=== PATIENT | female | born 1965 | race Caucasian/White ===

== ENCOUNTER → 2018-04-23 | Outpatient (CLI) | payer OTHER ==
--- NOTE | 2018-04-24 11:27 | MM ---
Reason for exam: screening (asymptomatic). Last mammogram was performed 1 year and 11 months ago. History: Family history of breast cancer in maternal grandmother at age 40. Physical Findings: A clinical breast exam by your physician is recommended on an annual basis and results should be correlated with mammographic findings. MG 3D Screening Mammo W/Cad Bilateral CC and MLO view(s) were taken. Prior study comparison: May 19, 2016, mammogram. March 12, 2015, mammogram. The breast tissue is heterogeneously dense. This may lower the sensitivity of mammography. No suspicious abnormality. No significant changes when compared with prior studies. ASSESSMENT: Negative, BI-RAD 1 RECOMMENDATION: Routine screening mammogram of both breasts in 1 year.
== END | disposition home or self-care (01) ==
LOC: RADMAMWWP 09:30
PROVIDERS: ATTEND Internal Medicine
DX: Z12.31 Encounter for screening mammogram for malignant neoplasm of breast (principal)
CPT/HCPCS: 77063; 77067

== ENCOUNTER 2018-12-30 10:57 | Inpatient (IN) | payer OTHER ==
[2018-12-30] MEDS ORDERED: SODIUM CHLORIDE 0.9% 1,000 ML IV STA (11:15)
--- NOTE | 2018-12-30 11:38 | ED ---
General Adult HPI - General Chief complaint: Recheck/Abnormal Lab/Rx Stated complaint: abn labs, lt sided abd pain Time Seen by Provider: 12/30/18 11:15 Source: patient, RN notes reviewed, old records reviewed Mode of arrival: ambulatory Limitations: no limitations - History of Present Illness Initial comments: 53-year-old female patient has no history of hypertension, hyperlipidemia presents to the chief complaint of approximately 4 days of left lower quadrant pain, nausea, diarrhea. Patient has been seen at urgent care for this, was started on ciprofloxacin and Flagyl for reported concern of infectious diarrhea. Patient reports that she also had laboratory investigations done which displayed hypokalemia as well as reported thrombocytopenia. Patient chief complaint as left lower quadrant pain and diarrhea patient also reports that she has had waxing and waning her seizures in the fingertips and toes bilaterally. Denies any focal weakness. Pt states that there is no chance that she can be . Systemic: Pt denies fatigue, fever/chills, rash. Pt denies weakness, night sweats, weight loss. Neuro: Pt denies headache, visual disturbances, syncope or pre-syncope. HEENT: Pt denies ocular discharge or irritation, otalgia, rhinorrhea, pharyngitis or notable lymphadenopathy. Cardiopulmonary: Pt denies chest pain, SOB, heart palpitations, dyspnea on exertion. Abdominal/GI: Pt denies abdominal pain, n/v/d. : Pt denies dysuria, burning w/ urination, frequency/urgency. Denies new onset urinary or bowel incontinence. MSK: Pt denies myalgia, loss of strength or function in extremities. Neuro: Pt denies new onset weakness, paresthesias. - Related Data Home Medications Medication Instructions Recorded Confirmed ALPRAZolam [Xanax] 0.5 mg PO BID 12/30/18 12/30/18 Atorvastatin [Lipitor] 10 mg PO HS 12/30/18 12/30/18 Cholestyramine (with Sugar) 4 gm PO TID 12/30/18 12/30/18 [Cholestyramine Packet] Ciprofloxacin HCl [Cipro] 500 mg PO Q12HR 12/30/18 12/30/18 Hydrochlorothiazide [Hydrodiuril] 25 mg PO DAILY 12/30/18 12/30/18 Metoprolol Tartrate [Lopressor] 50 mg PO BID 12/30/18 12/30/18 Ranitidine HCl 150 mg PO BID 12/30/18 12/30/18 metroNIDAZOLE [Flagyl] 500 mg PO TID 12/30/18 12/30/18 Allergies Allergy/AdvReac Type Severity Reaction Status Date / Time ibuprofen [From Motrin] Allergy Anaphylaxis Verified 12/30/18 13:32 latex Allergy Rash/Hives Verified 12/30/18 13:32 Review of Systems ROS Statement: Those systems with pertinent positive or pertinent negative responses have been documented in the HPI. ROS Other: All systems not noted in ROS Statement are negative. Past Medical History Past Medical History: No Reported History History of Any Multi-Drug Resistant Organisms: None Reported Past Surgical History: No Surgical Hx Reported Past Psychological History: No Psychological Hx Reported Smoking Status: Never smoker Past Alcohol Use History: None Reported Past Drug Use History: None Reported General Exam - General Exam Comments Initial Comments: Constitutional: NAD, AOX3, Pt has pleasant affect. HEENT: NC/AT, trachea midline, neck supple, no lymphadenopathy. Posterior pharynx non erythematous, without exudates. External ears appear normal, without discharge. Mucous membranes moist. Eyes PERRLA, EOM intact. There is no scleral icterus. No pallor noted. Cardiopulmonary: RRR, no murmurs, rubs or gallops, no JVD noted. Lungs CTAB in anterior and posterior torres. No peripheral edema. Abdominal exam: Abdomen soft and non-distended. Abdomen mildly tender to palpation in LLQ, no other areas of abdominal tenderness. Bowel sounds active in LLQ. No hepatosplenomegaly. No ecchymosis Neuro: CN II-XII grossly intact. No nuchal rigidity. No raccon eyes, no ksinner sign, no hemotympanum. No cervical spinal tenderness. MSK: No posterior calf tenderness bilaterally, homans sign negative bilaterally. Posterior tibialis and radial pulse +2 bilaterally. Sensation intact in upper and lower extremities. Full active ROM in upper and lower extremities, 5/5 stregnth. Limitations: no limitations Course Vital Signs 12/30/18 12/30/18 11:11 14:20 Temperature 100.9 F H Pulse Rate 112 H 76 Respiratory 20 16 Rate Blood Pressure 145/92 149/94 O2 Sat by Pulse 98 99 Oximetry Medical Decision Making - Medical Decision Making 53-year-old female patient has no history of hypertension, hyperlipidemia presents to the chief complaint of approximately 4 days of left lower quadrant pain, nausea, diarrhea. Patient has been seen at urgent care for this, was started on ciprofloxacin and Flagyl for reported concern of infectious diarrhea. Patient reports that she also had laboratory investigations done which disp layed hypokalemia as well as reported thrombocytopenia. Patient chief complaint as left lower quadrant pain and diarrhea patient also reports that she has had waxing and waning her seizures in the fingertips and toes bilaterally. Denies any focal weakness. Pt states that there is no chance that she can be . Physical exam displayed: Abdomen soft and non-distended. Abdomen mildly tender to palpation in LLQ, no other areas of abdominal tenderness. Bowel sounds active in LLQ. No hepatosplenomegaly. No ecchymosis. Laboratory investigations revealed mild osteopenia 73. CMP revealed hyponatremia 132, hypokalemia of 2.6, hypocalcemia of 5.1, transaminitis, increased bilirubin, lipase of 1263. CT abdomen and pelvis displayed finding consistent with fairly acute pancreatitis. EKG displayed ventricular rate of 88, prolonged QT. Patient admitted for pancreatitis, calcium and potassium supplemented. Patient nothing by mouth. Maintenence fluids began, case discussed in depth with Dr. Sullivan. - Lab Data Result diagrams: 12/30/18 11:31 12/30/18 11:31 Lab Results 12/30/18 12/30/18 12/30/18 Range/Units 11:31 11:31 11:31 WBC 7.2 (3.8-10.6) k/uL RBC 3.66 L (3.80-5.40) m/uL Hgb 12.9 (11.4-16.0) gm/dL Hct 38.8 (34.0-46.0) % MCV 106.2 H (80.0-100.0) fL MCH 35.4 H (25.0-35.0) pg MCHC 33.3 (31.0-37.0) g/dL RDW 14.8 (11.5-15.5) % Plt Count 73 L (150-450) k/uL Neutrophils % 82 % Lymphocytes % 8 % Monocytes % 7 % Eosinophils % 1 % Basophils % 0 % Neutrophils # 5.9 (1.3-7.7) k/uL Lymphocytes # 0.6 L (1.0-4.8) k/uL Monocytes # 0.5 (0-1.0) k/uL Eosinophils # 0.1 (0-0.7) k/uL Basophils # 0.0 (0-0.2) k/uL Manual Slide Review Performed Macrocytosis Moderate Sodium 132 L (137-145) mmol/L Potassium 2.6 L* (3.5-5.1) mmol/L Chloride 94 L (98-107) mmol/L Carbon Dioxide 25 (22-30) mmol/L Anion Gap 13 mmol/L BUN 14 (7-17) mg/dL Creatinine 0.87 (0.52-1.04) mg/dL Est GFR (CKD-EPI)AfAm 87 (>60 ml/min/1.73 sqM) Est GFR (CKD-EPI)NonAf 75 (>60 ml/min/1.73 sqM) Glucose 138 H (74-99) mg/dL Plasma Lactic Acid Benjie 1.3 (0.7-2.0) mmol/L Calcium 5.1 L* (8.4-10.2) mg/dL Magnesium (1.6-2.3) mg/dL Total Bilirubin 1.9 H (0.2-1.3) mg/dL AST 152 H (14-36) U/L ALT 55 H (9-52) U/L Alkaline Phosphatase 136 H (38-126) U/L Total Protein 7.1 (6.3-8.2) g/dL Albumin 3.7 (3.5-5.0) g/dL Lipase 1263 H (23-300) U/L 12/30/18 Range/Units 11:31 WBC (3.8-10.6) k/uL RBC (3.80-5.40) m/uL Hgb (11.4-16.0) gm/dL Hct (34.0-46.0) % MCV (80.0-100.0) fL MCH (25.0-35.0) pg MCHC (31.0-37.0) g/dL RDW (11.5-15.5) % Plt Count (150-450) k/uL Neutrophils % % Lymphocytes % % Monocytes % % Eosinophils % % Basophils % % Neutrophils # (1.3-7.7) k/uL Lymphocytes # (1.0-4.8) k/uL Monocytes # (0-1.0) k/uL Eosinophils # (0-0.7) k/uL Basophils # (0-0.2) k/uL Manual Slide Review Macrocytosis Sodium (137-145) mmol/L Potassium (3.5-5.1) mmol/L Chloride (98-107) mmol/L Carbon Dioxide (22-30) mmol/L Anion Gap mmol/L BUN (7-17) mg/dL Creatinine (0.52-1.04) mg/dL Est GFR (CKD-EPI)AfAm (>60 ml/min/1.73 sqM) Est GFR (CKD-EPI)NonAf (>60 ml/min/1.73 sqM) Glucose (74-99) mg/dL Plasma Lactic Acid Benjie (0.7-2.0) mmol/L Calcium (8.4-10.2) mg/dL Magnesium 1.2 L (1.6-2.3) mg/dL Total Bilirubin (0.2-1.3) mg/dL AST (14-36) U/L ALT (9-52) U/L Alkaline Phosphatase (38-126) U/L Total Protein (6.3-8.2) g/dL Albumin (3.5-5.0) g/dL Lipase (23-300) U/L Disposition Clinical Impression: Pancreatitis, Hypokalemia, Hypocalcemia Disposition: ADMITTED IP TO THIS [facility] Condition: Serious Is patient prescribed a controlled substance at d/c from ED?: No
[2018-12-30 11:45] LABS: Basophils % (A) 0 %; Eosinophils # (A) 0.1 k/uL (0-0.7); Eosinophils % (A) 1 %; HCT 38.8 % (34.0-46.0); HGB 12.9 gm/dL (11.4-16.0); Lymphocytes # (A) 0.6 k/uL (1.0-4.8); Lymphocytes % (A) 8 %; MCH 35.4 pg (25.0-35.0); MCHC 33.3 g/dL (31.0-37.0); MCV 106.2 fL (80.0-100.0); Macrocytosis Moderate; Mean Platelet Volume 8.7; Monocytes # (A) 0.5 k/uL (0-1.0); Monocytes % (A) 7 %; Neutrophils # (A) 5.9 k/uL (1.3-7.7); Neutrophils % (A) 82 %; RBC 3.66 m/uL (3.80-5.40); RDW 14.8 % (11.5-15.5); WBC 7.2 k/uL (3.8-10.6)
[2018-12-30 11:54] LABS: Albumin 3.7 g/dL (3.5-5.0); Total Bilirubin 1.9 mg/dL (0.2-1.3); Total Protein 7.1 g/dL (6.3-8.2)
[2018-12-30 12:07] LABS: Potassium 2.6 mmol/L (3.5-5.1)
[2018-12-30 12:08] LABS: Calcium 5.1 mg/dL (8.4-10.2)
[2018-12-30 12:13] LABS: Platelet Count 73 k/uL (150-450)
[2018-12-30] MEDS ORDERED: Potassium Replacement Protocol 1 EACH MISC MISCELLANE PRN (12:27)
[2018-12-30] MEDS ORDERED: CALCIUM CHLORIDE 100 MG/ML 10 ML SYRINGE IVP STA (12:29)
--- NOTE | 2018-12-30 12:39 | CT ---
EXAMINATION TYPE: CT abdomen pelvis w con DATE OF EXAM: 12/30/2018 HISTORY: Abnormal labs, Left sided abd pain CT DLP: 730.5mGycm Automated Exposure Control for Dose Reduction was Utilized. CONTRAST: CT scan of the abdomen and pelvis is performed with IV Contrast, patient injected with 100 ml mL of I sovue 300. COMPARISON: None. FINDINGS: LUNG BASES: No significant abnormality is appreciated. LIVER/GB: Liver is diffusely low dense suggesting diffuse fatty infiltration.. PANCREAS: Pancreatic tail is heterogeneous in appearance with diminished enhancement and enlargement. There is marked ill-defined surrounding fluid at this level extending inferiorly all way to the left lower quadrant. No well-formed fluid collection or abscess is identified. SPLEEN: No significant abnormality is seen. ADRENALS: No significant abnormality is seen. KIDNEYS: Symmetric cortical medullary uptake and excretion without hydronephrosis bilaterally. BOWEL: Stomach is poorly distended and thus suboptimally evaluated. Fluid surrounds the stomach with mild to moderate diffuse wall thickening. No suspicious small or large bowel dilatation. A few small bowel loops in the left abdomen are prominent with air-fluid levels.. UTERUS/ADNEXA: Anteverted uterus. Prominent left ovarian draining veins axial image 61 for reference. Cannot exclude underlying pelvic congestion syndrome. LYMPH NODES: No greater than 1cm abdominal or pelvic lymph nodes are appreciated. OSSEOUS STRUCTURES: Moderate disc space narrowing with vacuum disc phenomenon and endplate spurring L 5-S1 level. Multilevel degenerative changes most prominent at L1-L2 level. OTHER: No significant additional abnormality is seen. IMPRESSION: CT findings consistent with a fairly severe acute pancreatitis. Cannot exclude developing necrosis involving the pancreatic tail. No well-formed fluid collection currently. Reactive gastriti s and enteritis felt present.
[2018-12-30] MEDS ORDERED: LORazepam 2 MG/ML INJ IV PRN ×2 (12:41)
[2018-12-30] MEDS ORDERED: THIAMINE 100 MG/ML 2 ML VIAL IM STA (12:41)
[2018-12-30] MEDS: POTASSIUM CHLORIDE ER 20 MEQ TAB.ER PO SCH ×3 (12:42→18:30)
[2018-12-30] MEDS ORDERED: LEVOFLOXACIN 750MG-D5W PMX 750 MG in DEXTROSE/WATER 1 150ML.BAG IVPB STA (12:45)
[2018-12-30] MEDS ORDERED: metroNIDAZOLE-NS PMX 500 MG in SALINE 1 100ML.BAG IVPB STA (12:45)
[2018-12-30] MEDS ORDERED: NALOXONE 0.4 MG/ML 1 ML VIAL IV PRN (13:04)
[2018-12-30] MEDS ORDERED: MORPHINE SULFATE 4 MG/ML SYRINGE IV PRN (13:04)
[2018-12-30] MEDS: POTASSIUM CHLORIDE 20 MEQ in WATER FOR INJECTION 1 100ML.BAG IVPB SCH ×4 (13:19→17:09)
[2018-12-30] MEDS: SODIUM CHLORIDE 0.9% 1,000 ML IV SCH ×2 (13:25→23:45)
--- NOTE | 2018-12-30 14:41 | ED ---
Medical Decision Making - Lab Data Result diagrams: 12/30/18 11:31 12/30/18 11:31 Lab Results 12/30/18 12/30/18 12/30/18 Range/Units 11:31 11:31 11:31 WBC 7.2 (3.8-10.6) k/uL RBC 3.66 L (3.80-5.40) m/uL Hgb 12.9 (11.4-16.0) gm/dL Hct 38.8 (34.0-46.0) % MCV 106.2 H (80.0-100.0) fL MCH 35.4 H (25.0-35.0) pg MCHC 33.3 (31.0-37.0) g/dL RDW 14.8 (11.5-15.5) % Plt Count 73 L (150-450) k/uL Neutrophils % 82 % Lymphocytes % 8 % Monocytes % 7 % Eosinophils % 1 % Basophils % 0 % Neutrophils # 5.9 (1.3-7.7) k/uL Lymphocytes # 0.6 L (1.0-4.8) k/uL Monocytes # 0.5 (0-1.0) k/uL Eosinophils # 0.1 (0-0.7) k/uL Basophils # 0.0 (0-0.2) k/uL Manual Slide Review Performed Macrocytosis Moderate Sodium 132 L (137-145) mmol/L Potassium 2.6 L* (3.5-5.1) mmol/L Chloride 94 L (98-107) mmol/L Carbon Dioxide 25 (22-30) mmol/L Anion Gap 13 mmol/L BUN 14 (7-17) mg/dL Creatinine 0.87 (0.52-1.04) mg/dL Est GFR (CKD-EPI)AfAm 87 (>60 ml/min/1.73 sqM) Est GFR (CKD-EPI)NonAf 75 (>60 ml/min/1.73 sqM) Glucose 138 H (74-99) mg/dL Plasma Lactic Acid Benjie 1.3 (0.7-2.0) mmol/L Calcium 5.1 L* (8.4-10.2) mg/dL Magnesium (1.6-2.3) mg/dL Total Bilirubin 1.9 H (0.2-1.3) mg/dL AST 152 H (14-36) U/L ALT 55 H (9-52) U/L Alkaline Phosphatase 136 H (38-126) U/L Total Protein 7.1 (6.3-8.2) g/dL Albumin 3.7 (3.5-5.0) g/dL Lipase 1263 H (23-300) U/L 12/30/18 Range/Units 11:31 WBC (3.8-10.6) k/uL RBC (3.80-5.40) m/uL Hgb (11.4-16.0) gm/dL Hct (34.0-46.0) % MCV (80.0-100.0) fL MCH (25.0-35.0) pg MCHC (31.0-37.0) g/dL RDW (11.5-15.5) % Plt Count (150-450) k/uL Neutrophils % % Lymphocytes % % Monocytes % % Eosinophils % % Basophils % % Neutrophils # (1.3-7.7) k/uL Lymphocytes # (1.0-4.8) k/uL Monocytes # (0-1.0) k/uL Eosinophils # (0-0.7) k/uL Basophils # (0-0.2) k/uL Manual Slide Review Macrocytosis Sodium (137-145) mmol/L Potassium (3.5-5.1) mmol/L Chloride (98-107) mmol/L Carbon Dioxide (22-30) mmol/L Anion Gap mmol/L BUN (7-17) mg/dL Creatinine (0.52-1.04) mg/dL Est GFR (CKD-EPI)AfAm (>60 ml/min/1.73 sqM) Est GFR (CKD-EPI)NonAf (>60 ml/min/1.73 sqM) Glucose (74-99) mg/dL Plasma Lactic Acid Benjie (0.7-2.0) mmol/L Calcium (8.4-10.2) mg/dL Magnesium 1.2 L (1.6-2.3) mg/dL Total Bilirubin (0.2-1.3) mg/dL AST (14-36) U/L ALT (9-52) U/L Alkaline Phosphatase (38-126) U/L Total Protein (6.3-8.2) g/dL Albumin (3.5-5.0) g/dL Lipase (23-300) U/L - EKG Data -: EKG Interpreted by Me (and Dr. Sullivan ) EKG Comments: Ventricular rate 88, when necessary for 166, QRS 98, QT/QTc 426 T 5:15. Normal sinus rhythm, cannot rule out anterior infarct, age undetermined, prolonged QT, abnormal EKG, no concern for acute ischemia at this time. Disposition Clinical Impression: Pancreatitis, Hypokalemia, Hypocalcemia Disposition: ADMITTED IP TO THIS HOSP Condition: Serious Is patient prescribed a controlled substance at d/c from ED?: No
[2018-12-30 14:58] LABS: Appearance,Urine Clear (Clear); Bacteria,Urine Rare /hpf; Bilirubin,Urine Negative (Negative); Blood,Urine Trace (Negative); Color,Urine Light Yellow; Glucose,Urine (UA) Negative (Negative); Ketones,Urine Trace (Negative); Leukocyte Esterase,Urine Negative (Negative); Mucus,Urine Rare /hpf; Nitrite,Urine Negative (Negative); PH, Urine 6.5 (5.0-8.0); Protein,Urine Negative (Negative); RBC,Urine <1 /hpf (0-5); Specific Gravity,Urine 1.025 (1.001-1.035); Squamous Epithelial Cell,Urine 3 /hpf (0-4); Urobilinogen,Urine <2.0 mg/dL (<2.0); WBC,Urine 1 /hpf (0-5)
[2018-12-30] MEDS ORDERED: ACETAMINOPHEN TAB 325 MG TAB PO STA (15:27)
[2018-12-30 16:15] LABS: ALT 50 U/L (9-52); AST 121 U/L (14-36); African American GFR (CKD) >90 (>60 ml/min/1.73 sqM); Albumin 3.2 g/dL (3.5-5.0); Alkaline Phosphatase 110 U/L (38-126); Anion Gap 11 mmol/L; Blood Urea Nitrogen 11 mg/dL (7-17); Carbon Dioxide 22 mmol/L (22-30); Chloride 102 mmol/L (98-107); Glucose 95 mg/dL (74-99); Potassium 2.9 mmol/L (3.5-5.1); Sodium 135 mmol/L (137-145); Total Bilirubin 1.5 mg/dL (0.2-1.3); Total Protein 6.3 g/dL (6.3-8.2)
[2018-12-30 16:29] LABS: Calcium 5.8 mg/dL (8.4-10.2)
[2018-12-30] MEDS: THIAMINE 100 MG TAB PO SCH ×2 (20:02→20:03)
[2018-12-30] MEDS: POTASSIUM CHLORIDE 10 MEQ in WATER FOR INJECTION 1 100ML.BAG IVPB SCH ×3 (21:13→23:45)
[2018-12-30] MEDS ORDERED: Magnesium Replacement Protocol 1 EACH MISC MISCELLANE PRN (21:28)
[2018-12-30] MEDS ORDERED: CALCIUM CHLORIDE 100 MG/ML 10 ML SYRINGE IVP ONE (22:00)
[2018-12-30] MEDS: MAGNESIUM SULFATE-D5W PMX 1 GM in DEXTROSE/WATER 1 100ML.BAG IVPB SCH ×2 (22:35→23:43)
[2018-12-30] MEDS: ACETAMINOPHEN TAB 325 MG TAB PO PRN (22:56)
[2018-12-30] MEDS: ONDANSETRON 4 MG/2 ML VIAL IVP PRN (22:56)
[2018-12-30] MEDS: LORazepam 2 MG/ML INJ IV PRN (22:57)
--- NOTE | 2018-12-30 23:51 | P.HPIM ---
History of Present Illness H&P Date: 12/30/18 Chief Complaint: Abdominal pain Patient is a 53-year-old female with a known history of alcohol abuse, hypertension, hyperlipidemia came to ER with complaints of abdominal pain mainly left lower quadrant started on 12/26/2018 after finishing her dinner. For the next 2 days patient has been getting worse and patient was seen at urgent care facilityq and was started on Flagyl and ciprofloxacin for possible diverticulitis/infectious diarrhea. Patient presented to ER due to worsening symptoms. Patient is also complaining of pain in the epigastric region as well. Denied any nausea vomiting. Patient Did have diarrhea. No fever no chills.Denied any dysuria or hematuria. Denied any paresthesias. Bilirubin 1.9, calcium 5.1 and potassium 2.9 Elevated liver enzymes and alk phos level. MCV 106.2, platelets 73 and WBC 7.[address] of the abdomen and pelvis showed consistent with fairly severe acute pancreatitis. Cannot exclude developing necrosis involving the pancreatic tail. No well formed fluid collection currently.. Reactive gastritis and enteritis present. Patient was given a dose of Levaquin and Flagyl in the ER. Review of Systems Constitutional: Patient denies any fever or chills . No generalized weakness or weight loss. Abdomen: Charly pain. No nausea vomiting no diarrhea currently.. Cardiovascular: Patient denies any chest pain or short of breath no palpitations. Respiratory: patient denied any cough is from production. No shortness of breath Neurologic: Patient denied any numbness or tingling headache. Musculoskeletal: Patient denies any complaints of joint swelling or deformity. Skin: Negative Psychiatric: Negative Endocrine: No heat or cold intolerance. No recent weight gain. Genitourinary: No dysuria or hematuria. All other 14 point ROS negative except the above Past Medical History Past Medical History: Hypertension History of Any Multi-Drug Resistant Organisms: None Reported Past Surgical History: Section Past Anesthesia/Blood Transfusion Reactions: Postoperative Nausea & Vomiting (PONV) Past Psychological History: No Psychological Hx Reported Smoking Status: Never smoker Past Alcohol Use History: Daily Additional Past Alcohol Use History / Comment(s): pt states she drinks 4 drinks a day. Past Drug Use History: None Reported - Past Family History Mother Family Medical History: Hypertension Father Family Medical History: Coronary Artery Disease (CAD) Medications and Allergies Home Medications Medication Instructions Recorded Confirmed Type ALPRAZolam [Xanax] 0.5 mg PO BID 12/30/18 12/30/18 History Atorvastatin [Lipitor] 10 mg PO HS 12/30/18 12/30/18 History Cholestyramine (with Sugar) 4 gm PO TID 12/30/18 12/30/18 History [Cholestyramine Packet] Ciprofloxacin HCl [Cipro] 500 mg PO Q12HR 12/30/18 12/30/18 History Hydrochlorothiazide [Hydrodiuril] 25 mg PO DAILY 12/30/18 12/30/18 History Metoprolol Tartrate [Lopressor] 50 mg PO BID 12/30/18 12/30/18 History Ranitidine HCl 150 mg PO BID 12/30/18 12/30/18 History metroNIDAZOLE [Flagyl] 500 mg PO TID 12/30/18 12/30/18 History Allergies Allergy/AdvReac Type Severity Reaction Status Date / Time ibuprofen [From Motrin] Allergy Anaphylaxis Verified 12/30/18 13:32 latex Allergy Rash/Hives Verified 12/30/18 13:32 Physical Exam Vitals: Vital Signs Temp Pulse Pulse Resp BP BP Pulse Ox 12/30/18 20:29 164/89 12/30/18 20:11 98.9 F 100 18 168/104 96 12/30/18 18:33 92 16 161/94 99 12/30/18 18:07 97.9 F 90 16 148/94 96 12/30/18 15:12 101.2 F H 92 16 172/97 99 12/30/18 14:20 76 16 149/94 99 12/30/18 11:11 100.9 F H 112 H 20 145/92 98 Intake and Output 12/30/18 12/30/18 12/31/18 14:59 22:59 06:59 Intake Total 1000 Balance 1000 Intake: Intake, IV Titration 1000 Amount Sodium Chloride 0.9% 1, 1000 000 ml @ 999 mls/hr IV . Q1H1M STA Rx#:[id number] Other: # Voids 2 Weight 63.503 kg PHYSICAL EXAMINATION: Patient is lying in the bed comfortably, no acute distress, awake alert and oriented.. HEENT: Normocephalic. Neck is supple. Pupils reactive. Nostrils clear. Oral cavity is moist. Ears reveal no drainage. Neck reveals no JVD, carotid bruits, or thyromegaly. CHEST EXAMINATION: Trachea is central. Symmetrical expansion. Lung torres clear to auscultation and percussion. CARDIAC: Normal S1, S2 with no gallops. No murmurs ABDOMEN: Soft. Epigastric and left upper quadrant tenderness. No guarding no rigidity. Bowel sounds normal. No organomegaly. No abdominal bruits. Extremities: reveal no edema. No clubbing or cyanosis Neurologically awake, alert, oriented x3 with well-coordinated movements. No focal deficits noted Skin: No rash or skin lesions. Psychiatric: Coperative. Nonsuicidal Musculoskeletal: No joint swelling or deformity. Normal range of motion. Results CBC & Chem 7: 12/30/18 11:31 12/30/18 20:18 Labs: Abnormal Lab Results - Last 24 Hours (Table) 12/30/18 12/30/18 12/30/18 Range/Units 11:31 11:31 11:31 RBC 3.66 L (3.80-5.40) m/uL MCV 106.2 H (80.0-100.0) fL MCH 35.4 H (25.0-35.0) pg Plt Count 73 L (150-450) k/uL Lymphocytes # 0.6 L (1.0-4.8) k/uL Sodium 132 L (137-145) mmol/L Potassium 2.6 L* (3.5-5.1) mmol/L Chloride 94 L (98-107) mmol/L Glucose 138 H (74-99) mg/dL Calcium 5.1 L* (8.4-10.2) mg/dL Magnesium 1.2 L (1.6-2.3) mg/dL Total Bilirubin 1.9 H (0.2-1.3) mg/dL AST 152 H (14-36) U/L ALT 55 H (9-52) U/L Alkaline Phosphatase 136 H (38-126) U/L Albumin (3.5-5.0) g/dL Lipase 1263 H (23-300) U/L Urine Ketones (Negative) Urine Blood (Negative) Urine Bacteria (None) /hpf Urine Mucus (None) /hpf 12/30/18 12/30/18 12/30/18 Range/Units 14:20 15:44 20:18 RBC (3.80-5.40) m/uL MCV (80.0-100.0) fL MCH (25.0-35.0) pg Plt Count (150-450) k/uL Lymphocytes # (1.0-4.8) k/uL Sodium 135 L (137-145) mmol/L Potassium 2.9 L 3.4 L (3.5-5.1) mmol/L Chloride (98-107) mmol/L Glucose (74-99) mg/dL Calcium 5.8 L* (8.4-10.2) mg/dL Magnesium (1.6-2.3) mg/dL Total Bilirubin 1.5 H (0.2-1.3) mg/dL AST 121 H (14-36) U/L ALT (9-52) U/L Alkaline Phosphatase (38-126) U/L Albumin 3.2 L (3.5-5.0) g/dL Lipase (23-300) U/L Urine Ketones Trace H (Negative) Urine Blood Trace H (Negative) Urine Bacteria Rare H (None) /hpf Urine Mucus Rare H (None) /hpf Thrombosis Risk Factor Assmnt - DVT/VTE Prophylaxis DVT/VTE Prophylaxis: Pharmacologic Prophylaxis ordered - Choose All That Apply Any of the Below Risk Factors Present?: No Other Risk Factors: No Other congenital or acquired thrombophilia - If yes, enter type in comment: No Thrombosis Risk Factor Assessment Level: Very Low Risk Assessment and Plan Assessment: Acute severe pancreatitis. Possible necrotizing gangrenous cannot be excluded as per CT Severe hypokalemia Severe hypomagnesemia Severe hypokalemia Alcohol abuse Hypertension Hyperlipidemia Macrocytosis and thrombocytopenia secondary to alcohol abuse GI and DVT prophylaxis with early ambulation and SCDs Plan: Patient be continued on pain management with morphine and IV hydration. Nothing by mouth. Replace electrolyte. We'll start on empiric antibiotics. Gen. surgery was consulted. Further recommendations based on the clinical course. Discussed with the patient and her at bedside. Prognosis is guarded with this time. Alcohol abuse has been counseled extensively. Time with Patient: Greater than 30
[2018-12-31] MEDS: MAGNESIUM SULFATE-D5W PMX 1 GM in DEXTROSE/WATER 1 100ML.BAG IVPB SCH (00:49)
[2018-12-31] MEDS: FAMOTIDINE 20 MG/2 ML VIAL IV SCH ×2 (00:49→07:55)
[2018-12-31] MEDS: POTASSIUM CHLORIDE 10 MEQ in WATER FOR INJECTION 1 100ML.BAG IVPB SCH (00:50)
[2018-12-31] MEDS: PIPERACILLIN-TAZOBACTAM 3.375 GM in SODIUM CHLORIDE 0.9% 100 ML IVPB SCH ×4 (02:01→23:31)
[2018-12-31] MEDS: THIAMINE 100 MG TAB PO SCH ×2 (07:55→17:57)
[2018-12-31] MEDS: SODIUM CHLORIDE 0.9% 1,000 ML IV SCH ×2 (07:57→18:57)
[2018-12-31] MEDS: ACETAMINOPHEN TAB 325 MG TAB PO PRN ×3 (07:58→23:40)
[2018-12-31 08:34] LABS: Basophils % (A) 0 %; Eosinophils % (A) 1 %; HCT 34.5 % (34.0-46.0); HGB 11.4 gm/dL (11.4-16.0); Lymphocytes # (A) 0.4 k/uL (1.0-4.8); Lymphocytes % (A) 10 %; MCH 36.6 pg (25.0-35.0); MCHC 33.1 g/dL (31.0-37.0); MCV 110.6 fL (80.0-100.0); Macrocytosis Marked; Mean Platelet Volume 7.8; Monocytes # (A) 0.4 k/uL (0-1.0); Monocytes % (A) 10 %; Neutrophils # (A) 2.9 k/uL (1.3-7.7); Neutrophils % (A) 76 %; RBC 3.12 m/uL (3.80-5.40); RDW 15.2 % (11.5-15.5); WBC 3.8 k/uL (3.8-10.6)
[2018-12-31 08:58] LABS: Platelet Count 72 k/uL (150-450)
[2018-12-31 09:10] LABS: ALT 43 U/L (9-52); AST 86 U/L (14-36); African American GFR (CKD) >90 (>60 ml/min/1.73 sqM); Albumin 2.9 g/dL (3.5-5.0); Alkaline Phosphatase 94 U/L (38-126); Anion Gap 10 mmol/L; Blood Urea Nitrogen 6 mg/dL (7-17); Carbon Dioxide 20 mmol/L (22-30); Chloride 105 mmol/L (98-107); Glucose 116 mg/dL (74-99); Magnesium 2.1 mg/dL (1.6-2.3); Sodium 135 mmol/L (137-145); Total Bilirubin 1.6 mg/dL (0.2-1.3); Total Protein 5.8 g/dL (6.3-8.2)
[2018-12-31 09:31] LABS: Calcium 6.3 mg/dL (8.4-10.2)
[2018-12-31] MEDS: POTASSIUM CHLORIDE ER 20 MEQ TAB.ER PO SCH ×4 (11:52→18:57)
--- NOTE | 2018-12-31 14:26 | P.GSCN ---
History of Present Illness Consult date: 12/31/18 Reason for Consult: Pancreatitis History of present illness: 53-year-old female comes in the hospital with complaints of left-sided pain. Patient states her symptoms began last Monday evening. She had nausea and vomiting as well as left upper quadrant pain. Pain when first starting was in the epigastric region. Today it is improved. She went to urgent care on 2 separate occasions. Because of the persistent discomfort she came to the hospital. CAT scan showed anchored [place] involving primarily the distal aspect of the pancreas. Gallbladder on that study appears fairly normal. Patient admits to alcohol abuse. Now drinking more socially. She has had alcohol recently. Denies any change in the color of her skin urine or stool. She has had nausea and vomiting. She has had diarrhea. Overnight the patient was febrile T-max 101.2. Liver enzymes were mildly elevated initially. Calcium was significantly low. Review of Systems The patient denies any acute changes in vision or hearing, no dysphagia or odynophagia, no chest pain or shortness of breath, no dysuria or hematuria, no headache, no runny nose, no rectal bleeding or melena, no unexplained weight loss Past Medical History Past Medical History: Hypertension History of Any Multi-Drug Resistant Organisms: None Reported Past Surgical History: Section Past Anesthesia/Blood Transfusion Reactions: Postoperative Nausea & Vomiting (PONV) Past Psychological History: No Psychological Hx Reported Smoking Status: Never smoker Past Alcohol Use History: Daily Additional Past Alcohol Use History / Comment(s): pt states she drinks 4 drinks a day. Past Drug Use History: None Reported - Past Family History Mother Family Medical History: Hypertension Father Family Medical History: Coronary Artery Disease (CAD) Medications and Allergies Home Medications Medication Instructions Recorded Confirmed Type ALPRAZolam [Xanax] 0.5 mg PO BID 12/30/18 12/30/18 History Atorvastatin [Lipitor] 10 mg PO HS 12/30/18 12/30/18 History Cholestyramine (with Sugar) 4 gm PO TID 12/30/18 12/30/18 History [Cholestyramine Packet] Ciprofloxacin HCl [Cipro] 500 mg PO Q12HR 12/30/18 12/30/18 History Hydrochlorothiazide [Hydrodiuril] 25 mg PO DAILY 12/30/18 12/30/18 History Metoprolol Tartrate [Lopressor] 50 mg PO BID 12/30/18 12/30/18 History Ranitidine HCl 150 mg PO BID 12/30/18 12/30/18 History metroNIDAZOLE [Flagyl] 500 mg PO TID 12/30/18 12/30/18 History Allergies Allergy/AdvReac Type Severity Reaction Status Date / Time ibuprofen [From Motrin] Allergy Anaphylaxis Verified 12/30/18 13:32 latex Allergy Rash/Hives Verified 12/30/18 13:32 Surgical - Exam Vital Signs Temp Pulse Resp BP Pulse Ox 100.9 F H 112 H 20 145/92 98 12/30/18 11:11 12/30/18 11:11 12/30/18 11:11 12/30/18 11:11 12/30/18 11:11 Physical exam: General: Well-developed, well-nourished HEENT: Normocephalic, sclerae nonicteric Abdomen: Mild distention, left upper quadrant tenderness Extremities: No edema Neuro: Alert and oriented Results - Labs 12/31/18 07:42 12/31/18 07:42 Abnormal Lab Results - Last 24 Hours (Table) 12/30/18 12/30/18 12/30/18 Range/Units 14:20 15:44 20:18 RBC (3.80-5.40) m/uL MCV (80.0-100.0) fL MCH (25.0-35.0) pg Plt Count (150-450) k/uL Lymphocytes # (1.0-4.8) k/uL Macrocytosis Sodium 135 L (137-145) mmol/L Potassium 2.9 L 3.4 L (3.5-5.1) mmol/L Carbon Dioxide (22-30) mmol/L BUN (7-17) mg/dL Glucose (74-99) mg/dL Calcium 5.8 L* (8.4-10.2) mg/dL Total Bilirubin 1.5 H (0.2-1.3) mg/dL AST 121 H (14-36) U/L Total Protein (6.3-8.2) g/dL Albumin 3.2 L (3.5-5.0) g/dL Urine Ketones Trace H (Negative) Urine Blood Trace H (Negative) Urine Bacteria Rare H (None) /hpf Urine Mucus Rare H (None) /hpf 12/31/18 12/31/18 Range/Units 07:42 07:42 RBC 3.12 L (3.80-5.40) m/uL MCV 110.6 H (80.0-100.0) fL MCH 36.6 H (25.0-35.0) pg Plt Count 72 L (150-450) k/uL Lymphocytes # 0.4 L (1.0-4.8) k/uL Macrocytosis Marked A Sodium 135 L (137-145) mmol/L Potassium 3.0 L (3.5-5.1) mmol/L Carbon Dioxide 20 L (22-30) mmol/L BUN 6 L (7-17) mg/dL Glucose 116 H (74-99) mg/dL Calcium 6.3 L* (8.4-10.2) mg/dL Total Bilirubin 1.6 H (0.2-1.3) mg/dL AST 86 H (14-36) U/L Total Protein 5.8 L (6.3-8.2) g/dL Albumin 2.9 L (3.5-5.0) g/dL Urine Ketones (Negative) Urine Blood (Negative) Urine Bacteria (None) /hpf Urine Mucus (None) /hpf Diabetes panel 12/30/18 12/30/18 12/31/18 Range/Units 15:44 20:18 07:42 Sodium 135 L 135 L (137-145) mmol/L Potassium 2.9 L 3.4 L 3.0 L (3.5-5.1) mmol/L Chloride 102 105 (98-107) mmol/L Carbon Dioxide 22 20 L (22-30) mmol/L BUN 11 6 L (7-17) mg/dL Creatinine 0.77 0.64 (0.52-1.04) mg/dL Glucose 95 116 H (74-99) mg/dL Calcium 5.8 L* 6.3 L* (8.4-10.2) mg/dL AST 121 H 86 H (14-36) U/L ALT 50 43 (9-52) U/L Alkaline Phosphatase 110 94 (38-126) U/L Total Protein 6.3 5.8 L (6.3-8.2) g/dL Albumin 3.2 L 2.9 L (3.5-5.0) g/dL Calcium panel 08/25/19 08/26/19 Range/Units 15:44 07:42 Calcium 5.8 L* 6.3 L* (8.4-10.2) mg/dL Albumin 3.2 L 2.9 L (3.5-5.0) g/dL Pituitary panel 12/30/18 12/30/18 12/31/18 Range/Units 15:44 20:18 07:42 Sodium 135 L 135 L (137-145) mmol/L Potassium 2.9 L 3.4 L 3.0 L (3.5-5.1) mmol/L Chloride 102 105 (98-107) mmol/L Carbon Dioxide 22 20 L (22-30) mmol/L BUN 11 6 L (7-17) mg/dL Creatinine 0.77 0.64 (0.52-1.04) mg/dL Glucose 95 116 H (74-99) mg/dL Calcium 5.8 L* 6.3 L* (8.4-10.2) mg/dL Adrenal panel 12/30/18 12/30/18 12/31/18 Range/Units 15:44 20:18 07:42 Sodium 135 L 135 L (137-145) mmol/L Potassium 2.9 L 3.4 L 3.0 L (3.5-5.1) mmol/L Chloride 102 105 (98-107) mmol/L Carbon Dioxide 22 20 L (22-30) mmol/L BUN 11 6 L (7-17) mg/dL Creatinine 0.77 0.64 (0.52-1.04) mg/dL Glucose 95 116 H (74-99) mg/dL Calcium 5.8 L* 6.3 L* (8.4-10.2) mg/dL Total Bilirubin 1.5 H 1.6 H (0.2-1.3) mg/dL AST 121 H 86 H (14-36) U/L ALT 50 43 (9-52) U/L Alkaline Phosphatase 110 94 (38-126) U/L Total Protein 6.3 5.8 L (6.3-8.2) g/dL Albumin 3.2 L 2.9 L (3.5-5.0) g/dL Assessment and Plan (1) Pancreatitis Narrative/Plan: Patient with impressive degree of pancreatitis on CAT scan. Symptoms thankfully improving. We'll check abdominal ultrasound to evaluate for cholelithiasis. Keep nothing by mouth for now. Recheck labs tomorrow. Continue IV hydration. Current Visit: Yes Status: Acute Code(s): K85.90 - ACUTE PANCREATITIS WITHOUT NECROSIS OR INFECTION, UNSP SNOMED Code(s): 61796600
--- NOTE | 2018-12-31 15:19 | US ---
EXAMINATION TYPE: US gallbladder DATE OF EXAM: 12/31/2018 COMPARISON: NONE CLINICAL HISTORY: Pancreatitis. abd pain, vomiting EXAM MEASUREMENTS: Liver Length: 16.3 cm Gallbladder Wall: 0.2 cm CBD: 0.5 cm Right Kidney: 11.7 x 5.5 x 4.8 cm Pancreas: Head and body of the pancreas appears normal. Tail of pancreas is somewhat limited due to positioning. Some mild edema is not excluded. Liver: Some mild fatty infiltration is within the liver. Mild hepatomegaly is present. Gallbladder: wnl Evidence for sonographic Carson's sign: no CBD: wnl Right Kidney: wnl IMPRESSION: 1. Mild pancreatitis of the tail of the pancreas cannot be excluded. 2. Mild fatty infiltration and hepatomegaly.
[2018-12-31] MEDS: FAMOTIDINE 20 MG TAB PO SCH (20:27)
--- NOTE | 2018-12-31 22:28 | P.PN ---
Subjective Progress Note Date: 12/31/18 Principal diagnosis: Acute severe pancreatitis Patient is a 53-year-old female with a known history of alcohol abuse, hypertension, hyperlipidemia came to ER with complaints of abdominal pain mainly left lower quadrant started on 12/26/2018 after finishing her dinner. For the n ext 2 days patient has been getting worse and patient was seen at urgent care facilityq and was started on Flagyl and ciprofloxacin for possible diverticulitis/infectious diarrhea. Patient presented to ER due to worsening symptoms. Patient is also complaining of pain in the epigastric region as well. Denied any nausea vomiting. Patient Did have diarrhea. No fever no chills.Denied any dysuria or hematuria. Denied any paresthesias. Bilirubin 1.9, calcium 5.1 and potassium 2.9 Elevated liver enzymes and alk phos level. MCV 106.2, platelets 73 and WBC 7.[address] of the abdomen and pelvis showed consistent with fairly severe acute pancreatitis. Cannot exclude developing necrosis involving the pancreatic tail. No well formed fluid collection currently.. Reactive gastritis and enteritis present. Patient was given a dose of Levaquin and Flagyl in the ER. 12/31/2018 Patient says that her abdominal pain is better today. Otherwise continued on IV antibiotics, IV fluids and IV pain medications. Patient was seen by general surgery and ultrasound ABDOMEN WAS ORDERED TO RULE OUT CHOLELITHIASIS. No fever no chills. Potassium level Is improved now. Objective - Vital Signs Vital signs: Vital Signs Temp 98.5 F 12/31/18 20:47 Pulse 86 12/31/18 20:47 Resp 17 12/31/18 20:47 BP 138/76 12/31/18 20:47 Pulse Ox 97 12/31/18 20:47 Intake & Output 12/31/18 12/31/18 01/01/19 06:59 18:59 06:59 Intake Total 2250 Balance 2250 Intake: Intake, IV Titration 2250 Amount Sodium Chloride 0.9% 1, 1250 000 ml @ 125 mls/hr IV . Q8H SAYDA Rx#:[id number] Sodium Chloride 0.9% 1, 1000 000 ml @ 999 mls/hr IV . Q1H1M STA Rx#:[id number] Other: # Voids 2 1 2 - Exam PHYSICAL EXAMINATION: Patient is lying in the bed comfortably, no acute distress, awake alert and oriented.. HEENT: Normocephalic. Neck is supple. Pupils reactive. Nostrils clear. Oral cavity is moist. Ears reveal no drainage. Neck reveals no JVD, carotid bruits, or thyromegaly. CHEST EXAMINATION: Trachea is central. Symmetrical expansion. Lung torres clear to auscultation and percussion. CARDIAC: Normal S1, S2 with no gallops. No murmurs ABDOMEN: Soft. Epigastric and left upper quadrant mild tenderness. Bowel sounds normal. No organomegaly. No abdominal bruits. Extremities: reveal no edema. No clubbing or cyanosis Neurologically awake, alert, oriented x3 with well-coordinated movements. No focal deficits noted Skin: No rash or skin lesions. Psychiatric: Coperative. Nonsuicidal Musculoskeletal: No joint swelling or deformity. Normal range of motion. - Labs CBC & Chem 7: 12/31/18 07:42 12/31/18 20:21 Labs: Abnormal Lab Results - Last 24 Hours (Table) 12/31/18 12/31/18 12/31/18 Range/Units 07:42 07:42 13:53 RBC 3.12 L (3.80-5.40) m/uL MCV 110.6 H (80.0-100.0) fL MCH 36.6 H (25.0-35.0) pg Plt Count 72 L (150-450) k/uL Lymphocytes # 0.4 L (1.0-4.8) k/uL Macrocytosis Marked A Sodium 135 L (137-145) mmol/L Potassium 3.0 L 3.0 L (3.5-5.1) mmol/L Carbon Dioxide 20 L (22-30) mmol/L BUN 6 L (7-17) mg/dL Glucose 116 H (74-99) mg/dL Calcium 6.3 L* (8.4-10.2) mg/dL Total Bilirubin 1.6 H (0.2-1.3) mg/dL AST 86 H (14-36) U/L Total Protein 5.8 L (6.3-8.2) g/dL Albumin 2.9 L (3.5-5.0) g/dL Assessment and Plan Assessment: Acute severe pancreatitis. Possible necrotizing gangrenous cannot be excluded as per CT Severe hypokalemia Severe hypomagnesemia Severe hypokalemia Alcohol abuse Hypertension Hyperlipidemia Macrocytosis and thrombocytopenia secondary to alcohol abuse GI and DVT prophylaxis with early ambulation and SCDs Plan: Patient be continued on pain management with morphine and IV hydration. Nothing by mouth. Replace electrolyte. We will on empiric antibiotics. Gen. surgery has seen the patient. Ultrasound of the abdomen was ordered to rule out cholelithiasis.. Further recommendations based on the clinical course. Discussed with the pa ju and her at bedside. Prognosis is guarded with this time. Alcohol abuse has been counseled extensively. Time with Patient: Greater than 30
[2018-12-31] MEDS: ONDANSETRON 4 MG/2 ML VIAL IVP PRN (23:40)
[2018-12-31] MEDS: LORazepam 2 MG/ML INJ IV PRN (23:40)
[2019-01-01] MEDS: FAMOTIDINE 20 MG TAB PO SCH ×2 (08:06→19:04)
[2019-01-01] MEDS: ACETAMINOPHEN TAB 325 MG TAB PO PRN ×2 (08:07→19:03)
[2019-01-01] MEDS: PIPERACILLIN-TAZOBACTAM 3.375 GM in SODIUM CHLORIDE 0.9% 100 ML IVPB SCH ×3 (08:07→23:56)
[2019-01-01] MEDS: THIAMINE 100 MG TAB PO SCH ×2 (08:07→18:43)
[2019-01-01] MEDS: SODIUM CHLORIDE 0.9% 1,000 ML IV SCH ×4 (08:08→23:59)
[2019-01-01 08:10] LABS: HCT 33.2 % (34.0-46.0); MCH 36.8 pg (25.0-35.0); MCHC 33.1 g/dL (31.0-37.0); MCV 111.3 fL (80.0-100.0); Macrocytosis Marked; Mean Platelet Volume 7.9; RBC 2.98 m/uL (3.80-5.40); WBC 4.8 k/uL (3.8-10.6)
[2019-01-01 08:23] LABS: Platelet Count 94 k/uL (150-450)
[2019-01-01 08:42] LABS: ALT 43 U/L (9-52); AST 71 U/L (14-36); African American GFR (CKD) >90 (>60 ml/min/1.73 sqM); Albumin 2.8 g/dL (3.5-5.0); Alkaline Phosphatase 89 U/L (38-126); Anion Gap 14 mmol/L; Blood Urea Nitrogen 4 mg/dL (7-17); Carbon Dioxide 16 mmol/L (22-30); Chloride 105 mmol/L (98-107); Glucose 63 mg/dL (74-99); Potassium 3.5 mmol/L (3.5-5.1); Sodium 135 mmol/L (137-145); Total Bilirubin 1.4 mg/dL (0.2-1.3); Total Protein 5.7 g/dL (6.3-8.2)
[2019-01-01 09:01] LABS: Calcium 6.4 mg/dL (8.4-10.2)
[2019-01-01 10:59] LABS: Band Neutrophils % 6 %; Eosinophils # (M) 0.05 k/uL (0-0.7); Lymphocytes # (M) 0.38 k/uL (1.0-4.8); Metamyelocytes # (M) 0.05 k/uL (0); Metamyelocytes % 1 %; Monocytes # (M) 0.53 k/uL (0-1.0); Neutrophils % (M) 75 %; Nucleated Red Blood Cells 0 /100 WBC (0-0); Total Cells Counted 200
[2019-01-01 11:00] LABS: Anisocytosis (M) Present; Poikilocytosis (M) Present; Toxic Vacuolation Present
[2019-01-01] MEDS: POTASSIUM CHLORIDE ER 20 MEQ TAB.ER PO SCH ×2 (12:51→14:13)
--- NOTE | 2019-01-01 17:54 | P.PN ---
Subjective Progress Note Date: 01/01/19 Principal diagnosis: Pancreatitis Patient says she feels better today. T-max 101. White blood cell count 4.8. Small amount of bandemia present on CBC. Calcium remains low. Gallbladder ultrasound negative for stones. Objective - Vital Signs Vital signs: Vital Signs Temp 99.4 F 01/01/19 15:00 Pulse 93 01/01/19 15:00 Resp 17 01/01/19 15:00 BP 171/94 01/01/19 15:00 Pulse Ox 97 01/01/19 15:00 Intake & Output 12/31/18 01/01/19 01/01/19 18:59 06:59 18:59 Other: # Voids 1 0 2 - Exam Abdomen: Soft, nondistended, mild epigastric tenderness - Labs CBC & Chem 7: 01/01/19 07:14 01/01/19 07:14 Labs: Abnormal Lab Results - Last 24 Hours (Table) 01/01/19 01/01/19 Range/Units 07:14 07:14 RBC 2.98 L (3.80-5.40) m/uL Hgb 11.0 L (11.4-16.0) gm/dL Hct 33.2 L (34.0-46.0) % MCV 111.3 H (80.0-100.0) fL MCH 36.8 H (25.0-35.0) pg Plt Count 94 L (150-450) k/uL Lymphocytes # (Manual) 0.38 L (1.0-4.8) k/uL Metamyelocytes # (Man) 0.05 H (0) k/uL Macrocytosis Marked A Sodium 135 L (137-145) mmol/L Carbon Dioxide 16 L (22-30) mmol/L BUN 4 L (7-17) mg/dL Glucose 63 L (74-99) mg/dL Calcium 6.4 L* (8.4-10.2) mg/dL Total Bilirubin 1.4 H (0.2-1.3) mg/dL AST 71 H (14-36) U/L Total Protein 5.7 L (6.3-8.2) g/dL Albumin 2.8 L (3.5-5.0) g/dL Assessment and Plan (1) Pancreatitis Narrative/Plan: Patient with EtOH-induced pancreatitis. Discussed, patient pancreatitis including fistula, ascites, bleeding, necrosis, and infection. So far the patient seems to be improving gradually. Monitor fevers. Repeat labs tomorrow. Keep nothing by mouth. Current Visit: Yes Status: Acute Code(s): K85.90 - ACUTE PANCREATITIS WITHOUT NECROSIS OR INFECTION, UNSP SNOMED Code(s): 19479499
[2019-01-01] MEDS: ATORVASTATIN 10 MG TAB PO SCH (19:04)
[2019-01-01] MEDS: METOPROLOL TARTRATE 50 MG TAB PO SCH (19:04)
[2019-01-01] MEDS ORDERED: NON-FORMULARY DRUG (Ranitidine Hcl [Ranitidine Hcl] 150 MG) PO SCH (21:00)
[2019-01-01] MEDS ORDERED: ALPRAZolam 0.5 MG TAB PO SCH (21:00)
--- NOTE | 2019-01-01 23:34 | P.PN ---
Subjective Progress Note Date: 01/01/19 Principal diagnosis: Acute severe pancreatitis Patient is a 53-year-old female with a known history of alcohol abuse, hypertension, hyperlipidemia came to ER with complaints of abdominal pain mainly left lower quadrant started on 12/26/2018 after finishing her dinner. For the n ext 2 days patient has been getting worse and patient was seen at urgent care facilityq and was started on Flagyl and ciprofloxacin for possible diverticulitis/infectious diarrhea. Patient presented to ER due to worsening symptoms. Patient is also complaining of pain in the epigastric region as well. Denied any nausea vomiting. Patient Did have diarrhea. No fever no chills.Denied any dysuria or hematuria. Denied any paresthesias. Bilirubin 1.9, calcium 5.1 and potassium 2.9 Elevated liver enzymes and alk phos level. MCV 106.2, platelets 73 and WBC 7.[address] of the abdomen and pelvis showed consistent with fairly severe acute pancreatitis. Cannot exclude developing necrosis involving the pancreatic tail. No well formed fluid collection currently.. Reactive gastritis and enteritis present. Patient was given a dose of Levaquin and Flagyl in the ER. 12/31/2018 Patient says that her abdominal pain is better today. Otherwise continued on IV antibiotics, IV fluids and IV pain medications. Patient was seen by general surgery and ultrasound ABDOMEN WAS ORDERED TO RULE OUT CHOLELITHIASIS. No fever no chills. Potassium level Is improved now. 01/01/2019 Patient says that her abdominal pain is better today. Abdomen is still bloated otherwise. Patient is being continued on IV hydration and pain management. Nothing by mouth. Ultrasound of the abdomen showed no evidence of cholelithiasis. General surgery is following. Replace electrolyte. Otherwise patient denied any chest pain or shortness of breath. No nausea vomiting no diarrhea. Continued on empiric antibiotics in the form of Zosyn. Current medications reviewed. Objective - Vital Signs Vital signs: Vital Signs Temp 98.5 F 01/01/19 22:35 Pulse 87 01/01/19 20:47 Resp 17 01/01/19 20:47 BP 159/82 01/01/19 22:34 Pulse Ox 95 01/01/19 20:47 Intake & Output 01/01/19 01/01/19 01/02/19 06:59 18:59 06:59 Other: # Voids 0 2 1 - Exam PHYSICAL EXAMINATION: Patient is lying in the bed comfortably, no acute distress, awake alert and oriented.. HEENT: Normocephalic. Neck is supple. Pupils reactive. Nostrils clear. Oral cavity is moist. Ears reveal no drainage. Neck reveals no JVD, carotid bruits, or thyromegaly. CHEST EXAMINATION: Trachea is central. Symmetrical expansion. Lung torres clear to auscultation and percussion. CARDIAC: Normal S1, S2 with no gallops. No murmurs ABDOMEN: Soft. Epigastric and left upper quadrant mild tenderness. Distended abdomen. Bowel sounds normal. No organomegaly. No abdominal bruits. Extremities: reveal no edema. No clubbing or cyanosis Neurologically awake, alert, oriented x3 with well-coordinated movements. No focal deficits noted Skin: No rash or skin lesions. Psychiatric: Coperative. Nonsuicidal Musculoskeletal: No joint swelling or deformity. Normal range of motion. - Labs CBC & Chem 7: 01/01/19 07:14 01/01/19 07:14 Labs: Abnormal Lab Results - Last 24 Hours (Table) 01/01/19 01/01/19 Range/Units 07:14 07:14 RBC 2.98 L (3.80-5.40) m/uL Hgb 11.0 L (11.4-16.0) gm/dL Hct 33.2 L (34.0-46.0) % MCV 111.3 H (80.0-100.0) fL MCH 36.8 H (25.0-35.0) pg Plt Count 94 L (150-450) k/uL Lymphocytes # (Manual) 0.38 L (1.0-4.8) k/uL Metamyelocytes # (Man) 0.05 H (0) k/uL Macrocytosis Marked A Sodium 135 L (137-145) mmol/L Carbon Dioxide 16 L (22-30) mmol/L BUN 4 L (7-17) mg/dL Glucose 63 L (74-99) mg/dL Calcium 6.4 L* (8.4-10.2) mg/dL Total Bilirubin 1.4 H (0.2-1.3) mg/dL AST 71 H (14-36) U/L Total Protein 5.7 L (6.3-8.2) g/dL Albumin 2.8 L (3.5-5.0) g/dL Assessment and Plan Assessment: Acute severe pancreatitis. Possible necrotizing gangrenous cannot be excluded as per CT Severe hypokalemia Severe hypomagnesemia Severe hypokalemia Alcohol abuse Hypertension Hyperlipidemia Macrocytosis and thrombocytopenia secondary to alcohol abuse GI and DVT prophylaxis with early ambulation and SCDs Plan: Patient be continued on pain management with morphine and IV hydration. Nothing by mouth. Replaced electrolyte. We will continue on empiric antibiotics. Gen. surgery has seen the patient. Ultrasound of the abdomen was ordered to rule out cholelithiasis.. Evidence of cholelithiasis. Further recommendations based on the clinical course. Prognosis is guarded with this time. Alcohol abuse has been counseled extensively. Time with Patient: Greater than 30
[2019-01-01] MEDS: ONDANSETRON 4 MG/2 ML VIAL IVP PRN (23:56)
[2019-01-01] MEDS: LORazepam 2 MG/ML INJ IV PRN (23:57)
[2019-01-02] MEDS: THIAMINE 100 MG TAB PO SCH ×2 (08:48→20:46)
[2019-01-02] MEDS: PIPERACILLIN-TAZOBACTAM 3.375 GM in SODIUM CHLORIDE 0.9% 100 ML IVPB SCH ×2 (08:48→17:52)
[2019-01-02] MEDS: FAMOTIDINE 20 MG TAB PO SCH ×2 (08:48→20:46)
[2019-01-02] MEDS: HYDROCHLOROTHIAZIDE 25 MG TAB PO SCH (08:48)
[2019-01-02] MEDS: METOPROLOL TARTRATE 50 MG TAB PO SCH ×2 (08:48→20:46)
[2019-01-02 09:21] LABS: Basophils % (A) 0 %; Eosinophils % (A) 0 %; HCT 34.4 % (34.0-46.0); HGB 11.4 gm/dL (11.4-16.0); Lymphocytes # (A) 0.6 k/uL (1.0-4.8); Lymphocytes % (A) 9 %; MCH 36.9 pg (25.0-35.0); MCV 111.9 fL (80.0-100.0); Macrocytosis Marked; Monocytes # (A) 0.5 k/uL (0-1.0); Monocytes % (A) 7 %; Neutrophils # (A) 5.5 k/uL (1.3-7.7); Neutrophils % (A) 81 %; Platelet Count 128 k/uL (150-450); RBC 3.08 m/uL (3.80-5.40); WBC 6.8 k/uL (3.8-10.6)
[2019-01-02 09:34] LABS: ALT 38 U/L (9-52); AST 90 U/L (14-36); African American GFR (CKD) >90 (>60 ml/min/1.73 sqM); Albumin 2.8 g/dL (3.5-5.0); Alkaline Phosphatase 91 U/L (38-126); Anion Gap 11 mmol/L; Blood Urea Nitrogen 3 mg/dL (7-17); Calcium 6.6 mg/dL (8.4-10.2); Carbon Dioxide 19 mmol/L (22-30); Chloride 103 mmol/L (98-107); Glucose 73 mg/dL (74-99); Potassium 3.6 mmol/L (3.5-5.1); Sodium 133 mmol/L (137-145); Total Bilirubin 1.3 mg/dL (0.2-1.3); Total Protein 5.7 g/dL (6.3-8.2)
--- NOTE | 2019-01-02 12:32 | P.PN ---
Subjective Progress Note Date: 01/02/19 Principal diagnosis: Pancreatitis Patient feels slightly better. Pain still left-sided. T-max 101. WBC 6.8. Objective - Vital Signs Vital signs: Vital Signs Temp 102.3 F H 01/02/19 07:00 Pulse 117 H 01/02/19 08:45 Resp 17 01/02/19 08:45 BP 173/100 01/02/19 07:00 Pulse Ox 96 01/02/19 07:00 Intake & Output 01/01/19 01/02/19 01/02/19 18:59 06:59 18:59 Other: # Voids 2 1 1 - Exam Abdomen: Soft, mild epigastric and left upper quadrant tenderness - Labs CBC & Chem 7: 01/02/19 08:53 01/02/19 08:53 Labs: Abnormal Lab Results - Last 24 Hours (Table) 01/02/19 01/02/19 Range/Units 08:53 08:53 RBC 3.08 L (3.80-5.40) m/uL MCV 111.9 H (80.0-100.0) fL MCH 36.9 H (25.0-35.0) pg Plt Count 128 L (150-450) k/uL Lymphocytes # 0.6 L (1.0-4.8) k/uL Macrocytosis Marked A Sodium 133 L (137-145) mmol/L Carbon Dioxide 19 L (22-30) mmol/L BUN 3 L (7-17) mg/dL Glucose 73 L (74-99) mg/dL Calcium 6.6 L (8.4-10.2) mg/dL AST 90 H (14-36) U/L Total Protein 5.7 L (6.3-8.2) g/dL Albumin 2.8 L (3.5-5.0) g/dL Assessment and Plan (1) Pancreatitis Narrative/Plan: Patient clinically improving. Still having fevers however. Continue Zosyn empirically. Continue clear liquids for now. Current Visit: Yes Status: Acute Code(s): K85.90 - ACUTE PANCREATITIS WITH OUT NECROSIS OR INFECTION, UNSP SNOMED Code(s): 94229530
[2019-01-02] MEDS: ACETAMINOPHEN TAB 325 MG TAB PO PRN (17:53)
[2019-01-02] MEDS: SODIUM CHLORIDE 0.9% 1,000 ML IV SCH ×2 (20:34→20:46)
[2019-01-02] MEDS: ATORVASTATIN 10 MG TAB PO SCH (20:46)
[2019-01-03] MEDS: ACETAMINOPHEN TAB 325 MG TAB PO PRN ×3 (00:47→20:03)
[2019-01-03] MEDS: PIPERACILLIN-TAZOBACTAM 3.375 GM in SODIUM CHLORIDE 0.9% 100 ML IVPB SCH ×4 (00:47→23:12)
[2019-01-03] MEDS: SODIUM CHLORIDE 0.9% 1,000 ML IV SCH ×2 (04:07→19:35)
[2019-01-03 08:01] LABS: Magnesium 1.3 mg/dL (1.6-2.3); Potassium 3.1 mmol/L (3.5-5.1)
[2019-01-03] MEDS: FAMOTIDINE 20 MG TAB PO SCH ×2 (08:37→20:03)
[2019-01-03] MEDS: THIAMINE 100 MG TAB PO SCH ×2 (08:37→16:24)
[2019-01-03] MEDS: HYDROCHLOROTHIAZIDE 25 MG TAB PO SCH (08:37)
[2019-01-03] MEDS: METOPROLOL TARTRATE 50 MG TAB PO SCH ×2 (08:37→20:03)
--- NOTE | 2019-01-03 11:04 | P.PN ---
Subjective Progress Note Date: 01/03/19 Principal diagnosis: Pancreatitis Patient feels better today. Says her pain is much improved. She is hungry now. T-max 100.4. No labs yet Objective - Vital Signs Vital signs: Vital Signs Temp 100.4 F H 01/03/19 07:00 Pulse 95 01/03/19 08:25 Resp 14 01/03/19 08:25 BP 176/77 01/03/19 07:00 Pulse Ox 97 01/03/19 07:00 Intake & Output 01/02/19 01/03/19 01/03/19 18:59 06:59 18:59 Intake Total 1300 Balance 1300 Intake: Intake, IV Titration 900 Amount Piperacillin-Tazobactam 3 100 .375 gm In Sodium Chloride 0.9% 100 ml @ 25 mls/hr IVPB Q8HR SAYDA Rx# :[id number] Sodium Chloride 0.9% 1, 800 000 ml @ 125 mls/hr IV . Q8H SAYDA Rx#:[id number] Oral 400 Other: Voiding Method Toilet Toilet # Voids 3 3 - Exam Abdomen: Soft, nondistended, left upper quadrant tenderness noted - Labs CBC & Chem 7: 01/02/19 08:53 01/03/19 07:11 Labs: Abnormal Lab Results - Last 24 Hours (Table) 01/03/19 Range/Units 07:11 Potassium 3.1 L (3.5-5.1) mmol/L Magnesium 1.3 L (1.6-2.3) mg/dL Assessment and Plan (1) Pancreatitis Narrative/Plan: Check daily labs. Advance diet to full liquids. Discharge later today or to [facility]. Current Visit: Yes Status: Acute Code(s): K85.90 - ACUTE PANCREATITIS WITHOUT NECROSIS OR INFECTION, UNSP SNOMED Code(s): 73655104
[2019-01-03 11:27] LABS: Basophils % (A) 0 %; Eosinophils # (A) 0.1 k/uL (0-0.7); Eosinophils % (A) 1 %; HCT 31.3 % (34.0-46.0); HGB 10.8 gm/dL (11.4-16.0); Lymphocytes # (A) 0.5 k/uL (1.0-4.8); Lymphocytes % (A) 7 %; MCH 38.3 pg (25.0-35.0); MCHC 34.4 g/dL (31.0-37.0); MCV 111.1 fL (80.0-100.0); Macrocytosis Marked; Mean Platelet Volume 8.5; Monocytes # (A) 0.4 k/uL (0-1.0); Monocytes % (A) 5 %; Neutrophils % (A) 85 %; Platelet Count 143 k/uL (150-450); RBC 2.81 m/uL (3.80-5.40); RDW 15.6 % (11.5-15.5); WBC 7.1 k/uL (3.8-10.6)
[2019-01-03 11:39] LABS: ALT 40 U/L (9-52); AST 102 U/L (14-36); African American GFR (CKD) >90 (>60 ml/min/1.73 sqM); Albumin 2.5 g/dL (3.5-5.0); Alkaline Phosphatase 77 U/L (38-126); Anion Gap 7 mmol/L; Blood Urea Nitrogen 2 mg/dL (7-17); Calcium 6.8 mg/dL (8.4-10.2); Carbon Dioxide 25 mmol/L (22-30); Chloride 102 mmol/L (98-107); Glucose 88 mg/dL (74-99); Sodium 134 mmol/L (137-145); Total Bilirubin 1.1 mg/dL (0.2-1.3); Total Protein 5.1 g/dL (6.3-8.2)
[2019-01-03] MEDS ORDERED: POTASSIUM CHLORIDE ER 20 MEQ TAB.ER PO STA (14:16)
[2019-01-03] MEDS: hydrALAZINE HCL 20 MG/ML 1 ML VIAL IVP PRN (15:03)
[2019-01-03] MEDS: MAGNESIUM SULFATE-D5W PMX 1 GM in DEXTROSE/WATER 1 100ML.BAG IVPB SCH ×2 (15:03→16:21)
[2019-01-03] MEDS: ATORVASTATIN 10 MG TAB PO SCH (20:03)
--- NOTE | 2019-01-04 00:44 | P.PN ---
Subjective Progress Note Date: 01/02/19 Principal diagnosis: Acute severe pancreatitis Patient is a 53-year-old female with a known history of alcohol abuse, hypertension, hyperlipidemia came to ER with complaints of abdominal pain mainly left lower quadrant started on 12/26/2018 after finishing her dinner. For the n ext 2 days patient has been getting worse and patient was seen at urgent care facilityq and was started on Flagyl and ciprofloxacin for possible diverticulitis/infectious diarrhea. Patient presented to ER due to worsening symptoms. Patient is also complaining of pain in the epigastric region as well. Denied any nausea vomiting. Patient Did have diarrhea. No fever no chills.Denied any dysuria or hematuria. Denied any paresthesias. Bilirubin 1.9, calcium 5.1 and potassium 2.9 Elevated liver enzymes and alk phos level. MCV 106.2, platelets 73 and WBC 7.[address] of the abdomen and pelvis showed consistent with fairly severe acute pancreatitis. Cannot exclude developing necrosis involving the pancreatic tail. No well formed fluid collection currently.. Reactive gastritis and enteritis present. Patient was given a dose of Levaquin and Flagyl in the ER. 12/31/2018 Patient says that her abdominal pain is better today. Otherwise continued on IV antibiotics, IV fluids and IV pain medications. Patient was seen by general surgery and ultrasound ABDOMEN WAS ORDERED TO RULE OUT CHOLELITHIASIS. No fever no chills. Potassium level Is improved now. 01/01/2019 Patient says that her abdominal pain is better today. Abdomen is still bloated otherwise. Patient is being continued on IV hydration and pain management. Nothing by mouth. Ultrasound of the abdomen showed no evidence of cholelithiasis. General surgery is following. Replace electrolyte. Otherwise patient denied any chest pain or shortness of breath. No nausea vomiting no diarrhea. Continued on empiric antibiotics in the form of Zosyn. 01/02/2019 Patient says that her abdominal pain is improving. Not to her baseline. Still having abdominal distention. Currently was started on liquid diet and is naty erating well. We will reduce IV hydration. Otherwise continue the pain management and advance diet as tolerated. Symptomatic management for nausea and vomiting. Empiric antibiotics in the form of Zosyn. General surgery is following. No fever no chills. Current medications reviewed. Objective - Vital Signs Vital signs: Vital Signs Temp 99.7 F H 01/02/19 19:58 Pulse 94 01/02/19 19:58 Resp 17 01/02/19 19:58 BP 147/81 01/02/19 19:58 Pulse Ox 97 01/02/19 19:58 Intake & Output 01/02/19 01/02/19 01/03/19 06:59 18:59 06:59 Intake Total 1300 Balance 1300 Intake: Intake, IV Titration 900 Amount Piperacillin-Tazobactam 3 100 .375 gm In Sodium Chloride 0.9% 100 ml @ 25 mls/hr IVPB Q8HR SAYDA Rx# :[id number] Sodium Chloride 0.9% 1, 800 000 ml @ 125 mls/hr IV . Q8H SAYDA Rx#:[id number] Oral 400 Other: # Voids 1 3 1 - Exam PHYSICAL EXAMINATION: Patient is lying in the bed comfortably, no acute distress, awake alert and oriented.. HEENT: Normocephalic. Neck is supple. Pupils reactive. Nostrils clear. Oral cavity is moist. Ears reveal no drainage. Neck reveals no JVD, carotid bruits, or thyromegaly. CHEST EXAMINATION: Trachea is central. Symmetrical expansion. Lung torres clear to auscultation and percussion. CARDIAC: Normal S1, S2 with no gallops. No murmurs ABDOMEN: Soft. Epigastric and left upper quadrant mild tenderness. Distended abdomen. Bowel sounds normal. No organomegaly. No abdominal bruits. Extremities: reveal no edema. No clubbing or cyanosis Neurologically awake, alert, oriented x3 with well-coordinated movements. No focal deficits noted Skin: No rash or skin lesions. Psychiatric: Coperative. Nonsuicidal Musculoskeletal: No joint swelling or deformity. Normal range of motion. - Labs CBC & Chem 7: 01/03/19 07:18 01/03/19 07:11 Labs: Abnormal Lab Results - Last 24 Hours (Table) 01/02/19 01/02/19 Range/Units 08:53 08:53 RBC 3.08 L (3.80-5.40) m/uL MCV 111.9 H (80.0-100.0) fL MCH 36.9 H (25.0-35.0) pg Plt Count 128 L (150-450) k/uL Lymphocytes # 0.6 L (1.0-4.8) k/uL Macrocytosis Marked A Sodium 133 L (137-145) mmol/L Carbon Dioxide 19 L (22-30) mmol/L BUN 3 L (7-17) mg/dL Glucose 73 L (74-99) mg/dL Calcium 6.6 L (8.4-10.2) mg/dL AST 90 H (14-36) U/L Total Protein 5.7 L (6.3-8.2) g/dL Albumin 2.8 L (3.5-5.0) g/dL Assessment and Plan Assessment: Acute severe pancreatitis. Possible necrotizing gangrenous cannot be excluded as per CT Severe hypokalemia Severe hypomagnesemia Severe hypokalemia Alcohol abuse Hypertension Hyperlipidemia Macrocytosis and thrombocytopenia secondary to alcohol abuse GI and DVT prophylaxis with early ambulation and SCDs Plan: Patient be continued on pain management with morphine and IV hydration. Nothing by mouth. Replaced electrolyte. We will continue on empiric antibiotics. Gen. surgery has seen the patient. Ultrasound of the abdomen was ordered to rule out cholelithiasis.. Evidence of cholelithiasis. Further recommendations based on the clinical course. Prognosis is guarded with this time. Alcohol abuse has been counseled extensively. Time with Patient: Greater than 30
--- NOTE | 2019-01-04 00:51 | P.PN ---
Subjective Progress Note Date: 01/03/19 Principal diagnosis: Acute severe pancreatitis Patient is a 53-year-old female with a known history of alcohol abuse, hypertension, hyperlipidemia came to ER with complaints of abdominal pain mainly left lower quadrant started on 12/26/2018 after finishing her dinner. For the n ext 2 days patient has been getting worse and patient was seen at urgent care facilityq and was started on Flagyl and ciprofloxacin for possible diverticulitis/infectious diarrhea. Patient presented to ER due to worsening symptoms. Patient is also complaining of pain in the epigastric region as well. Denied any nausea vomiting. Patient Did have diarrhea. No fever no chills.Denied any dysuria or hematuria. Denied any paresthesias. Bilirubin 1.9, calcium 5.1 and potassium 2.9 Elevated liver enzymes and alk phos level. MCV 106.2, platelets 73 and WBC 7.[address] of the abdomen and pelvis showed consistent with fairly severe acute pancreatitis. Cannot exclude developing necrosis involving the pancreatic tail. No well formed fluid collection currently.. Reactive gastritis and enteritis present. Patient was given a dose of Levaquin and Flagyl in the ER. 12/31/2018 Patient says that her abdominal pain is better today. Otherwise continued on IV antibiotics, IV fluids and IV pain medications. Patient was seen by general surgery and ultrasound ABDOMEN WAS ORDERED TO RULE OUT CHOLELITHIASIS. No fever no chills. Potassium level Is improved now. 01/01/2019 Patient says that her abdominal pain is better today. Abdomen is still bloated otherwise. Patient is being continued on IV hydration and pain management. Nothing by mouth. Ultrasound of the abdomen showed no evidence of cholelithiasis. General surgery is following. Replace electrolyte. Otherwise patient denied any chest pain or shortness of breath. No nausea vomiting no diarrhea. Continued on empiric antibiotics in the form of Zosyn. 01/02/2019 Patient says that her abdominal pain is improving. Not to her baseline. Still having abdominal distention. Currently was started on liquid diet and is naty erating well. We will reduce IV hydration. Otherwise continue the pain management and advance diet as tolerated. Symptomatic management for nausea and vomiting. Empiric antibiotics in the form of Zosyn. General surgery is following. No fever no chills. 01/03/2019 Patient is still having abdominal distention and bloating sensation. Pain improved otherwise. No leukocytosis. Patient developed temperature 100.41 today at 7 AM. Currently patient is afebrile. Advance diet to full liquids. Continue on empiric antibiotics in the form of Zosyn. Will get septic workup if she develops fever again. Consider ID evaluation. No cough or sputum production. No nausea vomiting or diarrhea. No dysuria or hematuria. Current medications reviewed. Objective - Vital Signs Vital signs: Vital Signs Temp 101.0 F H 01/03/19 18:51 Pulse 103 H 01/03/19 18:51 Resp 18 01/03/19 19:16 BP 169/89 01/03/19 18:51 Pulse Ox 99 01/03/19 18:51 Intake & Output 01/03/19 01/03/19 01/04/19 06:59 18:59 06:59 Intake Total 236 240 Balance 236 240 Intake: Oral 236 240 Other: Voiding Method Toilet Toilet Toilet # Voids 3 1 1 # Bowel Movements 1 - Exam PHYSICAL EXAMINATION: Patient is lying in the bed comfortably, no acute distress, awake alert and oriented.. HEENT: Normocephalic. Neck is supple. Pupils reactive. Nostrils clear. Oral cavity is moist. Ears reveal no drainage. Neck reveals no JVD, carotid bruits, or thyromegaly. CHEST EXAMINATION: Trachea is central. Symmetrical expansion. Lung torres clear to auscultation and percussion. CARDIAC: Normal S1, S2 with no gallops. No murmurs ABDOMEN: Soft. Epigastric and left upper quadrant mild tenderness. Distended abdomen. Bowel sounds normal. No organomegaly. No abdominal bruits. Extremities: reveal no edema. No clubbing or cyanosis Neurologically awake, alert, oriented x3 with well-coordinated movements. No focal deficits noted Skin: No rash or skin lesions. Psychiatric: Coperative. Nonsuicidal Musculoskeletal: No joint swelling or deformity. Normal range of motion. - Labs CBC & Chem 7: 01/03/19 07:18 01/03/19 07:11 Labs: Abnormal Lab Results - Last 24 Hours (Table) 01/03/19 01/03/19 Range/Units 07:11 07:18 RBC 2.81 L (3.80-5.40) m/uL Hgb 10.8 L (11.4-16.0) gm/dL Hct 31.3 L (34.0-46.0) % MCV 111.1 H (80.0-100.0) fL MCH 38.3 H (25.0-35.0) pg RDW 15.6 H (11.5-15.5) % Plt Count 143 L (150-450) k/uL Lymphocytes # 0.5 L (1.0-4.8) k/uL Macrocytosis Marked A Sodium 134 L (137-145) mmol/L Potassium 3.1 L (3.5-5.1) mmol/L BUN 2 L (7-17) mg/dL Calcium 6.8 L (8.4-10.2) mg/dL Magnesium 1.3 L (1.6-2.3) mg/dL AST 102 H (14-36) U/L Total Protein 5.1 L (6.3-8.2) g/dL Albumin 2.5 L (3.5-5.0) g/dL Lipase 652 H (23-300) U/L Assessment and Plan Assessment: Acute severe pancreatitis. Possible necrotizing gangrenous cannot be excluded as per CT Severe hypokalemia Severe hypomagnesemia Severe hypokalemia Alcohol abuse Hypertension Hyperlipidemia Macrocytosis and thrombocytopenia secondary to alcohol abuse GI and DVT prophylaxis with early ambulation and SCDs Plan: Patient be continued on pain management with morphine and IV hydration. Replaced electrolyte. We will continue on empiric antibiotics. Gen. surgery has seen the patient. Ultrasound of the abdomen was ordered to rule out cholelithiasis.. no Evidence of cholelithiasis. Patient was started on liquid diet and advance as tolerated. Further recommendations based on the clinical course. Prognosis is still guarded with this time. Alcohol abuse has been counseled extensively. Time with Patient: Greater than 30
[2019-01-04] MEDS: ACETAMINOPHEN TAB 325 MG TAB PO PRN ×3 (02:06→21:33)
[2019-01-04] MEDS: SODIUM CHLORIDE 0.9% 1,000 ML IV SCH (02:06)
[2019-01-04 06:02] LABS: Appearance,Urine Clear (Clear); Bilirubin,Urine Negative (Negative); Blood,Urine Small (Negative); Color,Urine Light Yellow; Glucose,Urine (UA) Negative (Negative); Ketones,Urine 1+ (Negative); Leukocyte Esterase,Urine Negative (Negative); Nitrite,Urine Negative (Negative); Protein,Urine Negative (Negative); RBC,Urine 1 /hpf (0-5); Specific Gravity,Urine 1.006 (1.001-1.035); Squamous Epithelial Cell,Urine 1 /hpf (0-4); Urobilinogen,Urine <2.0 mg/dL (<2.0)
[2019-01-04 07:58] LABS: ALT 44 U/L (9-52); AST 93 U/L (14-36); African American GFR (CKD) >90 (>60 ml/min/1.73 sqM); Albumin 2.5 g/dL (3.5-5.0); Alkaline Phosphatase 79 U/L (38-126); Anion Gap 6 mmol/L; Blood Urea Nitrogen 2 mg/dL (7-17); Calcium 7.3 mg/dL (8.4-10.2); Carbon Dioxide 29 mmol/L (22-30); Chloride 100 mmol/L (98-107); Glucose 87 mg/dL (74-99); Magnesium 1.6 mg/dL (1.6-2.3); Potassium 3.2 mmol/L (3.5-5.1); Sodium 135 mmol/L (137-145); Total Bilirubin 1.1 mg/dL (0.2-1.3); Total Protein 5.1 g/dL (6.3-8.2)
[2019-01-04 08:28] LABS: Basophils % (A) 0 %; Eosinophils % (A) 0 %; HCT 32.9 % (34.0-46.0); HGB 10.8 gm/dL (11.4-16.0); Lymphocytes # (A) 0.5 k/uL (1.0-4.8); Lymphocytes % (A) 8 %; MCH 36.5 pg (25.0-35.0); MCHC 32.9 g/dL (31.0-37.0); MCV 110.9 fL (80.0-100.0); Macrocytosis Marked; Mean Platelet Volume 7.9; Monocytes # (A) 0.4 k/uL (0-1.0); Monocytes % (A) 6 %; Neutrophils # (A) 5.7 k/uL (1.3-7.7); Neutrophils % (A) 84 %; Platelet Count 156 k/uL (150-450); RBC 2.97 m/uL (3.80-5.40); WBC 6.8 k/uL (3.8-10.6)
[2019-01-04] MEDS: PIPERACILLIN-TAZOBACTAM 3.375 GM in SODIUM CHLORIDE 0.9% 100 ML IVPB SCH ×2 (08:47→15:21)
[2019-01-04] MEDS: HYDROCHLOROTHIAZIDE 25 MG TAB PO SCH (08:47)
[2019-01-04] MEDS: THIAMINE 100 MG TAB PO SCH ×2 (08:47→17:40)
[2019-01-04] MEDS: FAMOTIDINE 20 MG TAB PO SCH ×2 (08:47→21:33)
[2019-01-04] MEDS: hydrALAZINE HCL 20 MG/ML 1 ML VIAL IVP PRN (08:47)
[2019-01-04] MEDS: METOPROLOL TARTRATE 50 MG TAB PO SCH ×2 (08:47→21:33)
--- NOTE | 2019-01-04 08:56 | XR ---
EXAMINATION TYPE: XR chest 1V DATE OF EXAM: 01/04/2019 COMPARISON: None INDICATION: Fever TECHNIQUE: Single frontal view of the chest is obtained. FINDINGS: The heart size is normal. The pulmonary vasculature is normal. Minimal infiltrate along the left base. IMPRESSION: 1. Minimal left lower lobe infiltrate. Consider atelectasis and pneumonia. Follow-up can be performed as clinically indicated.
[2019-01-04] MEDS: POTASSIUM CHLORIDE ER 20 MEQ TAB.ER PO SCH ×4 (10:00→21:33)
[2019-01-04] MEDS: MAGNESIUM SULFATE-D5W PMX 1 GM in DEXTROSE/WATER 1 100ML.BAG IVPB SCH ×4 (10:03→15:21)
[2019-01-04 14:57] VITALS: BMI 24.7
[2019-01-04] MEDS ORDERED: LABETALOL 200 MG TAB PO STA (15:16)
[2019-01-04] MEDS: IOPAMIDOL-300 CONTRAST 30 ML VIAL (ORAL USE) PO PRN ×2 (15:40→16:37)
[2019-01-04] MEDS: MEROPENEM 1 GM in SODIUM CHLORIDE 0.9% 100 ML IVPB SCH (16:02)
--- NOTE | 2019-01-04 17:36 | CT ---
EXAMINATION TYPE: CT abdomen pelvis w con DATE OF EXAM: 01/04/2019 COMPARISON: 12/30/2018 HISTORY: 53-year-old female pancreatitis and persistent fever, left-sided abdominal pain. TECHNIQUE: Contiguous axial scanning of the abdomen and pelvis following administration of 100 ml Iso maria g 300 IV contrast. Delayed images through the kidneys and coronal/sagittal reconstructions perform ed. CT DLP: 981.4 mGycm Automated exposure control for dose reduction was used. FINDINGS: Heart normal size without pericardial. However, there are new small left and right pleural effusions with adjacent atelectasis. No focal liver lesion or biliary duct dilatation. Portal venous system appears patent though there is some mass effect with narrowing of the splenic vein. Gallbladder, adrenal glands, kidneys, spleen appear within normal limits. Extensive inflammatory peripancreatic confluent edema redemonstrated along the pancreatic body and ta il. The previously seen edema is now more well-defined with coarse bony peritoneal enhancement. There is patchy inhomogeneous enhancement of the pancreatic tail redemonstrated. The peripancreatic fluid is fairly extensive extending up to the subphrenic region and down to the left side of the pelvis, ap proximately 25.7 cm craniocaudal, refer to coronal image 54, 12.2 cm wide, coronal image 53, and 13.7 cm AP, axial image 34. There is diffuse wall thickening of the posterior gastric fundus and of the second portion of the duo denum. Stable 1.4 cm focal hypodense area within the inferior pancreatic head. Increasing generalized anasarca type changes within the subcutaneous adipose tissues. No significant stool burden. Oral contrast extends to the rectum. Bladder not distended. Uterus anteverted. Both ovaries are visualized. Some periuterine varices redem onstrated on the left. Trace cul-de-sac free fluid. Bones: Multilevel degenerative disc disease. No osseous destructive process. IMPRESSION: 1. CONTINUED SEVERE ACUTE PANCREATITIS CENTERED ALONG THE PANCREATIC BODY AND TAIL. THERE IS SIMILAR INHOMOGENEOUS ENHANCEMENT OF THE PANCREATIC TAIL SUGGESTING PATCHY AREAS OF NECROSIS. 2. EXTENSIVE, INCREASINGLY MORE CONFLUENT PERIPANCREATIC FLUID NOW WITH PERITONEAL ENHANCEMENT. INFLA MMATORY CHANGES HAVE MASS EFFECT CAUSING NARROWING OF THE SPLENIC VEIN AND CAUSES REACTIVE POSTERIOR FUNDAL GASTRITIS AND DUODENITIS. 3. THE DEVELOPING FLUID COLLECTION IS MASSIVE, EXTENDING FROM THE LEFT SUBPHRENIC REGION INTO THE LEF T PELVIS (25.7 CM X 2.2 CM X 13.7 CM). 4. NEW PLEURAL EFFUSIONS AND ANASARCA TYPE CHANGE. 5. STABLE 1.4 CM HYPODENSE AREA, POSSIBLE LESION, IN THE INFERIOR PANCREATIC HEAD. REASSESS AFTER PAT IENT'S CONDITION STABILIZES.
--- NOTE | 2019-01-04 17:48 | P.PN ---
Subjective Progress Note Date: 01/04/19 Principal diagnosis: Pancreatitis Patient states her pain is about the same. Is frustrated that she has not been discharged at. T-max 102.2 yesterday. White blood cell count 6.8. Lipase yesterday improved at 657. No bandemia currently. Pain still mostly left sided. Repeat CAT scan performed. Large amount of edema and retroperitoneal fluid extending from the distal pancreas inferiorly. Described as "massive" per radiology. Questionable patchy necrosis at the pancreatic tail without evidence of retroperitoneal emphysema, or abscess formation. Objective - Vital Signs Vital signs: Vital Signs Temp 100.4 F H 01/04/19 14:42 Pulse 106 H 01/04/19 14:42 Resp 14 01/04/19 16:19 BP 194/105 01/04/19 14:42 Pulse Ox 96 01/04/19 14:42 Intake & Output 01/03/19 01/04/19 01/04/19 18:59 06:59 18:59 Intake Total 236 240 Output Total 400 Balance 236 -160 Weight 63.503 kg Intake: Oral 236 240 Output: Urine 400 Other: Voiding Method Toilet Toilet # Voids 1 1 1 # Bowel Movements 1 - Exam Abdomen: Soft, mild distention, left upper quadrant and left mid abdominal tenderness noted but improved from previous - Labs CBC & Chem 7: 01/04/19 07:29 01/04/19 07:29 Labs: Abnormal Lab Results - Last 24 Hours (Table) 01/04/19 01/04/19 01/04/19 Range/Units 05:26 07:29 07:29 RBC 2.97 L (3.80-5.40) m/uL Hgb 10.8 L (11.4-16.0) gm/dL Hct 32.9 L (34.0-46.0) % MCV 110.9 H (80.0-100.0) fL MCH 36.5 H (25.0-35.0) pg Lymphocytes # 0.5 L (1.0-4.8) k/uL Macrocytosis Marked A Sodium 135 L (137-145) mmol/L Potassium 3.2 L (3.5-5.1) mmol/L BUN 2 L (7-17) mg/dL Calcium 7.3 L (8.4-10.2) mg/dL AST 93 H (14-36) U/L C-Reactive Protein (<10.0) mg/L Total Protein 5.1 L (6.3-8.2) g/dL Albumin 2.5 L (3.5-5.0) g/dL Urine Ketones 1+ H (Negative) Urine Blood Small H (Negative) 01/04/19 Range/Units 15:38 RBC (3.80-5.40) m/uL Hgb (11.4-16.0) gm/dL Hct (34.0-46.0) % MCV (80.0-100.0) fL MCH (25.0-35.0) pg Lymphocytes # (1.0-4.8) k/uL Macrocytosis Sodium (137-145) mmol/L Potassium (3.5-5.1) mmol/L BUN (7-17) mg/dL Calcium (8.4-10.2) mg/dL AST (14-36) U/L C-Reactive Protein 241.9 H (<10.0) mg/L Total Protein (6.3-8.2) g/dL Albumin (3.5-5.0) g/dL Urine Ketones (Negative) Urine Blood (Negative) Assessment and Plan (1) Pancreatitis Narrative/Plan: Patient with complicated severe alcohol-induced related pancreatitis. CAT scan findings noted. Will discuss further with radiology. Of some concern would be the possibility of the development of pancreatic ascites given the large amount of fluid noted in the retroperitoneum. Patient may benefit from tertiary care evaluation. We'll discuss further with primary service after discussing her CAT scan findings with radiology. Current Visit: Yes Status: Acute Code(s): K85.90 - ACUTE PANCREATITIS WITHOUT NECROSIS OR INFECTION, UNSP SNOMED Code(s): 07883541
[2019-01-04] MEDS: ATORVASTATIN 10 MG TAB PO SCH (21:34)
--- NOTE | 2019-01-04 23:33 | P.PN ---
Subjective Progress Note Date: 01/04/19 Principal diagnosis: Acute severe pancreatitis Patient is a 53-year-old female with a known history of alcohol abuse, hypertension, hyperlipidemia came to ER with complaints of abdominal pain mainly left lower quadrant started on 12/26/2018 after finishing her dinner. For the n ext 2 days patient has been getting worse and patient was seen at urgent care facilityq and was started on Flagyl and ciprofloxacin for possible diverticulitis/infectious diarrhea. Patient presented to ER due to worsening symptoms. Patient is also complaining of pain in the epigastric region as well. Denied any nausea vomiting. Patient Did have diarrhea. No fever no chills.Denied any dysuria or hematuria. Denied any paresthesias. Bilirubin 1.9, calcium 5.1 and potassium 2.9 Elevated liver enzymes and alk phos level. MCV 106.2, platelets 73 and WBC 7.[address] of the abdomen and pelvis showed consistent with fairly severe acute pancreatitis. Cannot exclude developing necrosis involving the pancreatic tail. No well formed fluid collection currently.. Reactive gastritis and enteritis present. Patient was given a dose of Levaquin and Flagyl in the ER. 12/31/2018 Patient says that her abdominal pain is better today. Otherwise continued on IV antibiotics, IV fluids and IV pain medications. Patient was seen by general surgery and ultrasound ABDOMEN WAS ORDERED TO RULE OUT CHOLELITHIASIS. No fever no chills. Potassium level Is improved now. 01/01/2019 Patient says that her abdominal pain is better today. Abdomen is still bloated otherwise. Patient is being continued on IV hydration and pain management. Nothing by mouth. Ultrasound of the abdomen showed no evidence of cholelithiasis. General surgery is following. Replace electrolyte. Otherwise patient denied any chest pain or shortness of breath. No nausea vomiting no diarrhea. Continued on empiric antibiotics in the form of Zosyn. 01/02/2019 Patient says that her abdominal pain is improving. Not to her baseline. Still having abdominal distention. Currently was started on liquid diet and is naty erating well. We will reduce IV hydration. Otherwise continue the pain management and advance diet as tolerated. Symptomatic management for nausea and vomiting. Empiric antibiotics in the form of Zosyn. General surgery is following. No fever no chills. 01/03/2019 Patient is still having abdominal distention and bloating sensation. Pain improved otherwise. No leukocytosis. Patient developed temperature 100.41 today at 7 AM. Currently patient is afebrile. Advance diet to full liquids. Continue on empiric antibiotics in the form of Zosyn. Will get septic workup if she develops fever again. Consider ID evaluation. No cough or sputum production. No nausea vomiting or diarrhea. No dysuria or hematuria. 01/04/2019 Patient is still complaining of left upper quadrant discomfort. Otherwise tolerating oral diet. Patient became febrile last night and has been having fevers since then. WBC count is not elevated. Patient was seen by ID and repeat CT of the abdomen and pelvis was ordered. Antibiotics were changed to meropenem. Otherwise patient denied any nausea vomiting or diarrhea. Continue to monitor closely and await further recommendations from general surgery. Current medications reviewed. Objective - Vital Signs Vital signs: Vital Signs Temp 100.4 F H 01/04/19 14:42 Pulse 106 H 01/04/19 14:42 Resp 14 01/04/19 16:19 BP 194/105 01/04/19 14:42 Pulse Ox 96 01/04/19 14:42 Intake & Output 01/04/19 01/04/19 01/05/19 06:59 18:59 06:59 Intake Total 240 Output Total 400 Balance -160 Weight 63.503 kg Intake: Oral 240 Output: Urine 400 Other: Voiding Method Toilet # Voids 1 1 # Bowel Movements 1 - Exam PHYSICAL EXAMINATION: Patient is lying in the bed comfortably, no acute distress, awake alert and oriented.. HEENT: Normocephalic. Neck is supple. Pupils reactive. Nostrils clear. Oral cavity is moist. Ears reveal no drainage. Neck reveals no JVD, carotid bruits, or thyromegaly. CHEST EXAMINATION: Trachea is central. Symmetrical expansion. Lung torres clear to auscultation and percussion. CARDIAC: Normal S1, S2 with no gallops. No murmurs ABDOMEN: Soft. Epigastric and left upper quadrant mild tenderness. Distended abdomen. Bowel sounds normal. No organomegaly. No abdominal bruits. Extremities: reveal no edema. No clubbing or cyanosis Neurologically awake, alert, oriented x3 with well-coordinated movements. No focal deficits noted Skin: No rash or skin lesions. Psychiatric: Coperative. Nonsuicidal Musculoskeletal: No joint swelling or deformity. Normal range of motion. - Labs CBC & Chem 7: 01/04/19 07:29 01/04/19 07:29 Labs: Abnormal Lab Results - Last 24 Hours (Table) 01/04/19 01/04/19 01/04/19 Range/Units 05:26 07:29 07:29 RBC 2.97 L (3.80-5.40) m/uL Hgb 10.8 L (11.4-16.0) gm/dL Hct 32.9 L (34.0-46.0) % MCV 110.9 H (80.0-100.0) fL MCH 36.5 H (25.0-35.0) pg Lymphocytes # 0.5 L (1.0-4.8) k/uL Macrocytosis Marked A Sodium 135 L (137-145) mmol/L Potassium 3.2 L (3.5-5.1) mmol/L BUN 2 L (7-17) mg/dL Calcium 7.3 L (8.4-10.2) mg/dL AST 93 H (14-36) U/L C-Reactive Protein (<10.0) mg/L Total Protein 5.1 L (6.3-8.2) g/dL Albumin 2.5 L (3.5-5.0) g/dL Urine Ketones 1+ H (Negative) Urine Blood Small H (Negative) 01/04/19 Range/Units 15:38 RBC (3.80-5.40) m/uL Hgb (11.4-16.0) gm/dL Hct (34.0-46.0) % MCV (80.0-100.0) fL MCH (25.0-35.0) pg Lymphocytes # (1.0-4.8) k/uL Macrocytosis Sodium (137-145) mmol/L Potassium (3.5-5.1) mmol/L BUN (7-17) mg/dL Calcium (8.4-10.2) mg/dL AST (14-36) U/L C-Reactive Protein 241.9 H (<10.0) mg/L Total Protein (6.3-8.2) g/dL Albumin (3.5-5.0) g/dL Urine Ketones (Negative) Urine Blood (Negative) Assessment and Plan Assessment: Acute severe pancreatitis. Possible necrotizing pancreatitis. cannot be excluded as per CT Severe hypokalemia. Improved Severe hypomagnesemia Severe hypokalemia Alcohol abuse Hypertension Hyperlipidemia Macrocytosis and thrombocytopenia secondary to alcohol abuse GI and DVT prophylaxis with early ambulation and SCDs Plan: Patient be continued on pain management with morphine and IV hydration. Replaced electrolyte. Antibiotics were changed to meropenem. Repeat CT of the abdomen pelvis was ordered. Gen. surgery and ID on board.. Ultrasound of the abdomen was ordered to rule out cholelithiasis.. no Evidence of cholelithiasis. Patient was started on liquid diet and advance as tolerated. Further recommendations based on the clinical course. Prognosis is still guarded with this time. Alcohol abuse has been counseled extensively. Time with Patient: Greater than 30
[2019-01-05] MEDS: MEROPENEM 1 GM in SODIUM CHLORIDE 0.9% 100 ML IVPB SCH ×4 (00:56→23:25)
--- NOTE | 2019-01-05 01:08 | P.CONS ---
History of Present Illness - Reason for Consult Consult date: 01/04/19 fever Requesting physician: Mekhi Oliver - Chief Complaint Abdominal pain 1 week - History of Present Illness patient is a 53 year female started having intractable vomiting on Monday after dinner with concern for possible food poisoning patient did hav e multiple episodes of vomiting did have some diarrhea and left lower abdominal pain more of a dull aching to sharp 5-6 out of 10 and no radiation patient did went to work the next day however could work on healthy subsequently has been evaluated in the urgent care 2, with persistent symptoms the patient presented to [facility] ER on 12/30/2018 patient noticed to be febrile with a temperature of 10 2F white count was normal she did have elevated amylase lipase CT of abdominal pelvis with concern for some necrosis in thedate of the pancreas, the patient has been treated by medical and surgical team however the patient did have persistent fever over the last few days that prompted this infectious disease consultation. The patient n today's evaluation did mention some nausea but no further vomiting patient still having pain in the left lower quadrant area though has some improved, denies any worsening diarrhea and no chest pain shortness of breath or cough and no urinary symptoms Review of Systems Positive points has been mentioned in HPI rest of the systems are negative Past Medical History Past Medical History: Hypertension History of Any Multi-Drug Resistant Organisms: None Reported Past Surgical History: Section Past Anesthesia/Blood Transfusion Reactions: Postoperative Nausea & Vomiting (PONV) Past Psychological History: No Psychological Hx Reported Smoking Status: Never smoker Past Alcohol Use History: Daily Additional Past Alcohol Use History / Comment(s): pt states she drinks 4 drinks a day. Past Drug Use History: None Reported - Past Family History Mother Family Medical History: Hypertension Father Family Medical History: Coronary Artery Disease (CAD) Medications and Allergies Home Medications Medication Instructions Recorded Confirmed Type ALPRAZolam [Xanax] 0.5 mg PO BID 12/30/18 12/30/18 History Atorvastatin [Lipitor] 10 mg PO HS 12/30/18 12/30/18 History Cholestyramine (with Sugar) 4 gm PO TID 12/30/18 12/30/18 History [Cholestyramine Packet] Ciprofloxacin HCl [Cipro] 500 mg PO Q12HR 12/30/18 12/30/18 History Hydrochlorothiazide [Hydrodiuril] 25 mg PO DAILY 12/30/18 12/30/18 History Metoprolol Tartrate [Lopressor] 50 mg PO BID 12/30/18 12/30/18 History Ranitidine HCl 150 mg PO BID 12/30/18 12/30/18 History metroNIDAZOLE [Flagyl] 500 mg PO TID 12/30/18 12/30/18 History Allergies Allergy/AdvReac Type Severity Reaction Status Date / Time ibuprofen [From Motrin] Allergy Anaphylaxis Verified 12/30/18 13:32 latex Allergy Rash/Hives Verified 12/30/18 13:32 Physical Exam Vitals: Vital Signs Temp Pulse Resp BP Pulse Ox 01/04/19 07:00 99.2 F 89 14 184/94 96 01/04/19 03:34 15 01/04/19 02:30 99.7 F H 01/04/19 01:13 100.8 F H 92 18 173/92 97 01/03/19 23:01 18 01/03/19 23:00 99.9 F H 01/03/19 19:16 18 01/03/19 18:51 101.0 F H 103 H 18 169/89 99 01/03/19 16:50 92 14 01/03/19 14:47 102.2 F H 92 14 183/98 96 Intake and Output 01/03/19 01/04/19 01/04/19 22:59 06:59 14:59 Intake Total 240 Output Total 400 Balance 240 -400 Intake: Oral 240 Output: Urine 400 Other: Voiding Method Toilet # Voids 1 1 1 # Bowel Movements 1 GENERAL DESCRIPTION: Middle-aged female lying in bed, no distress. No tachypnea or accessory muscle of respiration use. HEENT: Shows Pallor , no scleral icterus. Oral mucous membrane is dry. No pharyngeal erythema or thrush NECK: Trachea central, no thyromegaly. LUNGS: Unlabored breathing. Clear to auscultation anteriorly. No wheeze or crackle. HEART: S1, S2, regular rate and rhythm. No loud murmur ABDOMEN: Soft, left lower quadrant tenderness , no guarding or rigidity, no organomegaly EXTREMITIES: No edema of feet. SKIN: No rash, no masses palpable. NEUROLOGICAL: The patient is awake, alert, oriented x3, mood and affect normal. Results CBC & Chem 7: 01/04/19 07:29 01/04/19 07:29 Labs: Abnormal Lab Results - Last 24 Hours (Table) 01/04/19 01/04/19 01/04/19 Range/Units 05:26 07:29 07:29 RBC 2.97 L (3.80-5.40) m/uL Hgb 10.8 L (11.4-16.0) gm/dL Hct 32.9 L (34.0-46.0) % MCV 110.9 H (80.0-100.0) fL MCH 36.5 H (25.0-35.0) pg Lymphocytes # 0.5 L (1.0-4.8) k/uL Macrocytosis Marked A Sodium 135 L (137-145) mmol/L Potassium 3.2 L (3.5-5.1) mmol/L BUN 2 L (7-17) mg/dL Calcium 7.3 L (8.4-10.2) mg/dL AST 93 H (14-36) U/L Total Protein 5.1 L (6.3-8.2) g/dL Albumin 2.5 L (3.5-5.0) g/dL Urine Ketones 1+ H (Negative) Urine Blood Small H (Negative) Assessment and Plan Assessment: 1-patient with persistent fever in this patient who has been admitted to the Hospital with abdominal pain and vomiting and has been diagnosed with acute pancreatitis with some necrosis at the tail of the pancreas, likely source of persistent fever is complication associated with pancreatitis and concern for pseudocyst formation Plan: 1-blood cultures will be repeated 2-we will repeat CT of abdominal pelvis with contrast 3-discontinue the Zosyn 4-start the patient meropenem 1 g every 8 hours we will follow on clinical condition and culture to further adjust medication if needed Thank you for this consultation will follow this patient along with you Time with Patient: Greater than 30
[2019-01-05] MEDS: ACETAMINOPHEN TAB 325 MG TAB PO PRN ×2 (04:47→19:50)
[2019-01-05 06:57] LABS: Basophils % (A) 0 %; Eosinophils % (A) 1 %; HCT 29.8 % (34.0-46.0); HGB 10.2 gm/dL (11.4-16.0); Lymphocytes # (A) 0.5 k/uL (1.0-4.8); Lymphocytes % (A) 7 %; MCHC 34.2 g/dL (31.0-37.0); MCV 108.2 fL (80.0-100.0); Macrocytosis Marked; Mean Platelet Volume 8.6; Monocytes # (A) 0.3 k/uL (0-1.0); Monocytes % (A) 4 %; Neutrophils # (A) 6.2 k/uL (1.3-7.7); Neutrophils % (A) 87 %; Platelet Count 179 k/uL (150-450); RBC 2.76 m/uL (3.80-5.40); RDW 15.6 % (11.5-15.5); WBC 7.2 k/uL (3.8-10.6)
[2019-01-05 07:07] LABS: ALT 37 U/L (9-52); AST 69 U/L (14-36); African American GFR (CKD) >90 (>60 ml/min/1.73 sqM); Albumin 2.5 g/dL (3.5-5.0); Alkaline Phosphatase 75 U/L (38-126); Anion Gap 7 mmol/L; Blood Urea Nitrogen 2 mg/dL (7-17); Calcium 7.7 mg/dL (8.4-10.2); Carbon Dioxide 27 mmol/L (22-30); Chloride 100 mmol/L (98-107); Glucose 89 mg/dL (74-99); Magnesium 1.8 mg/dL (1.6-2.3); Potassium 3.7 mmol/L (3.5-5.1); Sodium 134 mmol/L (137-145); Total Bilirubin 0.9 mg/dL (0.2-1.3); Total Protein 5.2 g/dL (6.3-8.2)
[2019-01-05] MEDS: FAMOTIDINE 20 MG TAB PO SCH ×2 (08:55→19:50)
[2019-01-05] MEDS: METOPROLOL TARTRATE 50 MG TAB PO SCH ×2 (08:55→19:49)
[2019-01-05] MEDS: HYDROCHLOROTHIAZIDE 25 MG TAB PO SCH (08:55)
[2019-01-05] MEDS: THIAMINE 100 MG TAB PO SCH ×2 (08:55→18:25)
--- NOTE | 2019-01-05 09:52 | P.PN ---
Subjective Progress Note Date: 01/05/19 Principal diagnosis: Pancreatitis Patient feels even better today. T-max 100.4. White blood cell count 7.2. Tolerating full liquid diet. Asking for more to eat. Anxious to go home today. Objective - Vital Signs Vital signs: Vital Signs Temp 100 F H 01/05/19 03:30 Pulse 95 01/05/19 03:30 Resp 16 01/05/19 03:30 BP 173/83 01/05/19 03:30 Pulse Ox 96 01/05/19 03:30 Intake & Output 01/04/19 01/05/19 01/05/19 18:59 06:59 18:59 Weight 63.503 kg Other: Voiding Method Toilet # Voids 1 3 - Exam Abdomen: Soft, left upper quadrant and left mid abdominal tenderness persist although slightly improved, no rebound or guarding - Labs CBC & Chem 7: 01/05/19 06:34 01/05/19 06:34 Labs: Abnormal Lab Results - Last 24 Hours (Table) 01/04/19 01/05/19 01/05/19 Range/Units 15:38 06:34 06:34 RBC 2.76 L (3.80-5.40) m/uL Hgb 10.2 L (11.4-16.0) gm/dL Hct 29.8 L (34.0-46.0) % MCV 108.2 H (80.0-100.0) fL MCH 37.0 H (25.0-35.0) pg RDW 15.6 H (11.5-15.5) % Lymphocytes # 0.5 L (1.0-4.8) k/uL Macrocytosis Marked A Sodium 134 L (137-145) mmol/L BUN 2 L (7-17) mg/dL Creatinine 0.48 L (0.52-1.04) mg/dL Calcium 7.7 L (8.4-10.2) mg/dL AST 69 H (14-36) U/L C-Reactive Protein 241.9 H (<10.0) mg/L Total Protein 5.2 L (6.3-8.2) g/dL Albumin 2.5 L (3.5-5.0) g/dL Microbiology - Last 24 Hours (Table) 01/04/19 01:33 Blood Culture - Preliminary Blood No Growth after 24 hours Assessment and Plan (1) Pancreatitis Narrative/Plan: CAT scan findings discussed in detail with the patient. Once again the patient does appear far better than the vital signs or imaging studies would suggest. She is hoping to go home today. Discussed options of tertiary care evaluation. Likelihood that they would intervene further in this case remains low. I would be comfortable advancing the diet at this time. If the patient remains afebrile consider discharge with outpatient follow-up. Current Visit: Yes Status: Acute Code(s): K85.90 - ACUTE PANCREATITIS WITHOUT NECROSIS OR INFECTION, UNSP SNOMED Code(s): 56377212
[2019-01-05 13:32] LABS: Amylase 82 U/L (30-110)
[2019-01-05 16:22] LABS: INR 1.2 (<1.2); Prothrombin Time 12.1 sec (9.0-12.0)
[2019-01-05] MEDS: PANTOPRAZOLE 40 MG/10 ML VIAL IVP SCH ×2 (18:25→19:49)
[2019-01-05] MEDS: ATORVASTATIN 10 MG TAB PO SCH (19:49)
--- NOTE | 2019-01-05 21:27 | PN ---
PROGRESS NOTE DATE OF SERVICE: 01/05/2019. HISTORY: This 53-year-old woman who was admitted with acute severe pancreatitis, also was complaining of persistent abdominal distention. Patient has a history of EtOH in the past. Dr. Silva is following the patient closely. A CT scan of the abdomen was done today which showed continued severe acute pancreatitis centered along with pancreatic body and tail and there is similar homogeneous enhancement of the pancreatic tail suggestive of necrosis and extensive increasingly more confluent peripancreatic fluid with peritoneal enhancement, inflammatory changes, mass effect causing narrowing of the splenic vein and reactive posterior fundal gastritis and duodenitis and developing fluid collection with mass extending from the left subphrenic area into the left pelvis and a new pleural effusion and anasarca type changes, 1 cm hypodense area also. The patient is being closely monitored. PAST MEDICAL HISTORY: As above. REVIEW OF SYSTEMS: GENERAL: As mentioned earlier. GI: As mentioned earlier. : No symptoms. [employer]: No numbness or weakness. CARDIOVASCULAR: As mentioned earlier. CURRENT MEDICATIONS: Reviewed, include: 1. Tylenol 650 every 6 hours p.r.n. 2. Lipitor 10 mg. 3. Pepcid 20 mg b.i.d. 4. Apresoline 20 mg daily. 5. Hydrodiuril. 6. Ativan. 7. Meropenem 1 g IV every 8 hours. 8. Lopressor. 9. Replacement protocol with Narcan, Zofran, vitamin B1. PHYSICAL EXAM: GENERAL: Patient is alert, oriented x3. Pulse 95, blood pressure 171/18, respirations 16, temperature 97.4, pulse ox 98% on room air. HEENT: Conjunctivae normal. Oral mucosa moist. NECK: No jugular venous distention. No lymph node enlargement. CARDIOVASCULAR: S1 and S2 muffled. LUNGS: Breath sounds diminished at the bases. Few scattered rhonchi. No crackles. ABDOMEN: Soft, obese. Mild diffuse discomfort on palpation. No guarding. No rigidity. No Mass palpable. Flanks are dull. NERVOUS SYSTEM: No focal deficits. LEGS: No edema. LAB STUDIES: WBC 7.1, hemoglobin 10.2, sodium 134, potassium 3.7. The cultures are negative so far. ASSESSMENT: 1. Acute severe pancreatitis, possible necrotizing hemorrhagic pancreatitis. 2. Ascites and pleural effusions from pancreatitis. 3. Severe hypokalemia. 4. Severe hypomagnesemia. 5. History of alcohol abuse. 6. Hypertension. 7. Hyperlipidemia. 8. Macrocytosis and thrombocytosis, secondary to alcohol abuse. 9. Anemia macrocytic. 10.Hyponatremia. 11.Elevated CRP. RECOMMENDATIONS AND DISCUSSION: In this 53-year-old woman who presented with multiple complex medical issues, we will monitor the patient closely. Continue the current management and symptomatic treatment. Continue with broad-spectrum IV antibiotics. The CT scan findings are noted. Chest x- ray was personally reviewed by me. I would recommend continue with the current medications. The overall prognosis is extremely guarded because of multiple complex medical issues as mentioned earlier and further recommendations to follow. The EKG showed some ST-T changes, we will repeat EKG and a set of troponins also. MMODL / IJN: [id number] /
--- NOTE | 2019-01-05 22:33 | PN ---
PROGRESS NOTE DATE OF SERVICE: 01/05/2019 REASON FOR FOLLOWUP: Fever with acute pancreatitis. INTERVAL HISTORY: The patient overall feels better and has improved. The patient did have a fever of 100 this morning and 100.4 yesterday afternoon. The patient's abdominal pain is currently controlled. No nausea, no vomiting. Denies any chest pain, shortness of breath or cough. PHYSICAL EXAMINATION: Blood pressure 131/89 with a pulse of 95, temperature 97.4, she is 99% on room air. General description is a middle-aged female lying in bed in no distress. Respiratory system: Unlabored breathing, clear to auscultation anteriorly. Heart S1, S2. Regular rate. Abdomen soft, mildly tender left lower quadrant area. No guarding or rigidity. LABS: Hemoglobin is 10.1, white count 7.2, BUN of 2, creatinine 0.48. Repeat CT did show evidence of pancreatitis but no mention of any abscess. DIAGNOSTIC IMPRESSION AND PLAN: Patient with fever, source likely acute pancreatitis with concern for early abscess formation. Patient is currently refusing to be transferred to [facility]. Currently on meropenem to continue. Will monitor clinical post. Repeat culture to finalize. Continue supportive care. MMODL / IJN: [id number] /
[2019-01-06] MEDS: hydrALAZINE HCL 20 MG/ML 1 ML VIAL IVP PRN ×2 (02:12→15:09)
[2019-01-06] MEDS: ACETAMINOPHEN TAB 325 MG TAB PO PRN ×3 (02:12→17:40)
[2019-01-06 07:03] LABS: Basophils % (A) 0 %; Eosinophils # (A) 0.1 k/uL (0-0.7); Eosinophils % (A) 1 %; HCT 31.3 % (34.0-46.0); HGB 10.6 gm/dL (11.4-16.0); Lymphocytes # (A) 0.6 k/uL (1.0-4.8); Lymphocytes % (A) 10 %; MCH 36.4 pg (25.0-35.0); MCHC 33.8 g/dL (31.0-37.0); MCV 107.7 fL (80.0-100.0); Mean Platelet Volume 8.7; Monocytes # (A) 0.4 k/uL (0-1.0); Monocytes % (A) 6 %; Neutrophils # (A) 4.9 k/uL (1.3-7.7); Neutrophils % (A) 81 %; Platelet Count 200 k/uL (150-450); RBC 2.91 m/uL (3.80-5.40); RDW 15.2 % (11.5-15.5); WBC 6.1 k/uL (3.8-10.6)
[2019-01-06 07:11] LABS: Macrocytosis Marked
[2019-01-06 07:20] LABS: ALT 34 U/L (9-52); AST 56 U/L (14-36); African American GFR (CKD) >90 (>60 ml/min/1.73 sqM); Albumin 2.6 g/dL (3.5-5.0); Alkaline Phosphatase 76 U/L (38-126); Amylase 79 U/L (30-110); Anion Gap 6 mmol/L; Blood Urea Nitrogen 3 mg/dL (7-17); Calcium 8.2 mg/dL (8.4-10.2); Carbon Dioxide 30 mmol/L (22-30); Chloride 99 mmol/L (98-107); Cholesterol 142 mg/dL (<200); Glucose 93 mg/dL (74-99); HDL Cholesterol 19 mg/dL (40-60); LDL Cholesterol,Calculated 95 mg/dL (0-99); Potassium 3.6 mmol/L (3.5-5.1); Sodium 135 mmol/L (137-145); Total Bilirubin 0.9 mg/dL (0.2-1.3); Total Protein 5.3 g/dL (6.3-8.2); Triglycerides 142 mg/dL (<150)
[2019-01-06] MEDS: METOPROLOL TARTRATE 50 MG TAB PO SCH ×2 (09:13→20:37)
[2019-01-06] MEDS: THIAMINE 100 MG TAB PO SCH ×2 (09:13→15:10)
[2019-01-06] MEDS: FAMOTIDINE 20 MG TAB PO SCH ×2 (09:13→20:38)
[2019-01-06] MEDS: MEROPENEM 1 GM in SODIUM CHLORIDE 0.9% 100 ML IVPB SCH ×3 (09:13→23:13)
[2019-01-06] MEDS: HYDROCHLOROTHIAZIDE 25 MG TAB PO SCH (09:13)
[2019-01-06] MEDS: PANTOPRAZOLE 40 MG/10 ML VIAL IVP SCH ×2 (09:40→21:10)
--- NOTE | 2019-01-06 10:38 | P.PN ---
Subjective Progress Note Date: 01/06/19 Principal diagnosis: Pancreatitis Patient feels well today. He remains anxious for discharge. T-max 100.8 last night. White blood cell count 6.1. Lipase 568. Objective - Vital Signs Vital signs: Vital Signs Temp 99.9 F H 01/06/19 07:00 Pulse 97 01/06/19 08:50 Resp 16 01/06/19 08:50 BP 172/88 01/06/19 07:00 Pulse Ox 97 01/06/19 07:00 Intake & Output 01/05/19 01/06/19 01/06/19 18:59 06:59 18:59 Intake Total 450 100 Output Total 400 Balance 450 100 -400 Intake: Intake, IV Titration 100 100 Amount Meropenem 1 gm In Sodium 100 100 Chloride 0.9% 100 ml @ 200 mls/hr IVPB Q8HR [facility] Rx#:[id number] Oral 350 Output: Urine 400 Other: Voiding Method Toilet Toilet Toilet # Voids 3 2 2 - Exam Abdomen: Soft, nondistended, left upper quadrant fullness and tenderness persists - Labs CBC & Chem 7: 01/06/19 06:48 01/06/19 06:48 Labs: Abnormal Lab Results - Last 24 Hours (Table) 01/05/19 01/05/19 01/06/19 Range/Units 06:34 15:59 06:48 RBC 2.91 L (3.80-5.40) m/uL Hgb 10.6 L (11.4-16.0) gm/dL Hct 31.3 L (34.0-46.0) % MCV 107.7 H (80.0-100.0) fL MCH 36.4 H (25.0-35.0) pg Lymphocytes # 0.6 L (1.0-4.8) k/uL Macrocytosis Marked A PT 12.1 H (9.0-12.0) sec INR 1.2 H (<1.2) Sodium (137-145) mmol/L BUN (7-17) mg/dL Creatinine (0.52-1.04) mg/dL Calcium (8.4-10.2) mg/dL AST (14-36) U/L Total Protein (6.3-8.2) g/dL Albumin (3.5-5.0) g/dL HDL Cholesterol (40-60) mg/dL Lipase 630 H (23-300) U/L 01/06/19 Range/Units 06:48 RBC (3.80-5.40) m/uL Hgb (11.4-16.0) gm/dL Hct (34.0-46.0) % MCV (80.0-100.0) fL MCH (25.0-35.0) pg Lymphocytes # (1.0-4.8) k/uL Macrocytosis PT (9.0-12.0) sec INR (<1.2) Sodium 135 L (137-145) mmol/L BUN 3 L (7-17) mg/dL Creatinine 0.48 L (0.52-1.04) mg/dL Calcium 8.2 L (8.4-10.2) mg/dL AST 56 H (14-36) U/L Total Protein 5.3 L (6.3-8.2) g/dL Albumin 2.6 L (3.5-5.0) g/dL HDL Cholesterol 19 L (40-60) mg/dL Lipase 568 H (23-300) U/L Microbiology - Last 24 Hours (Table) 01/04/19 01:33 Blood Culture - Preliminary Blood No Growth after 48 hours 01/04/19 15:38 Blood Culture - Preliminary Blood No Growth after 24 hours Assessment and Plan (1) Pancreatitis Narrative/Plan: CAT scan findings discussed with Dr. Ray yesterday. We agreed to hold discharge. GI consult was placed for their opinion regarding whether pancreatic stent or tertiary care transfer would be of any benefit. Repeat labs tomorrow. Continue diet as ordered. Current Visit: Yes Status: Acute Code(s): K85.90 - ACUTE PANCREATITIS WITHOUT NECROSIS OR INFECTION, UNSP SNOMED Code(s): 37485185
--- NOTE | 2019-01-06 12:26 | CONS ---
CONSULTATION REQUESTING PHYSICIAN: Dr. Gonzalez. REASON FOR CONSULTATION: Acute pancreatitis. HISTORY OF PRESENT ILLNESS: The patient is a 53-year-old pleasant white female with a history of chronic moderate alcohol abuse of 30 years duration was admitted to the hospital with acute pancreatitis. She presents to the emergency room her week ago complaining of an epigastric and left-sided abdominal pain and was noted to have elevated amylase and lipase consistent with pancreatitis. She did have a CT of the abdomen and pelvis done at the time of admission hospital that showed changes in the pancreas consistent with acute pancreatitis. Lipase was 1263. She had minimal elevation of serum transaminases that have since normalized. Ultrasound of the gallbladder was negative. She has no prior history of pancreatitis. She has been drinking alcohol on a moderate basis for the last 30 years. On average, she drinks about 20 cans of beer a week. No history of gallbladder problems in the past. No prior history of peptic ulcer disease. Since being in the hospital over the course of the last one week, her symptoms have significantly improved. Her abdominal pain has resolved. She does have some discomfort in the left lower quadrant area. She has been having low-grade fevers for the last [address] Howard of Infectious Disease has seen the patient in consultation. The patient was started on meropenem 2 days ago. PAST MEDICAL HISTORY: Significant for hypertension, alcohol abuse. PAST SURGICAL HISTORY: . MEDICATIONS: At home include Xanax, Lipitor, cholestyramine, Cipro, Lopressor, Zantac, and Flagyl. ALLERGIES: IBUPROFEN AND LATEX. FAMILY HISTORY: Mother hypertension. Father with coronary artery disease. SOCIAL HISTORY: No smoking. Alcohol use as mentioned above. REVIEW OF SYSTEMS: CARDIOPULMONARY: No chest pain, shortness of breath. GENITOURINARY: No dysuria or hematuria. MUSCULOSKELETAL: Unremarkable. SKIN: Unremarkable. ENDOCRINE: Unremarkable. PSYCHIATRIC: Unremarkable. NEUROLOGY: Unremarkable. ENT/VISION: Unremarkable. CONSTITUTIONAL: No recent weight loss. No fever, chills, night sweats. PHYSICAL EXAMINATION: She appears comfortable. No apparent distress. T-max was 100.2. Today it is 99.9. Blood pressure 172/68, pulse rate 97. HEENT: Examination unremarkable. Conjunctivae pink. Sclerae anicteric. Oral cavity no lesions. NECK: No JVD or lymph node enlargement. CHEST: Clear to auscultation. HEART: Regular rate and rhythm. ABDOMEN: Soft. There was tenderness in the left upper quadrant and left lower quadrant area, but rest of the abdomen was benign. Bowel sounds are positive. No organomegaly. EXTREMITIES: No pedal edema. SKIN: No rashes. NEUROLOGIC: Alert and oriented x3. No focal deficits. LABS: WBC 6.1, hemoglobin 10.6, platelets 200. BUN and creatinine are normal. Basic metabolic panel is within normal limits. AST 56, ALT 34, T bilirubin and alkaline phosphatase are normal. Lipase is 568. She had a repeat CT scan of the abdomen and pelvis done yesterday that showed continued severe acute pancreatitis centered along the pancreatic body and tail. There is some inhomogeneous enhancement of the pancreatic tail suggestive of patchy areas of necrosis. Also evidence of extensive increasingly more confluent of peripancreatic fluid with peritoneal enhancement. Evidence of fluid collection in the left pelvis measuring 25 x 13 cm. IMPRESSION: Acute severe pancreatitis. The patient in the hospital for the last 7 days. Lipase is slightly elevated. However, she continues to have low-grade fevers, but no evidence of leukocytosis. She was seen by Dr. Howard and has been on broad-spectrum antibiotics with Merrem that was started [address] scan of the abdomen and pelvis done yesterday did show evidence of persistent changes of acute pancreatitis with an inhomogeneous area in the tail of the pancreas suspicious for possible necrosis. Also, there is a fluid collection measuring 13 x 13 cm in the left pelvis suggestive of walled-off necrosis/pseudocyst formation. RECOMMENDATIONS: 1. Continue with broad-spectrum antibiotics. 2. Microcytic anemia. 3. Reviewed the CT scan findings with the patient. At this time most likely dealing with acute severe pancreatitis with possible early necrosis and possibility of an infection/abscess formation cannot be excluded though clinically patient does not look septic. Apparently Dr. Howard discussed with the patient possibility of transfer to [facility] and currently she refuses. Hence, at this time we can continue with current management with antibiotics and follow her closely. Thank you for this consultation. MMODL / IJN: [id number] /
--- NOTE | 2019-01-06 19:05 | PN ---
PROGRESS NOTE DATE OF SERVICE: 01/06/2019 This 53-year-old woman who was admitted with acute severe pancreatitis, also significant ascites and pleural effusion. The patient also had been running a low- grade fever. Multiple consultants are following the patient closely. Cultures are negative. Patient has empiric antibiotics for necrotizing hemorrhagic pancreatitis. PAST MEDICAL HISTORY: Reviewed. REVIEW OF SYSTEMS: Cardiovascular system: No angina. RESPIRATORY: As mentioned earlier. GI: As mentioned earlier. : As mentioned earlier. CURRENT MEDICATIONS ARE: 1. Tylenol 650 q.6h p.r.n. 2. Lipitor 10 mg q.h.s. 3. Pepcid 20 mg b.i.d. 4. Apresoline 10 mg p.r.n. 5. HydroDIURIL 25 mg daily. 6. Ativan 1 mg q.6h p.r.n. 7. Ativan. 8. Meropenem 1 g IV q.8h. 9. Lopressor. 10.Replacement protocols. 11.Narcan. 12.Zofran. 13.Protonix 40 mg. 14.Vitamin B1. PHYSICAL EXAM: Patient alert oriented x3. Pulse is 97, blood pressure 170/88, respirations 16, temperature 99.9, pulse ox 97% on room air. HEENT: Conjunctivae normal. Oral mucosa moist. NECK: No jugular venous distention. No lymph node enlargement. CARDIOVASCULAR: S1, S2. RESPIRATORY: Diminished breath sounds at the bases. A few scattered rhonchi, no crackles. ABDOMEN: Soft. Mild diffuse distention. Nontender. No guarding, no rigidity. Bowel sounds present. Flanks are dull. LEGS: No edema, no swelling. NERVOUS SYSTEM: Higher functions as mentioned earlier. Moves all four limbs. No focal deficits. JOINTS: No active deforming arthropathy. LABS: WBC 6.2, hemoglobin 10.6, sodium 135 and lipase is 568. ASSESSMENT: 1. Acute severe pancreatitis, possible necrotizing hemorrhagic pancreatitis. 2. Ascites with pleural effusion from pancreatitis. 3. Severe hypokalemia. 4. Severe hypomagnesemia. 5. History of alcohol abuse. 6. Hypertension. 7. Hyperlipidemia. 8. Macrocytosis and thrombocytosis secondary to alcohol abuse. 9. Anemia, macrocytic. 10.Hyponatremia. 11.Elevated CRP. RECOMMENDATIONS: Recommend to continue current medications, continue to monitor, continue symptomatic treatment. Continue with IV antibiotics. Follow the cultures. Would also add clonidine to the regimen. Closely follow with multiple consultants, gastroenterology and surgery and further recommendations to follow. See orders for further details. 1. 2. Thank you see orders see orders. Further orders for further condition: Please send a copy dictation. MMHERIBERTOL / IJN: [id number] /
[2019-01-06] MEDS: ATORVASTATIN 10 MG TAB PO SCH (20:37)
--- NOTE | 2019-01-06 22:41 | PN ---
PROGRESS NOTE DATE OF SERVICE: 01/06/2019 REASON FOR FOLLOWUP: Fever with acute severe pancreatitis. INTERVAL HISTORY: The patient's fever pattern has improved, currently running a temperature of 100.2-99.9 comparing to 102-103 degrees Fahrenheit initially. The patient's pain to the left lower abdominal area is mostly dull aching, about 1/10. Denies any nausea, no vomiting. No chest pain, shortness of breath or cough. PHYSICAL EXAMINATION: Blood pressure 172/88 with a pulse of 97, temperature 99.9, she is 97% on room air. General description is a middle aged female lying in bed in no distress. Respiratory system: Unlabored breathing, clear to auscultation anteriorly. Heart S1, S2. Regular rate. Abdomen is mildly distended. No guarding, no rigidity. LABS: Creatinine 0.48, hemoglobin is 10.6, white count 6.1. DIAGNOSTIC IMPRESSION AND PLAN: Patient with acute severe pancreatitis with possible pseudocyst formation likely responsible for this persistent fever. The patient has been advised NPO status and bowel rest to help heal this pancreatitis. Continue with the meropenem 1 g q.8. Repeat the labs tomorrow. Continue supportive care. MMODL / IJN: [id number] /
[2019-01-07] MEDS: hydrALAZINE HCL 20 MG/ML 1 ML VIAL IVP PRN (02:03)
[2019-01-07] MEDS: ACETAMINOPHEN TAB 325 MG TAB PO PRN ×3 (02:04→20:04)
[2019-01-07 07:14] LABS: Basophils % (A) 0 %; Eosinophils # (A) 0.1 k/uL (0-0.7); Eosinophils % (A) 1 %; HCT 32.1 % (34.0-46.0); HGB 10.8 gm/dL (11.4-16.0); Lymphocytes # (A) 0.9 k/uL (1.0-4.8); Lymphocytes % (A) 14 %; MCH 36.6 pg (25.0-35.0); MCHC 33.5 g/dL (31.0-37.0); MCV 109.2 fL (80.0-100.0); Macrocytosis Marked; Mean Platelet Volume 8.2; Monocytes # (A) 0.4 k/uL (0-1.0); Monocytes % (A) 7 %; Neutrophils # (A) 4.7 k/uL (1.3-7.7); Neutrophils % (A) 75 %; Platelet Count 270 k/uL (150-450); RBC 2.94 m/uL (3.80-5.40); RDW 15.4 % (11.5-15.5); WBC 6.2 k/uL (3.8-10.6)
[2019-01-07 07:26] LABS: African American GFR (CKD) >90 (>60 ml/min/1.73 sqM); Amylase 89 U/L (30-110); Anion Gap 10 mmol/L; Blood Urea Nitrogen 5 mg/dL (7-17); Calcium 8.4 mg/dL (8.4-10.2); Carbon Dioxide 27 mmol/L (22-30); Chloride 96 mmol/L (98-107); Glucose 87 mg/dL (74-99); Potassium 3.5 mmol/L (3.5-5.1); Sodium 133 mmol/L (137-145)
[2019-01-07 07:40] LABS: C Reactive Protein 223.6 mg/L (<10.0)
[2019-01-07] MEDS: MEROPENEM 1 GM in SODIUM CHLORIDE 0.9% 100 ML IVPB SCH ×3 (08:36→23:15)
[2019-01-07] MEDS: METOPROLOL TARTRATE 50 MG TAB PO SCH ×2 (08:36→20:04)
[2019-01-07] MEDS: THIAMINE 100 MG TAB PO SCH ×2 (08:36→16:15)
[2019-01-07] MEDS: HYDROCHLOROTHIAZIDE 25 MG TAB PO SCH (08:36)
[2019-01-07] MEDS: PANTOPRAZOLE 40 MG/10 ML VIAL IVP SCH ×2 (08:36→20:04)
[2019-01-07] MEDS: FAMOTIDINE 20 MG TAB PO SCH ×2 (08:36→20:04)
--- NOTE | 2019-01-07 11:23 | PN ---
PROGRESS NOTE DATE OF SERVICE: 01/07/2019 Patient is a 53-year-old pleasant white female admitted to the hospital with acute severe pancreatitis with possible necrosis/ascites and fluid collection in the left hemipelvic area. The patient, however, surprisingly continues to do well. She does complain of some left-sided abdominal pain, but denies any nausea, vomiting. She had low-grade fever, but has been afebrile for the last 24 hours. She has been on a low- fat diet, tolerating. She denies any diarrhea. She was evaluated by Dr. Howard and she was started on empiric antibiotics about [address] scan of the abdomen and pelvis done on January 04 as a followup revealed a large fluid collection in the left side of the pelvis measuring 25 x 13 cm as well as extensive inflammatory changes in the pancreatic body and tail and some ascites. PHYSICAL EXAMINATION: She appears comfortable, no apparent distress. Vital signs are stable. T-max was 100.5. Temperature today is 98.2, blood pressure 177/81, pulse rate 95. HEENT examination unremarkable. Conjunctivae pink. Sclerae anicteric. Oral cavity no lesions. NECK: No JVD or lymph node enlargement. CHEST: Clear to auscultation. HEART: Regular rate and rhythm. ABDOMEN: Soft. Tenderness mildly in the left upper quadrant area, left lower quadrant area. No rebound or rigidity. Bowel sounds are positive. EXTREMITIES: No pedal edema. SKIN: No rashes. NEUROLOGIC: Alert and oriented x3. No focal deficits. LABS: WBC 6.2, hemoglobin 10.8, platelets normal. Basic metabolic panel is within normal limits. CRP is 2223. Lipase is 553. IMPRESSION: Severe acute pancreatitis with fluid collection in the left side of the pelvis as well as extensive changes of pancreatitis on followup imaging studies done 3 days ago with possible area of necrosis, rule out necrotizing pancreatitis. The patient continued to have low-grade fever on empiric antibiotics with Merrem starting [address] Howard following the patient closely. Doubt infected necrosis given the overall clinical condition of the patient. RECOMMENDATION: 1. Continue with antibiotics. 2. Continue with symptomatic and supportive care. 3. Follow her very closely during hospital stay. Thank you for this consultation. MMODL / IJN: [id number] /
--- NOTE | 2019-01-07 12:05 | P.PN ---
Subjective Progress Note Date: 01/07/19 Principal diagnosis: Pancreatitis Patient feels well. Low-grade temp 100.5. Lipase improved at 553. Objective - Vital Signs Vital signs: Vital Signs Temp 98.4 F 01/07/19 07:00 Pulse 95 01/07/19 07:00 Resp 16 01/07/19 07:00 BP 177/81 01/07/19 07:00 Pulse Ox 97 01/07/19 07:00 Intake & Output 01/06/19 01/07/19 01/07/19 18:59 06:59 18:59 Intake Total 580 Output Total 800 Balance -220 Intake: Intake, IV Titration 100 Amount Meropenem 1 gm In Sodium 100 Chloride 0.9% 100 ml @ 200 mls/hr IVPB Q8HR [facility] Rx#:[id number] Oral 480 Output: Urine 800 Other: Voiding Method Toilet Toilet # Voids 2 2 - Exam Abdomen: Soft, nondistended, left upper quadrant tenderness and fullness unchanged - Labs CBC & Chem 7: 01/07/19 06:49 01/07/19 06:49 Labs: Abnormal Lab Results - Last 24 Hours (Table) 01/07/19 01/07/19 Range/Units 06:49 06:49 RBC 2.94 L (3.80-5.40) m/uL Hgb 10.8 L (11.4-16.0) gm/dL Hct 32.1 L (34.0-46.0) % MCV 109.2 H (80.0-100.0) fL MCH 36.6 H (25.0-35.0) pg Lymphocytes # 0.9 L (1.0-4.8) k/uL Macrocytosis Marked A Sodium 133 L (137-145) mmol/L Chloride 96 L (98-107) mmol/L BUN 5 L (7-17) mg/dL Creatinine 0.38 L (0.52-1.04) mg/dL C-Reactive Protein 223.6 H (<10.0) mg/L Lipase 553 H (23-300) U/L Microbiology - Last 24 Hours (Table) 01/04/19 01:33 Blood Culture - Preliminary Blood No Growth after 72 hours 01/04/19 15:38 Blood Culture - Preliminary Blood No Growth after 48 hours Assessment and Plan (1) Pancreatitis Narrative/Plan: Continue low-fat diet. Follow labs. Repeat CAT scan apparently ordered. Current Visit: Yes Status: Acute Code(s): K85.90 - ACUTE PANCREATITIS WITHOUT NECROSIS OR INFECTION, UNSP SNOMED Code(s): 02027776
--- NOTE | 2019-01-07 16:11 | PN ---
PROGRESS NOTE DATE OF SERVICE: 01/07/2019. HISTORY: This 53-year-old woman was admitted with severe acute pancreatitis. She is being closely monitored. Patient has significant ascites also. The patient also running fever. The patient on broad spectrum IV antibiotics. Cultures are negative at this time. CT scan of the abdomen and pelvis reviewed. The patient followed by multiple consultants including Surgery and Infectious Disease. The patient currently a low-fat diet. PAST MEDICAL HISTORY: Reviewed. REVIEW OF SYSTEMS: CARDIOVASCULAR SYSTEM: No angina. RESPIRATORY: As mentioned earlier. GI: As mentioned earlier. : No dysuria or hematuria. MEDICATIONS: Reviewed, include: 1. Tylenol 650 every 6h p.r.n. 2. Lipitor 10 mg at bedtime. 3. Pepcid 20 mg b.i.d. 4. Omeprazole. 5. Ativan p.r.n. 6. Lopressor 50 mg p.o. b.i.d. 7. Replacement protocol. 8. Zofran. 9. Protonix. 10.Vitamin B1. PHYSICAL EXAM: Patient is alert oriented x3. Pulse 95, blood pressure 177/81, respirations 16, temperature 98.4, pulse ox 97% on room air. HEENT: Conjunctivae normal. NECK:No JVD. CARDIOVASCULAR: S1 and S2 muffled. LUNGS: Breath sounds diminished at the bases. Scattered rhonchi no crackles. ABDOMEN: Soft, mildly obese, slightly better compared to yesterday. Nontender. No mass palpable. Flanks are dull. KETTLE OPERATOR HEAD: No focal deficits. LABS: WBC 6.2, hemoglobin 10.8, MCV 109.2, sodium 133. C-reactive protein is 223. ASSESSMENT: 1. Acute severe pancreatitis with possible necrotizing hemorrhagic pancreatitis present on admission. 2. Ascites with pleural effusion from pancreatitis. 3. Severe hypokalemia. 4. Severe hypomagnesemia. 5. History of alcohol abuse. 6. Hypertension with hypertensive urgency. 7. Hyperlipidemia. 8. Macrocytosis and thrombocytosis secondary to alcohol. 9. Anemia macrocytic. 10.Hyponatremia. 11.Elevated CRP. RECOMMENDATIONS: Continue to monitor, symptomatic treatment. At this time I recommend continue with broad-spectrum IV antibiotics. Follow the cultures. I would also recommend addition of clonidine. Overall prognosis guarded because of multiple complex medical issues. Further recommendations to follow. See orders for further details. MMODL / IJN: [id number] /
[2019-01-07] MEDS: cloNIDine HCL 0.1 MG TAB PO SCH (20:04)
[2019-01-07] MEDS: ATORVASTATIN 10 MG TAB PO SCH (20:04)
--- NOTE | 2019-01-07 21:41 | PN ---
PROGRESS NOTE DATE OF SERVICE: 01/07/2019 REASON FOR FOLLOWUP: Fever with acute severe pancreatitis. INTERVAL HISTORY: The patient is currently afebrile. Patient is breathing comfortably. The patient's left lower quadrant pain has decreased in intensity. Denies having nausea, no vomiting. Has been tolerating her diet and no diarrhea. PHYSICAL EXAMINATION: Blood pressure 177/81 with a pulse of 95, temperature 98.4, T-max 100.5. She is 97% room air. General description is a middle-aged female lying in bed in no distress. Respiratory system: Unlabored breathing, clear to auscultation anteriorly. Heart S1, S2. Regular rate and rhythm. Abdomen soft, slightly distended. No guarding, no rigidity. LABS: Hemoglobin is 10.8, white count 6.2, BUN of 5 creatinine 0.38. Blood culture has been negative. DIAGNOSTIC IMPRESSION AND PLAN: Patient with fever, source is likely severe acute pancreatitis with surrounding fluid but no definite pseudocyst formation or any abscess, currently on meropenem. If the patient continues to improve, fever resolves, may transition to a short course of oral antibiotic. Continue supportive care. MMODL / IJN: [id number] /
[2019-01-08 02:39] VITALS: PULSE 77; RESP 16
[2019-01-08 07:04] LABS: Basophils % (A) 0 %; Eosinophils # (A) 0.1 k/uL (0-0.7); Eosinophils % (A) 1 %; HCT 28.3 % (34.0-46.0); HGB 9.5 gm/dL (11.4-16.0); Lymphocytes # (A) 0.6 k/uL (1.0-4.8); Lymphocytes % (A) 10 %; MCH 36.1 pg (25.0-35.0); MCHC 33.7 g/dL (31.0-37.0); Macrocytosis Moderate; Monocytes # (A) 0.4 k/uL (0-1.0); Monocytes % (A) 7 %; Neutrophils # (A) 4.7 k/uL (1.3-7.7); Neutrophils % (A) 80 %; Platelet Count 295 k/uL (150-450); RBC 2.64 m/uL (3.80-5.40); RDW 15.2 % (11.5-15.5); WBC 5.9 k/uL (3.8-10.6)
[2019-01-08 07:18] LABS: African American GFR (CKD) >90 (>60 ml/min/1.73 sqM); Amylase 82 U/L (30-110); Anion Gap 8 mmol/L; Blood Urea Nitrogen 5 mg/dL (7-17); Carbon Dioxide 27 mmol/L (22-30); Chloride 98 mmol/L (98-107); Glucose 90 mg/dL (74-99); Potassium 3.6 mmol/L (3.5-5.1); Sodium 133 mmol/L (137-145)
[2019-01-08 07:52] VITALS: BP 160/84; TEMP 99.1
[2019-01-08] MEDS: METOPROLOL TARTRATE 50 MG TAB PO SCH (08:30)
[2019-01-08] MEDS: THIAMINE 100 MG TAB PO SCH (08:30)
[2019-01-08] MEDS: PANTOPRAZOLE 40 MG/10 ML VIAL IVP SCH (08:30)
[2019-01-08] MEDS: HYDROCHLOROTHIAZIDE 25 MG TAB PO SCH (08:30)
[2019-01-08] MEDS: FAMOTIDINE 20 MG TAB PO SCH (08:30)
[2019-01-08] MEDS: MEROPENEM 1 GM in SODIUM CHLORIDE 0.9% 100 ML IVPB SCH (08:30)
[2019-01-08] MEDS: cloNIDine HCL 0.1 MG TAB PO SCH (08:30)
--- NOTE | 2019-01-08 08:44 | CT ---
EXAMINATION TYPE: CT ChestAbdPelvis wo con DATE OF EXAM: 01/08/2019 COMPARISON: 01/04/2019 abdomen pelvis. HISTORY: 53-year-old female pancreatitis, follow-up. TECHNIQUE: Contiguous axial scanning of the chest, abdomen, and pelvis without IV contrast. Coronal a nd sagittal reconstructions performed. CT DLP: 612.6 mGycm Automated exposure control for dose reduction was used. FINDINGS: CHEST: Heart normal size notes small pericardial effusion measuring 7 mm. Borderline ectasia ascending aorta 3.5 cm. Conventional orifice of branching anatomy. No thoracic lymphadenopathy by CT size criteria. Tiny calcified granuloma right lower lobe. Continued small left pleural effusion with adjacent atelectasis. The remainder of the lungs appear cl ear. ABDOMEN: Limited noncontrast assessment of the liver. Gallbladder is collapsed which shows some mild circumferential wall thickening likely reactive to pat ient's underlying pancreatitis. Adrenal glands, spleen, and kidneys show no gross abnormal body. Extensive peripancreatic fluid about the proximal pancreatic body and tail is redemonstrated. Overall configuration shows little to no change from prior exam and continues to track down to the left adne xa and up into the left subphrenic region. Lack of IV contrast limits assessment of the vasculature and for any pancreatic devitalization. The previously mentioned 1.4 cm hypodense lesion described in the pancreatic head is not discernible without IV contrast. No dilated small bowel or free air. No significant stool burden. No obvious mesenteric or retroperitoneal lymphadenopathy. Continued mild anasarca type changes. PELVIS: Bladder nondistended. Uterus is retroverted with both ovaries visualized. Pelvic phlebolith. Mild pel pura free fluid redemonstrated. BONES: Degenerative disc disease throughout the thoracolumbar spine. No osseous destructive process seen. IMPRESSION: 1. CONTINUED SMALL LEFT PLEURAL EFFUSION WITH ADJACENT ATELECTASIS. A SMALL 7 MM. CARDIAL EFFUSION IS NEW. 2. WITHIN THE ABDOMEN AND PELVIS, ALLOWING FOR NONCONTRAST EXAM, the overall inflammation centered al juliet the pancreatic body and tail with very large fluid collection extending up to the left subphrenic region and down to the left adnexa is overall stable in configuration. 3. Lack of IV contrast limits assessment of the vasculature and for any areas of pancreatic devitaliz ation. 4. The previously mentioned 1.4 cm hypodense lesion seen in the pancreatic head is not discernible wi thout IV contrast.
--- NOTE | 2019-01-08 12:09 | P.PN ---
<Rebecca Chapin - Last Filed: 01/08/19 12:05> Subjective Progress Note Date: 01/08/19 CHIEF COMPLAINT: Pancreatitis HISTORY OF PRESENT ILLNESS: Patient seen and examined this morning to bedtime. She denies abdominal pain. Denies nausea. Denies vomiting. Passing flatus. Patient reports consuming 75% of her breakfast. Amylase 82. Lipase 527. Computed tomography scan repeated this morning reveals inflammation centered along the pancreatic body and tail with very large fluid collection extending up to the left subphrenic region and down to the left adnexa is overall stable in configuration. PHYSICAL EXAM: VITAL SIGNS: Reviewed. GENERAL: Well-developed in no acute distress. HEENT: No sclera icterus. Extraocular movements grossly intact. Moist buccal mucosa. Head is atraumatic, normocephalic. ABDOMEN: Soft. Mild distention. Bloated. Nontender. NEUROLOGIC: Alert and oriented. Cranial nerves II through XII grossly intact. ASSESSMENT: 1. Acute pancreatitis PLAN: 1. Continue current diet 2. Recommend abstinence from alcohol 3. Patient is very anxious to be discharged home today. Agreeable to discharge today from a surgical standpoint. Will defer to internal medicine. Nurse practitioner note has been reviewed by physician. Signing provider agrees with the documented findings, assessment, and plan of care. Objective - Vital Signs Vital signs: Vital Signs Temp 99.1 F 01/08/19 07:26 Pulse 77 01/08/19 00:30 Resp 16 01/08/19 07:26 BP 160/84 01/08/19 07:26 Pulse Ox 95 01/08/19 07:26 Intake & Output 01/07/19 01/08/19 01/08/19 18:59 06:59 18:59 Intake Total 100 180 Balance 100 180 Intake: Intake, IV Titration 100 Amount Meropenem 1 gm In Sodium 100 Chloride 0.9% 100 ml @ 200 mls/hr IVPB Q8HR [facility] Rx#:[id number] Oral 180 Other: Voiding Method Toilet # Voids 3 2 - Labs CBC & Chem 7: 01/08/19 06:47 01/08/19 06:47 Labs: Abnormal Lab Results - Last 24 Hours (Table) 01/08/19 01/08/19 Range/Units 06:47 06:47 RBC 2.64 L (3.80-5.40) m/uL Hgb 9.5 L (11.4-16.0) gm/dL Hct 28.3 L (34.0-46.0) % MCV 107.0 H (80.0-100.0) fL MCH 36.1 H (25.0-35.0) pg Lymphocytes # 0.6 L (1.0-4.8) k/uL Sodium 133 L (137-145) mmol/L BUN 5 L (7-17) mg/dL Creatinine 0.45 L (0.52-1.04) mg/dL Calcium 8.0 L (8.4-10.2) mg/dL Lipase 527 H (23-300) U/L Microbiology - Last 24 Hours (Table) 01/04/19 01:33 Blood Culture - Preliminary Blood No Growth after 96 hours 01/04/19 15:38 Blood Culture - Preliminary Blood No Growth after 72 hours 01/06/19 11:36 Blood Culture - Preliminary Blood No Growth after 24 hours <Ari Silva - Last Filed: 01/08/19 14:11> Subjective As above. Patient doing well. Repeat CAT scan noted. Labs improved. She remains excited about going home. Outpatient follow-up GI advised. Objective - Vital Signs Vital signs: Vital Signs Temp 99.1 F 01/08/19 07:26 Pulse 77 01/08/19 00:30 Resp 16 01/08/19 07:26 BP 160/84 01/08/19 07:26 Pulse Ox 95 01/08/19 07:26 Intake & Output 01/07/19 01/08/19 01/08/19 18:59 06:59 18:59 Intake Total 100 360 Balance 100 360 Intake: Intake, IV Titration 100 Amount Meropenem 1 gm In Sodium 100 Chloride 0.9% 100 ml @ 200 mls/hr IVPB Q8HR [facility] Rx#:[id number] Oral 360 Other: Voiding Method Toilet # Voids 3 2 - Labs CBC & Chem 7: 01/08/19 06:47 01/08/19 06:47 Labs: Abnormal Lab Results - Last 24 Hours (Table) 01/07/19 01/08/19 01/08/19 Range/Units 06:49 06:47 06:47 RBC 2.64 L (3.80-5.40) m/uL Hgb 9.5 L (11.4-16.0) gm/dL Hct 28.3 L (34.0-46.0) % MCV 107.0 H (80.0-100.0) fL MCH 36.1 H (25.0-35.0) pg Lymphocytes # 0.6 L (1.0-4.8) k/uL Sodium 133 L (137-145) mmol/L BUN 5 L (7-17) mg/dL Creatinine 0.45 L (0.52-1.04) mg/dL Calcium 8.0 L (8.4-10.2) mg/dL Lipase 527 H (23-300) U/L Procalcitonin 5.43 H (0.02-0.09) ng/mL Microbiology - Last 24 Hours (Table) 01/06/19 11:36 Blood Culture - Preliminary Blood No Growth after 48 hours 01/04/19 01:33 Blood Culture - Preliminary Blood No Growth after 96 hours 01/04/19 15:38 Blood Culture - Preliminary Blood No Growth after 72 hours Assessment and Plan (1) Pancreatitis Current Visit: Yes Status: Acute Code(s): K85.90 - ACUTE PANCREATITIS WITHOUT NECROSIS OR INFECTION, UNSP SNOMED Code(s): 74397032
--- NOTE | 2019-01-08 16:16 | PN ---
PROGRESS NOTE DATE OF SERVICE: 01/08/2019 REASON FOR FOLLOWUP: Acute fever, acute pancreatitis. INTERVAL HISTORY: The patient last fever was last evening of 100.7. The patient has been afebrile since then. The patient has been feeling better. Left lower quadrant abdominal pain seems to have improved. She has been tolerating a regular diet without any worsening symptoms. No chest pain, shortness of breath or cough. PHYSICAL EXAMINATION: Blood pressure 160/84 with a pulse of 77, temperature 99.1. She is 95% on room air. General description is a middle-aged female lying in bed in no distress. RESPIRATORY SYSTEM: Unlabored breathing. Clear to auscultation anteriorly. HEART: S1, S2. Regular rate and rhythm. ABDOMEN: Soft. No tenderness. LABS: Hemoglobin 9.5, white count 5.9, BUN of 5, creatinine 0.45. DIAGNOSTIC IMPRESSION AND PLAN: Patient with acute alcoholic pancreatitis, fever, more likely related to her severe pancreatitis. Plan at this time is to give a short course of oral ciprofloxacin to be on the safe side. The patient has been advised if any recurrence of abdominal pain or fever or chills to let us know right away. Prescription sent to the pharmacy. Continue supportive care. MMODL / IJN: [id number] /
[2019-01-08] MEDS ORDERED: PANTOPRAZOLE 40 MG TABLET PO SCH (17:30)
--- NOTE | 2019-01-09 06:35 | DS ---
DISCHARGE SUMMARY DATE OF SERVICE: 01/08/2019. FINAL DIAGNOSIS: 1. Acute severe pancreatitis with possible necrotizing hemorrhagic pancreatitis, present on admission. 2. Ascites and pleural effusion from pancreatitis. 3. Severe hypokalemia. 4. Severe hypomagnesemia. 5. History of alcohol abuse. 6. Hypertension with hypertensive urgency. 7. Hyperlipidemia. 8. Macrocytosis and thrombocytopenia secondary to alcohol. 9. Anemia, macrocytic. 10.Hyponatremia. 11.Elevated CRP. DISCHARGE DISPOSITION: The patient will be discharged in stable condition with guarded prognosis. Total time 35 minutes. HISTORY OF PRESENT ILLNESS: This 53-year-old woman with a past medical history of multiple medical problems admitted with of acute severe pancreatitis and multiple complications as listed but treated medically and the patient was seen by multiple consultants during the hospitalization. Abdomen and pelvis CAT scan was repeated which showed stable findings of the fluid and the patient was cleared for discharge by multiple consultants. The patient was discharged in stable condition with guarded prognosis. Infectious Disease also saw the patient during the hospitalization. On exam, vitals are stable. CARDIOVASCULAR: S1, S2, normal. ABDOMEN: Soft, minimal distention. Nontender. No mass palpable. No guarding. No rigidity. NERVOUS SYSTEM: No focal deficits. Labs are reviewed. DISCHARGE ADVICE: 1. Diet is cardiac. 2. Activity limited until followup. 3. Follow up with Dr. Gonzalez in 2 to 3 days. 4. Follow up with Dr. Peters and Dr. Silva as recommended. Medications will be: 1. HydroDIURIL 25 mg p.o. daily. 2. Lopressor 50 mg p.o. b.i.d. 3. Catapres 0.1 p.o. b.i.d. 4. Cipro 500 mg p.o. b.i.d. for one week. 5. Flagyl 500 mg t.i.d. for one week. 6. Folic acid 1 mg p.o. daily. 7. Multivitamin one p.o. daily. 8. Protonix 40 mg p.o. daily. 9. Tylenol 650 q.6 p.r.n. 10.Vitamin B1, 100 mg p.o. daily. 11.Xanax 0.5 p.o. b.i.d. p.r.n. Follow up with Dr. Howard as recommended. MMODL / IJN: [id number] / HEIDY
== END 2019-01-08 15:02 | disposition home or self-care (01) | DRG 439 ==
LOC: EC 10:57 → 3NMEDONC 12:56 → 4SSUR 18:55
PROVIDERS: ADMIT Internal Medicine; ATTEND Internal Medicine
DX: K85.90 Acute pancreatitis without necrosis or infection, unspecified (principal); E87.1 Hypo-osmolality and hyponatremia; J90 Pleural effusion, not elsewhere classified; R18.8 Other ascites; K85.20 Alcohol induced acute pancreatitis without necrosis or infection; D69.59 Other secondary thrombocytopenia; E83.51 Hypocalcemia; I45.81 Long QT syndrome; E83.42 Hypomagnesemia; F10.10 Alcohol abuse, uncomplicated; I10 Essential (primary) hypertension; I16.0 Hypertensive urgency; K29.80 Duodenitis without bleeding; K29.70 Gastritis, unspecified, without bleeding; K52.9 Noninfective gastroenteritis and colitis, unspecified; D53.9 Nutritional anemia, unspecified; D75.89 Other specified diseases of blood and blood-forming organs; D72.825 Bandemia; E87.6 Hypokalemia; E78.5 Hyperlipidemia, unspecified; M85.80 Other specified disorders of bone density and structure, unspecified site; Y90.0 Blood alcohol level of less than 20 mg/100 ml; Z71.41 Alcohol abuse counseling and surveillance of alcoholic; Z79.899 Other long term (current) drug therapy; Z98.891 History of uterine scar from previous surgery; Z88.8 Allergy status to other drugs, medicaments and biological substances; Z91.040 Latex allergy status; Z82.49 Family history of ischemic heart disease and other diseases of the circulatory system
CPT/HCPCS: 36415; 71045; 71250; 74176; 74177; 76705; 80048; 80053; 80061; 80320; 81001; 82150; 83605; 83690; 83735; 84132; 84145; 84484; 85025; 85610; 86140; 87040; 93005; 96365; 96366; 96372; 96375; 99285

== ENCOUNTER → 2019-05-15 | Outpatient (CLI) | payer BC ==
--- NOTE | 2019-05-16 10:52 | MM ---
Reason for exam: screening (asymptomatic). Last mammogram was performed 1 year and 1 month ago. History: Family history of breast cancer in maternal grandmother at age 40. Physical Findings: A clinical breast exam by your physician is recommended on an annual basis and results should be correlated with mammographic findings. MG 3D Screening Mammo W/Cad Bilateral CC and MLO view(s) were taken. Prior study comparison: April 23, 2018, bilateral MG 3d screening mammo w/cad. May 19, 2016, mammogram. The breast tissue is heterogeneously dense. This may lower the sensitivity of mammography. Finding: There are typically benign vascular, round, linear calcifications in both breasts, greater in the right breast. There is no discrete abnormality. ASSESSMENT: Benign, BI-RAD 2 RECOMMENDATION: Routine screening mammogram of both breasts in 1 year.
== END | disposition home or self-care (01) ==
LOC: RADMAMWWP 10:51
PROVIDERS: ATTEND Obstetrics & Gynecology
DX: Z12.31 Encounter for screening mammogram for malignant neoplasm of breast (principal)
CPT/HCPCS: 77063; 77067

== ENCOUNTER → 2019-11-25 | Outpatient (CLI) | payer BC ==
--- NOTE | 2019-11-25 16:04 | BD ---
EXAMINATION TYPE: Axial Bone Density DATE OF EXAM: 11/25/2019 COMPARISON: NONE CLINICAL HISTORY: Postmenopausal symptoms Height: 62.5 IN Weight: 148 LBS RISK FACTORS HISTORY OF: Active: YES Postmenopausal woman: AGE 53 MEDICATIONS: Additional Medications: CALCIUM, BLOOD PRESSURE MEDS, XANAX, POTASIUM, EXAM MEASUREMENTS: Bone mineral densitometry was performed using the [employer] System. Bone mineral density as measured about the Lumbar spine is: ----- L1-L4(G/cm2): 1.515 T Score Values are as follows: ----- L2: 3.5 ----- L3: 2.8 ----- L4: 1.5 ----- L1-L4: 2.8 Bone mineral density BASELINE Bone mineral density about the R hip (g/cm2): 1.098 Bone mineral density about the L hip (g/cm2): 1.013 T Score values are as follows: -----R Neck: 0.4 -----L Neck: 0.2 -----R Total: 0.8 -----L Total: 0.5 Bone mineral density BASELINE IMPRESSION: Normal (Values between +1 and -1 indicate normal bone mass). Consider repeating this study in 5 year s or sooner if there is some new clinical indication. NOTE: T-SCORE=SD OF THE YOUNG ADULT MEAN.
== END ==
LOC: RADBDWWP 09:30
PROVIDERS: ATTEND Obstetrics & Gynecology
DX: N95.1 Menopausal and female climacteric states (principal)
CPT/HCPCS: 77080

== ENCOUNTER 2020-06-08 08:21 | Day surgery (SDC) | payer BC ==
[2020-06-04 10:27] VITALS: BMI 25.7
[2020-06-08 08:45] VITALS: TEMP 97.5
[2020-06-08] MEDS ORDERED: LACTATED RINGERS 1,000 ML IV SCH (08:45)
[2020-06-08] MEDS ORDERED: LIDOCAINE 1% (10MG/ML) FOR IV START INTRADERMA PRN (08:45)
[2020-06-08] MEDS ORDERED: ONDANSETRON 4 MG/2 ML VIAL ONE (09:00)
[2020-06-08] MEDS ORDERED: ONDANSETRON 4 MG/2 ML VIAL IVP ONE (09:00)
[2020-06-08] MEDS ORDERED: PROPOFOL 10 MG/ML 20 ML VIAL IV ONE ×2 (09:01→09:38)
--- NOTE | 2020-06-08 10:12 | P.PCN ---
Date of Procedure: 06/08/20 Description of Procedure: BRIEF HISTORY: Patient is a 54-year-old female presenting for outpatient colonoscopy for screening for malignant neoplasm colon. No change in bowel habits or family history of colon cancer. No prior colonoscopy. PROCEDURE PERFORMED: Colonoscopy with polypectomy. PREOPERATIVE DIAGNOSIS: Screening for malignant neoplasm colon, no prior colonoscopy. ESTIMATED BLOOD LOSS: Minimal. IV sedation per Anesthesia. PROCEDURE: After informed consent was obtained, the patient, was brought into the endoscopy unit. IV sedation was administered by Anesthesia under continuous monitoring. Digital rectal examination was normal. Initially the Olympus CF-190 flexible video colonoscope was then inserted in the rectum, gradually advanced into the cecum without any difficulty. Careful examination was performed as the scope was gradually being withdrawn. Ileocecal valve and the appendiceal orifice were visualized and appeared normal. Prep was excellent. Mucosa of the cecum, ascending colon, transverse colon, descending colon, sigmoid colon, and rectum a ppeared normal. 2 diminutive polyps measuring 1-2 mm in size removed from the ascending colon and sigmoid colon with cold forcep polypectomy. Retroflexion was performed in the rectum and no lesions were seen, low-grade internal hemorrhoids seen. The patient tolerated the procedure well. IMPRESSION: 2 diminutive polyps removed with cold forcep polypectomy from the ascending colon and sigmoid colon. Internal and external hemorrhoids. RECOMMENDATIONS: Findings of this examination were discussed with the patient. Okay to resume diet. Okay to resume medications. Would pathology from polypectomies. Recommend repeat colonoscopy in 7 years pending pathology from polypectomy.
[2020-06-08 10:15] VITALS: RESP 16
[2020-06-08 10:31] VITALS: BP 127/76; PULSE 58
== END 2020-06-08 10:48 | disposition home or self-care (01) ==
LOC: ORWHC2ENDO 08:21
PROVIDERS: ATTEND Internal Medicine
DX: Z12.11 Encounter for screening for malignant neoplasm of colon (principal); D12.2 Benign neoplasm of ascending colon; D12.5 Benign neoplasm of sigmoid colon; K64.8 Other hemorrhoids; K64.4 Residual hemorrhoidal skin tags; I10 Essential (primary) hypertension; E78.5 Hyperlipidemia, unspecified; K21.9 Gastro-esophageal reflux disease without esophagitis; Z98.891 History of uterine scar from previous surgery; Z98.890 Other specified postprocedural states; Z88.6 Allergy status to analgesic agent; Z91.040 Latex allergy status; Z79.899 Other long term (current) drug therapy
CPT/HCPCS: 88305; 45380; J2405; J2704

== ENCOUNTER 2020-11-28 12:06 | Inpatient (IN) | payer BC ==
[2020-11-28] MEDS ORDERED: SODIUM CHLORIDE 0.9% 1,000 ML IV STA (12:49)
[2020-11-28] MEDS ORDERED: ONDANSETRON 4 MG/2 ML VIAL IVP STA (12:50)
[2020-11-28] MEDS ORDERED: ALPRAZolam 0.25 MG TAB PO STA (12:50)
--- NOTE | 2020-11-28 13:30 | ED ---
Nausea/Vomiting/Diarrhea HPI - General Chief complaint: Nausea/Vomiting/Diarrhea Stated complaint: vomiting, med reaction Time Seen by Provider: 11/28/20 12:29 Source: patient Mode of arrival: ambulatory Limitations: no limitations - History of Present Illness Initial comments: Patient is a 55-year-old female, with history of hypertension, alcohol abuse, presenting to the emergency Department with complaints of a possible medication reaction. She went to her PCPs office last week, Dr. Gonzalez, for swelling in her feet and ankles, she was prescribed Lasix and amoxicillin. She states she's been taking 20 mg daily over the past week, she started having nausea and vomiting yesterday and abdominal cramping. She also usually takes Xanax once daily in the mornings but states she has not been able to fill a prescription and has been off of it for the last week. She admits to some heart palpitations last night but no chest pain or shortness of breath today. She is a daily alcohol drinker, no alcohol today. She mitts is some generalized body aches. She denies any fevers or chills. She denies any dysuria. She has no further complaints at this time. Her vitals are stable upon arrival. - Related Data Home Medications Medication Instructions Recorded Confirmed Metoprolol Tartrate [Lopressor] 50 mg PO BID 12/30/18 06/08/20 hydroCHLOROthiazide [Hydrodiuril] 25 mg PO DAILY 12/30/18 06/08/20 ALPRAZolam [Xanax] 0.25 mg PO BID PRN 06/04/20 06/08/20 Famotidine [Pepcid] 20 mg PO BID 06/04/20 06/08/20 Losartan Potassium [Cozaar] 50 mg PO QAM 06/04/20 06/08/20 cloNIDine HCL [Catapres] 0.1 mg PO TID 06/04/20 06/08/20 Previous Rx's Medication Instructions Recorded Acetaminophen Tab [Tylenol] 650 mg PO Q6HR PRN tab 01/08/19 Folic Acid 1 mg PO DAILY #30 tablet 01/08/19 Multivitamins, Thera [Multivitamin] 1 tab PO DAILY #30 tablet 01/08/19 Pantoprazole Sodium [Protonix] 40 mg PO DAILY #30 tablet. 01/08/19 Thiamine [Vitamin B-1] 100 mg PO DAILY #30 tablet 01/08/19 Allergies Allergy/AdvReac Type Severity Reaction Status Date / Time ibuprofen [From Motrin] Allergy Anaphylaxis Verified 11/28/20 12:14 latex Allergy Rash/Hives Verified 11/28/20 12:14 Review of Systems ROS Statement: Those systems with pertinent positive or pertinent negative responses have been documented in the HPI. ROS Other: All systems not noted in ROS Statement are negative. Past Medical History Past Medical History: Hypertension Additional Past Medical History / Comment(s): vertigo, hx pancreatitis History of Any Multi-Drug Resistant Organisms: None Reported Past Surgical History: Section Additional Past Surgical History / Comment(s): cystoscopy, sx on urethra at age 1 Past Anesthesia/Blood Transfusion Reactions: Motion Sickness, Postoperative Nausea & Vomiting (PONV) Past Psychological History: No Psychological Hx Reported Smoking Status: Never smoker Past Alcohol Use History: Daily Past Drug Use History: None Reported - Past Family History Mother Family Medical History: Hypertension Father Family Medical History: Coronary Artery Disease (CAD) General Exam - General Exam Comments Initial Comments: GENERAL: Patient is well-developed and well-nourished. Patient is nontoxic and in no ac [place] distress, is mildly anxious, shaky. HEAD: Atraumatic, normocephalic. EYES: Pupils equal round and reactive to light, extraocular movements intact, sclera anicteric, conjunctiva are normal. Eyelids were unremarkable. ENT: TMs normal, nares patent, oropharynx clear without exudates. Moist mucous membranes. NECK: Normal range of motion, supple without lymphadenopathy or JVD. LUNGS: Unlabored respirations. Breath sounds clear to auscultation bilaterally and equal. No wheezes rales or rhonchi. HEART: Regular rate and rhythm without murmurs, rubs or gallops. ABDOMEN: Soft, generalized abdominal discomfort on palpation, no specific area, normo active bowel sounds. No guarding, no rebound. No masses appreciated. : Deferred MUSCULOSKELETAL: Normal extremities with adequate strength and normal range of motion, no pitting or edema. No clubbing or cyanosis. NEUROLOGICAL: Patient is alert and oriented x 3. Motor and sensory are also intact. Cranial nerves II through XII grossly intact. Symmetrical smile. Normal speech, normal gait. PSYCH: Normal mood, normal affect. SKIN: Warm, Dry, normal turgor, no rashes or lesions noted. Limitations: no limitations Course Vital Signs 11/28/20 11/28/20 12:09 14:32 Temperature 98.4 F 98.2 F Pulse Rate 84 75 Respiratory 16 11 L Rate Blood Pressure 127/85 127/88 O2 Sat by Pulse 97 98 Oximetry Medical Decision Making - Medical Decision Making Patient is a 55 yo female with history of hypertension, alcohol abuse, pre senting with nausea and vomiting as well as abdominal cramping since yesterday. She was started on Lasix, 20 mg last week secondary to bilateral lower ankle swelling. Her vital signs are stable. Labs showing a normal white count, hemoglobin stable, INR is 1.3, potassium is 2.8 with magnesium at 1.5. Her creatinine is 1.37 which is elevated from her baseline with BUN 33, transaminitis, lipase is almost 1600. Patient was given a liter bolus, Zofran and Xanax. She does have some mild abdominal pain but has been resting currently. Patient will be admitted for pancreatitis, hypokalemia, dehydration. She is agreeable to this plan of care. Patient accepted by Dr. Loredo. Case discussed with Dr. Higginbotham. - Lab Data Result diagrams: 11/28/20 13:00 11/28/20 13:00 Lab Results 11/28/20 11/28/20 11/28/20 Range/Units 13:00 13:00 13:00 WBC 8.8 (3.8-10.6) k/uL RBC 3.42 L (3.80-5.40) m/uL Hgb 14.3 (11.4-16.0) gm/dL Hct 41.0 (34.0-46.0) % MCV 119.9 H (80.0-100.0) fL MCH 41.8 H (25.0-35.0) pg MCHC 34.8 (31.0-37.0) g/dL RDW 17.7 H (11.5-15.5) % Plt Count 105 L (150-450) k/uL MPV 8.9 Neutrophils % 86 % Lymphocytes % 8 % Monocytes % 5 % Eosinophils % 0 % Basophils % 1 % Neutrophils # 7.6 (1.3-7.7) k/uL Lymphocytes # 0.7 L (1.0-4.8) k/uL Monocytes # 0.4 (0-1.0) k/uL Eosinophils # 0.0 (0-0.7) k/uL Basophils # 0.0 (0-0.2) k/uL Manual Slide Review Performed Anisocytosis Slight Macrocytosis Marked A Stomatocytes Present PT 12.9 H (9.0-12.0) sec INR 1.3 H (<1.2) APTT 25.2 (22.0-30.0) sec Sodium 135 L (137-145) mmol/L Potassium 2.8 L (3.5-5.1) mmol/L Chloride 93 L (98-107) mmol/L Carbon Dioxide 27 (22-30) mmol/L Anion Gap 15 mmol/L BUN 33 H (7-17) mg/dL Creatinine 1.37 H (0.52-1.04) mg/dL Est GFR (CKD-EPI)AfAm 50 (>60 ml/min/1.73 sqM) Est GFR (CKD-EPI)NonAf 43 (>60 ml/min/1.73 sqM) Glucose 171 H (74-99) mg/dL Plasma Lactic Acid Benjie (0.7-2.0) mmol/L Calcium 8.9 (8.4-10.2) mg/dL Magnesium 1.5 L (1.6-2.3) mg/dL Total Bilirubin 2.1 H (0.2-1.3) mg/dL AST 200 H (14-36) U/L ALT 75 H (4-34) U/L Alkaline Phosphatase 145 H (38-126) U/L Total Protein 8.1 (6.3-8.2) g/dL Albumin 4.6 (3.5-5.0) g/dL Amylase 232 H (30-110) U/L Lipase 1588 H (23-300) U/L Serum Alcohol <10 mg/dL 11/28/20 Range/Units 13:00 WBC (3.8-10.6) k/uL RBC (3.80-5.40) m/uL Hgb (11.4-16.0) gm/dL Hct (34.0-46.0) % MCV (80.0-100.0) fL MCH (25.0-35.0) pg MCHC (31.0-37.0) g/dL RDW (11.5-15.5) % Plt Count (150-450) k/uL MPV Neutrophils % % Lymphocytes % % Monocytes % % Eosinophils % % Basophils % % Neutrophils # (1.3-7.7) k/uL Lymphocytes # (1.0-4.8) k/uL Monocytes # (0-1.0) k/uL Eosinophils # (0-0.7) k/uL Basophils # (0-0.2) k/uL Manual Slide Review Anisocytosis Macrocytosis Stomatocytes PT (9.0-12.0) sec INR (<1.2) APTT (22.0-30.0) sec Sodium (137-145) mmol/L Potassium (3.5-5.1) mmol/L Chloride (98-107) mmol/L Carbon Dioxide (22-30) mmol/L Anion Gap mmol/L BUN (7-17) mg/dL Creatinine (0.52-1.04) mg/dL Est GFR (CKD-EPI)AfAm (>60 ml/min/1.73 sqM) Est GFR (CKD-EPI)NonAf (>60 ml/min/1.73 sqM) Glucose (74-99) mg/dL Plasma Lactic Acid Benjie 2.8 H* (0.7-2.0) mmol/L Calcium (8.4-10.2) mg/dL Magnesium (1.6-2.3) mg/dL Total Bilirubin (0.2-1.3) mg/dL AST (14-36) U/L ALT (4-34) U/L Alkaline Phosphatase (38-126) U/L Total Protein (6.3-8.2) g/dL Albumin (3.5-5.0) g/dL Amylase (30-110) U/L Lipase (23-300) U/L Serum Alcohol mg/dL Disposition Clinical Impression: Pancreatitis, Hypokalemia, Dehydration, VANESSA (acute kidney injury) Disposition: ADMITTED IP TO THIS [facility] Condition: Stable Referrals: Alcon Gonzalez MD [Primary Care Provider] - 1-2 days Decision Date: 11/28/20 Decision Time: 14:59
[2020-11-28 13:34] LABS: ALT 75 U/L (4-34); AST 200 U/L (14-36); African American GFR (CKD) 50 (>60 ml/min/1.73 sqM); Albumin 4.6 g/dL (3.5-5.0); Alcohol <10 mg/dL; Alkaline Phosphatase 145 U/L (38-126); Amylase 232 U/L (30-110); Anion Gap 15 mmol/L; Blood Urea Nitrogen 33 mg/dL (7-17); Calcium 8.9 mg/dL (8.4-10.2); Carbon Dioxide 27 mmol/L (22-30); Chloride 93 mmol/L (98-107); Glucose 171 mg/dL (74-99); Lipase 1588 U/L (23-300); Magnesium 1.5 mg/dL (1.6-2.3); Non-African American GFR(CKD) 43 (>60 ml/min/1.73 sqM); Potassium 2.8 mmol/L (3.5-5.1); Sodium 135 mmol/L (137-145); Total Bilirubin 2.1 mg/dL (0.2-1.3); Total Protein 8.1 g/dL (6.3-8.2)
[2020-11-28 13:43] LABS: Anisocytosis Slight; Basophils % (A) 1 %; Eosinophils % (A) 0 %; HGB 14.3 gm/dL (11.4-16.0); Lymphocytes # (A) 0.7 k/uL (1.0-4.8); Lymphocytes % (A) 8 %; MCH 41.8 pg (25.0-35.0); MCHC 34.8 g/dL (31.0-37.0); MCV 119.9 fL (80.0-100.0); Macrocytosis Marked; Mean Platelet Volume 8.9; Monocytes # (A) 0.4 k/uL (0-1.0); Monocytes % (A) 5 %; Neutrophils # (A) 7.6 k/uL (1.3-7.7); Neutrophils % (A) 86 %; Platelet Count 105 k/uL (150-450); RBC 3.42 m/uL (3.80-5.40); RDW 17.7 % (11.5-15.5); WBC 8.8 k/uL (3.8-10.6)
[2020-11-28 14:00] LABS: INR 1.3 (<1.2); Partial Thromboplastin Time 25.2 sec (22.0-30.0); Prothrombin Time 12.9 sec (9.0-12.0); Stomatocytes Present
[2020-11-28] MEDS ORDERED: MORPHINE SULFATE 4 MG/ML SYRINGE IVP STA (14:47)
[2020-11-28] MEDS ORDERED: MORPHINE SULFATE 4 MG/ML SYRINGE IV PRN (14:54)
[2020-11-28] MEDS ORDERED: ACETAMINOPHEN TAB 325 MG TAB PO PRN (14:54)
[2020-11-28] MEDS ORDERED: NALOXONE 0.4 MG/ML 1 ML VIAL IV PRN (14:54)
[2020-11-28] MEDS ORDERED: ONDANSETRON 4 MG/2 ML VIAL IVP PRN (14:54)
[2020-11-28] MEDS ORDERED: POTASSIUM CHLORIDE ER 20 MEQ TAB.ER PO STA (14:56)
[2020-11-28] MEDS: SODIUM CHLORIDE 0.9% 1,000 ML IV SCH (15:09)
[2020-11-28 20:35] LABS: Appearance,Urine Cloudy (Clear); Bacteria,Urine Rare /hpf; Bilirubin,Urine Negative (Negative); Blood,Urine Negative (Negative); Budding Yeast,Urine Rare /hpf; Color,Urine Yellow; Glucose,Urine (UA) Negative (Negative); Hyaline Casts,Urine 56 /lpf (0-2); Ketones,Urine Trace (Negative); Leukocyte Esterase,Urine Small (Negative); Mucus,Urine Rare /hpf; Nitrite,Urine Negative (Negative); PH, Urine 5.5 (5.0-8.0); Protein,Urine Trace (Negative); RBC,Urine 3 /hpf (0-5); Specific Gravity,Urine 1.017 (1.001-1.035); Squamous Epithelial Cell,Urine 6 /hpf (0-4); Urobilinogen,Urine <2.0 mg/dL (<2.0); WBC,Urine 6 /hpf (0-5)
[2020-11-28 20:49] LABS: Cocaine Screen,Urine Not Detected (NotDetected); Opiate Screen,Urine Detected (NotDetected); Phencyclidine Screen,Urine Not Detected (NotDetected); Urn Cannabinoid Scrn Not Detected (NotDetected)
[2020-11-28 20:50] LABS: Amphetamine Screen,Urine Not Detected (NotDetected); Barbiturate Screen,Urine Not Detected (NotDetected); Benzodiazepines Screen,Urine Detected (NotDetected); Methadone Screen, Urine Not Detected (NotDetected); Oxycodone Screen, Urine Not Detected (NotDetected); Tricyclic Antidepressant,Urine Not Detected (NotDetected)
[2020-11-28] MEDS: ALPRAZolam 0.5 MG TAB PO PRN (20:59)
[2020-11-28] MEDS: ATORVASTATIN 10 MG TAB PO SCH (21:57)
[2020-11-28] MEDS: FAMOTIDINE 20 MG TAB PO SCH (21:57)
[2020-11-28] MEDS: cloNIDine HCL 0.1 MG TAB PO SCH (21:57)
[2020-11-28] MEDS: METOPROLOL TARTRATE 50 MG TAB PO SCH (21:57)
[2020-11-29] MEDS: SODIUM CHLORIDE 0.9% 1,000 ML IV SCH ×3 (00:13→20:49)
[2020-11-29] MEDS: THIAMINE 100 MG TAB PO SCH (09:10)
[2020-11-29] MEDS: cloNIDine HCL 0.1 MG TAB PO SCH ×4 (09:10→20:49)
[2020-11-29] MEDS: PANTOPRAZOLE 40 MG/10 ML VIAL IV SCH (09:11)
[2020-11-29] MEDS: hydroCHLOROthiazide 25 MG TAB PO SCH (09:11)
[2020-11-29] MEDS: METOPROLOL TARTRATE 50 MG TAB PO SCH ×2 (09:11→20:43)
[2020-11-29] MEDS: MULTIVITAMINS, THERA 1 EACH TAB PO SCH (09:11)
[2020-11-29] MEDS: LOSARTAN 50 MG TAB PO SCH (09:11)
[2020-11-29] MEDS: ALPRAZolam 0.5 MG TAB PO PRN ×2 (09:27→20:43)
[2020-11-29] MEDS: FAMOTIDINE 20 MG TAB PO SCH (20:44)
[2020-11-29] MEDS: ATORVASTATIN 10 MG TAB PO SCH (20:44)
--- NOTE | 2020-11-29 23:38 | P.HPIM ---
History of Present Illness H&P Date: 11/28/20 Chief Complaint: possible medication reaction 55-year-old female, with history of hypertension, alcohol abuse, presenting to the emergency Department with complaints of a possible medication reaction. She went to her PCPs office last week, Dr. Gonzalez, for swelling in her feet and ankles, she was prescribed Lasix and amoxicillin. She states she's been taking 20 mg daily over the past week, she started having nausea and vomiting yesterday and abdominal cramping. She also usually takes Xanax once daily in the mornings but states she has not been able to fill a prescription and has been off of it for the last week. She admits to some heart palpitations last night but no chest pain or shortness of breath today. She is a daily alcohol drinker, no alcohol today. She mitts is some generalized body aches. She denies any fevers or chills. She denies any dysuria. She has no further complaints at this time. Her vitals are stable upon arrival. Labs showing a normal white count, hemoglobin stable, INR is 1.3, potassium is 2.8 with magnesium at 1.5. Her creatinine is 1.37 which is elevated from her baseline with BUN 33, transaminitis, lipase is almost 1600. Patient was given a liter bolus, Zofran and Xanax. She does have some mild abdominal pain but has been resting currently. Patient will be admitted for pancreatitis, hypokalemia, dehydration. Review of Systems Constitutional: Denies chills, Denies fever Eyes: denies blurred vision Cardiovascular: Denies chest pain, Denies palpitations Respiratory: Denies cough with sputum Gastrointestinal: Reports abdominal pain, Reports loss of appetite, Reports nausea, Reports vomiting, Denies hematemesis, Denies hematochezia Genitourinary: Denies dysuria, Denies hematuria Integumentary: Denies pruritus, Denies rash Neurological: Denies numbness, Denies weakness Endocrine: Denies fatigue, Denies weight change Hematologic/Lymphatic: Denies easy bruising, Denies lymphadenopathy Past Medical History Past Medical History: Hypertension Additional Past Medical History / Comment(s): vertigo, hx pancreatitis History of Any Multi-Drug Resistant Organisms: None Reported Past Surgical History: Section Additional Past Surgical History / Comment(s): cystoscopy, sx on urethra at age 1 Past Anesthesia/Blood Transfusion Reactions: Motion Sickness, Postoperative Nausea & Vomiting (PONV) Past Psychological History: No Psychological Hx Reported Smoking Status: Never smoker Past Alcohol Use History: Daily Past Drug Use History: None Reported - Past Family History Mother Family Medical History: Hypertension Father Family Medical History: Coronary Artery Disease (CAD) Medications and Allergies Home Medications Medication Instructions Recorded Confirmed Type Metoprolol Tartrate [Lopressor] 50 mg PO BID 12/30/18 11/28/20 History hydroCHLOROthiazide [Hydrodiuril] 25 mg PO DAILY 12/30/18 11/28/20 History ALPRAZolam [Xanax] 0.5 mg PO BID PRN 06/04/20 11/28/20 History Famotidine [Pepcid] 20 mg PO BID 06/04/20 11/28/20 History Losartan Potassium [Cozaar] 50 mg PO DAILY 06/04/20 11/28/20 History cloNIDine HCL [Catapres] 0.1 mg PO TID 06/04/20 11/28/20 History Amoxicillin/Potassium Clav 1 tab PO BID 11/28/20 11/28/20 History [Augmentin 875-125 Tablet] Atorvastatin [Lipitor] 10 mg PO HS 11/28/20 11/28/20 History Furosemide [Lasix] 20 mg PO DAILY 11/28/20 11/28/20 History Multivit-Min/Iron/Folic/Lutein 1 tab PO DAILY 11/28/20 11/28/20 History [Centrum Silver Women Tablet] Allergies Allergy/AdvReac Type Severity Reaction Status Date / Time ibuprofen [From Motrin] Allergy Anaphylaxis Verified 11/28/20 16:15 latex Allergy Rash/Hives Verified 11/28/20 16:15 Physical Exam Vitals: Vital Signs Temp Pulse Resp BP Pulse Ox 11/28/20 15:30 77 15 128/77 98 11/28/20 15:00 75 15 127/88 97 11/28/20 14:32 98.2 F 75 11 L 127/88 98 11/28/20 12:09 98.4 F 84 16 127/85 97 Intake and Output 11/28/20 11/28/20 11/28/20 06:59 14:59 22:59 Other: Weight 70.715 kg - Constitutional General appearance: no acute distress - EENT Eyes: EOMI, PERRLA - Neck Neck: no lymphadenopathy, normal ROM Carotids: negative: bruit absent - Respiratory Respiratory: bilateral: CTA, negative: rales, rhonchi, wheezing - Cardiovascular Rhythm: regular Heart sounds: normal: S1, S2 - Gastrointestinal General gastrointestinal: no distended, normal bowel sounds, soft, tenderness - Neurologic Neurologic: CNII-XII intact - Musculoskeletal Musculoskeletal: generalized weakness - Psychiatric Psychiatric: A&O x's 3, appropriate affect Results CBC & Chem 7: 11/28/20 13:00 11/28/20 13:00 Labs: Abnormal Lab Results - Last 24 Hours (Table) 11/28/20 11/28/20 11/28/20 Range/Units 13:00 13:00 13:00 RBC 3.42 L (3.80-5.40) m/uL MCV 119.9 H (80.0-100.0) fL MCH 41.8 H (25.0-35.0) pg RDW 17.7 H (11.5-15.5) % Plt Count 105 L (150-450) k/uL Lymphocytes # 0.7 L (1.0-4.8) k/uL Macrocytosis Marked A PT 12.9 H (9.0-12.0) sec INR 1.3 H (<1.2) Sodium 135 L (137-145) mmol/L Potassium 2.8 L (3.5-5.1) mmol/L Chloride 93 L (98-107) mmol/L BUN 33 H (7-17) mg/dL Creatinine 1.37 H (0.52-1.04) mg/dL Glucose 171 H (74-99) mg/dL Plasma Lactic Acid Benjie (0.7-2.0) mmol/L Magnesium 1.5 L (1.6-2.3) mg/dL Total Bilirubin 2.1 H (0.2-1.3) mg/dL AST 200 H (14-36) U/L ALT 75 H (4-34) U/L Alkaline Phosphatase 145 H (38-126) U/L Amylase 232 H (30-110) U/L Lipase 1588 H (23-300) U/L 11/28/20 Range/Units 13:00 RBC (3.80-5.40) m/uL MCV (80.0-100.0) fL MCH (25.0-35.0) pg RDW (11.5-15.5) % Plt Count (150-450) k/uL Lymphocytes # (1.0-4.8) k/uL Macrocytosis PT (9.0-12.0) sec INR (<1.2) Sodium (137-145) mmol/L Potassium (3.5-5.1) mmol/L Chloride (98-107) mmol/L BUN (7-17) mg/dL Creatinine (0.52-1.04) mg/dL Glucose (74-99) mg/dL Plasma Lactic Acid Benjie 2.8 H* (0.7-2.0) mmol/L Magnesium (1.6-2.3) mg/dL Total Bilirubin (0.2-1.3) mg/dL AST (14-36) U/L ALT (4-34) U/L Alkaline Phosphatase (38-126) U/L Amylase (30-110) U/L Lipase (23-300) U/L Assessment and Plan Assessment: 1. Acute Pancreatitis; will start patient on aggressive IV fluid hydration with normal saline at ar ate of 125 CCs an hour; we will keep patient NPO and use IV morphine/dilaudid for pain control. Protonix 40 mg daily; monitor and trend lipase/amylase; will plan to advance diet once clinically stable Consult GI for further recommendation 2. Acute Renal Injury; IV fluid hydration as indicated above. We will monitor strict TABATHA; daily weights; renal function; electrolytes ; avoid nephrotoxins and hypotension 3. Tramsaminitis ; possibly related to chronic ETOH abuse; we will trend plan to do abdominal ultrasound if liver enzymes continue to trend up 4. Hyperglycemia ; monitor accuchekcs ACCU qAC/hs with insulin sliding scale 5. Hypertension ; continue with home dose of metropolol 50 mg BID along with clonidine 0.1 mg TID. Hold losartan and HCTZ given acute renal inury 6. Chronic ETOH abuse ; counseling done patient needs to abstain from ETOH use 7. Anxiety; Xanax 0.25 mg BID PRN 8. DVT Prophylaxis SCDs 9. Code Status Full Code
--- NOTE | 2020-11-29 23:52 | P.PN ---
Subjective Progress Note Date: 11/29/20 Principal diagnosis: Acute Pancreatitis Ac Renal Injury Electrolyte imbalance 55-year-old female, with history of hypertension, alcohol abuse, presenting to the emergency Department with complaints of a possible medication reaction. She went to her PCPs office last week, Dr. Gonzalez, for swelling in her feet and ankles, she was prescribed Lasix and amoxicillin. She states she's been taking 20 mg daily over the past week, she started having nausea and vomiting yesterday and abdominal cramping. She also usually takes Xanax once daily in the mornings but states she has not been able to fill a prescription and has been off of it for the last week. She admits to some heart palpitations last night but no chest pain or shortness of breath today. She is a daily alcohol drinker, no alcohol today. She mitts is some generalized body aches. She denies any fevers or chills. She denies any dysuria. She has no further complaints at this time. Her vitals are stable upon arrival. Labs showing a normal white count, hemoglobin stable, INR is 1.3, potassium is 2.8 with magnesium at 1.5. Her creatinine is 1.37 which is elevated from her baseline with BUN 33, transaminitis, lipase is almost 1600. Patient was given a liter bolus, Zofran and Xanax. She does have some mild abdominal pain but has been resting currently. Patient will be admitted for pancreatitis, hypokalemia, dehydration. Objective - Vital Signs Vital signs: Vital Signs Temp 98.9 F 11/29/20 11:47 Pulse 71 11/29/20 11:47 Resp 16 11/29/20 11:47 BP 121/70 11/29/20 11:47 Pulse Ox 97 11/29/20 11:47 Intake & Output 11/28/20 11/29/20 11/29/20 18:59 06:59 18:59 Intake Total 580 1900 600 Balance 580 1900 600 Weight 70.715 kg Intake: Intake, IV Titration 100 1200 Amount Sodium Chloride 0.9% 1, 100 1200 000 ml @ 100 mls/hr IV . Q10H [facility] Rx#:[id number] Oral 480 700 600 Other: Voiding Method Toilet Toilet Toilet # Voids 2 2 - Exam - Constitutional General appearance: no acute distress - EENT Eyes: EOMI, PERRLA - Neck Neck: no lymphadenopathy, normal ROM Carotids: negative: bruit absent - Respiratory Respiratory: bilateral: CTA, negative: rales, rhonchi, wheezing - Cardiovascular Rhythm: regular Heart sounds: normal: S1, S2 - Gastrointestinal General gastrointestinal: no distended, normal bowel sounds, soft, tenderness - Neurologic Neurologic: CNII-XII intact - Musculoskeletal Musculoskeletal: generalized weakness - Psychiatric Psychiatric: A&O x's 3, appropriate affect - Labs CBC & Chem 7: 11/28/20 13:00 11/28/20 13:00 Labs: Abnormal Lab Results - Last 24 Hours (Table) 11/28/20 Range/Units 13:00 Urine Appearance Cloudy H (Clear) Urine Protein Trace H (Negative) Urine Ketones Trace H (Negative) Ur Leukocyte Esterase Small H (Negative) Urine WBC 6 H (0-5) /hpf Urine WBC Clumps Rare H (None) /hpf Ur Squamous Epith Cells 6 H (0-4) /hpf Urine Bacteria Rare H (None) /hpf Hyaline Casts 56 H (0-2) /lpf Urine Mucus Rare H (None) /hpf Urine Yeast (Budding) Rare H (None) /hpf Urine Opiates Screen Detected H (NotDetected) U Benzodiazepines Scrn Detected H (NotDetected) Assessment and Plan Assessment: 1. Acute Pancreatitis; will start patient on aggressive IV fluid hydration with normal saline at ar ate of 125 CCs an hour; we will keep patient NPO and use IV morphine/dilaudid for pain control. Protonix 40 mg daily; monitor and trend lipase/amylase; will plan to advance diet once clinically stable Consult GI for further recommendation 2. Acute Renal Injury; IV fluid hydration as indicated above. We will monitor strict TABATHA; daily weights; renal function; electrolytes ; avoid nephrotoxins and hypotension 3. Tramsaminitis ; possibly related to chronic ETOH abuse; we will trend plan to do abdominal ultrasound if liver enzymes continue to trend up 4. Hyperglycemia ; monitor accuchekcs ACCU qAC/hs with insulin sliding scale 5. Hypertension ; continue with home dose of metropolol 50 mg BID along with clonidine 0.1 mg TID. Hold losartan and HCTZ given acute renal inury 6. Chronic ETOH abuse ; counseling done patient needs to abstain from ETOH use 7. Anxiety; Xanax 0.25 mg BID PRN 8. DVT Prophylaxis SCDs 9. Code Status Full Code
[2020-11-30] MEDS: LOSARTAN 50 MG TAB PO SCH (08:54)
[2020-11-30] MEDS: MULTIVITAMINS, THERA 1 EACH TAB PO SCH (08:54)
[2020-11-30] MEDS: THIAMINE 100 MG TAB PO SCH (08:54)
[2020-11-30] MEDS: hydroCHLOROthiazide 25 MG TAB PO SCH (08:54)
[2020-11-30] MEDS: SODIUM CHLORIDE 0.9% 1,000 ML IV SCH ×2 (08:54→17:45)
[2020-11-30] MEDS: cloNIDine HCL 0.1 MG TAB PO SCH ×3 (08:54→20:00)
[2020-11-30] MEDS: PANTOPRAZOLE 40 MG/10 ML VIAL IV SCH (08:55)
[2020-11-30] MEDS: METOPROLOL TARTRATE 50 MG TAB PO SCH ×2 (08:55→20:00)
[2020-11-30] MEDS: ALPRAZolam 0.5 MG TAB PO PRN ×3 (09:00→22:54)
[2020-11-30 09:10] LABS: INR 1.1 (<1.2); Prothrombin Time 11.3 sec (9.0-12.0)
[2020-11-30 10:32] LABS: African American GFR (CKD) 82.3 (60.0-200.0); Albumin 3.2 g/dL (3.80-4.90); Albumin/Globulin Ratio 1.23 (1.60-3.17); Anion Gap 9.4 mmol/L (4.00-12.00); BUN/Creat Ratio 13.33 Ratio (12.00-20.00); Bilirubin, Conjugated 0.5 mg/dL (0.20-0.40); Bilirubin,Unconjugated 0.8 mg/dL; Calcium 7.8 mg/dL (8.7-10.3); Carbon Dioxide 27.6 mmol/L (21.6-31.8); Globulin 2.6 g/dL (1.6-3.3); Potassium 2.5 mmol/L (3.5-5.5); Total Bilirubin 1.3 mg/dL (0.2-1.2); Total Protein 5.8 g/dL (6.2-8.2)
[2020-11-30] MEDS ORDERED: Potassium Replacement Protocol 1 EACH MISC MISCELLANE PRN (10:43)
[2020-11-30] MEDS: POTASSIUM CHLORIDE 20 MEQ in WATER FOR INJECTION 1 100ML.BAG IVPB SCH ×3 (11:09→19:23)
--- NOTE | 2020-11-30 14:55 | US ---
EXAMINATION TYPE: US gallbladder DATE OF EXAM: 11/30/2020 COMPARISON: CT & US CLINICAL HISTORY: transaminitis, pancreatitis. EXAM MEASUREMENTS: Liver Length: 12.4 cm Gallbladder Wall: 0.3 cm CBD: 0.6 cm Right Kidney: 11.8 x 4.0 x 5.6 cm Pancreas: wnl Liver: wnl Gallbladder: No stones seen Evidence for sonographic Carson's sign: No CBD: wnl Right Kidney: No hydronephrosis or masses seen Small amount of free fluid seen around liver IMPRESSION: Small amount of ascites.
--- NOTE | 2020-11-30 15:53 | P.CONS ---
History of Present Illness - Reason for Consult Consult date: 11/30/20 Pancreatitis Requesting physician: Marquis Loredo - Chief Complaint abdominal pain, nausea and vomiting - History of Present Illness This is a 55-year-old white female who presented to the emergency department with complaints of lower extremity swelling, abdominal pain associated with nausea and vomiting. the patient was noted to be dehydrated and hypokalemic on admission. She states she has a past medical history of pancreatitis related to alcohol abuse.she states her first episode of pancreatitis was approximately 2 years ago. She has a significant history of alcohol abuse and was drinking wine daily. States that she stopped drinking and was going to [employer] however during the bed there were no meetings and she started to drink again. States she drinks 2 small bottles of wine a day. Today she states she is feeling much better, denies any abdominal pain, nausea, or vomiting. She's been tolerating a clear liquid diet. Admission labs WBC 0.8, hemoglobin 14, hematocrit 41, platelet count 105,000, amylase 232, lipase 1588, total bilirubin 2.1, all clean phosphatase 145, AST 200, ALT 75. Today lipase is 547. Review of Systems REVIEW OF SYSTEMS: CARDIOPULMONARY: No chest pain or shortness of breath. Gastrointestinal: nausea and vomiting with right upper quadrant pain 2 days ago. No nausea or vomiting. No hematemesis, coffee-ground emesis. No rectal bleeding, or melena. GENITOURINARY: No dysuria or hematuria. MUSCULOSKELETAL: Reports normal range of motion., Joint pain. SKIN: No rashes. No jaundice. ENDOCRINE: No chills, fevers. No excessive weight gain or loss. No polydipsia or polyuria. PSYCHIATRIC: Unremarkable. NEUROLOGY: No change in mental status. Denies dizziness, headache. ENT: Vision unremarkable. CONSTITUTIONAL: No recent weight loss. No fever, chills, night sweats. lower extremity swelling Past Medical History Past Medical History: Hypertension Additional Past Medical History / Comment(s): vertigo, hx pancreatitis History of Any Multi-Drug Resistant Organisms: None Reported Past Surgical History: Section Additional Past Surgical History / Comment(s): cystoscopy, sx on urethra at age 1 Past Anesthesia/Blood Transfusion Reactions: Motion Sickness, Postoperative N ausea & Vomiting (PONV) Past Psychological History: No Psychological Hx Reported Smoking Status: Never smoker Past Alcohol Use History: Daily Past Drug Use History: None Reported - Past Family History Mother Family Medical History: Hypertension Father Family Medical History: Coronary Artery Disease (CAD) Medications and Allergies Home Medications Medication Instructions Recorded Confirmed Type Metoprolol Tartrate [Lopressor] 50 mg PO BID 12/30/18 11/28/20 History hydroCHLOROthiazide [Hydrodiuril] 25 mg PO DAILY 12/30/18 11/28/20 History ALPRAZolam [Xanax] 0.5 mg PO BID PRN 06/04/20 11/28/20 History Famotidine [Pepcid] 20 mg PO BID 06/04/20 11/28/20 History Losartan Potassium [Cozaar] 50 mg PO DAILY 06/04/20 11/28/20 History cloNIDine HCL [Catapres] 0.1 mg PO TID 06/04/20 11/28/20 History Amoxicillin/Potassium Clav 1 tab PO BID 11/28/20 11/28/20 History [Augmentin 875-125 Tablet] Atorvastatin [Lipitor] 10 mg PO HS 11/28/20 11/28/20 History Furosemide [Lasix] 20 mg PO DAILY 11/28/20 11/28/20 History Multivit-Min/Iron/Folic/Lutein 1 tab PO DAILY 11/28/20 11/28/20 History [Centrum Silver Women Tablet] Allergies Allergy/AdvReac Type Severity Reaction Status Date / Time ibuprofen [From Motrin] Allergy Anaphylaxis Verified 11/28/20 16:15 latex Allergy Rash/Hives Verified 11/28/20 16:15 Physical Exam Vitals: Vital Signs Temp Pulse Resp BP Pulse Ox 11/30/20 05:00 98.6 F 65 16 150/81 97 11/29/20 20:55 98.9 F 77 16 130/81 99 11/29/20 20:00 16 11/29/20 11:47 98.9 F 71 16 121/70 97 Intake and Output 11/29/20 11/30/20 11/30/20 22:59 06:59 14:59 Intake Total 1820 1100 Balance 1820 1100 Intake: Intake, IV Titration 1000 1100 Amount Sodium Chloride 0.9% 1, 1000 1100 000 ml @ 100 mls/hr IV . Q10H SAYDA Rx#:[id number] Oral 820 Other: Voiding Method Toilet # Voids 5 2 General appearance: The patient is alert, oriented, appears in no acute distress. HET: Head is normocephalic and atraumatic. Conjunctiva pink. Sclera anicteric. Neck: Supple without lymphadenopathy. Trachea midline. Heart: S1 S2. Regular rate and rhythm. Lungs: Clear to auscultation. Abdomen: Soft, mild right upper quadrant tenderness, nondistended with bowel sounds. No guarding or rigidity. Skin: No rashes. No jaundice. Extremities: Normal skin color and turgor. No pedal edema. Neurological: No focal deficits. Alert and oriented 3.. Results CBC & Chem 7: 11/28/20 13:00 11/30/20 04:40 Labs: Abnormal Lab Results - Last 24 Hours (Table) 11/30/20 Range/Units 04:40 Potassium 2.5 L* (3.5-5.5) mmol/L Calcium 7.8 L (8.7-10.3) mg/dL Total Bilirubin 1.3 H (0.2-1.2) mg/dL Conjugated Bilirubin 0.50 H (0.20-0.40) mg/dL AST 77 H (13-35) U/L Total Protein 5.8 L (6.2-8.2) g/dL Albumin 3.20 L (3.80-4.90) g/dL Albumin/Globulin Ratio 1.23 L (1.60-3.17) g/dL Lipase 567 H (14-63) U/L Comments: gallbladder ultrasound: Small amount of ascites Assessment and Plan (1) Acute alcoholic pancreatitis Narrative/Plan: 55-year-old female who presented to the emergency department 2 days ago with in creased lower extremity swelling complaints of nausea and vomiting and abdominal pain. She was noted to have an elevated amylase and lipase consistent with pancreatitis. Patient has a history of alcohol abuse and currently started drinking again. She drinks 2 small bottles of wine a day. she has a past history of pancreatitis related to alcohol abuse approximately 2 years ago. Patient is feeling better today, lipase. gallbladder ultrasound orderedshowing small amount of ascites. Liver within normal limits, gallbladder with no stones seen, CBD within normal limits. Current Visit: Yes Status: Acute Code(s): K85.20 - ALCOHOL INDUCED ACUTE PANCREATITIS WITHOUT NECROSIS OR INFCT SNOMED Code(s): 505167682 Plan: 1. May have full liquid diet advance as tolerated 2. Abdominal ultrasound ordered and reviewed 3. Continue antiemetics as needed 4. Protonix 40 mg daily 5. Alcohol abstinence 6. Recommend outpatient AA, therapy Thank you for this consultation, we will continue to follow. Dr. Marta Peters I agree with the dictator's note, documented as a scribe by Paula Benites.
[2020-11-30] MEDS: POTASSIUM CHLORIDE ER 20 MEQ TAB.ER PO SCH ×3 (16:20→20:00)
[2020-11-30] MEDS: FAMOTIDINE 20 MG TAB PO SCH (20:00)
[2020-11-30] MEDS: ATORVASTATIN 10 MG TAB PO SCH (20:00)
[2020-12-01] MEDS: POTASSIUM CHLORIDE ER 20 MEQ TAB.ER PO SCH ×2 (00:50→01:59)
[2020-12-01] MEDS: SODIUM CHLORIDE 0.9% 1,000 ML IV SCH ×2 (02:02→09:34)
[2020-12-01] MEDS: METOPROLOL TARTRATE 50 MG TAB PO SCH (05:17)
[2020-12-01] MEDS ORDERED: PANTOPRAZOLE 40 MG TABLET PO SCH (07:30)
[2020-12-01] MEDS: MULTIVITAMINS, THERA 1 EACH TAB PO SCH (09:33)
[2020-12-01] MEDS: THIAMINE 100 MG TAB PO SCH (09:33)
[2020-12-01] MEDS: hydroCHLOROthiazide 25 MG TAB PO SCH (09:33)
[2020-12-01] MEDS: cloNIDine HCL 0.1 MG TAB PO SCH ×2 (09:33→16:27)
[2020-12-01] MEDS: LOSARTAN 50 MG TAB PO SCH (09:34)
[2020-12-01] MEDS: ALPRAZolam 0.5 MG TAB PO PRN (09:38)
--- NOTE | 2020-12-01 09:59 | P.PN ---
Subjective Progress Note Date: 12/01/20 Principal diagnosis: pancreatitis She is a 55-year-old female who came in with swelling in her lower extremities also with complaints of abdominal pain associated with nausea and vomiting. Patient was noted to have elevation in her amylase and lipase consistent with pancreatitis. Patient does have a history of alcoholic pancreatitis and had quit drinking however started drinking again during the cold it pandemic. She is drinking 2 small bottles of wine a day. Pancreatitis is likely related to alcohol. She is seen and evaluated today she denies any abdominal pain, no n ausea, no vomiting. Potassium has improved to 3.9. Will advance to a low-fat diet. Objective - Vital Signs Vital signs: Vital Signs Temp 98.3 F 12/01/20 05:04 Pulse 63 12/01/20 05:04 Resp 16 12/01/20 05:04 BP 171/83 12/01/20 05:04 Pulse Ox 97 12/01/20 05:04 Intake & Output 11/30/20 12/01/20 12/01/20 18:59 06:59 18:59 Intake Total 1999 Balance 1999 Intake: Intake, IV Titration 950 Amount Potassium Chloride 20 meq 50 In Water For Injection 1 100ml.bag @ 50 mls/hr IVPB Q2H SAYDA Rx#: [id number] Sodium Chloride 0.9% 1, 900 000 ml @ 100 mls/hr IV . Q10H SAYDA Rx#:[id number] Oral 1050 Other: Voiding Method Toilet # Voids 6 6 - Exam General appearance: The patient is alert, oriented, appears in no acute distress. HET: Head is normocephalic and atraumatic. Conjunctiva pink. Sclera anicteric. Neck: Supple without lymphadenopathy. Abdomen: Soft, mild right upper quadrant tenderness, nondistended with bowel sounds. No guarding or rigidity. Extremities: Normal skin color and turgor. No pedal edema Skin: No rashes, no jaundice Neurological: No focal deficits. Alert and oriented 3. - Labs CBC & Chem 7: 11/28/20 13:00 12/01/20 07:19 Labs: Abnormal Lab Results - Last 24 Hours (Table) 11/30/20 11/30/20 Range/Units 04:40 22:14 Potassium 2.5 L* 3.4 L (3.5-5.5) mmol/L Calcium 7.8 L (8.7-10.3) mg/dL Total Bilirubin 1.3 H (0.2-1.2) mg/dL Conjugated Bilirubin 0.50 H (0.20-0.40) mg/dL AST 77 H (13-35) U/L Total Protein 5.8 L (6.2-8.2) g/dL Albumin 3.20 L (3.80-4.90) g/dL Albumin/Globulin Ratio 1.23 L (1.60-3.17) g/dL Lipase 567 H (14-63) U/L Assessment and Plan (1) Acute alcoholic pancreatitis Narrative/Plan: 55-year-old female who presented to the emergency department 2 days ago with increased lower extremity swelling complaints of nausea and vomiting and abdominal pain. She was noted to have an elevated amylase and lipase consistent with pancreatitis. Patient has a history of alcohol abuse and currently started drinking again. She drinks 2 small bottles of wine a day. she has a past history of pancreatitis related to alcohol abuse approximately 2 years ago. Patient is feeling better today, lipase. gallbladder ultrasound orderedshowing small amount of ascites. Liver within normal limits, gallbladder with no stones seen, CBD within normal limits. Current Visit: Yes Status: Acute Code(s): K85.20 - ALCOHOL INDUCED ACUTE PANCREATITIS WITHOUT NECROSIS OR INFCT SNOMED Code(s): 710209245 Plan: 1. Advanced to low fat diet 2. Abdominal ultrasound ordered and reviewed 3. Continue antiemetics as needed 4. Protonix 40 mg daily 5. Alcohol abstinence 6. Recommend outpatient AA, therapy Thank you for this consultation, patient is cleared from gastroenterology for discharge. Dr. Marta Peters I agree with the dictator's note, documented as a scribe by Paula Benites.
[2020-12-01 11:34] VITALS: BP 169/90; PULSE 61; RESP 17; TEMP 97.9
[2020-12-01] MEDS ORDERED: cloNIDine HCL 0.1 MG TAB PO STA (11:49)
[2020-12-01] MEDS ORDERED: ALPRAZolam 0.25 MG TAB PO STA (11:49)
[2020-12-01] MEDS ORDERED: FAMOTIDINE 20 MG TAB PO SCH (13:00)
[2020-12-01] MEDS ORDERED: POTASSIUM CHLORIDE ER 20 MEQ TAB.ER PO SCH (13:00)
== END 2020-12-01 18:18 | disposition home or self-care (01) | DRG 439 ==
LOC: EC 12:06 → 5NMEDONC 14:54
PROVIDERS: ADMIT Internal Medicine; ATTEND Internal Medicine
DX: K85.20 Alcohol induced acute pancreatitis without necrosis or infection (principal); N17.9 Acute kidney failure, unspecified; F10.10 Alcohol abuse, uncomplicated; I10 Essential (primary) hypertension; E87.6 Hypokalemia; E86.0 Dehydration; F41.9 Anxiety disorder, unspecified; Z82.49 Family history of ischemic heart disease and other diseases of the circulatory system; R73.9 Hyperglycemia, unspecified; Z79.899 Other long term (current) drug therapy
CPT/HCPCS: 36415; 76705; 80048; 80053; 80076; 80306; 80320; 81001; 82150; 83605; 83690; 83735; 84132; 85025; 85610; 85730; 96374; 99285

== ENCOUNTER → 2021-10-11 | Outpatient (CLI) | payer BC ==
--- NOTE | 2021-10-12 19:57 | MM ---
Reason for Exam: Screening (asymptomatic). Last mammogram was performed 2 year(s) and 5 month(s) ago. Patient History: Menarche at age 11. First Full-Term at age 26. Perimenopausal. Maternal grandmother had ovarian cancer, age 63. Maternal grandmother had breast cancer under age 50. Last menstrual period: 10/06/2020 Risk Values: Shanelle 5 year model risk: 1.4%. NCI Lifetime model risk: 8.7%. Prior Study Comparison: 05/19/2016 Screening Mammogram, Unknown. 04/23/2018 Bilateral Screening Mammogram, [facility]. 05/15/2019 Bilateral Screening Mammogram, [facility]. Tissue Density: The breast tissue is heterogeneously dense. This may lower the sensitivity of mammography. Findings: Analyzed By CAD. Benign vascular calcifications on the left. No significant change from prior exams. Overall Assessment: Benign, BI-RAD 2 Management: Screening Mammogram of both breasts in 1 year. A clinical breast exam by your physician is recommended on an annual basis and results should be correlated with mammographic findings. Also, the patient should continue monthly self breast exams. Electronically signed and approved by: Krystina Carlin M.D. Radiologist
== END | disposition home or self-care (01) ==
LOC: RADMAMWWP 15:24
PROVIDERS: ATTEND Internal Medicine
DX: Z12.31 Encounter for screening mammogram for malignant neoplasm of breast (principal); Z78.0 Asymptomatic menopausal state; Z80.3 Family history of malignant neoplasm of breast
CPT/HCPCS: 77063; 77067

== ENCOUNTER 2022-05-23 14:18 | Inpatient (IN) | payer BC, OTHER ==
[2022-05-23] MEDS ORDERED: SODIUM CHLORIDE 0.9% 1,000 ML IV STA ×2 (18:58)
[2022-05-23] MEDS ORDERED: ONDANSETRON 4 MG/2 ML VIAL IVP STA (18:58)
[2022-05-23] MEDS ORDERED: LORazepam 2 MG/ML INJ IV STA (18:59)
[2022-05-23 20:30] LABS: Anisocytosis Slight; Basophils % (A) 1 %; Eosinophils # (A) 0.1 k/uL (0-0.7); Eosinophils % (A) 2 %; HCT 28.7 % (34.0-46.0); HGB 10.3 gm/dL (11.4-16.0); Lymphocytes # (A) 1.1 k/uL (1.0-4.8); Lymphocytes % (A) 25 %; MCH 38.4 pg (25.0-35.0); MCHC 35.8 g/dL (31.0-37.0); MCV 107.1 fL (80.0-100.0); Macrocytosis Marked; Mean Platelet Volume 10.4; Monocytes # (A) 0.3 k/uL (0-1.0); Monocytes % (A) 7 %; Neutrophils # (A) 2.6 k/uL (1.3-7.7); Neutrophils % (A) 62 %; RBC 2.67 m/uL (3.80-5.40); RDW 18.1 % (11.5-15.5); WBC 4.1 k/uL (3.8-10.6)
[2022-05-23 20:47] LABS: ALT 29 U/L (4-34); AST 70 U/L (14-36); African American GFR (CKD) >90 (>60 ml/min/1.73 sqM); Albumin 4.3 g/dL (3.5-5.0); Alcohol <10 mg/dL; Alkaline Phosphatase 101 U/L (38-126); Anion Gap 10 mmol/L; Blood Urea Nitrogen 9 mg/dL (7-17); Carbon Dioxide 24 mmol/L (22-30); Chloride 102 mmol/L (98-107); Glucose 109 mg/dL (74-99); Lipase 60 U/L (23-300); Non-African American GFR(CKD) >90 (>60 ml/min/1.73 sqM); Phosphorus 3.7 mg/dL (2.5-4.5); Sodium 136 mmol/L (137-145); Total Bilirubin 2.1 mg/dL (0.2-1.3); Total Protein 7.8 g/dL (6.3-8.2)
[2022-05-23 20:54] LABS: Magnesium 0.9 mg/dL (1.6-2.3)
[2022-05-23 20:59] LABS: INR 1.3 (<1.2); Partial Thromboplastin Time 21.7 sec (22.0-30.0); Prothrombin Time 13.2 sec (9.0-12.0)
--- NOTE | 2022-05-23 21:20 | ED ---
General Adult HPI - General Chief complaint: Head Injury Stated complaint: alcohol withdrawl/seizure/hypertension Time Seen by Provider: 05/23/22 18:38 Source: patient, family Mode of arrival: wheelchair - History of Present Illness Initial comments: This 56-year-old female presents with complaint of alcohol withdrawal. She apparently had a seizure this past evening. She fell to the ground and hit her right head. She went to [facility] and had full evaluation which did include laboratory as well as computed tomography scan of the brain. This apparently did not show any acute process. She was discharged home with a prescription for Ativan. She also was diagnosed with urinary tract infection and was prescribed Keflex and received Rocephin in the ER. She never got these prescriptions filled. Since being home, she feels very shaky. She states that she's been nauseated and vomited multiple times. relates that she is very confused. She presents hypertensive as well. She relates that she has a long history of alcohol abuse. She is tried to go to Alcoholics Anonymous but has not been through alcohol rehabilitation. She drinks wine. She has a hard time quantifying the exact amount of wine but the relates that she drinks quite a bit. She denies any other injuries. There is no chest pain or shortness of breath. No other complaints or modifying factors. She states that she feels very shakey. - Related Data Home Medications Medication Instructions Recorded Confirmed Metoprolol Tartrate [Lopressor] 50 mg PO BID 12/30/18 11/28/20 hydroCHLOROthiazide [Hydrodiuril] 25 mg PO DAILY 12/30/18 11/28/20 ALPRAZolam [Xanax] 0.5 mg PO BID PRN 06/04/20 11/28/20 Famotidine [Pepcid] 20 mg PO BID 06/04/20 11/28/20 Losartan Potassium [Cozaar] 50 mg PO DAILY 06/04/20 11/28/20 cloNIDine HCL [Catapres] 0.1 mg PO TID 06/04/20 11/28/20 Atorvastatin [Lipitor] 10 mg PO HS 11/28/20 11/28/20 Furosemide [Lasix] 20 mg PO DAILY 11/28/20 11/28/20 Multivit-Min/Iron/Folic/Lutein 1 tab PO DAILY 11/28/20 11/28/20 [Centrum Silver Women Tablet] Previous Rx's Medication Instructions Recorded Pantoprazole [Protonix] 40 mg PO [id number] #30 tablet. 12/01/20 Thiamine [Vitamin B-1] 100 mg PO DAILY #30 tab 12/01/20 Allergies Allergy/AdvReac Type Severity Reaction Status Date / Time ibuprofen [From Motrin] Allergy Anaphylaxis Verified 05/23/22 16:01 latex Allergy Rash/Hives Verified 05/23/22 16:01 Review of Systems ROS Statement: Those systems with pertinent positive or pertinent negative responses have been documented in the HPI. ROS Other: All systems not noted in ROS Statement are negative. Past Medical History Past Medical History: Hypertension Additional Past Medical History / Comment(s): vertigo, hx pancreatitis History of Any Multi-Drug Resistant Organisms: None Reported Past Surgical History: Section Additional Past Surgical History / Comment(s): cystoscopy, sx on urethra at age 1 Past Anesthesia/Blood Transfusion Reactions: Motion Sickness, Postoperative Nausea & Vomiting (PONV) Past Psychological History: No Psychological Hx Reported Smoking Status: Never smoker Past Alcohol Use History: Daily Past Drug Use History: None Reported - Past Family History Mother Family Medical History: Hypertension Father Family Medical History: Coronary Artery Disease (CAD) General Exam - General Exam Comments Initial Comments: GENERAL: The patient is well nourished and well hydrated. VITAL SIGNS: Heart rate, blood pressure, respiratory rate reviewed as recorded in nurse's notes. EYES: Pupils are round and reactive. Extraocular movements are intact. No conjunctival / lid redness or swelling. ENT: No external evidence of injury, swelling, or ecchymosis. Airway is patent. Throat is clear. Mild tenderness and swelling noted to the right scalp NECK: Nontender. No swelling or evidence of injury. No subcutaneous emphysema. Trachea is midline. No thyroid mass. HEART: Regular rate and rhythm. Good peripheral pulses. LUNGS/CHEST: Breath sounds clear and equal bilaterally. No rales, rhonchi, or wheezes. No ecchymosis, subcutaneous emphysema, or tenderness. ABDOMEN: Abdomen soft without tenderness. No palpable masses or organomegaly. No peritoneal signs. No abdominal wall swelling or ecchymosis. EXTREMITIES: No extremity tenderness. Normal muscle tone and function. No thoracolumbar tenderness. NEUROLOGIC: Sensation is grossly intact. Cranial nerve exam reveals face is symmetrical, tongue is midline, speech is clear. Shaky at times. SKIN: No abrasions or ecchymosis is noted. No induration or masses noted. PSYCHIATRIC: Alert and oriented. Appropriate behavior and judgment. Course Vital Signs 05/23/22 15:54 Temperature 99.2 F Pulse Rate 67 Respiratory 18 Rate Blood Pressure 179/99 O2 Sat by Pulse 99 Oximetry Medical Decision Making - Medical Decision Making Was pt. sent in by a medical professional or institution (, PA, [facility] [employer], urgent care, hospital, or longterm...) When possible be specific @ -[No] Did you speak to anyone other than the patient for history (EMS, parent, family, police, friend...)? What history was obtained from this source @ -Discussed with the does give accurate history. He states that she drinks much more than she relates to. He also relates history from this past evening in regards to evaluation at [facility]. Did you review nursing and triage notes (agree or disagree)? Why? @ -[I reviewed and agree with nursing and triage notes] Were old charts reviewed (outside hosp., previous admission, EMS record, old EKG, old radiological studies, urgent care reports/EKG's, longterm records)? Report findings @ -[No old charts were reviewed] Differential Diagnosis (chest pain, altered mental status, abdominal pain women, abdominal pain men, vaginal bleeding, weakness, fever, dyspnea, syncope, headache, dizziness, GI bleed, back pain, seizure, CVA, palpatations, mental health)? @ -Delirium tremens, new-onset seizure, alcohol withdrawal seizure, hypomagnesemia EKG interpreted by me (3pts min.). @ -None X-rays interpreted by me (1pt min.). @ -[None done] CT interpreted by me (1pt min.). @ -[None done] U/S interpreted by me (1pt. min.). @ -[None done] What testing was considered but not performed or refused? (CT, X-rays, U/S, la bs)? Why? @ -[None] What meds were considered but not given or refused? Why? @ -[None] Did you discuss the management of the patient with other professionals (professionals i.e. , [facility], [facility], lab, RT, psych nurse, social services, fisher trammel net, teacher, logistics supply officer, continuous pillowcase cutter)? Give summary @ -Case is discussed with admitting internal medicine physician certified medical technician assistant who is agreeable with admission. Was smoking cessation discussed for >3mins.? @ -[No] Was critical care preformed (if so, how long)? @ -[No] Were there social determinants of health that impacted care today? How? (Homelessness, low income, unemployed, alcoholism, drug addiction, transportation, low edu. Level, literacy, decrease access to med. care, group home, rehab)? @ -None Was there de-escalation of care discussed even if they declined (Discuss DNR or withdrawal of care, Hospice)? DNR status @ -No What co-morbidities impacted this encounter? (DM, HTN, Smoking, COPD, CAD, Cancer, CVA, ARF, Chemo, Hep., AIDS, mental health diagnosis, sleep apnea, morbid obesity)? @ -Obesity Was patient admitted / discharged? Hospital course, mention meds given and route, prescriptions, significant lab abnormalities, going to OR and other pert inent info. @ -Admitted. The patient was seen and examined. IV was established and she is hydrated. She receives 2 mg of Ativan with moderate relief of her symptomatology. She also received Zofran intravenously for nausea with relief. Laboratory showed a significant decrease in the magnesium and this is replaced intravenously. It also shows some mild to moderate anemia. Request was made to obtain records from [facility] but these are currently pending. Discharged notes were reviewed from [facility] indicating that she has a urinary tract infection. She also was prescribed Keflex and Ativan but she did not get these filled as of yet. She has the prescriptions with her. Undiagnosed new problem with uncertain prognosis? @ -She has chronic alcohol abuse with the new onset seizures likely related to alcoholic for all his she has not drank in 2 days and has never had seizures previously. Drug Therapy requiring intensive monitoring for toxicity (Heparin, Nitro, Insulin, Cardizem)? @ -[No] Were any procedures done? @ -[No] Diagnosis/symptom? @ -Alcohol withdrawal seizure, delirium tremens, alcohol withdrawal, alcohol abuse, hypomagnesemia Acute, or Chronic, or Acute on Chronic? @ -Alcohol abuse is chronic, new-onset seizure is acute Uncomplicated (without systemic symptoms) or Complicated (systemic symptoms)? @ -Uncomplicated Side effects of treatment? @ -[No] Exacerbation, Progression, or Severe Exacerbation? @ -Moderate exacerbation Poses a threat to life or bodily function? How? (Chest pain, USA, IA, pneumonia, PE, COPD, DKA, ARF, appy, cholecystitis, CVA, Diverticulitis, Homicidal, Suicidal, threat to staff... and all critical care pts) @ -[No] - Lab Data Result diagrams: 05/23/22 20:21 05/23/22 20:21 Lab Results 05/23/22 05/23/22 05/23/22 Range/Units 20:17 20:21 20:21 WBC 4.1 (3.8-10.6) k/uL RBC 2.67 L (3.80-5.40) m/uL Hgb 10.3 L (11.4-16.0) gm/dL Hct 28.7 L (34.0-46.0) % MCV 107.1 H (80.0-100.0) fL MCH 38.4 H (25.0-35.0) pg MCHC 35.8 (31.0-37.0) g/dL RDW 18.1 H (11.5-15.5) % Plt Count 29 L (150-450) k/uL MPV 10.4 Neutrophils % 62 % Lymphocytes % 25 % Monocytes % 7 % Eosinophils % 2 % Basophils % 1 % Neutrophils # 2.6 (1.3-7.7) k/uL Lymphocytes # 1.1 (1.0-4.8) k/uL Monocytes # 0.3 (0-1.0) k/uL Eosinophils # 0.1 (0-0.7) k/uL Basophils # 0.0 (0-0.2) k/uL Manual Slide Review Performed Anisocytosis Slight Macrocytosis Marked A PT 13.2 H (9.0-12.0) sec INR 1.3 H (<1.2) APTT 21.7 L (22.0-30.0) sec Sodium 136 L (137-145) mmol/L Potassium 3.0 L (3.5-5.1) mmol/L Chloride 102 (98-107) mmol/L Carbon Dioxide 24 (22-30) mmol/L Anion Gap 10 mmol/L BUN 9 (7-17) mg/dL Creatinine 0.66 (0.52-1.04) mg/dL Est GFR (CKD-EPI)AfAm >90 (>60 ml/min/1.73 sqM) Est GFR (CKD-EPI)NonAf >90 (>60 ml/min/1.73 sqM) Glucose 109 H (74-99) mg/dL Calcium 8.0 L (8.4-10.2) mg/dL Phosphorus 3.7 (2.5-4.5) mg/dL Magnesium 0.9 L* (1.6-2.3) mg/dL Total Bilirubin 2.1 H (0.2-1.3) mg/dL AST 70 H (14-36) U/L ALT 29 (4-34) U/L Alkaline Phosphatase 101 (38-126) U/L Total Protein 7.8 (6.3-8.2) g/dL Albumin 4.3 (3.5-5.0) g/dL Lipase 60 (23-300) U/L Serum Alcohol <10 mg/dL Disposition Clinical Impression: Alcohol withdrawal seizure, Confusion, Hypertension, Alcohol abuse, Nausea and vomiting, Delirium tremens, Closed head injury, UTI (urinary tract infection) Disposition: ADMITTED IP TO THIS HOSP Condition: Fair Is patient prescribed a controlled substance at d/c from ED?: No Referrals: Alcon Gonzalez MD [Primary Care Provider] - 1-2 days Time of Disposition: 21:23 Decision Date: 05/23/22 Decision Time: 21:23
[2022-05-23] MEDS ORDERED: LABETALOL 5 MG/ML VIAL MDV IVP STA (21:23)
[2022-05-23] MEDS ORDERED: THIAMINE 100 MG/ML 2 ML VIAL IM STA (21:24)
[2022-05-23] MEDS ORDERED: LORazepam 2 MG/ML INJ IV PRN ×2 (21:24)
[2022-05-23] MEDS ORDERED: ONDANSETRON 4 MG/2 ML VIAL IVP PRN (21:26)
[2022-05-23 21:27] LABS: Platelet Count 29 k/uL (150-450)
[2022-05-23] MEDS: SODIUM CHLORIDE 0.9% 1,000 ML IV SCH (21:38)
[2022-05-23] MEDS: chlordiazePOXIDE 25 MG CAP PO SCH (21:47)
[2022-05-23] MEDS: MAGNESIUM SULFATE-D5W PMX 1 GM in DEXTROSE/WATER 1 100ML.BAG IVPB SCH ×2 (22:29→23:19)
[2022-05-23] MEDS ORDERED: Potassium Replacement Protocol 1 EACH MISC MISCELLANE PRN (22:43)
[2022-05-23] MEDS ORDERED: Magnesium Replacement Protocol 1 EACH MISC MISCELLANE PRN (22:44)
[2022-05-23] MEDS: LORazepam 2 MG/ML INJ IV PRN (23:19)
[2022-05-23] MEDS: POTASSIUM CHLORIDE ER 20 MEQ TAB.ER PO SCH (23:19)
[2022-05-24] MEDS: POTASSIUM CHLORIDE ER 20 MEQ TAB.ER PO SCH ×4 (00:12→14:12)
[2022-05-24] MEDS: SODIUM CHLORIDE 0.9% 1,000 ML IV SCH ×3 (06:28→20:22)
[2022-05-24 07:16] LABS: Anisocytosis Slight; Basophils % (A) 1 %; Eosinophils # (A) 0.1 k/uL (0-0.7); Eosinophils % (A) 2 %; HCT 25.9 % (34.0-46.0); HGB 9.4 gm/dL (11.4-16.0); Lymphocytes # (A) 0.7 k/uL (1.0-4.8); Lymphocytes % (A) 22 %; MCH 39.8 pg (25.0-35.0); MCHC 36.5 g/dL (31.0-37.0); MCV 109.1 fL (80.0-100.0); Macrocytosis Marked; Mean Platelet Volume 10.3; Monocytes # (A) 0.2 k/uL (0-1.0); Monocytes % (A) 7 %; Neutrophils % (A) 65 %; RBC 2.37 m/uL (3.80-5.40); RDW 18.2 % (11.5-15.5); WBC 3.1 k/uL (3.8-10.6)
[2022-05-24 07:18] LABS: Platelet Count 24 k/uL (150-450)
[2022-05-24 07:29] LABS: African American GFR (CKD) >90 (>60 ml/min/1.73 sqM); Anion Gap 5 mmol/L; Blood Urea Nitrogen 5 mg/dL (7-17); Calcium 6.9 mg/dL (8.4-10.2); Carbon Dioxide 24 mmol/L (22-30); Chloride 107 mmol/L (98-107); Glucose 103 mg/dL (74-99); Magnesium 1.4 mg/dL (1.6-2.3); Non-African American GFR(CKD) >90 (>60 ml/min/1.73 sqM); Phosphorus 3.5 mg/dL (2.5-4.5); Potassium 2.8 mmol/L (3.5-5.1); Sodium 136 mmol/L (137-145)
[2022-05-24] MEDS: ENOXAPARIN 40 MG/0.4 ML SYRINGE SQ SCH (09:27)
[2022-05-24] MEDS: PANTOPRAZOLE 40 MG/10 ML VIAL IV SCH (09:27)
[2022-05-24] MEDS: MAGNESIUM SULFATE-D5W PMX 1 GM in DEXTROSE/WATER 1 100ML.BAG IVPB SCH ×3 (09:27→14:13)
[2022-05-24] MEDS: hydrOXYzine HCL 10 MG TAB PO PRN ×2 (09:28→21:59)
[2022-05-24] MEDS: THIAMINE 100 MG TAB PO SCH (09:28)
[2022-05-24] MEDS: FOLIC ACID 1 MG TAB PO SCH (09:29)
[2022-05-24] MEDS: MULTIVITAMINS, THERA 1 EACH TAB PO SCH (09:30)
[2022-05-24] MEDS: METOPROLOL TARTRATE 50 MG TAB PO SCH ×2 (09:30→20:21)
[2022-05-24] MEDS: chlordiazePOXIDE 25 MG CAP PO SCH ×3 (09:30→20:21)
[2022-05-24] MEDS: VIT A,C & E-LUTEIN-MINERALS 1 EACH TAB PO SCH (09:30)
[2022-05-24] MEDS: LOSARTAN 50 MG TAB PO SCH (09:30)
[2022-05-24] MEDS ORDERED: Magnesium Replacement Protocol 1 EACH MISC MISCELLANE PRN (12:52)
--- NOTE | 2022-05-24 12:53 | P.HPIM ---
History of Present Illness H&P Date: 05/24/22 History of present illness; patient is a 56-year-old lady with past medical history significant for hypertension, alcohol abuse who presented to the ER for alcohol detox. Patient was recently discharged from [facility] [place] after being treated there for an apparent seizure and alcohol abuse. Patient also found to have a UTI that time and was discharged on oral Keflex. Patient currently very shaky, admits drinking small bottles of wine every day even though states that the patient drinks far more than that. Patient has tried to go to alcohol anonymous meetings but has never gone through alcohol rehab. Patient denies any auditory or visual hallucinations. Denies any albright icidal thoughts. Initial workup in the ER showed patient to a white count of 4.1, hemoglobin 10.3, MCV 107.1 sodium 136, potassium 3 magnesium 0.9. Patient was admitted to hospitalist service for further evaluation and treatment REVIEW OF SYSTEMS: CONSTITUTIONAL: No fever, no malaise, no fatigue. Restless, shaky HEENT: No recent visual problems or hearing problems. Denied any sore throat. CARDIOVASCULAR: No chest pain, orthopnea, PND, no palpitations, no syncope. PULMONARY: No shortness of breath, no cough, no hemoptysis. GASTROINTESTINAL: No diarrhea, no nausea, no vomiting, no abdominal pain. NEUROLOGICAL: No headaches, no weakness, no numbness. HEMATOLOGICAL: Denies any bleeding or petechiae. GENITOURINARY: Denies any burning micturition, frequency, or urgency. MUSCULOSKELETAL/RHEUMATOLOGICAL: Denies any joint pain, swelling, or any muscle pain. ENDOCRINE: Denies any polyuria or polydipsia. The rest of the 14-point review of systems is negative. PHYSICAL EXAMINATION: GENERAL: The patient is alert and oriented x3, not in any acute distress. Well developed, well nourished. HEENT: Pupils are round and equally reacting to light. EOMI. No scleral icterus. No conjunctival pallor. Normocephalic, atraumatic. No pharyngeal erythema. No thyromegaly. CARDIOVASCULAR: S1 and S2 present. No murmurs, rubs, or gallops. PULMONARY: Chest is clear to auscultation, no wheezing or crackles. ABDOMEN: Soft, nontender, nondistended, normoactive bowel sounds. No palpable organomegaly. MUSCULOSKELETAL: No joint swelling or deformity. EXTREMITIES: No cyanosis, clubbing, or pedal edema. NEUROLOGICAL: Gross neurological examination did not reveal any focal deficits. SKIN: No rashes. Assessment and plan Alcohol detox Hypokalemia Hypomagnesemia Hypertension Plan; Continue to monitor vital signs monitor CBC Monitor CMP Potassium replacement ordered. Magnesium replacement ordered Continue patient on CIWA protocol Resume home meds Past Medical History Past Medical History: Hypertension Additional Past Medical History / Comment(s): vertigo, hx pancreatitis History of Any Multi-Drug Resistant Organisms: None Reported Past Surgical History: Section Additional Past Surgical History / Comment(s): cystoscopy, sx on urethra at age 1 Past Anesthesia/Blood Transfusion Reactions: Motion Sickness, Postoperative Nausea & Vomiting (PONV) Past Psychological History: No Psychological Hx Reported Smoking Status: Never smoker Past Alcohol Use History: Daily Additional Past Alcohol Use History / Comment(s): states she drinks wine 3 glasses a day, previously drank beer and wine but less now per pt Past Drug Use History: None Reported - Past Family History Mother Family Medical History: Hypertension Father Family Medical History: Coronary Artery Disease (CAD) Medications and Allergies Home Medications Medication Instructions Recorded Confirmed Type Metoprolol Tartrate [Lopressor] 50 mg PO BID 12/30/18 05/23/22 History Losartan Potassium [Cozaar] 50 mg PO DAILY 06/04/20 05/23/22 History cloNIDine HCL [Catapres] 0.1 mg PO TID 06/04/20 05/23/22 History Atorvastatin [Lipitor] 10 mg PO HS 11/28/20 05/23/22 History Multivit-Min/Iron/Folic/Lutein 1 tab PO DAILY 11/28/20 05/23/22 History [Centrum Silver Women Tablet] Pantoprazole [Protonix] 40 mg PO AC-BRKFST #30 tablet. 12/01/20 05/23/22 Rx Ondansetron Odt [Zofran ODT] 4 mg PO TID PRN 05/23/22 05/23/22 History hydrOXYzine HCL [Atarax] 10 mg PO BID PRN 05/23/22 05/23/22 History Allergies Allergy/AdvReac Type Severity Reaction Status Date / Time ibuprofen [From Motrin] Allergy Anaphylaxis Verified 05/23/22 21:47 latex Allergy Rash/Hives Verified 05/23/22 21:47 Physical Exam Vitals: Vital Signs Temp Pulse Pulse Resp BP BP Pulse Ox 05/24/22 12:00 99.0 F 80 17 191/111 97 05/24/22 08:00 98.9 F 87 16 191/83 95 05/24/22 04:00 99.5 F 81 16 174/84 95 05/24/22 02:00 85 16 05/23/22 23:00 98.9 F 85 16 165/112 96 05/23/22 22:35 76 18 155/90 98 05/23/22 21:55 85 169/79 05/23/22 21:53 74 18 189/94 05/23/22 15:54 99.2 F 67 18 179/99 99 Intake and Output 05/23/22 05/24/22 05/24/22 22:59 06:59 14:59 Intake Total 180 Balance 180 Intake: Oral 180 Other: Voiding Method Toilet Toilet # Voids 1 # Bowel Movements 1 Weight 63.503 kg 63.503 kg Results CBC & Chem 7: 05/24/22 06:41 05/24/22 06:41 Labs: Abnormal Lab Results - Last 24 Hours (Table) 05/23/22 05/23/22 05/23/22 Range/Units 20:17 20:21 20:21 WBC (3.8-10.6) k/uL RBC 2.67 L (3.80-5.40) m/uL Hgb 10.3 L (11.4-16.0) gm/dL Hct 28.7 L (34.0-46.0) % MCV 107.1 H (80.0-100.0) fL MCH 38.4 H (25.0-35.0) pg RDW 18.1 H (11.5-15.5) % Plt Count 29 L (150-450) k/uL Lymphocytes # (1.0-4.8) k/uL Macrocytosis Marked A PT 13.2 H (9.0-12.0) sec INR 1.3 H (<1.2) APTT 21.7 L (22.0-30.0) sec Sodium 136 L (137-145) mmol/L Potassium 3.0 L (3.5-5.1) mmol/L BUN (7-17) mg/dL Glucose 109 H (74-99) mg/dL Calcium 8.0 L (8.4-10.2) mg/dL Magnesium 0.9 L* (1.6-2.3) mg/dL Total Bilirubin 2.1 H (0.2-1.3) mg/dL AST 70 H (14-36) U/L 05/24/22 05/24/22 Range/Units 06:41 06:41 WBC 3.1 L (3.8-10.6) k/uL RBC 2.37 L (3.80-5.40) m/uL Hgb 9.4 L (11.4-16.0) gm/dL Hct 25.9 L (34.0-46.0) % MCV 109.1 H (80.0-100.0) fL MCH 39.8 H (25.0-35.0) pg RDW 18.2 H (11.5-15.5) % Plt Count 24 L (150-450) k/uL Lymphocytes # 0.7 L (1.0-4.8) k/uL Macrocytosis Marked A PT (9.0-12.0) sec INR (<1.2) APTT (22.0-30.0) sec Sodium 136 L (137-145) mmol/L Potassium 2.8 L (3.5-5.1) mmol/L BUN 5 L (7-17) mg/dL Glucose 103 H (74-99) mg/dL Calcium 6.9 L (8.4-10.2) mg/dL Magnesium 1.4 L (1.6-2.3) mg/dL Total Bilirubin (0.2-1.3) mg/dL AST (14-36) U/L Thrombosis Risk Factor Assmnt - Choose All That Apply Any of the Below Risk Factors Present?: Yes Each Factor Represents 1 point: Age 41-60 years Other Risk Factors: No Other congenital or acquired thrombophilia - If yes, enter type in comment: No Thrombosis Risk Factor Assessment Total Risk Factor Score: 1 Thrombosis Risk Factor Assessment Level: Low Risk
[2022-05-24] MEDS ORDERED: MAGNESIUM SULFATE-D5W PMX 1 GM in DEXTROSE/WATER 1 100ML.BAG IVPB SCH (13:00)
[2022-05-24] MEDS: hydrALAZINE HCL 20 MG/ML 1 ML VIAL IVP PRN ×2 (15:55→20:30)
[2022-05-24 17:50] LABS: Appearance,Urine Clear (Clear); Bilirubin,Urine Negative (Negative); Blood,Urine Negative (Negative); Color,Urine Light Yellow; Glucose,Urine (UA) Negative (Negative); Ketones,Urine Negative (Negative); Leukocyte Esterase,Urine Negative (Negative); Nitrite,Urine Negative (Negative); Protein,Urine Negative (Negative); Specific Gravity,Urine 1.007 (1.001-1.035); Urobilinogen,Urine <2.0 mg/dL (<2.0)
[2022-05-24] MEDS: ATORVASTATIN 10 MG TAB PO SCH (20:21)
[2022-05-24] MEDS: ACETAMINOPHEN TAB 325 MG TAB PO PRN (21:58)
[2022-05-25] MEDS: SODIUM CHLORIDE 0.9% 1,000 ML IV SCH ×3 (01:40→21:50)
[2022-05-25] MEDS: hydrALAZINE HCL 20 MG/ML 1 ML VIAL IVP PRN (03:23)
[2022-05-25] MEDS: ACETAMINOPHEN TAB 325 MG TAB PO PRN (04:24)
[2022-05-25] MEDS: METOPROLOL TARTRATE 50 MG TAB PO SCH ×2 (08:56→20:16)
[2022-05-25] MEDS: chlordiazePOXIDE 25 MG CAP PO SCH ×3 (08:56→20:16)
[2022-05-25] MEDS: VIT A,C & E-LUTEIN-MINERALS 1 EACH TAB PO SCH (08:56)
[2022-05-25] MEDS: LOSARTAN 50 MG TAB PO SCH ×2 (08:57→20:16)
[2022-05-25] MEDS: PANTOPRAZOLE 40 MG/10 ML VIAL IV SCH (08:57)
[2022-05-25] MEDS: FOLIC ACID 1 MG TAB PO SCH (08:57)
[2022-05-25] MEDS: THIAMINE 100 MG TAB PO SCH (08:57)
[2022-05-25] MEDS: ENOXAPARIN 40 MG/0.4 ML SYRINGE SQ SCH (08:57)
[2022-05-25] MEDS: MULTIVITAMINS, THERA 1 EACH TAB PO SCH (08:57)
[2022-05-25 09:16] LABS: Magnesium 1.7 mg/dL (1.6-2.3); Potassium 3.3 mmol/L (3.5-5.1)
[2022-05-25] MEDS: amLODIPine 5 MG TAB PO SCH (10:38)
[2022-05-25] MEDS: POTASSIUM CHLORIDE ER 20 MEQ TAB.ER PO SCH ×2 (10:38→13:12)
[2022-05-25] MEDS: MAGNESIUM SULFATE-D5W PMX 1 GM in DEXTROSE/WATER 1 100ML.BAG IVPB SCH ×2 (11:13→13:12)
[2022-05-25] MEDS: cloNIDine HCL 0.1 MG TAB PO SCH ×3 (11:13→20:17)
[2022-05-25 11:24] LABS: Anisocytosis Slight; Basophils % (A) 1 %; Eosinophils # (A) 0.1 k/uL (0-0.7); Eosinophils % (A) 1 %; HCT 31.9 % (34.0-46.0); Lymphocytes % (A) 16 %; MCH 38.3 pg (25.0-35.0); MCHC 34.3 g/dL (31.0-37.0); MCV 111.7 fL (80.0-100.0); Macrocytosis Marked; Monocytes # (A) 0.4 k/uL (0-1.0); Monocytes % (A) 7 %; Neutrophils # (A) 4.3 k/uL (1.3-7.7); Neutrophils % (A) 73 %; RBC 2.86 m/uL (3.80-5.40); RDW 18.3 % (11.5-15.5); WBC 5.9 k/uL (3.8-10.6)
--- NOTE | 2022-05-25 11:37 | CT ---
EXAMINATION TYPE: CT brain wo con DATE OF EXAM: 05/25/2022 COMPARISON: None. HISTORY: 56 year old female CONFUSION TECHNIQUE: Examination was done in axial plane without intravenous contrast. Coronal and sagittal r econstructions performed. CT DLP: 1153.4 mGycm Automated exposure control for dose reduction was used. FINDINGS: There is no evidence of acute intracranial hemorrhage, acute ischemic changes, mass, mass-effect, or extra-axial fluid collection. There is no effacement of cerebral sulci or basal subarachnoid cister ns. There is no hydrocephalus. There is no midline shift. Delarcuz-white matter distinction is preserv ed. There is right lateral, superior scalp contusion. No underlying calvarial fracture. Paranasal sinuses and mastoid air cells well pneumatized. Orbits and globes are intact. IMPRESSION: Suggestion of a right-sided scalp contusion. Correlate with physical exam findings. No underlying sku ll fracture or acute intracranial abnormality seen.
--- NOTE | 2022-05-25 11:55 | P.PN ---
Subjective Progress Note Date: 05/25/22 patient is a 56-year-old lady with past medical history significant for hypertension, alcohol abuse who presented to the ER for alcohol detox. Patient was recently discharged from [facility] after being treated there for an apparent seizure and alcohol abuse. Patient also found to have a UTI that time and was discharged on oral Keflex. Patient currently very shaky, admits drinking small bottles of wine every day even though states that the patient drinks far more than that. Patient has tried to go to alcohol anonymous meetings but has never gone through alcohol rehab. Patient denies any auditory or visual hallucinations. Denies any suicidal thoughts. Initial workup in the ER showed patient to a white count of 4.1, hemoglobin 10.3, MCV 107.1 sodium 136, potassium 3 magnesium 0.9. Patient was admitted to hospitalist service for further evaluation and treatment 05/25/22. Patient seen and examined. According to nursing staff, patient was confused this morning, currently alert awake oriented 3. Blood pressure is elevated, denies any headache. Denies any auditory or visual hallucinations REVIEW OF SYSTEMS: CONSTITUTIONAL: No fever, no malaise,. CARDIOVASCULAR: No chest pain, no palpitations, no syncope. PULMONARY: No shortness of breath, no cough, GASTROINTESTINAL: No diarrhea, no nausea, no vomiting, no abdominal pain. NEUROLOGICAL: No headaches, no weakness, PHYSICAL EXAMINATION: GENERAL: The patient is alert and oriented x3, not in any acute distress. Well developed, well nourished. HEENT: Pupils are round and equally reacting to light. EOMI. No scleral icterus. No conjunctival pallor. Normocephalic, atraumatic. No pharyngeal erythema. No thyromegaly. CARDIOVASCULAR: S1 and S2 present. No murmurs, rubs, or gallops. PULMONARY: Chest is clear to auscultation, no wheezing or crackles. ABDOMEN: Soft, nontender, nondistended, normoactive bowel sounds. No palpable organomegaly. MUSCULOSKELETAL: No joint swelling or deformity. EXTREMITIES: No cyanosis, clubbing, or pedal edema. NEUROLOGICAL: Gross neurological examination did not reveal any focal deficits. SKIN: No rashes. Assessment and plan Alcohol detox Hypokalemia Hypomagnesemia Hypertension Thrombocytopenia Plan; Continue to monitor vital signs monitor CBC Monitor CMP Ordered CT head Consult hematology for thrombocytopenia Potassium was 3.3 replacement ordered Magnesium replacement ordered Continue patient on CIWA protocol Continue home meds Objective - Vital Signs Vital signs: Vital Signs Temp 98.0 F 05/25/22 11:31 Pulse 77 05/25/22 11:31 Resp 15 05/25/22 11:31 BP 208/113 05/25/22 11:31 Pulse Ox 100 05/25/22 11:31 FiO2 Intake & Output 05/24/22 05/25/22 05/25/22 18:59 06:59 18:59 Intake Total 360 180 Balance 360 180 Weight 75.5 kg Intake: Oral 360 180 Other: Voiding Method Toilet Toilet Toilet # Voids 1 2 # Bowel Movements 1 - Labs CBC & Chem 7: 05/25/22 08:32 05/25/22 08:32 Labs: Abnormal Lab Results - Last 24 Hours (Table) 05/25/22 05/25/22 Range/Units 08:32 08:32 RBC 2.86 L (3.80-5.40) m/uL Hgb 11.0 L (11.4-16.0) gm/dL Hct 31.9 L (34.0-46.0) % MCV 111.7 H (80.0-100.0) fL MCH 38.3 H (25.0-35.0) pg RDW 18.3 H (11.5-15.5) % Plt Count 44 L D (150-450) k/uL Macrocytosis Marked A Potassium 3.3 L (3.5-5.1) mmol/L
[2022-05-25 12:36] LABS: Reticulocyte % 0.7 % (0.5-2.0)
[2022-05-25 15:26] LABS: Platelet Count 44 k/uL (150-450)
[2022-05-25] MEDS ORDERED: cloNIDine HCL 0.1 MG TAB PO SCH (16:00)
[2022-05-25] MEDS: ATORVASTATIN 10 MG TAB PO SCH (20:15)
[2022-05-26 08:00] LABS: African American GFR (CKD) >90 (>60 ml/min/1.73 sqM); Anion Gap 5 mmol/L; Blood Urea Nitrogen 5 mg/dL (7-17); Calcium 7.8 mg/dL (8.4-10.2); Carbon Dioxide 24 mmol/L (22-30); Chloride 107 mmol/L (98-107); Glucose 111 mg/dL (74-99); Non-African American GFR(CKD) >90 (>60 ml/min/1.73 sqM); Potassium 3.4 mmol/L (3.5-5.1); Sodium 136 mmol/L (137-145)
[2022-05-26 08:11] LABS: Anisocytosis Slight; Basophils % (A) 1 %; Eosinophils # (A) 0.1 k/uL (0-0.7); Eosinophils % (A) 3 %; HCT 26.2 % (34.0-46.0); HGB 9.3 gm/dL (11.4-16.0); Lymphocytes # (A) 0.8 k/uL (1.0-4.8); Lymphocytes % (A) 22 %; MCH 39.9 pg (25.0-35.0); MCHC 35.5 g/dL (31.0-37.0); MCV 112.3 fL (80.0-100.0); Macrocytosis Marked; Monocytes # (A) 0.3 k/uL (0-1.0); Monocytes % (A) 8 %; Neutrophils # (A) 2.3 k/uL (1.3-7.7); Neutrophils % (A) 63 %; RBC 2.33 m/uL (3.80-5.40); RDW 18.7 % (11.5-15.5); WBC 3.7 k/uL (3.8-10.6)
[2022-05-26 08:12] LABS: Platelet Count 40 k/uL (150-450)
[2022-05-26] MEDS: amLODIPine 5 MG TAB PO SCH (10:04)
[2022-05-26] MEDS: FOLIC ACID 1 MG TAB PO SCH (10:04)
[2022-05-26] MEDS: VIT A,C & E-LUTEIN-MINERALS 1 EACH TAB PO SCH (10:05)
[2022-05-26] MEDS: cloNIDine HCL 0.1 MG TAB PO SCH ×3 (10:05→21:02)
[2022-05-26] MEDS: MULTIVITAMINS, THERA 1 EACH TAB PO SCH (10:05)
[2022-05-26] MEDS: THIAMINE 100 MG TAB PO SCH (10:05)
[2022-05-26] MEDS: ENOXAPARIN 40 MG/0.4 ML SYRINGE SQ SCH (10:05)
[2022-05-26] MEDS: METOPROLOL TARTRATE 50 MG TAB PO SCH ×2 (10:05→21:02)
[2022-05-26] MEDS: LOSARTAN 50 MG TAB PO SCH ×2 (10:05→21:02)
[2022-05-26] MEDS: chlordiazePOXIDE 25 MG CAP PO SCH ×3 (10:05→21:02)
[2022-05-26] MEDS: SODIUM CHLORIDE 0.9% 1,000 ML IV SCH ×2 (10:06→12:09)
[2022-05-26] MEDS: PANTOPRAZOLE 40 MG/10 ML VIAL IV SCH (10:06)
[2022-05-26] MEDS ORDERED: Potassium Replacement Protocol 1 EACH MISC MISCELLANE PRN (10:15)
[2022-05-26] MEDS: POTASSIUM CHLORIDE ER 20 MEQ TAB.ER PO SCH ×2 (10:43→10:44)
--- NOTE | 2022-05-26 15:28 | P.PN ---
Subjective Progress Note Date: 05/26/22 patient is a 56-year-old lady with past medical history significant for hypertension, alcohol abuse who presented to the ER for alcohol detox. Patient was recently discharged from [facility] after being treated there for an apparent seizure and alcohol abuse. Patient also found to have a UTI that time and was discharged on oral Keflex. Patient currently very shaky, admits drinking small bottles of wine every day even though states that the patient drinks far more than that. Patient has tried to go to alcohol anonymous meetings but has never gone through alcohol rehab. Patient denies any auditory or visual hallucinations. Denies any suicidal thoughts. Initial workup in the ER showed patient to a white count of 4.1, hemoglobin 10.3, MCV 107.1 sodium 136, potassium 3 magnesium 0.9. Patient was admitted to hospitalist service for further evaluation and treatment 05/25/22. Patient seen and examined. According to nursing staff, patient was confused this morning, currently alert awake oriented 3. Blood pressure is elevated, denies any headache. Denies any auditory or visual hallucinations 05/26. Patient seen and examined. Patient less restless compared to yesterday. Blood pressure is still elevated. Going for abdominal ultrasound. REVIEW OF SYSTEMS: CONSTITUTIONAL: No fever, no malaise,. CARDIOVASCULAR: No chest pain, no palpitations, no syncope. PULMONARY: No shortness of breath, no cough, GASTROINTESTINAL: No diarrhea, no nausea, no vomiting, no abdominal pain. NEUROLOGICAL: No headaches, no weakness, PHYSICAL EXAMINATION: GENERAL: The patient is alert and oriented x3, not in any acute distress. Well developed, well nourished. HEENT: Pupils are round and equally reacting to light. EOMI. No scleral icterus. No conjunctival pallor. Normocephalic, atraumatic. No pharyngeal erythema. No thyromegaly. CARDIOVASCULAR: S1 and S2 present. No murmurs, rubs, or gallops. PULMONARY: Chest is clear to auscultation, no wheezing or crackles. ABDOMEN: Soft, nontender, nondistended, normoactive bowel sounds. No palpable organomegaly. MUSCULOSKELETAL: No joint swelling or deformity. EXTREMITIES: No cyanosis, clubbing, or pedal edema. NEUROLOGICAL: Gross neurological examination did not reveal any focal deficits. SKIN: No rashes. Assessment and plan Alcohol detox Hypokalemia Hypomagnesemia Hypertension Thrombocytopenia Plan; Continue to monitor vital signs monitor CBC Monitor CMP Follow-up on ultrasound abdomen Continue Norvasc, clonidine, Lopressor Continue patient on CIWA protocol Continue thiamine and folic acid Follow-up on hematology recommendations Objective - Vital Signs Vital signs: Vital Signs Temp 98.0 F 05/26/22 04:00 Pulse 65 05/26/22 15:02 Resp 16 05/26/22 15:02 BP 172/103 05/26/22 15:02 Pulse Ox 96 05/26/22 15:02 FiO2 Intake & Output 05/25/22 05/26/22 05/26/22 18:59 06:59 18:59 Intake Total 540 240 Balance 540 240 Weight 78.2 kg Intake: Oral 540 240 Other: Voiding Method Toilet Toilet # Voids 2 1 - Labs CBC & Chem 7: 05/26/22 06:47 05/26/22 06:47 Labs: Abnormal Lab Results - Last 24 Hours (Table) 05/25/22 05/25/22 05/25/22 Range/Units 08:32 08:32 11:12 WBC (3.8-10.6) k/uL RBC (3.80-5.40) m/uL Hgb (11.4-16.0) gm/dL Hct (34.0-46.0) % MCV (80.0-100.0) fL MCH (25.0-35.0) pg RDW (11.5-15.5) % Plt Count 44 L D (150-450) k/uL Lymphocytes # (1.0-4.8) k/uL Macrocytosis Sodium (137-145) mmol/L Potassium (3.5-5.1) mmol/L BUN (7-17) mg/dL Glucose (74-99) mg/dL Calcium (8.4-10.2) mg/dL Ferritin 1032.0 H (10.0-291.0) ng/mL Copper 623 L (810-1990) ug/L 05/26/22 05/26/22 Range/Units 06:47 06:47 WBC 3.7 L (3.8-10.6) k/uL RBC 2.33 L (3.80-5.40) m/uL Hgb 9.3 L D (11.4-16.0) gm/dL Hct 26.2 L (34.0-46.0) % MCV 112.3 H (80.0-100.0) fL MCH 39.9 H (25.0-35.0) pg RDW 18.7 H (11.5-15.5) % Plt Count 40 L (150-450) k/uL Lymphocytes # 0.8 L (1.0-4.8) k/uL Macrocytosis Marked A Sodium 136 L (137-145) mmol/L Potassium 3.4 L (3.5-5.1) mmol/L BUN 5 L (7-17) mg/dL Glucose 111 H (74-99) mg/dL Calcium 7.8 L (8.4-10.2) mg/dL Ferritin (10.0-291.0) ng/mL Copper (810-1990) ug/L
--- NOTE | 2022-05-26 15:31 | US ---
EXAMINATION TYPE: US abdomen limited DATE OF EXAM: 05/26/2022 COMPARISON: CLINICAL HISTORY: pancytopenia. Abnormal labs. Per order, liver and spleen. Patient states she last ate at 7:00 am. TECHNIQUE: Multiple sonographic images of the right upper quadrant are obtained. FINDINGS: EXAM MEASUREMENTS: Liver Length: 16.4 cm Gallbladder Wall: 0.3 cm CBD: 0.6 cm Right Kidney: 10.7 x 5.6 x 3.7 cm Spleen: 10.2 cm Pancreas: Posterior to pancreatic head, hypoechoic area seen = 3.5 x 1.8 x 1.1 cm. Liver: Appears coarse and nodular. No suspicious masses. Gallbladder: No stones seen Evidence for sonographic Carson's sign: neg CBD: wnl Right Kidney: No hydronephrosis or masses seen Spleen: No abnormality seen IMPRESSION: 1. Hypoechoic lesion near the pancreatic head could represent a lymph node versus pancreatic lesion versus other. Consider further evaluation with CT with IV and oral contrast pancreatic mass protocol. 2. Nodular appearance to the liver with coarsened echotexture correlate for hepatic cirrhosis.
[2022-05-26 15:55] LABS: Haptoglobin <10.0 mg/dL (31.2-198.0)
--- NOTE | 2022-05-26 18:49 | P.CONS ---
History of Present Illness - Reason for Consult Consult date: 05/26/22 pancytopenia Requesting physician: James Melendrez - Chief Complaint ETOH withdrawl, seizure - History of Present Illness Ms. Alfaro is a pleasant 56-year-old female who presented to ER with c/o seizure 2/2 ETOH withdrawal, hitting her head. She was evaluated at [facility] and had full evaluation which included laboratory studies and CT scan of the brain. She reports that they did not show any acute processes. She was discharged home with a prescription for Ativan, was also diagnosed with a urinary tract infection, Rx Keflex and received Rocephin in the ER. She reports never filling these prescriptions upon discharge. Reports since being discharged that she has been feeling very shaky as well as experiencing nausea and vomiting, causing her to present to the ER for this visit. Patient has a history of EtOH abuse and states she drinks wine daily but, "I don't get shit faced." She had abstained from alcohol For some time with the support of AA but resumed after her father . We have been asked to see patient for pancytopenia. Patient does report seeing a [employer] in the past where she lived in [place]. She Does not recall any specific workup or Consistent treatments. She remembers receiving an injection which she thinks was B12 and something else (thinking IV iron) but not certain, she does not take any oral supplementations. Reports feeling well today. Denies blood in stool, melanoma, hematuria, she is postmenopausal. Review of Systems 10 point ROS is neg except as stated in HPI Past Medical History Past Medical History: Hypertension Additional Past Medical History / Comment(s): vertigo, hx pancreatitis History of Any Multi-Drug Resistant Organisms: None Reported Past Surgical History: Section Additional Past Surgical History / Comment(s): cystoscopy, sx on urethra at age 1 Past Anesthesia/Blood Transfusion Reactions: Motion Sickness, Postoperative Nausea & Vomiting (PONV) Past Psychological History: No Psychological Hx Reported Smoking Status: Never smoker Past Alcohol Use History: Daily Additional Past Alcohol Use History / Comment(s): states she drinks wine 3 glasses a day, previously drank beer and wine but less now per pt Past Drug Use History: None Reported - Past Family History Mother Family Medical History: Hypertension Father Family Medical History: Coronary Artery Disease (CAD) Medications and Allergies Home Medications Medication Instructions Recorded Confirmed Type Metoprolol Tartrate [Lopressor] 50 mg PO BID 12/30/18 05/23/22 History Losartan Potassium [Cozaar] 50 mg PO DAILY 06/04/20 05/23/22 History cloNIDine HCL [Catapres] 0.1 mg PO TID 06/04/20 05/23/22 History Atorvastatin [Lipitor] 10 mg PO HS 11/28/20 05/23/22 History Multivit-Min/Iron/Folic/Lutein 1 tab PO DAILY 11/28/20 05/23/22 History [Centrum Silver Women Tablet] Pantoprazole [Protonix] 40 mg PO AC-BRKFST #30 tablet. 12/01/20 05/23/22 Rx Ondansetron Odt [Zofran ODT] 4 mg PO TID PRN 05/23/22 05/23/22 History hydrOXYzine HCL [Atarax] 10 mg PO BID PRN 05/23/22 05/23/22 History Allergies Allergy/AdvReac Type Severity Reaction Status Date / Time ibuprofen [From Motrin] Allergy Anaphylaxis Verified 05/23/22 21:47 latex Allergy Rash/Hives Verified 05/23/22 21:47 Physical Exam Vitals: Vital Signs Temp Pulse Resp BP Pulse Ox 05/26/22 10:01 70 16 166/91 98 05/26/22 04:00 98.0 F 65 18 161/81 98 05/26/22 01:29 71 18 05/26/22 00:00 98.2 F 71 18 150/84 97 05/25/22 20:00 98.6 F 83 18 164/90 98 05/25/22 15:41 98.1 F 79 15 162/88 98 05/25/22 11:31 98.0 F 77 15 208/113 100 Intake and Output 05/25/22 05/26/22 05/26/22 22:59 06:59 14:59 Intake Total 180 240 Balance 180 240 Intake: Oral 180 240 Other: Voiding Method Toilet Toilet # Voids 2 1 Weight 78.2 kg - Constitutional General appearance: average body habitus, cooperative, no acute distress - EENT Eyes: anicteric sclerae, EOMI ENT: hearing grossly normal, normal oropharynx - Neck Neck: no lymphadenopathy - Respiratory Respiratory: bilateral: CTA - Cardiovascular Rhythm: regular Heart sounds: normal: S1, S2 Abnormal Heart Sounds: no systolic murmur, no diastolic murmur, no rub, no S3 Ga llop, no S4 Gallop, no click, no other leg Peripheral Edema: bilateral: None - Gastrointestinal General gastrointestinal: no absent bowel sounds, no decreased bowel sounds, no distended, no hepatomegaly, no hyperactive bowel sounds, normal bowel sounds, no organomegaly, no rigid, no scaphoid, soft, no splenomegaly, no tenderness, no umbilical hernia, no ventral hernia - Integumentary Integumentary: normal - Neurologic Neurologic: CNII-XII intact - Musculoskeletal Musculoskeletal: strength equal bilaterally - Psychiatric Psychiatric: A&O x's 3, appropriate affect, intact judgment & insight Results CBC & Chem 7: 05/26/22 06:47 05/26/22 15:24 Labs: Abnormal Lab Results - Last 24 Hours (Table) 05/25/22 05/25/22 05/26/22 Range/Units 08:32 08:32 06:47 WBC 3.7 L (3.8-10.6) k/uL RBC 2.86 L 2.33 L (3.80-5.40) m/uL Hgb 11.0 L 9.3 L D (11.4-16.0) gm/dL Hct 31.9 L 26.2 L (34.0-46.0) % MCV 111.7 H 112.3 H (80.0-100.0) fL MCH 38.3 H 39.9 H (25.0-35.0) pg RDW 18.3 H 18.7 H (11.5-15.5) % Plt Count 44 L D 40 L (150-450) k/uL Lymphocytes # 0.8 L (1.0-4.8) k/uL Macrocytosis Marked A Marked A Sodium (137-145) mmol/L Potassium (3.5-5.1) mmol/L BUN (7-17) mg/dL Glucose (74-99) mg/dL Calcium (8.4-10.2) mg/dL Lactate Dehydrogenase 1329 H (313-618) U/L 05/26/22 Range/Units 06:47 WBC (3.8-10.6) k/uL RBC (3.80-5.40) m/uL Hgb (11.4-16.0) gm/dL Hct (34.0-46.0) % MCV (80.0-100.0) fL MCH (25.0-35.0) pg RDW (11.5-15.5) % Plt Count (150-450) k/uL Lymphocytes # (1.0-4.8) k/uL Macrocytosis Sodium 136 L (137-145) mmol/L Potassium 3.4 L (3.5-5.1) mmol/L BUN 5 L (7-17) mg/dL Glucose 111 H (74-99) mg/dL Calcium 7.8 L (8.4-10.2) mg/dL Lactate Dehydrogenase (313-618) U/L CT Scan - head: report reviewed Assessment and Plan (1) Pancytopenia Current Visit: Yes Status: Acute Priority: High Code(s): D61.818 - OTHER PANCYTOPENIA SNOMED Code(s): 168884258 (2) Alcohol abuse Current Visit: Yes Status: Acute Priority: High Code(s): F10.10 - ALCOHOL ABUSE, UNCOMPLICATED SNOMED Code(s): 03382948 Plan: Pancytopenia: -Pancytopenia likely due to bone marrow damage from long history of alcohol abuse. -Anemia, hemolysis, paraproteinemia and nutritional deficiency workup ordered -DIC workup negative -Hemoglobin stable today, 9.3, platelets 40,000. Transfuse for Hgb < 7 or symptomatic. Transfuse platelets <10,000 or symptomatic. -US liver and spleen ordered to rule out any underlying liver disease, splenomegaly -When liver ultrasound is completed patient is cleared for discharge from Hem/Onc standpoint once cleared by IM and other consulted medical specialties -Dr. Mcmillan explained to patient there is no "safe" amount of alcohol. Once patient's bone marrow is showing signs of damage, the damage is done. Counts will only continues to worsen if the patient continues to drink. The only way to stop further progression is for abstinence from alcohol. ETOH abuse: -Patient reports desire to quit drinking. Want to begin AA again. List of local meetings has already been provided to the patient. attests: I have seen and examined patient, performed H&P, developed impression and plan of care. Discussed with dictator. Agree with documentation, dictated as a scribe.
[2022-05-26] MEDS: ATORVASTATIN 10 MG TAB PO SCH (21:02)
[2022-05-27 06:51] LABS: Methylmalonic Acid 0.15 umol/L (<0.40)
[2022-05-27 06:54] LABS: Anisocytosis Slight; Basophils % (A) 1 %; Eosinophils # (A) 0.1 k/uL (0-0.7); Eosinophils % (A) 3 %; HCT 26.8 % (34.0-46.0); HGB 9.3 gm/dL (11.4-16.0); Lymphocytes # (A) 0.8 k/uL (1.0-4.8); Lymphocytes % (A) 23 %; MCH 39.3 pg (25.0-35.0); MCHC 34.9 g/dL (31.0-37.0); MCV 112.9 fL (80.0-100.0); Mean Platelet Volume 9.3; Monocytes # (A) 0.4 k/uL (0-1.0); Monocytes % (A) 11 %; Neutrophils # (A) 2.2 k/uL (1.3-7.7); Neutrophils % (A) 59 %; RBC 2.37 m/uL (3.80-5.40); RDW 18.8 % (11.5-15.5); WBC 3.7 k/uL (3.8-10.6)
[2022-05-27 07:02] LABS: Macrocytosis Marked; Platelet Count 43 k/uL (150-450)
[2022-05-27] MEDS: MULTIVITAMINS, THERA 1 EACH TAB PO SCH (07:54)
[2022-05-27] MEDS: amLODIPine 5 MG TAB PO SCH ×2 (07:54→19:47)
[2022-05-27] MEDS: FOLIC ACID 1 MG TAB PO SCH (07:54)
[2022-05-27] MEDS: VIT A,C & E-LUTEIN-MINERALS 1 EACH TAB PO SCH (07:54)
[2022-05-27] MEDS: LOSARTAN 50 MG TAB PO SCH ×2 (07:54→19:47)
[2022-05-27] MEDS: cloNIDine HCL 0.1 MG TAB PO SCH ×3 (07:54→22:15)
[2022-05-27] MEDS: THIAMINE 100 MG TAB PO SCH (07:55)
[2022-05-27] MEDS: ENOXAPARIN 40 MG/0.4 ML SYRINGE SQ SCH (07:55)
[2022-05-27] MEDS: METOPROLOL TARTRATE 50 MG TAB PO SCH ×2 (07:55→19:47)
[2022-05-27] MEDS: PANTOPRAZOLE 40 MG/10 ML VIAL IV SCH (07:55)
[2022-05-27] MEDS: chlordiazePOXIDE 25 MG CAP PO SCH ×3 (07:55→22:15)
[2022-05-27] MEDS ORDERED: IOPAMIDOL CONTRAST (ORAL USE) VIAL PO PRN (10:48)
[2022-05-27 13:16] LABS: Free Kappa Lt Chain Qnt, Serum 2.33 mg/dL (0.33-1.94); Free Lambda Lt Chain Qnt, Seru 2.84 mg/dL (0.57-2.63)
--- NOTE | 2022-05-27 13:32 | CT ---
EXAMINATION: CT ABDOMEN WITH IV CONTRAST DATE OF EXAM: 05/27/2022 11:54 AM HISTORY: Possible pancreatic mass. TECHNIQUE: CT abdomen was performed following the intravenous administration of iodinated contrast. S agittal, coronal reformatted images were provided. CT dose lowering techniques were used, to include: automated exposure control, adjustment for patient size, and or use of iterative reconstruction. COMPARISON: None FINDINGS: Lungs: Normal. ABDOMEN: Liver: The diffuse nodular contour to the liver which is compatible with cirrhosis. No liver lesions are otherwise seen based on this examination. Gallbladder/Biliary: Normal. Pancreas: Normal. Spleen: Normal. Adrenal Glands: Normal. Kidneys: Normal. GI Tract: Normal. Mesentery/Peritoneum: Normal. Vasculature: Normal. Lymph Nodes: Normal. Abdominal Wall: Normal. MUSCULOSKELETAL: There are some scattered degenerative disc and facet changes seen throughout the spi ne. No aggressive osseous lesions are otherwise identified IMPRESSION: 1. No pancreatic mass identified on this examination. 2. Cirrhosis. 3. No acute findings otherwise seen.
[2022-05-27 13:56] LABS: Protein, Total 8.2 g/dL (6.2-8.2)
[2022-05-27 16:29] LABS: % Iron Saturation 16.15 (12.00-45.00)
--- NOTE | 2022-05-27 17:41 | P.PN ---
Subjective Progress Note Date: 05/27/22 56-year-old lady with past medical history significant for hypertension, alcohol abuse who presented to the ER for alcohol detox. Patient was recently discharged from [facility] after being treated there for an apparent seizure and alcohol abuse. Patient also found to have a UTI that time and was discharged on oral Keflex. Patient currently very shaky, admits drinking small bottles of wine every day even though states that the patient drinks far more than that. Patient has tried to go to alcohol anonymous meetings but has never gone through alcohol rehab. Patient denies any auditory or visual hallucinations. Denies any suicidal thoughts. Initial workup in the ER showed patient to a white count of 4.1, hemoglobin 10.3, MCV 107.1 sodium 136, potassium 3 magnesium 0.9. Patient was admitted to hospitalist service for further evaluation and treatment -- Patient is seen and evaluated in room at bedside; discussed with nursing staff; blood pressure remains markedly elevated with systolic blood pressure of 190; we will increase Norvasc up to 5 mg twice a day; continue to monitor blood pressure closely --Hepatic ultrasound is completed and is unremarkable Objective - Vital Signs Vital signs: Vital Signs Temp 99.0 F 05/27/22 07:49 Pulse 81 05/27/22 07:49 Resp 16 05/27/22 07:49 BP 192/95 05/27/22 07:49 Pulse Ox 98 05/27/22 07:49 FiO2 Intake & Output 05/26/22 05/27/22 05/27/22 18:59 06:59 18:59 Intake Total 480 540 0 Balance 480 540 0 Weight 78.6 kg Intake: Oral 480 540 0 Other: Voiding Method Toilet Toilet # Voids 1 - Exam GENERAL: The patient is alert and oriented x3, not in any acute distress. Well developed, well nourished. HEENT: Pupils are round and equally reacting to light. EOMI. No scleral icterus. No conjunctival pallor. Normocephalic, atraumatic. No pharyngeal erythema. No thyromegaly. CARDIOVASCULAR: S1 and S2 present. No murmurs, rubs, or gallops. PULMONARY: Chest is clear to auscultation, no wheezing or crackles. ABDOMEN: Soft, nontender, nondistended, normoactive bowel sounds. No palpable organomegaly. MUSCULOSKELETAL: No joint swelling or deformity. EXTREMITIES: No cyanosis, clubbing, or pedal edema. NEUROLOGICAL: Gross neurological examination did not reveal any focal deficits. SKIN: No rashes. - Labs CBC & Chem 7: 05/27/22 06:19 05/26/22 15:24 Labs: Abnormal Lab Results - Last 24 Hours (Table) 05/25/22 05/25/22 05/25/22 Range/Units 08:32 11:12 11:12 WBC (3.8-10.6) k/uL RBC (3.80-5.40) m/uL Hgb (11.4-16.0) gm/dL Hct (34.0-46.0) % MCV (80.0-100.0) fL MCH (25.0-35.0) pg RDW (11.5-15.5) % Plt Count (150-450) k/uL Lymphocytes # (1.0-4.8) k/uL Macrocytosis Haptoglobin <10.0 L (31.2-198.0) mg/dL Ferritin 1032.0 H (10.0-291.0) ng/mL Copper 623 L (810-1990) ug/L 05/27/22 Range/Units 06:19 WBC 3.7 L (3.8-10.6) k/uL RBC 2.37 L (3.80-5.40) m/uL Hgb 9.3 L (11.4-16.0) gm/dL Hct 26.8 L (34.0-46.0) % MCV 112.9 H (80.0-100.0) fL MCH 39.3 H (25.0-35.0) pg RDW 18.8 H (11.5-15.5) % Plt Count 43 L (150-450) k/uL Lymphocytes # 0.8 L (1.0-4.8) k/uL Macrocytosis Marked A Haptoglobin (31.2-198.0) mg/dL Ferritin (10.0-291.0) ng/mL Copper (810-1990) ug/L Assessment and Plan Assessment: Assessment and plan Alcohol detox Hypokalemia Hypomagnesemia Hypertension Thrombocytopenia Plan; Continue to monitor vital signs monitor CBC Monitor CMP Follow-up on ultrasound abdomen Continue Norvasc, clonidine, Lopressor Continue patient on CIWA protocol Continue thiamine and folic acid Follow-up on hematology recommendations
[2022-05-27] MEDS: ATORVASTATIN 10 MG TAB PO SCH (19:47)
[2022-05-27] MEDS: hydrALAZINE HCL 20 MG/ML 1 ML VIAL IVP PRN (19:47)
[2022-05-27] MEDS: LORazepam 2 MG/ML INJ IV PRN (22:21)
[2022-05-28] MEDS: THIAMINE 100 MG TAB PO SCH (07:28)
[2022-05-28] MEDS: PANTOPRAZOLE 40 MG/10 ML VIAL IV SCH (07:28)
[2022-05-28] MEDS: chlordiazePOXIDE 25 MG CAP PO SCH (07:28)
[2022-05-28] MEDS: ENOXAPARIN 40 MG/0.4 ML SYRINGE SQ SCH (07:28)
[2022-05-28] MEDS: cloNIDine HCL 0.1 MG TAB PO SCH (07:28)
[2022-05-28] MEDS: amLODIPine 5 MG TAB PO SCH (07:28)
[2022-05-28] MEDS: VIT A,C & E-LUTEIN-MINERALS 1 EACH TAB PO SCH (07:28)
[2022-05-28] MEDS: LOSARTAN 50 MG TAB PO SCH (07:28)
[2022-05-28] MEDS: FOLIC ACID 1 MG TAB PO SCH (07:28)
[2022-05-28] MEDS: MULTIVITAMINS, THERA 1 EACH TAB PO SCH (07:28)
[2022-05-28] MEDS: METOPROLOL TARTRATE 50 MG TAB PO SCH (07:31)
[2022-05-28 07:33] VITALS: TEMP 98.6
[2022-05-28 11:16] VITALS: BP 144/75; PULSE 71; RESP 16
[2022-05-28 13:26] VITALS: BMI 30.7
[2022-05-31 10:42] LABS: Gamma Globulin 1.77 g/dL (0.70-1.50)
== END 2022-05-28 13:47 | disposition home or self-care (01) | DRG 897 ==
LOC: EC 14:18 → 3SCARD 21:29
PROVIDERS: ADMIT Internal Medicine; ATTEND Internal Medicine
PROC: HZ2ZZZZ Detoxification Services for Substance Abuse Treatment (ICD-10-PCS; principal; 2022-05-24)
DX: F10.231 Alcohol dependence with withdrawal delirium (principal); D61.818 Other pancytopenia; N39.0 Urinary tract infection, site not specified; G40.89 Other seizures; I10 Essential (primary) hypertension; E66.9 Obesity, unspecified; E83.42 Hypomagnesemia; E87.6 Hypokalemia; S00.03XA Contusion of scalp, initial encounter; Y90.0 Blood alcohol level of less than 20 mg/100 ml; W19.XXXA Unspecified fall, initial encounter; Z68.30 Body mass index [BMI] 30.0-30.9, adult; Z79.899 Other long term (current) drug therapy; Z91.040 Latex allergy status; Z88.6 Allergy status to analgesic agent; Z87.19 Personal history of other diseases of the digestive system; Z82.49 Family history of ischemic heart disease and other diseases of the circulatory system; Z63.4 Disappearance and death of family member; Z28.311 Partially vaccinated for COVID-19
CPT/HCPCS: 36415; 70450; 74160; 76705; 80048; 80053; 80320; 81003; 82525; 82607; 82728; 82747; 83010; 83540; 83550; 83615; 83690; 83735; 83883; 83921; 84100; 84132; 84165; 85025; 85045; 85384; 85610; 85730; 86334; 96361; 96365; 96367; 96372; 96375; 96376; 99285

== ENCOUNTER 2022-08-09 03:24 | Emergency (ER) | payer OTHER ==
[2022-08-09 04:20] VITALS: TEMP 98.4
[2022-08-09] MEDS ORDERED: ONDANSETRON 4 MG/2 ML VIAL IVP STA (06:09)
[2022-08-09] MEDS ORDERED: SODIUM CHLORIDE 0.9% 2,000 ML IV STA (06:09)
[2022-08-09] MEDS ORDERED: FAMOTIDINE 20 MG/2 ML VIAL IV STA (06:10)
[2022-08-09] MEDS ORDERED: methylPREDNISolone SOD SUCCI 125 MG/2 ML VIAL IV STA (06:10)
[2022-08-09] MEDS ORDERED: diphenhydrAMINE 50 MG/ML 1 ML VIAL IVP STA (06:10)
[2022-08-09] MEDS ORDERED: THIAMINE 100 MG/ML 2 ML VIAL IM STA (06:12)
--- NOTE | 2022-08-09 06:51 | ED ---
Nausea/Vomiting/Diarrhea HPI - General Source: patient, RN notes reviewed Mode of arrival: wheelchair Limitations: no limitations - History of Present Illness MD complaint: nausea, vomiting Onset/Timin -: days(s) Associated Abdominal Pain: No <Evette Baumann - Last Filed: 08/09/22 12:43> <Charity Troy Kristin - Last Filed: 08/15/22 23:15> - General Chief complaint: Nausea/Vomiting/Diarrhea Stated complaint: Seizure, Bit Tongue Time Seen by Provider: 08/09/22 05:58 - History of Present Illness Initial comments: This is a 56-year-old female who presents to the emergency department for nausea, vomiting, and a seizure. Patient has a history of alcohol withdrawal seizures, and early this morning had a seizure and bit her tongue. The seizure was witnessed by her boyfriend. Unsure how long the seizure lasted. She has had alcohol withdrawal seizures in the past. States that she always only has one withdrawal seizure and she denies any history of delirium tremens. Last drink was 3 days ago. She does report a history of chronic alcohol abuse. Since yesterday, she has not been feeling well and has been experiencing episodes of nausea and vomiting. Denies any diarrhea or abdominal pain. Additionally, she reports a rash. She was on antibiotics after having an infected ingrown toenail removed one week ago. Shortly after being on antibiotics, she broke out in a diffuse body rash. She cannot remember which antibiotic this was. Believes that this was a drug reaction. She continues to have a residual rash on the back that she reports is very itchy. She has been treated with a Medrol Dosepak, which she states has been helpful. Denies any fevers, chills, sore throat, cough, dyspnea, chest pain, palpitations, abdominal pain, diarrhea, back pain, or headaches. (Evette Baumann) - Related Data Home Medications Medication Instructions Recorded Confirmed Metoprolol Tartrate [Lopressor] 50 mg PO BID 12/30/18 05/23/22 cloNIDine HCL [Catapres] 0.1 mg PO TID 06/04/20 05/23/22 Atorvastatin [Lipitor] 10 mg PO HS 11/28/20 05/23/22 Multivit-Min/Iron/Folic/Lutein 1 tab PO DAILY 11/28/20 05/23/22 [Centrum Silver Women Tablet] Ondansetron Odt [Zofran ODT] 4 mg PO TID PRN 05/23/22 05/23/22 hydrOXYzine HCL [Atarax] 10 mg PO BID PRN 05/23/22 05/23/22 Previous Rx's Medication Instructions Recorded Pantoprazole [Protonix] 40 mg PO AC-BRKFST #30 tablet. 12/01/20 Folic Acid 1 mg PO DAILY tab 05/28/22 Losartan [Cozaar] 50 mg PO BID 30 Days #60 tab 05/28/22 Multivitamins, Thera [Multivitamin 1 each PO DAILY tab 05/28/22 (formulary)] Thiamine [Vitamin B-1] 100 mg PO DAILY tab 05/28/22 amLODIPine [Norvasc] 5 mg PO BID 30 Days #60 tab 05/28/22 Ondansetron Odt [Zofran Odt] 4 mg PO Q8HR PRN #15 tab 08/09/22 Allergies Allergy/AdvReac Type Severity Reaction Status Date / Time ibuprofen [From Motrin] Allergy Anaphylaxis Verified 08/09/22 04:16 latex Allergy Rash/Hives Verified 08/09/22 04:16 Review of Systems ROS Other: All systems not noted in ROS Statement are negative. <Evette Baumann - Last Filed: 08/09/22 12:43> ROS Other: All systems not noted in ROS Statement are negative. <Charity Troy - Last Filed: 08/15/22 23:15> ROS Statement: Those systems with pertinent positive or pertinent negative responses have been documented in the HPI. Past Medical History Past Medical History: Hypertension Additional Past Medical History / Comment(s): vertigo, hx pancreatitis History of Any Multi-Drug Resistant Organisms: None Reported Past Surgical History: Section Additional Past Surgical History / Comment(s): cystoscopy, sx on urethra at age 1 Past Anesthesia/Blood Transfusion Reactions: Motion Sickness, Postoperative Nausea & Vomiting (PONV) Past Psychological History: No Psychological Hx Reported Smoking Status: Never smoker Past Alcohol Use History: Daily, Heavy Past Drug Use History: None Reported - Past Family History Mother Family Medical History: Hypertension Father Family Medical History: Coronary Artery Disease (CAD) <Evette Baumann - Last Filed: 08/09/22 12:43> General Exam Limitations: no limitations General appearance: alert, in no apparent distress Head exam: Present: atraumatic, normocephalic, normal inspection Respiratory exam: Present: normal lung sounds bilaterally. Absent: respiratory distress, wheezes, rales, rhonchi, stridor Cardiovascular Exam: Present: regular rate, normal rhythm, normal heart sounds. Absent: systolic murmur, diastolic murmur, rubs, gallop, clicks GI/Abdominal exam: Present: soft, normal bowel sounds. Absent: distended, tenderness, guarding, rebound, rigid Neurological exam: Present: alert, oriented X3, CN II-XII intact Psychiatric exam: Present: normal affect, normal mood Skin exam: Present: other (Mild erythematous maculopapular rash to the back. Negative Nikolsky sign.) <Evette Baumann - Last Filed: 08/09/22 12:43> Course Vital Signs 08/09/22 08/09/22 08/09/22 04:16 07:36 09:55 Temperature 98.4 F Pulse Rate 95 95 86 Respiratory 16 18 18 Rate Blood Pressure 157/79 187/97 162/79 O2 Sat by Pulse 98 98 98 Oximetry Medical Decision Making - Lab Data Result diagrams: 08/09/22 06:36 08/09/22 06:36 <Evette Baumann - Last Filed: 08/09/22 12:43> - Lab Data Result diagrams: 08/09/22 06:36 08/09/22 06:36 <Charity Troy - Last Filed: 08/15/22 23:15> - Medical Decision Making This is a 56-year-old female who presents to the emergency department for nausea and vomiting. Was pt. sent in by a medical professional or institution? @ -No Did you speak to anyone other than the patient for history? @ -No Did you review nursing and triage notes? @ -Yes, and I agree, it is accurate with regards to the patient's symptoms. Were old charts reviewed? @ -No Differential Diagnosis? @ -Differential Nausea and Vomiting: Gastroenteritis, cholecystitis, appendicitis, pancreatitis, migraine, benign positional vertigo, food borne illness, pyelonephritis, irritable bowel syndrome, influenza, Covid, GERD, incarcerated hernia, intestinal obstruction, this is not meant to be an all-inclusive list. What testing was considered but not performed? (CT, X-rays, U/S, labs)? Why? @ -None What meds were considered but not given? Why? @ -None Did you discuss the management of the patient with other professionals? @ -No Did you reconcile home meds? @ -No Was smoking cessation discussed for >3mins.? @ -No Was critical care preformed (if so, how long)? @ -No Were there social determinants of health that impacted care today? How? (Homelessness, low income, unemployed, alcoholism, drug addiction, transportation, low edu. Level, literacy, decrease access to med. care, usp, rehab)? @ -Yes, alcohol abuse, contributing to the seizures and withdrawal symptoms of nausea/vomiting. Was there de-escalation of care discussed even if they declined? (Discuss DNR or withdrawal of care, Hospice)? @ -No What co-morbidities impacted this encounter? (DM, HTN, Smoking, COPD, CAD, Cancer, CVA, Hep., AIDS, mental health diagnosis, sleep apnea, morbid obesity)? @ -HTN, alcohol abuse Was patient admitted / discharged? @ -Discharged. Lab work obtained revealing hypokalemia and hypomagnesemia. Patient was given 40 mEq of K-Dur and 400 mg of magnesium oxide. Liver enzymes are also elevated, however this is a chronic finding for the patient related to her alcohol abuse. She was also given IV fluids, Zofran, and Pepcid with significant improvement in symptoms. She was able to drink water without difficulty. She was also given an allergy cocktail for the rash on the back. This consisted of Solu-Medrol, Benadryl, and Pepcid. States that this was also helpful. Patient overall feels better and requests discharge home. Declines the need for admission with regards to alcohol withdrawals. Prescription for Zofran provided with dosing instructions reviewed. She is advised to slowly advance her diet as tolerated and remain well-hydrated. She was also counseled on the need to reduce her alcohol consumption and we discussed health risks associated with her chronic alcohol abuse. Undiagnosed new problem with uncertain prognosis? @ -None Drug Therapy requiring intensive monitoring for toxicity (Heparin, Nitro, Insulin, Cardizem)? @ -None Were any procedures done? @ -None Diagnosis/symptom? @ -N/V, seizure Acute, or Chronic, or Acute on Chronic? @ -Acute Uncomplicated (without systemic symptoms) or Complicated (systemic symptoms)? @ -Uncomplicated Side effects of treatment? @ -None Exacerbation, Progression, or Severe Exacerbation] @ -Not applicable Poses a threat to life or bodily function? @ -No Diagnosis/symptom? @ -Alcohol abuse Acute, or Chronic, or Acute on Chronic? @ -Chronic Uncomplicated (without systemic symptoms) or Complicated (systemic symptoms)? @ -Uncomplicated Side effects of treatment? @ -None Exacerbation, Progression, or Severe Exacerbation] @ -Exacerbation Poses a threat to life or bodily function? @ -Yes Return precautions reviewed in depth, the patient is instructed to return to the emergency department with any new, worsening, or concerning symptoms. Patient verbalized understanding. This case was discussed in detail with the attending ED physician, Dr. Troy. Presentation, findings, and treatment plan discussed in detail as well. (Evette Baumann) Admission was recommended but patient refused. (Charity Troy) - Lab Data Lab Results 08/09/22 08/09/22 08/09/22 Range/Units 06:36 06:36 06:36 WBC 7.3 (3.8-10.6) k/uL RBC 3.69 L (3.80-5.40) m/uL Hgb 12.9 (11.4-16.0) gm/dL Hct 35.6 (34.0-46.0) % MCV 96.5 (80.0-100.0) fL MCH 35.0 (25.0-35.0) pg MCHC 36.2 (31.0-37.0) g/dL RDW 16.5 H (11.5-15.5) % Plt Count 43 L (150-450) k/uL MPV 10.2 Neutrophils % 79 % Lymphocytes % 10 % Monocytes % 8 % Eosinophils % 0 % Basophils % 0 % Neutrophils # 5.8 (1.3-7.7) k/uL Lymphocytes # 0.8 L (1.0-4.8) k/uL Monocytes # 0.6 (0-1.0) k/uL Eosinophils # 0.0 (0-0.7) k/uL Basophils # 0.0 (0-0.2) k/uL Manual Slide Review Performed RBC Morphology Normal Anisocytosis Slight Sodium 137 (137-145) mmol/L Potassium 3.3 L (3.5-5.1) mmol/L Chloride 100 (98-107) mmol/L Carbon Dioxide 23 (22-30) mmol/L Anion Gap 14 mmol/L BUN 9 (7-17) mg/dL Creatinine 0.58 (0.52-1.04) mg/dL Est GFR (CKD-EPI)AfAm >90 (>60 ml/min/1.73 sqM) Est GFR (CKD-EPI)NonAf >90 (>60 ml/min/1.73 sqM) Glucose 128 H (74-99) mg/dL Calcium 9.2 (8.4-10.2) mg/dL Phosphorus 2.7 (2.5-4.5) mg/dL Magnesium 1.3 L (1.6-2.3) mg/dL Total Bilirubin 1.5 H (0.2-1.3) mg/dL AST 141 H (14-36) U/L ALT 83 H (4-34) U/L Alkaline Phosphatase 192 H (38-126) U/L Total Protein 9.0 H (6.3-8.2) g/dL Albumin 4.7 (3.5-5.0) g/dL Amylase 111 H (30-110) U/L Lipase 87 (23-300) U/L Urine Color Yellow Urine Appearance Clear (Clear) Urine pH 6.0 (5.0-8.0) Ur Specific [place] 1.017 (1.001-1.035) Urine Protein 2+ H (Negative) Urine Glucose (UA) Negative (Negative) Urine Ketones 1+ H (Negative) Urine Blood Small H (Negative) Urine Nitrite Negative (Negative) Urine Bilirubin Negative (Negative) Urine Urobilinogen <2.0 (<2.0) mg/dL Ur Leukocyte Esterase Negative (Negative) Urine RBC 1 (0-5) /hpf Urine WBC 2 (0-5) /hpf Ur Squamous Epith Cells 4 (0-4) /hpf Hyaline Casts 37 H (0-2) /lpf Urine Mucus Few H (None) /hpf Urine Opiates Screen (NotDetected) Ur Oxycodone Screen (NotDetected) Urine Methadone Screen (NotDetected) Ur Propoxyphene Screen (NotDetected) Ur Barbiturates Screen (NotDetected) U Tricyclic Antidepress (NotDetected) Ur Phencyclidine Scrn (NotDetected) Ur Amphetamines Screen (NotDetected) U Methamphetamines Scrn (NotDetected) U Benzodiazepines Scrn (NotDetected) Urine Cocaine Screen (NotDetected) U Marijuana (THC) Screen (NotDetected) Serum Alcohol <10 mg/dL 08/09/22 Range/Units 06:36 WBC (3.8-10.6) k/uL RBC (3.80-5.40) m/uL Hgb (11.4-16.0) gm/dL Hct (34.0-46.0) % MCV (80.0-100.0) fL MCH (25.0-35.0) pg MCHC (31.0-37.0) g/dL RDW (11.5-15.5) % Plt Count (150-450) k/uL MPV Neutrophils % % Lymphocytes % % Monocytes % % Eosinophils % % Basophils % % Neutrophils # (1.3-7.7) k/uL Lymphocytes # (1.0-4.8) k/uL Monocytes # (0-1.0) k/uL Eosinophils # (0-0.7) k/uL Basophils # (0-0.2) k/uL Manual Slide Review RBC Morphology Anisocytosis Sodium (137-145) mmol/L Potassium (3.5-5.1) mmol/L Chloride (98-107) mmol/L Carbon Dioxide (22-30) mmol/L Anion Gap mmol/L BUN (7-17) mg/dL Creatinine (0.52-1.04) mg/dL Est GFR (CKD-EPI)AfAm (>60 ml/min/1.73 sqM) Est GFR (CKD-EPI)NonAf (>60 ml/min/1.73 sqM) Glucose (74-99) mg/dL Calcium (8.4-10.2) mg/dL Phosphorus (2.5-4.5) mg/dL Magnesium (1.6-2.3) mg/dL Total Bilirubin (0.2-1.3) mg/dL AST (14-36) U/L ALT (4-34) U/L Alkaline Phosphatase (38-126) U/L Total Protein (6.3-8.2) g/dL Albumin (3.5-5.0) g/dL Amylase (30-110) U/L Lipase (23-300) U/L Urine Color Urine Appearance (Clear) Urine pH (5.0-8.0) Ur Specific [place] (1.001-1.035) Urine Protein (Negative) Urine Glucose (UA) (Negative) Urine Ketones (Negative) Urine Blood (Negative) Urine Nitrite (Negative) Urine Bilirubin (Negative) Urine Urobilinogen (<2.0) mg/dL Ur Leukocyte Esterase (Negative) Urine RBC (0-5) /hpf Urine WBC (0-5) /hpf Ur Squamous Epith Cells (0-4) /hpf Hyaline Casts (0-2) /lpf Urine Mucus (None) /hpf Urine Opiates Screen Not Detected (NotDetected) Ur Oxycodone Screen Not Detected (NotDetected) Urine Methadone Screen Not Detected (NotDetected) Ur Propoxyphene Screen Not Detected (NotDetected) Ur Barbiturates Screen Not Detected (NotDetected) U Tricyclic Antidepress Not Detected (NotDetected) Ur Phencyclidine Scrn Not Detected (NotDetected) Ur Amphetamines Screen Not Detected (NotDetected) U Methamphetamines Scrn Not Detected (NotDetected) U Benzodiazepines Scrn Detected H (NotDetected) Urine Cocaine Screen Not Detected (NotDetected) U Marijuana (THC) Screen Not Detected (NotDetected) Serum Alcohol mg/dL Disposition Is patient prescribed a controlled substance at d/c from ED?: No <Evette Buamann - Last Filed: 08/09/22 12:43> <Charity Troy - Last Filed: 08/15/22 23:15> Clinical Impression: Alcohol withdrawal seizure, Nausea and vomiting Disposition: HOME SELF-CARE Instructions (If sedation given, give patient instructions): Acute Nausea and Vomiting (ED), Alcohol Withdrawal (ED) Additional Instructions: Return to the emergency department with any new, worsening, or concerning symptoms. You can take the Zofran up to every 8 hours as needed for nausea and vomiting. Make sure that you remain well-hydrated and slowly advance your diet as tolerated. Try to reduce your alcohol consumption as well. Follow up with your primary care provider in 1-2 days. Prescriptions: Ondansetron Odt [Zofran Odt] 4 mg PO Q8HR PRN #15 tab PRN Reason: Nausea And Vomiting Referrals: Alcon Gonzalez MD [Primary Care Provider] - 1-2 days
[2022-08-09 07:17] LABS: ALT 83 U/L (4-34); AST 141 U/L (14-36); African American GFR (CKD) >90 (>60 ml/min/1.73 sqM); Albumin 4.7 g/dL (3.5-5.0); Alcohol <10 mg/dL; Alkaline Phosphatase 192 U/L (38-126); Amylase 111 U/L (30-110); Anion Gap 14 mmol/L; Blood Urea Nitrogen 9 mg/dL (7-17); Calcium 9.2 mg/dL (8.4-10.2); Carbon Dioxide 23 mmol/L (22-30); Chloride 100 mmol/L (98-107); Glucose 128 mg/dL (74-99); Lipase 87 U/L (23-300); Magnesium 1.3 mg/dL (1.6-2.3); Non-African American GFR(CKD) >90 (>60 ml/min/1.73 sqM); Phosphorus 2.7 mg/dL (2.5-4.5); Potassium 3.3 mmol/L (3.5-5.1); Sodium 137 mmol/L (137-145); Total Bilirubin 1.5 mg/dL (0.2-1.3)
[2022-08-09] MEDS ORDERED: POTASSIUM CHLORIDE ER 20 MEQ TAB.ER PO STA (07:19)
[2022-08-09] MEDS ORDERED: MAGNESIUM OXIDE 400 MG TAB PO STA (07:19)
[2022-08-09 07:23] LABS: Anisocytosis Slight; Basophils % (A) 0 %; Eosinophils % (A) 0 %; HCT 35.6 % (34.0-46.0); HGB 12.9 gm/dL (11.4-16.0); Lymphocytes # (A) 0.8 k/uL (1.0-4.8); Lymphocytes % (A) 10 %; MCHC 36.2 g/dL (31.0-37.0); MCV 96.5 fL (80.0-100.0); Mean Platelet Volume 10.2; Monocytes # (A) 0.6 k/uL (0-1.0); Monocytes % (A) 8 %; Neutrophils # (A) 5.8 k/uL (1.3-7.7); Neutrophils % (A) 79 %; RBC 3.69 m/uL (3.80-5.40); RDW 16.5 % (11.5-15.5); WBC 7.3 k/uL (3.8-10.6)
[2022-08-09 07:37] VITALS: RESP 18
[2022-08-09 08:29] LABS: Appearance,Urine Clear (Clear); Bilirubin,Urine Negative (Negative); Blood,Urine Small (Negative); Color,Urine Yellow; Glucose,Urine (UA) Negative (Negative); Hyaline Casts,Urine 37 /lpf (0-2); Ketones,Urine 1+ (Negative); Leukocyte Esterase,Urine Negative (Negative); Mucus,Urine Few /hpf; Nitrite,Urine Negative (Negative); Protein,Urine 2+ (Negative); RBC,Urine 1 /hpf (0-5); Specific Gravity,Urine 1.017 (1.001-1.035); Squamous Epithelial Cell,Urine 4 /hpf (0-4); Urobilinogen,Urine <2.0 mg/dL (<2.0); WBC,Urine 2 /hpf (0-5)
[2022-08-09] MEDS ORDERED: ONDANSETRON 4 MG ODT STARTER PACK 2 TAB BTL PO STA (08:34)
[2022-08-09 08:59] LABS: Platelet Count 43 k/uL (150-450)
[2022-08-09 09:01] LABS: RBC Morphology Normal
[2022-08-09 09:14] LABS: Amphetamine Screen,Urine Not Detected (NotDetected); Barbiturate Screen,Urine Not Detected (NotDetected); Benzodiazepines Screen,Urine Detected (NotDetected); Cocaine Screen,Urine Not Detected (NotDetected); Methadone Screen, Urine Not Detected (NotDetected); Opiate Screen,Urine Not Detected (NotDetected); Oxycodone Screen, Urine Not Detected (NotDetected); Phencyclidine Screen,Urine Not Detected (NotDetected); Tricyclic Antidepressant,Urine Not Detected (NotDetected); Urn Cannabinoid Scrn Not Detected (NotDetected)
[2022-08-09 09:56] VITALS: BP 162/79; PULSE 86
== END 2022-08-09 09:58 | disposition home or self-care (01) ==
LOC: EC 03:24
DX: F10.239 Alcohol dependence with withdrawal, unspecified (principal); G40.509 Epileptic seizures related to external causes, not intractable, without status epilepticus; R11.2 Nausea with vomiting, unspecified; I10 Essential (primary) hypertension; Z79.899 Other long term (current) drug therapy; Z88.6 Allergy status to analgesic agent; Z91.040 Latex allergy status
CPT/HCPCS: 36415; 80053; 82150; 83690; 83735; 84100; 85025; 81001; 80306; 80320; 99284; 96374; 96375 ×3; 96361 ×2; J1200; J2930; J3411; J2405; S0119

== ENCOUNTER → 2023-02-08 | Outpatient (CLI) | payer OTHER ==
--- NOTE | 2023-02-09 20:48 | MM ---
Reason for Exam: Screening (asymptomatic). Last mammogram was performed 1 year(s) and 4 month(s) ago. Patient History: Menarche at age 11. First Full-Term at age 26. Postmenopausal. Maternal grandmother had ovarian cancer, age 63. Maternal grandmother had breast cancer under age 50. Last menstrual period: Risk Values: Shanelle 5 year model risk: 1.5%. NCI Lifetime model risk: 8.3%. Prior Study Comparison: 04/23/2018 Bilateral Screening Mammogram, [facility]. 05/15/2019 Bilateral Screening Mammogram, [facility]. 10/11/2021 Bilateral MG 3D screening mammo w/cad, [facility]. Tissue Density: The breast tissue is heterogeneously dense. This may lower the sensitivity of mammography. Findings: Analyzed By CAD. Unchanged areas of bilateral asymmetric densities. There is no suspicious group of microcalcifications or new suspicious mass in either breast. Overall Assessment: Benign, BI-RAD 2 Management: Screening Mammogram of both breasts in 1 year. . Patient should continue monthly self-breast exams. A clinical breast exam by your physician is recommended on an annual basis. This exam should not preclude additional follow-up of suspicious palpable abnormalities. Note on Shanelle scores and lifetime risk: 1. A Shanelle score greater than 3% is considered moderate risk. If this is the case, consider specialist referral to assess eligibility for a risk reducing agent. 2. If overall lifetime risk for the development of breast cancer is 20% or higher, the patient may qualify for future screening with alternating mammogram and breast MRI. Electronically signed and approved by: Krystina Carlin M.D. Radiologist
== END | disposition home or self-care (01) ==
LOC: RADMAMWWP 16:11
PROVIDERS: ATTEND Obstetrics & Gynecology
DX: Z12.31 Encounter for screening mammogram for malignant neoplasm of breast (principal); Z78.0 Asymptomatic menopausal state; Z80.3 Family history of malignant neoplasm of breast
CPT/HCPCS: 77067

== ENCOUNTER 2023-03-30 16:05 | Inpatient (IN) | payer OTHER ==
[2023-03-30] MEDS ORDERED: THIAMINE 100 MG/ML 2 ML VIAL IM STA (16:23)
[2023-03-30] MEDS ORDERED: LORazepam 2 MG/ML INJ IV PRN ×2 (16:23)
--- NOTE | 2023-03-30 17:28 | ED ---
General Adult HPI - General Chief complaint: Recheck/Abnormal Lab/Rx Stated complaint: Alcohol Withdrawls Time Seen by Provider: 03/30/23 16:16 Source: patient Mode of arrival: ambulatory Limitations: no limitations - History of Present Illness Initial comments: 13-year-old female presenting with complaints of hallucinations from alcohol withdrawal. History of DTs. Patient states she normally has 4 glasses of wine per day. Her last drink was 3 days ago. States that she has been feeling shaky and her partner at bedside states that she has been having increasing visual hallucinations. They state that this has happened before and is consistent with her usual symptoms of alcohol withdrawal. Also admits to nausea vomiting and diarrhea. No chest pain or difficulty breathing. No abdominal pain. No seizure or syncope. - Related Data Home Medications Medication Instructions Recorded Confirmed Metoprolol Tartrate [Lopressor] 50 mg PO BID 12/30/18 03/30/23 cloNIDine HCL [Catapres] 0.1 mg PO TID 06/04/20 03/30/23 hydrOXYzine HCL [Atarax] 10 mg PO BID 05/23/22 03/30/23 Losartan [Cozaar] 50 mg PO DAILY 03/30/23 03/30/23 amLODIPine [Norvasc] 5 mg PO DAILY 03/30/23 03/30/23 Previous Rx's Medication Instructions Recorded Folic Acid 1 mg PO DAILY tab 05/28/22 Allergies Allergy/AdvReac Type Severity Reaction Status Date / Time ibuprofen [From Motrin] Allergy Anaphylaxis Verified 03/30/23 20:10 latex Allergy Rash/Hives Verified 03/30/23 20:10 Review of Systems ROS Statement: Those systems with pertinent positive or pertinent negative responses have been documented in the HPI. ROS Other: All systems not noted in ROS Statement are negative. Past Medical History Past Medical History: Hypertension Additional Past Medical History / Comment(s): vertigo, hx pancreatitis History of Any Multi-Drug Resistant Organisms: None Reported Past Surgical History: Section Additional Past Surgical History / Comment(s): cystoscopy, sx on urethra at age 1 Past Anesthesia/Blood Transfusion Reactions: Motion Sickness, Postoperative Nausea & Vomiting (PONV) Past Psychological History: No Psychological Hx Reported Smoking Status: Never smoker Past Alcohol Use History: Daily, Heavy Past Drug Use History: None Reported - Past Family History Mother Family Medical History: Hypertension Father Family Medical History: Coronary Artery Disease (CAD) General Exam Limitations: no limitations General appearance: alert, in no apparent distress Head exam: Present: atraumatic, normocephalic, normal inspection Eye exam: Present: normal appearance, EOMI Neck exam: Present: normal inspection, full ROM Respiratory exam: Present: normal lung sounds bilaterally. Absent: respiratory distress, wheezes, rales, rhonchi, stridor Cardiovascular Exam: Present: regular rate, normal rhythm, normal heart sounds. Absent: systolic murmur, diastolic murmur, rubs, gallop, clicks Neurological exam: Present: alert, oriented X3 Psychiatric exam: Present: normal affect, normal mood Skin exam: Present: warm, dry, intact, normal color. Absent: rash Course Vital Signs 03/30/23 03/31/23 16:11 00:00 Temperature 98.5 F Pulse Rate 67 56 L Respiratory 20 16 Rate Blood Pressure 143/76 105/70 O2 Sat by Pulse 99 98 Oximetry Medical Decision Making - Medical Decision Making Was pt. sent in by a medical professional or institution (COREY Morrison, SOCIOLOGY PROFESSOR, urgent care, hospital, or half-way...) When possible be specific @ -[No] Did you speak to anyone other than the patient for history (EMS, parent, family, police, friend...)? What history was obtained from this source @ -[No] Did you review nursing and triage notes (agree or disagree)? Why? @ -[I reviewed and agree with nursing and triage notes] Were old charts reviewed (outside hosp., previous admission, EMS record, old EKG, old radiological studies, urgent care reports/EKG's, half-way records)? Report findings @ -[No old charts were reviewed] Differential Diagnosis (chest pain, altered mental status, abdominal pain women, abdominal pain men, vaginal bleeding, weakness, fever, dyspnea, syncope, headache, dizziness, GI bleed, back pain, seizure, CVA, palpatations, mental health, musculoskeletal)? @ -[not applicable] EKG interpreted by me (3pts min.). @ -[As above] X-rays interpreted by me (1pt min.). @ -[None done] CT interpreted by me (1pt min.). @ -CT of the brain shows no acute process U/S interpreted by me (1pt. min.). @ -[None done] What testing was considered but not performed or refused? (CT, X-rays, U/S, labs)? Why? @ -[None] What meds were considered but not given or refused? Why? @ -[None] Did you discuss the management of the patient with other professionals (professionals i.e. , PA, SOCIOLOGY PROFESSOR, lab, RT, psych nurse, social worker delinquency prevention, security technician, teacher, contracting officer, family caseworker)? Give summary @ -I spoke with Dr. Loredo who accepted admission Was smoking cessation discussed for >3mins.? @ -[No] Was critical care preformed (if so, how long)? @ -[No] Were there social determinants of health that impacted care today? How? (Homelessness, low income, unemployed, alcoholism, drug addiction, transportation, low edu. Level, literacy, decrease access to med. care, snf, rehab)? @ -Alcoholism Was there de-escalation of care discussed even if they declined (Discuss DNR or withdrawal of care, Hospice)? DNR status @ -[No] What co-morbidities impacted this encounter? (DM, HTN, Smoking, COPD, CAD, Cancer, CVA, ARF, Chemo, Hep., AIDS, mental health diagnosis, sleep apnea, morbid obesity)? @ -[None] Was patient admitted / discharged? Hospital course, mention meds given and route, prescriptions, significant lab abnormalities, going to OR and other pertinent info. @ -57-year-old female presenting with chief complaint of alcohol withdrawal. Last drink was on Monday. Patient has been experiencing visual and auditory hallucinations. Lab work shows hypo-magnesmia as well as alcoholic hepatitis. Negative head CT. Patient will be admitted for alcohol withdrawal given her history of DTs. He should is agreeable with this plan. I discussed this case with my attending Dr. Kurtz Undiagnosed new problem with uncertain prognosis? @ -[No] Drug Therapy requiring intensive monitoring for toxicity (Heparin, Nitro, Insulin, Cardizem)? @ -[No] Were any procedures done? @ -[No] Diagnosis/symptom? @ -Alcohol withdrawal Acute, or Chronic, or Acute on Chronic? @ -Acute Uncomplicated (without systemic symptoms) or Complicated (systemic symptoms)? @ -Complicated Side effects of treatment? @ -[No] Exacerbation, Progression, or Severe Exacerbation? @ -[No] Poses a threat to life or bodily function? How? (Chest pain, [place], [place], pneumonia, PE, COPD, DKA, ARF, appy, cholecystitis, CVA, Diverticulitis, Homicidal, Suicidal, threat to staff... and all critical care pts) @ -yes - Lab Data Result diagrams: 03/30/23 16:38 03/30/23 16:38 Lab Results 03/30/23 03/30/23 03/30/23 Range/Units 16:38 16:38 16:38 WBC 5.0 (3.8-10.6) k/uL RBC 3.87 (3.80-5.40) m/uL Hgb 13.7 (11.4-16.0) gm/dL Hct 39.6 (34.0-46.0) % MCV 102.2 H (80.0-100.0) fL MCH 35.3 H (25.0-35.0) pg MCHC 34.5 (31.0-37.0) g/dL RDW 13.2 (11.5-15.5) % Plt Count 66 L (150-450) k/uL MPV 9.9 Neutrophils % 70 % Lymphocytes % 17 % Monocytes % 9 % Eosinophils % 1 % Basophils % 0 % Neutrophils # 3.5 (1.3-7.7) k/uL Lymphocytes # 0.8 L (1.0-4.8) k/uL Monocytes # 0.4 (0-1.0) k/uL Eosinophils # 0.1 (0-0.7) k/uL Basophils # 0.0 (0-0.2) k/uL Manual Slide Review Performed Large Platelets Present Polychromasia Present Macrocytosis Slight Sodium 134 L (137-145) mmol/L Potassium 3.7 (3.5-5.1) mmol/L Chloride 94 L (98-107) mmol/L Carbon Dioxide 19 L (22-30) mmol/L Anion Gap 21 mmol/L BUN 17 (7-17) mg/dL Creatinine 1.16 H (0.52-1.04) mg/dL Est GFR (CKD-EPI)AfAm 60 (>60 ml/min/1.73 sqM) Est GFR (CKD-EPI)NonAf 52 (>60 ml/min/1.73 sqM) Glucose 101 H (74-99) mg/dL Calcium 10.1 (8.4-10.2) mg/dL Magnesium 1.1 L (1.6-2.3) mg/dL Total Bilirubin 1.6 H (0.2-1.3) mg/dL AST 126 H (14-36) U/L ALT 60 H (4-34) U/L Alkaline Phosphatase 149 H (38-126) U/L Total Protein 9.4 H (6.3-8.2) g/dL Albumin 5.1 H (3.5-5.0) g/dL Urine Color Yellow Urine Appearance Cloudy H (Clear) Urine pH 5.5 (5.0-8.0) Ur Specific [place] 1.018 (1.001-1.035) Urine Protein 2+ H (Negative) Urine Glucose (UA) Negative (Negative) Urine Ketones Negative (Negative) Urine Blood Small H (Negative) Urine Nitrite Negative (Negative) Urine Bilirubin Negative (Negative) Urine Urobilinogen 2.0 (<2.0) mg/dL Ur Leukocyte Esterase Trace H (Negative) Urine RBC 4 (0-5) /hpf Urine WBC 4 (0-5) /hpf Ur Squamous Epith Cells 2 (0-4) /hpf Urine Bacteria Rare H (None) /hpf Hyaline Casts 135 H (0-2) /lpf Urine Mucus Few H (None) /hpf Urine Opiates Screen Not Detected (NotDetected) Ur Oxycodone Screen Detected H (NotDetected) Urine Methadone Screen Not Detected (NotDetected) Ur Propoxyphene Screen Not Detected (NotDetected) Ur Barbiturates Screen Not Detected (NotDetected) U Tricyclic Antidepress Not Detected (NotDetected) Ur Phencyclidine Scrn Not Detected (NotDetected) Ur Amphetamines Screen Not Detected (NotDetected) U Methamphetamines Scrn Not Detected (NotDetected) U Benzodiazepines Scrn Not Detected (NotDetected) Urine Cocaine Screen Not Detected (NotDetected) U Marijuana (THC) Screen Not Detected (NotDetected) Disposition Clinical Impression: Alcohol withdrawal Disposition: ADMITTED IP TO THIS [facility] Condition: Fair
[2023-03-30 17:30] LABS: Basophils % (A) 0 %; Eosinophils # (A) 0.1 k/uL (0-0.7); Eosinophils % (A) 1 %; HCT 39.6 % (34.0-46.0); HGB 13.7 gm/dL (11.4-16.0); Lymphocytes # (A) 0.8 k/uL (1.0-4.8); Lymphocytes % (A) 17 %; MCH 35.3 pg (25.0-35.0); MCHC 34.5 g/dL (31.0-37.0); MCV 102.2 fL (80.0-100.0); Macrocytosis Slight; Mean Platelet Volume 9.9; Monocytes # (A) 0.4 k/uL (0-1.0); Monocytes % (A) 9 %; Neutrophils # (A) 3.5 k/uL (1.3-7.7); Neutrophils % (A) 70 %; RBC 3.87 m/uL (3.80-5.40); RDW 13.2 % (11.5-15.5)
[2023-03-30 17:38] LABS: ALT 60 U/L (4-34); AST 126 U/L (14-36); African American GFR (CKD) 60 (>60 ml/min/1.73 sqM); Albumin 5.1 g/dL (3.5-5.0); Alkaline Phosphatase 149 U/L (38-126); Anion Gap 21 mmol/L; Blood Urea Nitrogen 17 mg/dL (7-17); Calcium 10.1 mg/dL (8.4-10.2); Carbon Dioxide 19 mmol/L (22-30); Chloride 94 mmol/L (98-107); Glucose 101 mg/dL (74-99); Magnesium 1.1 mg/dL (1.6-2.3); Non-African American GFR(CKD) 52 (>60 ml/min/1.73 sqM); Potassium 3.7 mmol/L (3.5-5.1); Sodium 134 mmol/L (137-145); Total Bilirubin 1.6 mg/dL (0.2-1.3); Total Protein 9.4 g/dL (6.3-8.2)
[2023-03-30] MEDS ORDERED: Magnesium Replacement Protocol 1 EACH MISC MISCELLANE PRN (17:47)
[2023-03-30 17:48] LABS: Appearance,Urine Cloudy (Clear); Bacteria,Urine Rare /hpf; Bilirubin,Urine Negative (Negative); Blood,Urine Small (Negative); Color,Urine Yellow; Glucose,Urine (UA) Negative (Negative); Hyaline Casts,Urine 135 /lpf (0-2); Ketones,Urine Negative (Negative); Leukocyte Esterase,Urine Trace (Negative); Mucus,Urine Few /hpf; Nitrite,Urine Negative (Negative); PH, Urine 5.5 (5.0-8.0); Protein,Urine 2+ (Negative); RBC,Urine 4 /hpf (0-5); Specific Gravity,Urine 1.018 (1.001-1.035); Squamous Epithelial Cell,Urine 2 /hpf (0-4); WBC,Urine 4 /hpf (0-5)
[2023-03-30 17:54] LABS: Amphetamine Screen,Urine Not Detected (NotDetected); Barbiturate Screen,Urine Not Detected (NotDetected); Benzodiazepines Screen,Urine Not Detected (NotDetected); Cocaine Screen,Urine Not Detected (NotDetected); Methadone Screen, Urine Not Detected (NotDetected); Opiate Screen,Urine Not Detected (NotDetected); Oxycodone Screen, Urine Detected (NotDetected); Phencyclidine Screen,Urine Not Detected (NotDetected); Tricyclic Antidepressant,Urine Not Detected (NotDetected); Urn Cannabinoid Scrn Not Detected (NotDetected)
[2023-03-30 18:00] LABS: Platelet Count 66 k/uL (150-450)
[2023-03-30 18:01] LABS: Large Platelets Present; Polychromasia Present
[2023-03-30] MEDS: MAGNESIUM SULFATE-D5W PMX 1 GM in DEXTROSE/WATER 1 100ML.BAG IVPB SCH ×4 (18:31→22:03)
--- NOTE | 2023-03-30 20:03 | CT ---
EXAMINATION TYPE: CT brain wo con CT DLP: 1183.4 mGycm, Automated exposure control for dose reduction was used. DATE OF EXAM: 03/30/2023 7:22 PM COMPARISON: . CLINICAL INDICATION:Female, 57 years old with history of hallucinations, hallucinations, ETOH withdra wls TECHNIQUE: Brain: Axial CT images of the brain were obtained with coronal and sagittal reformats created and rev iewed. Contrast used: None. Oral contrast used: None. FINDINGS: Brain: Extra-axial spaces: No abnormal extra-axial fluid collections. Ventricular system: Appear dilated in proportion to cerebral atrophy. Cerebral parenchyma: No acute intraparenchymal hemorrhage or mass effect. The messina-white matter int erface appears maintained. Mild generalized brain atrophy. Cerebellum: No acute abnormality. Mass effect: No evidence of midline shift. Intracranial vasculature: Unremarkable Soft tissues: Normal. Calvarium/osseous structures: No evidence of calvarial fracture. Paranasal sinuses and mastoid air cells: Clear Visualized orbits: Orbital contents appear grossly intact. MRI is more sensitive for detecting acute processes such as infarct, and may be considered if clinica lly warranted. IMPRESSION: No acute intracranial CT abnormality.
[2023-03-30] MEDS ORDERED: ONDANSETRON 4 MG/2 ML VIAL IVP PRN (20:16)
[2023-03-30] MEDS ORDERED: NALOXONE 0.4 MG/ML 1 ML VIAL IV PRN (20:16)
[2023-03-30] MEDS: LORazepam 2 MG/ML INJ IV PRN (20:45)
[2023-03-30] MEDS ORDERED: LOPERAMIDE 2 MG CAP PO PRN (21:12)
[2023-03-30] MEDS ORDERED: ACETAMINOPHEN TAB 325 MG TAB PO PRN (21:12)
[2023-03-30] MEDS ORDERED: CALCIUM CARBONATE 500 MG CHEWABLE PO PRN (21:12)
[2023-03-30] MEDS: SODIUM CHLORIDE 0.9% 1,000 ML IV SCH (22:00)
[2023-03-30] MEDS: cloNIDine HCL 0.1 MG TAB PO SCH (22:33)
[2023-03-30] MEDS: hydrOXYzine HCL 10 MG TAB PO SCH (23:09)
[2023-03-31] MEDS: LORazepam 2 MG/ML INJ IV PRN (00:29)
[2023-03-31 08:41] LABS: ALT 49 U/L (8-44); AST 89 U/L (13-35); Albumin 4.1 g/dL (3.8-4.9); Albumin/Globulin Ratio 1.32 Ratio (1.60-3.17); Alkaline Phosphatase 139 U/L (41-126); Blood Urea Nitrogen 21.2 mg/dL (9.0-27.0); Calcium 9.5 mg/dL (8.7-10.3); Carbon Dioxide 23.3 mmol/L (21.6-31.8); Chloride 91 mmol/L (96-109); Globulin 3.1 g/dL (1.6-3.3); Glucose 131 mg/dL (70-110); Magnesium 2.2 mg/dL (1.5-2.4); Sodium 129 mmol/L (135-145); Total Bilirubin 0.9 mg/dL (0.3-1.2); Total Protein 7.2 g/dL (6.2-8.2)
[2023-03-31] MEDS ORDERED: THIAMINE 100 MG TAB PO SCH (09:00)
[2023-03-31 09:33] LABS: HCT 35.5 % (37.2-46.3); Immature Platelet Fraction 16.2 % (1.1-6.1); MCH 34.6 pg (27.0-32.0); MCHC 33.8 g/dL (32.0-37.0); MCV 102.3 FL (80.0-97.0); NRBC Per 100 WBC 0 X 10*3/uL (0.00-0.01); Platelet Count 45 X 10*3/uL (140-440); RBC 3.47 X 10*6/uL (4.10-5.20); RDW 13.2 % (11.5-14.5); WBC 4.32 X 10*3/uL (4.50-10.00)
[2023-03-31] MEDS: FOLIC ACID 1 MG TAB PO SCH (10:25)
[2023-03-31] MEDS: METOPROLOL TARTRATE 50 MG TAB PO SCH ×2 (10:26→20:55)
[2023-03-31] MEDS: THIAMINE 100 MG TAB PO SCH ×3 (10:26→20:56)
[2023-03-31] MEDS: cloNIDine HCL 0.1 MG TAB PO SCH ×3 (10:26→20:59)
[2023-03-31] MEDS: LOSARTAN 50 MG TAB PO SCH (10:26)
[2023-03-31] MEDS: hydrOXYzine HCL 10 MG TAB PO SCH ×2 (10:27→20:54)
[2023-03-31] MEDS: amLODIPine 5 MG TAB PO SCH (10:27)
--- NOTE | 2023-03-31 14:40 | P.HPIM ---
History of Present Illness H&P Date: 03/31/23 History of present illness; patient is a 57-year-old lady with past medical hist ory significant for alcohol abuse, DTs, hypertension presented to ER for alcohol detox. Patient has been admitted in the past for alcohol abuse. Patient states that normally she drinks up to 4 glasses of wine per day. Her last drink was 3-4 days ago. Patient is time presents with hallucinations from alcohol detox. Patient very shaky. Denies any homicidal or suicidal thoughts. Denies any recent fall. Patient complain of nausea vomiting. Denies any chest pain or shortness of breath. Denies any recent seizures. Because of impending alcohol detox, patient was brought to to the ER Initial lab work done in the ER showed WBC 5, hemoglobin 13.7, platelet count 66, sodium 134, potassium 3.7, BUN 17, creatinine 1.16, glucose [address] brain done showed no acute intracranial abnormality Patient was admitted to medicine service REVIEW OF SYSTEMS: CONSTITUTIONAL: No fever, no malaise, no fatigue. HEENT: No recent visual problems or hearing problems. Denied any sore throat. CARDIOVASCULAR: No chest pain, orthopnea, PND, no palpitations, no syncope. PULMONARY: No shortness of breath, no cough, no hemoptysis. GASTROINTESTINAL: As mentioned above NEUROLOGICAL: No headaches, no weakness, no numbness. Complaining of being very shaky and hallucinations HEMATOLOGICAL: Denies any bleeding or petechiae. GENITOURINARY: Denies any burning micturition, frequency, or urgency. MUSCULOSKELETAL/RHEUMATOLOGICAL: Denies any joint pain, swelling, or any muscle pain. ENDOCRINE: Denies any polyuria or polydipsia. The rest of the 14-point review of systems is negative. PHYSICAL EXAMINATION: GENERAL: The patient is alert and oriented x3, not in any acute distress. She is very shaky HEENT: Pupils are round and equally reacting to light. EOMI. No scleral icterus. No conjunctival pallor. Normocephalic, atraumatic. No pharyngeal erythema. No thyromegaly. CARDIOVASCULAR: S1 and S2 present. No murmurs, rubs, or gallops. PULMONARY: Chest is clear to auscultation, no wheezing or crackles. ABDOMEN: Soft, nontender, nondistended, normoactive bowel sounds. No palpable organomegaly. MUSCULOSKELETAL: No joint swelling or deformity. EXTREMITIES: No cyanosis, clubbing, or pedal edema. NEUROLOGICAL: Gross neurological examination did not reveal any focal deficits. SKIN: No rashes. Assessment and plan Alcohol detox Alcohol abuse Hypomagnesemia Hyponatremia Elevated LFTs Thrombocytopenia Hypertension Monitor vital signs Monitor CBC Monitor CMP Fall precautions Monitor electrolytes Continue IV fluids Continue antiemetics Continue CIWA protocol Continue high dose thiamine and folic acid Resume home meds Labs and medication were reviewed.. Continue same treatment. Continue with symptomatic treatment. Resume home medication. Monitor labs and vitals. DVT and GI prophylaxis. Further recommendations as per clinical course of the patient Dictation was produced using [employer] dictation software. please excuse any grammatical, word or spelling errors. Past Medical History Past Medical History: Hypertension Additional Past Medical History / Comment(s): vertigo, hx pancreatitis History of Any Multi-Drug Resistant Organisms: None Reported Past Surgical History: Section Additional Past Surgical History / Comment(s): cystoscopy, sx on urethra at age 1 Past Anesthesia/Blood Transfusion Reactions: Motion Sickness, Postoperative Nausea & Vomiting (PONV) Past Psychological History: No Psychological Hx Reported Smoking Status: Never smoker Past Alcohol Use History: Daily, Heavy Past Drug Use History: None Reported - Past Family History Mother Family Medical History: Hypertension Father Family Medical History: Coronary Artery Disease (CAD) Medications and Allergies Home Medications Medication Instructions Recorded Confirmed Type Metoprolol Tartrate [Lopressor] 50 mg PO BID 12/30/18 03/30/23 History cloNIDine HCL [Catapres] 0.1 mg PO TID 06/04/20 03/30/23 History hydrOXYzine HCL [Atarax] 10 mg PO BID 05/23/22 03/30/23 History Folic Acid 1 mg PO DAILY tab 05/28/22 03/30/23 Rx Losartan [Cozaar] 50 mg PO DAILY 03/30/23 03/30/23 History amLODIPine [Norvasc] 5 mg PO DAILY 03/30/23 03/30/23 History Allergies Allergy/AdvReac Type Severity Reaction Status Date / Time ibuprofen [From Motrin] Allergy Anaphylaxis Verified 03/30/23 20:10 latex Allergy Rash/Hives Verified 03/30/23 20:10 Physical Exam Vitals: Vital Signs Temp Pulse Pulse Resp BP BP Pulse Ox 03/31/23 08:00 97.5 F L 66 16 172/89 99 03/31/23 00:46 97.5 F L 56 L 16 125/76 98 03/31/23 00:00 56 L 16 105/70 98 03/30/23 16:11 98.5 F 67 20 143/76 99 Intake and Output 03/30/23 03/31/23 03/31/23 22:59 06:59 14:59 Other: Voiding Method Toilet # Voids 1 Weight 74.843 kg Results CBC & Chem 7: 03/31/23 04:19 03/31/23 04:19 Labs: Abnormal Lab Results - Last 24 Hours (Table) 03/30/23 03/30/23 03/30/23 Range/Units 16:38 16:38 16:38 MCV 102.2 H (80.0-100.0) fL MCH 35.3 H (25.0-35.0) pg Plt Count 66 L (150-450) k/uL Lymphocytes # 0.8 L (1.0-4.8) k/uL Sodium 134 L (137-145) mmol/L Potassium (3.5-5.5) mmol/L Chloride 94 L (98-107) mmol/L Carbon Dioxide 19 L (22-30) mmol/L Anion Gap (4.00-12.00) mmol/L Creatinine 1.16 H (0.52-1.04) mg/dL BUN/Creatinine Ratio (12.00-20.00) Ratio Glucose 101 H (74-99) mg/dL Magnesium 1.1 L (1.6-2.3) mg/dL Total Bilirubin 1.6 H (0.2-1.3) mg/dL AST 126 H (14-36) U/L ALT 60 H (4-34) U/L Alkaline Phosphatase 149 H (38-126) U/L Total Protein 9.4 H (6.3-8.2) g/dL Albumin 5.1 H (3.5-5.0) g/dL Albumin/Globulin Ratio (1.60-3.17) Ratio Urine Appearance Cloudy H (Clear) Urine Protein 2+ H (Negative) Urine Blood Small H (Negative) Ur Leukocyte Esterase Trace H (Negative) Urine Bacteria Rare H (None) /hpf Hyaline Casts 135 H (0-2) /lpf Urine Mucus Few H (None) /hpf Ur Oxycodone Screen Detected H (NotDetected) 03/31/23 Range/Units 04:19 MCV (80.0-100.0) fL MCH (25.0-35.0) pg Plt Count (150-450) k/uL Lymphocytes # (1.0-4.8) k/uL Sodium 129 L (137-145) mmol/L Potassium 3.0 L (3.5-5.5) mmol/L Chloride 91 L (98-107) mmol/L Carbon Dioxide (22-30) mmol/L Anion Gap 14.70 H (4.00-12.00) mmol/L Creatinine (0.52-1.04) mg/dL BUN/Creatinine Ratio 21.20 H (12.00-20.00) Ratio Glucose 131 H (74-99) mg/dL Magnesium (1.6-2.3) mg/dL Total Bilirubin (0.2-1.3) mg/dL AST 89 H (14-36) U/L ALT 49 H (4-34) U/L Alkaline Phosphatase 139 H (38-126) U/L Total Protein (6.3-8.2) g/dL Albumin (3.5-5.0) g/dL Albumin/Globulin Ratio 1.32 L (1.60-3.17) Ratio Urine Appearance (Clear) Urine Protein (Negative) Urine Blood (Negative) Ur Leukocyte Esterase (Negative) Urine Bacteria (None) /hpf Hyaline Casts (0-2) /lpf Urine Mucus (None) /hpf Ur Oxycodone Screen (NotDetected)
[2023-03-31] MEDS: SODIUM CHLORIDE 0.9% 1,000 ML IV SCH (19:37)
[2023-04-01] MEDS: SODIUM CHLORIDE 0.9% 1,000 ML IV SCH (05:01)
[2023-04-01] MEDS: hydrOXYzine HCL 10 MG TAB PO SCH ×2 (08:42→20:36)
[2023-04-01] MEDS: amLODIPine 5 MG TAB PO SCH (08:42)
[2023-04-01] MEDS: LOSARTAN 50 MG TAB PO SCH (08:42)
[2023-04-01] MEDS: FOLIC ACID 1 MG TAB PO SCH (08:42)
[2023-04-01] MEDS: METOPROLOL TARTRATE 50 MG TAB PO SCH ×2 (08:42→20:36)
[2023-04-01] MEDS: cloNIDine HCL 0.1 MG TAB PO SCH ×3 (08:42→21:08)
[2023-04-01] MEDS: THIAMINE 100 MG TAB PO SCH ×3 (08:43→20:36)
[2023-04-01 09:49] LABS: Basophils # (A) 0.03 X 10*3/uL (0.00-0.10); Basophils % (A) 0.8 %; Eosinophils # (A) 0.04 X 10*3/uL (0.04-0.35); Eosinophils % (A) 1.1 %; HCT 33.3 % (37.2-46.3); HGB 11.6 g/dL (12.0-15.0); Immature Platelet Fraction 10.9 % (1.1-6.1); Lymphocytes % (A) 21.5 %; MCH 35.5 pg (27.0-32.0); MCHC 34.8 g/dL (32.0-37.0); MCV 101.8 FL (80.0-97.0); Monocytes # (A) 0.97 X 10*3/uL (0.20-1.00); Monocytes % (A) 26.1 %; NRBC Per 100 WBC 0 X 10*3/uL (0.00-0.01); Neutrophils # (A) 1.87 X 10*3/uL (1.80-7.70); Neutrophils % (A) 50.2 %; Platelet Count 47 X 10*3/uL (140-440); RBC 3.27 X 10*6/uL (4.10-5.20); RDW 13.3 % (11.5-14.5); WBC 3.72 X 10*3/uL (4.50-10.00)
[2023-04-01 09:53] LABS: BUN/Creat Ratio 22.33 Ratio (12.00-20.00); Blood Urea Nitrogen 13.4 mg/dL (9.0-27.0); Glucose 106 mg/dL (70-110)
[2023-04-01 09:54] LABS: ALT 48 U/L (8-44); AST 82 U/L (13-35); Albumin/Globulin Ratio 1.43 Ratio (1.60-3.17); Alkaline Phosphatase 130 U/L (41-126); Calcium 9.2 mg/dL (8.7-10.3); Carbon Dioxide 25.9 mmol/L (21.6-31.8); Chloride 100 mmol/L (96-109); Globulin 2.8 g/dL (1.6-3.3); Potassium 3.5 mmol/L (3.5-5.5); Sodium 137 mmol/L (135-145); Total Bilirubin 0.8 mg/dL (0.3-1.2); Total Protein 6.8 g/dL (6.2-8.2)
--- NOTE | 2023-04-01 15:03 | P.PN ---
Subjective Progress Note Date: 04/01/23 patient is a 57-year-old lady with past medical history significant for alcohol abuse, DTs, hypertension presented to ER for alcohol detox. Patient has been admitted in the past for alcohol abuse. Patient states that normally she drinks up to 4 glasses of wine per day. Her last drink was 3-4 days ago. Patient is time presents with hallucinations from alcohol detox. Patient very shaky. Denies any homicidal or suicidal thoughts. Denies any recent fall. Patient complain of nausea vomiting. Denies any chest pain or shortness of breath. Denies any recent seizures. Because of impending alcohol detox, patient was brought to to the ER Initial lab work done in the ER showed WBC 5, hemoglobin 13.7, platelet count 66, sodium 134, potassium 3.7, BUN 17, creatinine 1.16, glucose [address] brain done showed no acute intracranial abnormality Patient was admitted to medicine service 04/01. Patient seen and examined. Patient still shaky, denies any auditory of hallucination. Vital signs stable REVIEW OF SYSTEMS: CONSTITUTIONAL: No fever, no malaise,. CARDIOVASCULAR: No chest pain, no palpitations, no syncope. PULMONARY: No shortness of breath, no cough, GASTROINTESTINAL: No diarrhea, no nausea, no vomiting, no abdominal pain. NEUROLOGICAL: No headaches, no weakness, PHYSICAL EXAMINATION: GENERAL: The patient is alert and oriented x3, not in any acute distress. Well developed, well nourished. HEENT: Pupils are round and equally reacting to light. EOMI. No scleral icterus. No conjunctival pallor. Normocephalic, atraumatic. No pharyngeal erythema. No thyromegaly. CARDIOVASCULAR: S1 and S2 present. No murmurs, rubs, or gallops. PULMONARY: Chest is clear to auscultation, no wheezing or crackles. ABDOMEN: Soft, nontender, nondistended, normoactive bowel sounds. No palpable organomegaly. MUSCULOSKELETAL: No joint swelling or deformity. EXTREMITIES: No cyanosis, clubbing, or pedal edema. NEUROLOGICAL: Gross neurological examination did not reveal any focal deficits. SKIN: No rashes. Assessment and plan Alcohol detox Alcohol abuse Hypomagnesemia Hyponatremia Elevated LFTs Thrombocytopenia Hypertension Monitor vital signs Monitor CBC Monitor CMP Fall precautions Monitor electrolytes Continue IV fluids Continue antiemetics Continue CIWA protocol Continue high dose thiamine and folic acid Possible discharge in next 24 hours Labs and medication were reviewed.. Continue same treatment. Continue with symptomatic treatment. Resume home medication. Monitor labs and vitals. DVT and GI prophylaxis. Further recommendations as per clinical course of the patient Dictation was produced using [employer] dictation software. please excuse any grammatical, word or spelling errors. Objective - Vital Signs Vital signs: Vital Signs Temp 98.6 F 04/01/23 07:45 Pulse 87 04/01/23 07:45 Resp 16 04/01/23 07:45 BP 168/83 04/01/23 07:45 Pulse Ox 98 04/01/23 07:45 FiO2 Intake & Output 03/31/23 04/01/23 04/01/23 18:59 06:59 18:59 Intake Total 780 Balance 780 Intake: Oral 780 Other: Voiding Method Toilet # Voids 1 1 - Labs CBC & Chem 7: 04/01/23 04:53 04/01/23 04:53 Labs: Abnormal Lab Results - Last 24 Hours (Table) 04/01/23 04/01/23 Range/Units 04:53 04:53 WBC 3.72 L (4.50-10.00) X 10*3/uL RBC 3.27 L (4.10-5.20) X 10*6/uL Hgb 11.6 L (12.0-15.0) g/dL Hct 33.3 L (37.2-46.3) % MCV 101.8 H (80.0-97.0) FL MCH 35.5 H (27.0-32.0) pg Plt Count 47 L (140-440) X 10*3/uL Lymphocytes # 0.80 L (0.90-5.00) X 10*3/uL Immature Plt Fraction 10.9 H (1.1-6.1) % BUN/Creatinine Ratio 22.33 H (12.00-20.00) Ratio AST 82 H (13-35) U/L ALT 48 H (8-44) U/L Alkaline Phosphatase 130 H (41-126) U/L Albumin/Globulin Ratio 1.43 L (1.60-3.17) Ratio
[2023-04-02] MEDS: LOSARTAN 50 MG TAB PO SCH (02:30)
[2023-04-02] MEDS: METOPROLOL TARTRATE 50 MG TAB PO SCH (08:16)
[2023-04-02] MEDS: cloNIDine HCL 0.1 MG TAB PO SCH ×2 (08:16→12:20)
[2023-04-02] MEDS: amLODIPine 5 MG TAB PO SCH (08:16)
[2023-04-02] MEDS: THIAMINE 100 MG TAB PO SCH (08:16)
[2023-04-02] MEDS: FOLIC ACID 1 MG TAB PO SCH (08:16)
[2023-04-02] MEDS: hydrOXYzine HCL 10 MG TAB PO SCH (08:16)
[2023-04-02 10:05] LABS: ALT 46 U/L (8-44); AST 69 U/L (13-35); Albumin 4.1 g/dL (3.8-4.9); Albumin/Globulin Ratio 1.37 Ratio (1.60-3.17); Alkaline Phosphatase 131 U/L (41-126); BUN/Creat Ratio 18.33 Ratio (12.00-20.00); Calcium 9.3 mg/dL (8.7-10.3); Carbon Dioxide 26.6 mmol/L (21.6-31.8); Chloride 99 mmol/L (96-109); Glucose 101 mg/dL (70-110); Potassium 3.4 mmol/L (3.5-5.5); Sodium 137 mmol/L (135-145); Total Bilirubin 1.2 mg/dL (0.3-1.2); Total Protein 7.1 g/dL (6.2-8.2)
[2023-04-02] MEDS ORDERED: POTASSIUM CHLORIDE ER 20 MEQ TAB.ER PO STA (10:24)
[2023-04-02 11:24] LABS: Basophils # (A) 0.04 X 10*3/uL (0.00-0.10); Basophils % (A) 0.9 %; Eosinophils # (A) 0.07 X 10*3/uL (0.04-0.35); Eosinophils % (A) 1.6 %; HCT 36.8 % (37.2-46.3); HGB 12.5 g/dL (12.0-15.0); Immature Platelet Fraction 10.9 % (1.1-6.1); Lymphocytes # (A) 1.08 X 10*3/uL (0.90-5.00); Lymphocytes % (A) 24.5 %; MCH 34.6 pg (27.0-32.0); MCV 101.9 FL (80.0-97.0); Mean Platelet Volume 10.8 FL (9.5-12.2); Monocytes # (A) 1.27 X 10*3/uL (0.20-1.00); Monocytes % (A) 28.9 %; NRBC Per 100 WBC 0 X 10*3/uL (0.00-0.01); Neutrophils # (A) 1.92 X 10*3/uL (1.80-7.70); Neutrophils % (A) 43.6 %; Platelet Count 55 X 10*3/uL (140-440); RBC 3.61 X 10*6/uL (4.10-5.20); RDW 13.2 % (11.5-14.5)
[2023-04-02 13:45] VITALS: BP 159/87; PULSE 77; RESP 16; TEMP 97.9
--- NOTE | 2023-04-02 14:04 | P.DS ---
Providers Date of admission: 03/30/23 20:16 Expected date of discharge: 04/02/23 Attending physician: Juan Ray Primary care physician: Carlos Rondon [facility] Course: Discharge diagnoses; Alcohol detox Alcohol abuse Hypomagnesemia Hyponatremia Elevated LFTs Thrombocytopenia Hypertension Hospital course; patient is a 57-year-old lady with past medical history significant for alcohol abuse, DTs, hypertension presented to ER for alcohol detox. Patient has been admitted in the past for alcohol abuse. Patient states that normally she drinks up to 4 glasses of wine per day. Her last drink was 3-4 days ago. Patient is time presents with hallucinations from alcohol detox. Patient very shaky. Denies any homicidal or suicidal thoughts. Denies any recent fall. Patient complain of nausea vomiting. Denies any chest pain or shortness of breath. Denies any recent seizures. Because of impending alcohol detox, patient was brought to to the ER Initial lab work done in the ER showed WBC 5, hemoglobin 13.7, platelet count 66 , sodium 134, potassium 3.7, BUN 17, creatinine 1.16, glucose [address] brain done showed no acute intracranial abnormality Patient was admitted to medicine service 04/01. Patient seen and examined. Patient still shaky, denies any auditory of hallucination. Vital signs stable 04/02. Patient CIWA scores have been low. Patient has not having any hallucinations. Patient excited to go home. Counseled regarding the need to stop drinking at home. PHYSICAL EXAMINATION: GENERAL: The patient is alert and oriented x3, not in any acute distress. Well developed, well nourished. HEENT: Pupils are round and equally reacting to light. EOMI. No scleral icterus. No conjunctival pallor. Normocephalic, atraumatic. No pharyngeal erythema. No thyromegaly. CARDIOVASCULAR: S1 and S2 present. No murmurs, rubs, or gallops. PULMONARY: Chest is clear to auscultation, no wheezing or crackles. ABDOMEN: Soft, nontender, nondistended, normoactive bowel sounds. No palpable organomegaly. MUSCULOSKELETAL: No joint swelling or deformity. EXTREMITIES: No cyanosis, clubbing, or pedal edema. NEUROLOGICAL: Gross neurological examination did not reveal any focal deficits. SKIN: No rashes. Dictation was produced using [employer] software. please excuse any grammatical, word or spelling errors. Patient Condition at Discharge: Fair Plan - Discharge Summary New Discharge Prescriptions: New Thiamine [Vitamin B-1] 100 mg PO DAILY 30 Days #30 tab Continue Metoprolol Tartrate [Lopressor] 50 mg PO BID cloNIDine HCL [Catapres] 0.1 mg PO TID hydrOXYzine HCL [Atarax] 10 mg PO BID Losartan [Cozaar] 50 mg PO DAILY Folic Acid 1 mg PO DAILY tab amLODIPine [Norvasc] 5 mg PO DAILY Discharge Medication List Metoprolol Tartrate [Lopressor] 50 mg PO BID 12/30/18 [History] cloNIDine HCL [Catapres] 0.1 mg PO TID 06/04/20 [History] hydrOXYzine HCL [Atarax] 10 mg PO BID 05/23/22 [History] Folic Acid 1 mg PO DAILY tab 05/28/22 [Rx] Losartan [Cozaar] 50 mg PO DAILY 03/30/23 [History] amLODIPine [Norvasc] 5 mg PO DAILY 03/30/23 [History] Thiamine [Vitamin B-1] 100 mg PO DAILY 30 Days #30 tab 04/02/23 [Rx] Follow up Appointment(s)/Referral(s): Alcon Gonzalez MD [Primary Care Provider] - 1-2 days Discharge/Stand Alone Forms: AA Meetings [facility], Who Do I Call?, Community Resources, Outpatient Counseling, In Substance Abuse Facilities, Personal Design Agent Discharge Disposition: HOME SELF-CARE
[2023-04-03] MEDS ORDERED: THIAMINE 100 MG TAB PO SCH (09:00)
== END 2023-04-02 15:15 | disposition home or self-care (01) | DRG 897 ==
LOC: EC 16:05 → 5NMEDONC 20:16
PROVIDERS: ADMIT Hospitalist; ATTEND Hospitalist
DX: F10.131 Alcohol abuse with withdrawal delirium (principal); R44.0 Auditory hallucinations; E83.42 Hypomagnesemia; I10 Essential (primary) hypertension; K70.10 Alcoholic hepatitis without ascites; Z79.899 Other long term (current) drug therapy; Z28.311 Partially vaccinated for COVID-19; R94.5 Abnormal results of liver function studies; D69.6 Thrombocytopenia, unspecified; R44.1 Visual hallucinations; Z82.49 Family history of ischemic heart disease and other diseases of the circulatory system
CPT/HCPCS: 36415; 70450; 80053; 80306; 81001; 83735; 84100; 85025; 85027; 96365; 96372; 96375; 99285; 99291

== ENCOUNTER 2023-07-31 11:04 | Observation (INO) | payer OTHER ==
--- NOTE | 2023-07-31 11:27 | ED ---
Recheck HPI - General Source: patient, family, RN notes reviewed Mode of arrival: ambulatory Limitations: no limitations <Gogo Martin - Last Filed: 07/31/23 11:26> - General Source: patient, family, RN notes reviewed <Cesar Brar - Last Filed: 07/31/23 14:48> - General Chief Complaint: Recheck/Abnormal Lab/Rx Stated Complaint: Detox Time Seen by Provider: 07/31/23 11:26 - History of Present Illness Initial Comments: Quick note: Patient is a 57-year-old female presenting to the ER with chief complaint of alcohol detox. Patient states her last drink was last night. Does report a history of seizures with withdrawals. She reports. Now she is really shaky. Denies any other complaints. (Gogo Martin) Is a 57-year-old female presents emergency department complaining of alcohol withdrawals. He has no intention of drinking again. States she has gone through detox in the past and has had seizures from alcohol withdrawals. Has a history of delirium tremens. Last drink was yesterday evening. Typically drink s at least 4 little radha per day. Denies any current chest pain or shortness of breath. Denies abdominal pain, nausea, vomiting, headaches, weakness. Denies any diarrhea but does endorse some mild nausea. Presents for further evaluation at this time. Patient originally seen as a quick note. I evaluated the patient when she was placed in a room. (Cesar Brar) - Related Data Home Medications Medication Instructions Recorded Confirmed Metoprolol Tartrate [Lopressor] 50 mg PO BID 12/30/18 03/30/23 cloNIDine HCL [Catapres] 0.1 mg PO TID 06/04/20 03/30/23 hydrOXYzine HCL [Atarax] 10 mg PO BID 05/23/22 03/30/23 Losartan [Cozaar] 50 mg PO DAILY 03/30/23 03/30/23 amLODIPine [Norvasc] 5 mg PO DAILY 03/30/23 03/30/23 Previous Rx's Medication Instructions Recorded Folic Acid 1 mg PO DAILY tab 05/28/22 Thiamine [Vitamin B-1] 100 mg PO DAILY 30 Days #30 tab 04/02/23 Allergies Allergy/AdvReac Type Severity Reaction Status Date / Time ibuprofen [From Motrin] Allergy Anaphylaxis Verified 07/31/23 11:10 latex Allergy Rash/Hives Verified 07/31/23 11:10 Review of Systems ROS Other: All systems not noted in ROS Statement are negative. <Gogo Martin - Last Filed: 07/31/23 11:26> ROS Other: All systems not noted in ROS Statement are negative. <Cesar Brar - Last Filed: 07/31/23 14:48> ROS Statement: Those systems with pertinent positive or pertinent negative responses have been documented in the HPI. Review of Systems: CONST: Denies fever EYES: Denies blurry vision ENT: Denies nasal congestion C/V: Denies Chest pain RESP: Denies shortness of breath GI: Denies abdominal pain : Denies dysuria SKIN: Denies rash. MSK: Denies joint pain. NEURO: Endorses tremors, tongue fasciculations. (Cesar Brar) Past Medical History Past Medical History: Hypertension Additional Past Medical History / Comment(s): vertigo, hx pancreatitis History of Any Multi-Drug Resistant Organisms: None Reported Past Surgical History: Section Additional Past Surgical History / Comment(s): cystoscopy, sx on urethra at age 1 Past Anesthesia/Blood Transfusion Reactions: Motion Sickness, Postoperative Nausea & Vomiting (PONV) Past Psychological History: No Psychological Hx Reported Smoking Status: Never smoker Past Alcohol Use History: Daily, Heavy Past Drug Use History: None Reported - Past Family History Mother Family Medical History: Hypertension Father Family Medical History: Coronary Artery Disease (CAD) <Gogo Martin - Last Filed: 07/31/23 11:26> General Exam Limitations: no limitations <Gogo Martin - Last Filed: 07/31/23 11:26> <Cesar Brar - Last Filed: 07/31/23 14:48> - General Exam Comments Initial Comments: Visual Physical Exam Vital signs reviewed General: No acute distress, tremor Head: Normocephalic, atraumatic Eyes: PERRLA, EOMI ENT: Airway patent Chest: Nonlabored breathing Skin: No visual rash, normal skin tone Neuro: Alert and oriented 3 Musculoskeletal: No gross abnormalities (Gogo Martin) General: Appears to be in mild alcohol withdrawals. Tongue fasciculations and generalized tremors are present at this time. HEAD: Normal with no signs of head trauma. EYES: PERRLA, EOMI, conjunctiva normal, no discharge. Pulls 3 mm and equal bilaterally. ENT: Hearing grossly intact, normal oropharynx. RESPIRATORY: Clear breath sounds bilaterally. No wheezes, rales, or rhonchi. C/V: Regular rate and rhythm. S1 and S2 auscultated, no edema, peripheral pulses 2+ and intact throughout ABD: Abd is soft, nontender, nondistended EXT: Normal range of motion, no obvious deformity SKIN: No rashes or lesions observed on exposed skin. NEURO: Alert and oriented x 4. (Cesar Brar) Course Vital Signs 07/31/23 11:07 Temperature 98.7 F Pulse Rate 88 Respiratory 18 Rate Blood Pressure 171/98 O2 Sat by Pulse 99 Oximetry Medical Decision Making <Gogo Martin - Last Filed: 07/31/23 11:26> - Lab Data Result diagrams: 07/31/23 13:26 07/31/23 13:26 - EKG Data -: EKG Interpreted by Me <Cesar Brar - Last Filed: 07/31/23 14:48> - Medical Decision Making I performed the quick note portion of this chart. Electronically signed by Gogo Martin PA-C (Gogo Martin) Was pt. sent in by a medical professional or institution (COREY Morrison, PRODUCTION SUPERINTENDENT, urgent care, hospital, or halfway...) When possible be specific @ -No Did you speak to anyone other than the patient for history (EMS, parent, family, police, friend...)? What history was obtained from this source @ -No Did you review nursing and triage notes (agree or disagree)? Why? @ -I reviewed and agree with nursing and triage notes Were old charts reviewed (outside hosp., previous admission, EMS record, old EKG, old radiological studies, urgent care reports/EKG's, halfway records)? Report findings @ -Old charts reviewed Differential Diagnosis (chest pain, altered mental status, abdominal pain women, abdominal pain men, vaginal bleeding, weakness, fever, dyspnea, syncope, headac he, dizziness, GI bleed, back pain, seizure, CVA, palpatations, mental health, musculoskeletal)? @ -Alcohol withdrawls, dehydration, electrolyte abnormalities. This is not all inclusive. EKG interpreted by me (3pts min.). @ -As above X-rays interpreted by me (1pt min.). @ -None done CT interpreted by me (1pt min.). @ -None done U/S interpreted by me (1pt. min.). @ -None done What testing was considered but not performed or refused? (CT, X-rays, U/S, labs)? Why? @ -None What meds were considered but not given or refused? Why? @ -None Did you discuss the management of the patient with other professionals (professionals i.e. , PA, PRODUCTION SUPERINTENDENT, lab, RT, psych nurse, social and human services assistant, station detective, teacher, correctional officer chief, field nurse case manager)? Give summary @ - I spoke with the admitting team, city call Dr. Melendrez of [facility] who accepted the admission. Was smoking cessation discussed for >3mins.? @ -No Was critical care preformed (if so, how long)? @ -No Were there social determinants of health that impacted care today? How? (Homelessness, low income, unemployed, alcoholism, drug addiction, transportation, low edu. Level, literacy, decrease access to med. care, penitentiary, rehab)? @ -No Was there de-escalation of care discussed even if they declined (Discuss DNR or withdrawal of care, Hospice)? DNR status @ -No What co-morbidities impacted this encounter? (DM, HTN, Smoking, COPD, CAD, Cancer, CVA, ARF, Chemo, Hep., AIDS, mental health diagnosis, sleep apnea, morbid obesity)? @ -Alcohol abuse, history of delirium tremens and withdrawal seizures Was patient admitted / discharged? Hospital course, mention meds given and route, prescriptions, significant lab abnormalities, going to OR and other [facility] info. @ -Based on the patient's presentation and physical exam, presents emergency department for alcohol withdrawals. Has no plan of restarting alcohol use. Has a history of DTs and seizures in the past from withdrawals. Presents for alcohol detox. Denies any other acute complaints at this time. Appears to have a CIWA of approximately 6-8 at this time. Last drink was last night. We will obtain basic labs, EKG. Patient will be administered a dose of IV Ativan as well as started on maintenance fluids. Patient was in agreement this plan. Vital signs are within acceptable limits. Patient's laboratory studies returned within acceptable limits. Nonspecific LFT elevations likely secondary to chronic alcohol abuse. Alcohol level is currently undetectable. EKG unremarkable. On reevaluation, patient is feeling somewhat improved however due to her being high risk for alcohol withdrawal seizures and delirium tremens, we will admit for observation. She was in agreement this plan. [facility] protocol will be continued. I spoke with the admitting team, city call Dr. Melendrez of [facility] who accepted the admission. Undiagnosed new problem with uncertain prognosis? @ -No Drug Therapy requiring intensive monitoring for toxicity (Heparin, Nitro, Insulin, Cardizem)? @ -No Were any procedures done? @ -No Diagnosis/symptom? @ -Alcohol withdrawals Acute, or Chronic, or Acute on Chronic? @ -Acute Uncomplicated (without systemic symptoms) or Complicated (systemic symptoms)? @ -Complicated Side effects of treatment? @ -No Exacerbation, Progression, or Severe Exacerbation? @ -No Poses a threat to life or bodily function? How? (Chest pain, USA, IA, pneumonia, PE, COPD, DKA, ARF, appy, cholecystitis, CVA, Diverticulitis, Homicidal, Suicidal, threat to staff... and all critical care pts) @ -Yes (Cesar Brar) - Lab Data Lab Results 07/31/23 07/31/23 Range/Units 13:26 13:26 WBC 5.5 (3.8-10.6) k/uL RBC 3.78 L (3.80-5.40) m/uL Hgb 12.8 (11.4-16.0) gm/dL Hct 38.0 (34.0-46.0) % MCV 100.6 H (80.0-100.0) fL MCH 33.8 (25.0-35.0) pg MCHC 33.6 (31.0-37.0) g/dL RDW 13.4 (11.5-15.5) % MPV 9.4 Sodium 135 L (137-145) mmol/L Potassium 4.8 (3.5-5.1) mmol/L Chloride 100 (98-107) mmol/L Carbon Dioxide 24 (22-30) mmol/L Anion Gap 11 mmol/L BUN 11 (7-17) mg/dL Creatinine 0.47 L (0.52-1.04) mg/dL Est GFR (CKD-EPI)AfAm >90 (>60 ml/min/1.73 sqM) Est GFR (CKD-EPI)NonAf >90 (>60 ml/min/1.73 sqM) Glucose 103 H (74-99) mg/dL Calcium 8.9 (8.4-10.2) mg/dL Total Bilirubin 1.8 H (0.2-1.3) mg/dL AST 98 H (14-36) U/L ALT 43 H (4-34) U/L Alkaline Phosphatase 171 H (38-126) U/L Total Protein 8.7 H (6.3-8.2) g/dL Albumin 4.8 (3.5-5.0) g/dL Serum Alcohol <10 mg/dL - EKG Data EKG Comments: 12-lead Electrocardiogram Interpretation Note EKG was reviewed and interpreted by myself. 12-lead ECG performed at 1427 is interpreted by me as revealing normal sinus rhythm at a rate of 65 beats per minute. Altair is normal. TN interval is 177 ms, QRS duration is 96 ms, QTc is 457 ms.. There were no acute ST or T wave abnormalities to suggest myocardial ischemia or injury. Isolated T wave inversion in lead V2. R wave progression across the precordium was satisfactory. By my interpretation this EKG is non-d iagnostic for acute ischemia. (Cesar Brar) Disposition <Gogo Martin - Last Filed: 07/31/23 11:26> Time of Disposition: 14:30 <Cesar Brar - Last Filed: 07/31/23 14:48> Clinical Impression: Alcohol withdrawal Disposition: ADMITTED IP TO THIS HOSP Condition: Stable
[2023-07-31 11:34] VITALS: TEMP 98.7
[2023-07-31] MEDS ORDERED: LORazepam 2 MG/ML INJ IV PRN ×3 (13:29)
[2023-07-31] MEDS: LORazepam 2 MG/ML INJ IV STA (13:42)
[2023-07-31] MEDS: SODIUM CHLORIDE 0.9% 1,000 ML IV STA (13:42)
[2023-07-31] MEDS: THIAMINE 100 MG/ML 2 ML VIAL IM STA ×2 (13:42→14:58)
[2023-07-31] MEDS: ONDANSETRON 4 MG/2 ML VIAL IVP STA (13:42)
[2023-07-31 14:04] LABS: HGB 12.8 gm/dL (11.4-16.0); MCH 33.8 pg (25.0-35.0); MCHC 33.6 g/dL (31.0-37.0); MCV 100.6 fL (80.0-100.0); Mean Platelet Volume 9.4; RBC 3.78 m/uL (3.80-5.40); RDW 13.4 % (11.5-15.5); WBC 5.5 k/uL (3.8-10.6)
[2023-07-31 14:10] LABS: ALT 43 U/L (4-34); AST 98 U/L (14-36); African American GFR (CKD) >90 (>60 ml/min/1.73 sqM); Albumin 4.8 g/dL (3.5-5.0); Alcohol <10 mg/dL; Alkaline Phosphatase 171 U/L (38-126); Anion Gap 11 mmol/L; Blood Urea Nitrogen 11 mg/dL (7-17); Calcium 8.9 mg/dL (8.4-10.2); Carbon Dioxide 24 mmol/L (22-30); Chloride 100 mmol/L (98-107); Glucose 103 mg/dL (74-99); Non-African American GFR(CKD) >90 (>60 ml/min/1.73 sqM); Sodium 135 mmol/L (137-145); Total Bilirubin 1.8 mg/dL (0.2-1.3); Total Protein 8.7 g/dL (6.3-8.2)
[2023-07-31 14:17] LABS: Potassium 4.8 mmol/L (3.5-5.1)
[2023-07-31] MEDS ORDERED: traMADol 50 MG TAB PO PRN (14:32)
[2023-07-31] MEDS ORDERED: ACETAMINOPHEN TAB 325 MG TAB PO PRN (14:32)
[2023-07-31] MEDS ORDERED: NALOXONE 0.4 MG/ML 1 ML VIAL IV PRN ×2 (14:32)
[2023-07-31] MEDS ORDERED: ONDANSETRON 4 MG/2 ML VIAL IVP PRN ×2 (14:32)
[2023-07-31] MEDS ORDERED: chlordiazePOXIDE 25 MG CAP PO PRN (14:41)
--- NOTE | 2023-07-31 14:47 | P.HPIM ---
History of Present Illness H&P Date: 07/31/23 Chief Complaint: Alcohol withdrawal * 57-year-old patient with past medical history significant for alcohol withdrawal history of delirium tremens, hypertension presents to the emergency department with request to detox from alcohol. Patient has extensive history of alcohol use and was admitted and March 2023. Patient states she has been drinking every day for the last few days after patient had an argument with her boyfriend * Workup initiated in ER included CBC which showed WBC count of 5.5 hemoglobin 12.8, serum chemistry showed sodium 135, potassium of 4.8, BUN 11 creatinine 0.47 blood glucose 103 * Liver profile obtained showed total bilirubin 1.8 AST 98 ALT 43 * Patient to be admitted to medical floor and monitored for alcohol withdrawal REVIEW OF SYSTEMS: CONSTITUTIONAL: No fever, no malaise, no fatigue. HEENT: No recent visual problems or hearing problems. Denied any sore throat. CARDIOVASCULAR: No chest pain, orthopnea, PND, no palpitations, no syncope. PULMONARY: No shortness of breath, no cough, no hemoptysis. GASTROINTESTINAL: No diarrhea, no nausea, no vomiting, no abdominal pain. NEUROLOGICAL: No headaches, no weakness, no numbness. HEMATOLOGICAL: Denies any bleeding or petechiae. GENITOURINARY: Denies any burning micturition, frequency, or urgency. MUSCULOSKELETAL/RHEUMATOLOGICAL: Denies any joint pain, swelling, or any muscle pain. ENDOCRINE: Denies any polyuria or polydipsia. PHYSICAL EXAMINATION: GENERAL: The patient is alert and oriented x3, not in any acute distress. Well developed, well nourished. HEENT: Pupils are round and equally reacting to light. EOMI. No scleral icterus. No conjunctival pallor. Normocephalic, atraumatic. No pharyngeal erythema. No thyromegaly. CARDIOVASCULAR: S1 and S2 present. No murmurs, rubs, or gallops. PULMONARY: Chest is clear to auscultation, no wheezing or crackles. ABDOMEN: Soft, nontender, nondistended, normoactive bowel sounds. No palpable organomegaly. MUSCULOSKELETAL: No joint swelling or deformity. EXTREMITIES: No cyanosis, clubbing, or pedal edema. NEUROLOGICAL: Gross neurological examination did not reveal any focal deficits. SKIN: No rashes. Assessment and plan * Alcohol use disorder with impending withdrawal * History of hypertension * Transaminitis secondary to alcohol use * In regards to alcohol use continue patient on CIWA protocol continue to use Ativan as needed for withdrawal * Regards to hypertension continue patient on amlodipine and metoprolol, as needed IV hydralazine ordered * Transaminitis follow-up on liver profile * CODE STATUS full code Past Medical History Past Medical History: Hypertension Additional Past Medical History / Comment(s): vertigo, hx pancreatitis History of Any Multi-Drug Resistant Organisms: None Reported Past Surgical History: Section Additional Past Surgical History / Comment(s): cystoscopy, sx on urethra at age 1 Past Anesthesia/Blood Transfusion Reactions: Motion Sickness, Postoperative Nausea & Vomiting (PONV) Past Psychological History: No Psychological Hx Reported Smoking Status: Never smoker Past Alcohol Use History: Daily, Heavy Past Drug Use History: None Reported - Past Family History Mother Family Medical History: Hypertension Father Family Medical History: Coronary Artery Disease (CAD) Medications and Allergies Home Medications Medication Instructions Recorded Confirmed Type Metoprolol Tartrate [Lopressor] 50 mg PO BID 12/30/18 03/30/23 History cloNIDine HCL [Catapres] 0.1 mg PO TID 06/04/20 03/30/23 History hydrOXYzine HCL [Atarax] 10 mg PO BID 05/23/22 03/30/23 History Folic Acid 1 mg PO DAILY tab 05/28/22 03/30/23 Rx Losartan [Cozaar] 50 mg PO DAILY 03/30/23 03/30/23 History amLODIPine [Norvasc] 5 mg PO DAILY 03/30/23 03/30/23 History Thiamine [Vitamin B-1] 100 mg PO DAILY 30 Days #30 tab 04/02/23 Rx Allergies Allergy/AdvReac Type Severity Reaction Status Date / Time ibuprofen [From Motrin] Allergy Anaphylaxis Verified 07/31/23 11:10 latex Allergy Rash/Hives Verified 07/31/23 11:10 Physical Exam Vitals: Vital Signs Temp Pulse Resp BP Pulse Ox 07/31/23 11:07 98.7 F 88 18 171/98 99 Intake and Output 07/30/23 07/31/23 07/31/23 22:59 06:59 14:59 Other: Weight 72.575 kg Results CBC & Chem 7: 07/31/23 13:26 07/31/23 13:26 Labs: Abnormal Lab Results - Last 24 Hours (Table) 07/31/23 07/31/23 Range/Units 13:26 13:26 RBC 3.78 L (3.80-5.40) m/uL MCV 100.6 H (80.0-100.0) fL Sodium 135 L (137-145) mmol/L Creatinine 0.47 L (0.52-1.04) mg/dL Glucose 103 H (74-99) mg/dL Total Bilirubin 1.8 H (0.2-1.3) mg/dL AST 98 H (14-36) U/L ALT 43 H (4-34) U/L Alkaline Phosphatase 171 H (38-126) U/L Total Protein 8.7 H (6.3-8.2) g/dL
[2023-07-31] MEDS ORDERED: hydrALAZINE HCL 20 MG/ML 1 ML VIAL IVP PRN (14:48)
[2023-07-31] MEDS: SODIUM CHLORIDE 0.9% 1,000 ML IV SCH (14:59)
[2023-07-31 15:35] LABS: Platelet Count 60 k/uL (150-450)
[2023-07-31] MEDS: METOPROLOL TARTRATE 50 MG TAB PO SCH (20:51)
[2023-08-01 08:07] VITALS: RESP 18
[2023-08-01] MEDS: THIAMINE 100 MG TAB PO SCH (08:46)
[2023-08-01] MEDS: amLODIPine 10 MG TAB PO SCH (08:46)
[2023-08-01] MEDS: FOLIC ACID 1 MG TAB PO SCH (08:46)
[2023-08-01] MEDS ORDERED: THIAMINE 100 MG TAB PO SCH (09:00)
[2023-08-01 10:50] LABS: ALT 35 U/L (4-34); AST 71 U/L (14-36); African American GFR (CKD) >90 (>60 ml/min/1.73 sqM); Albumin 4.3 g/dL (3.5-5.0); Albumin/Globulin Ratio 1.2; Alkaline Phosphatase 139 U/L (38-126); Anion Gap 7 mmol/L; Blood Urea Nitrogen 7 mg/dL (7-17); Carbon Dioxide 27 mmol/L (22-30); Chloride 102 mmol/L (98-107); Globulin 3.6 g/dL; Glucose 108 mg/dL (74-99); Non-African American GFR(CKD) >90 (>60 ml/min/1.73 sqM); Sodium 136 mmol/L (137-145); Total Bilirubin 1.2 mg/dL (0.2-1.3); Total Protein 7.9 g/dL (6.3-8.2)
--- NOTE | 2023-08-01 11:49 | P.DS ---
Providers Date of admission: 07/31/23 14:33 Expected date of discharge: 08/01/23 Attending physician: James Melendrez MD Primary care physician: Stated None Hospital Course: * 57-year-old patient with past medical history significant for alcohol withdrawal history of delirium tremens, hypertension presents to the emergency department with request to detox from alcohol. Patient has extensive history of alcohol use and was admitted and March 2023. Patient states she has been drinking every day for the last few days after patient had an argument with her boyfriend * Workup initiated in ER included CBC which showed WBC count of 5.5 hemoglobin 12.8, serum chemistry showed sodium 135, potassium of 4.8, BUN 11 creatinine 0.47 blood glucose 103 * Liver profile obtained showed total bilirubin 1.8 AST 98 ALT 43 * Patient to be admitted to medical floor and monitored for alcohol withdrawal * 08/01/23: Patient seen and evaluated bedside patient is alert and oriented x 4, patient states she feels better and she has a plan. Patient states she has a court date for DUI and has to leave. Patient is adamant that she would not drink. Patient has been counseled. Patient has a ride coming to pick her up liver profile trending down PHYSICAL EXAMINATION: GENERAL: The patient is alert and oriented x3, not in any acute distress. Well developed, well nourished. HEENT: Pupils are round and equally reacting to light. EOMI. No scleral icterus .y. CARDIOVASCULAR: S1 and S2 present. No murmurs, rubs, or gallops. PULMONARY: Chest is clear to auscultation, no wheezing or crackles. ABDOMEN: Soft, nontender, nondistended, normoactive bowel sounds. No palpable organomegaly. MUSCULOSKELETAL: No joint swelling or deformity. EXTREMITIES: No cyanosis, clubbing, or pedal edema. NEUROLOGICAL: Gross neurological examination did not reveal any focal deficits. SKIN: No rashes. Assessment and plan * Alcohol use disorder with impending withdrawal * History of hypertension * Transaminitis secondary to alcohol use * In regards to alcohol use was monitored for withdrawal, CIWA protocol was initiated, patient remains asymptomatic * Regards to hypertension continue patient on amlodipine and metoprolol, * Transaminitis follow-up on liver profile trending down, patient counseled to abstain from alcohol Patient Condition at Discharge: Fair Plan - Discharge Summary New Discharge Prescriptions: Continue Metoprolol Tartrate [Lopressor] 50 mg PO BID cloNIDine HCL [Catapres] 0.1 mg PO TID Losartan [Cozaar] 50 mg PO DAILY Folic Acid 1 mg PO DAILY tab amLODIPine [Norvasc] 10 mg PO DAILY Bumetanide [BUMEX] 0.5 mg PO DAILY PRN PRN Reason: Edema hydrOXYzine HCL [Atarax] 25 mg PO HS Lacosamide [Vimpat] 50 mg PO BID Melatonin 5 mg PO HS Naltrexone HCl [Revia] 50 mg PO DAILY Discharge Medication List Metoprolol Tartrate [Lopressor] 50 mg PO BID 12/30/18 [History] cloNIDine HCL [Catapres] 0.1 mg PO TID 06/04/20 [History] Folic Acid 1 mg PO DAILY tab 05/28/22 [Rx] Losartan [Cozaar] 50 mg PO DAILY 03/30/23 [History] amLODIPine [Norvasc] 10 mg PO DAILY 03/30/23 [History] Bumetanide [BUMEX] 0.5 mg PO DAILY PRN 07/31/23 [History] Lacosamide [Vimpat] 50 mg PO BID 07/31/23 [History] Melatonin 5 mg PO HS 07/31/23 [History] Naltrexone HCl [Revia] 50 mg PO DAILY 07/31/23 [History] hydrOXYzine HCL [Atarax] 25 mg PO HS 07/31/23 [History] Follow up Appointment(s)/Referral(s): None,Stated [Primary Care Provider] - 1-2 days
[2023-08-01] MEDS: LORazepam 0.5 MG TAB PO PRN (12:02)
[2023-08-01 13:06] VITALS: BP 144/68; PULSE 80
[2023-08-01 15:56] LABS: Basophils # (A) 0.03 X 10*3/uL (0.00-0.10); Basophils % (A) 0.7 %; Eosinophils # (A) 0.04 X 10*3/uL (0.04-0.35); Eosinophils % (A) 0.9 %; HCT 35.7 % (37.2-46.3); HGB 12.7 g/dL (12.0-15.0); Immature Platelet Fraction 13.5 % (1.1-6.1); Lymphocytes # (A) 0.87 X 10*3/uL (0.90-5.00); Lymphocytes % (A) 20.6 %; MCH 34.8 pg (27.0-32.0); MCHC 35.6 g/dL (32.0-37.0); MCV 97.8 FL (80.0-97.0); Mean Platelet Volume 11.7 FL (9.5-12.2); Monocytes # (A) 0.61 X 10*3/uL (0.20-1.00); Monocytes % (A) 14.4 %; NRBC Per 100 WBC 0 X 10*3/uL (0.00-0.01); Neutrophils # (A) 2.66 X 10*3/uL (1.80-7.70); Neutrophils % (A) 62.9 %; Platelet Count 50 X 10*3/uL (140-440); RBC 3.65 X 10*6/uL (4.10-5.20); RDW 12.8 % (11.5-14.5); WBC 4.23 X 10*3/uL (4.50-10.00)
== END 2023-08-01 13:05 | disposition home or self-care (01) ==
LOC: EC 11:04 → 6NMEDSUR 14:33
PROVIDERS: ADMIT Internal Medicine; ATTEND Internal Medicine
DX: F10.139 Alcohol abuse with withdrawal, unspecified (principal); E86.0 Dehydration; E87.8 Other disorders of electrolyte and fluid balance, not elsewhere classified; I10 Essential (primary) hypertension; R74.01 Elevation of levels of liver transaminase levels; Z71.41 Alcohol abuse counseling and surveillance of alcoholic; Z79.899 Other long term (current) drug therapy; Z91.040 Latex allergy status; Z88.6 Allergy status to analgesic agent
CPT/HCPCS: 96361 ×2; 96372; 96374; 96375; 99285; 36415; 93005; 80053 ×2; 83735; 85025; 85027; 80320; G0378 ×2; J2060; J3411; J2405

== ENCOUNTER 2023-09-26 08:28 | Observation (INO) | payer OTHER ==
[2023-09-26] MEDS ORDERED: LORazepam 2 MG/ML INJ IV PRN ×2 (08:48)
[2023-09-26] MEDS: LORazepam 2 MG/ML INJ IV PRN ×2 (09:09→18:03)
[2023-09-26] MEDS: THIAMINE 100 MG/ML 2 ML VIAL IM STA (09:12)
--- NOTE | 2023-09-26 09:24 | ED ---
Alcohol HPI - General Chief Complaint: Alcohol Stated Complaint: ETOH, withdrawal Time Seen by Provider: 09/26/23 08:37 Source: patient, EMS, RN notes reviewed Mode of arrival: EMS Limitations: no limitations - History of Present Illness Initial Comments: This is a 57-year-old female who presents to the emergency department for alcohol withdrawals. Patient last consumed alcohol 3-4 days ago and has since been experiencing withdrawal symptoms. Reports hallucinations that began yesterday as well as shaking. Believes that the shaking is better than it was yesterday, but continues to have hallucinations. She was supposed to check into [facility] intensive outpatient program today, however due to the hallucinations frightening her, she decided to call EMS instead. She does report a history of alcohol withdrawal seizures. MD Complaint: alcohol withdrawal - Related Data Home Medications Medication Instructions Recorded Confirmed Metoprolol Tartrate [Lopressor] 50 mg PO BID 12/30/18 09/26/23 Losartan [Cozaar] 50 mg PO DAILY 03/30/23 09/26/23 amLODIPine [Norvasc] 10 mg PO DAILY 03/30/23 09/26/23 Folic Acid 1 mg PO DAILY 05/25/23 09/26/23 cloNIDine HCL [Catapres] 0.1 mg PO TID 05/25/23 09/26/23 Bumetanide [BUMEX] 0.5 mg PO DAILY PRN 07/31/23 09/26/23 Melatonin 5 mg PO HS 07/31/23 09/26/23 Naltrexone HCl [Revia] 50 mg PO DAILY 07/31/23 09/26/23 Potassium Gluconate 99 mg PO DAILY 08/31/23 09/26/23 hydrOXYzine HCL [Atarax] 25 mg PO BID 08/31/23 09/26/23 Previous Rx's Medication Instructions Recorded Lacosamide [Vimpat] 50 mg PO BID 60 Days #120 tab 09/01/23 Allergies Allergy/AdvReac Type Severity Reaction Status Date / Time ibuprofen [From Motrin] Allergy Anaphylaxis Verified 09/26/23 13:22 latex Allergy Rash/Hives Verified 09/26/23 13:22 bumetanide AdvReac Nausea & Verified 09/26/23 13:22 Vomiting pollen extracts AdvReac Unknown Verified 09/26/23 13:22 Review of Systems ROS Statement: Those systems with pertinent positive or pertinent negative responses have been documented in the HPI. ROS Other: All systems not noted in ROS Statement are negative. Past Medical History Past Medical History: Hypertension, Seizure Disorder Additional Past Medical History / Comment(s): vertigo, hx pancreatitis History of Any Multi-Drug Resistant Organisms: None Reported Past Surgical History: Section Additional Past Surgical History / Comment(s): cystoscopy, sx on urethra at age 1 Past Anesthesia/Blood Transfusion Reactions: Motion Sickness, Postoperative Nausea & Vomiting (PONV) Past Psychological History: Anxiety Smoking Status: Never smoker Past Alcohol Use History: Daily Past Drug Use History: None Reported - Past Family History Mother Family Medical History: Hypertension Father Family Medical History: Coronary Artery Disease (CAD) General Exam Limitations: no limitations General appearance: alert, in no apparent distress Head exam: Present: atraumatic, normocephalic, normal inspection Respiratory exam: Present: normal lung sounds bilaterally. Absent: respiratory distress, wheezes, rales, rhonchi, stridor Cardiovascular Exam: Present: regular rate, normal rhythm, normal heart sounds. Absent: systolic murmur, diastolic murmur, rubs, gallop, clicks GI/Abdominal exam: Present: soft, normal bowel sounds. Absent: distended, tenderness, guarding, rebound, rigid Neurological exam: Present: alert, oriented X3, CN II-XII intact Psychiatric exam: Present: normal affect, normal mood Skin exam: Present: warm, dry, intact, normal color. Absent: rash Course Vital Signs 09/26/23 09/26/23 09/26/23 08:34 09:00 10:00 Temperature Pulse Rate 61 Respiratory 18 Rate Blood Pressure 170/90 170/91 160/101 O2 Sat by Pulse 98 98 Oximetry 09/26/23 09/26/23 09/26/23 11:00 15:00 16:00 Temperature Pulse Rate 67 Respiratory 16 Rate Blood Pressure 158/103 139/86 139/86 O2 Sat by Pulse 96 98 Oximetry 09/26/23 18:29 Temperature 98.1 F Pulse Rate 87 Respiratory 16 Rate Blood Pressure 113/59 O2 Sat by Pulse 100 Oximetry Medical Decision Making - Medical Decision Making This is a 57 year old female who presents to the emergency department for alcohol withdrawals. Was pt. sent in by a medical professional or institution? @ -No Did you speak to anyone other than the patient for history? @ -No Did you review nursing and triage notes? @ -Yes, and I agree, it is accurate with regards to the patient's symptoms. Were old charts reviewed? @ -No Differential Diagnosis? @ -Differential Alcohol Withdrawals: Sympathomimetic syndrome, anti-muscarinic syndrome, serotonin syndrome, neuroleptic malignant syndrome, thyrotoxicosis, encephalitis, acute psychosis, hypoglycemia, trauma, sepsis. This is not meant to be an all-inclusive list. EKG interpreted by me (3pts min.)? @ -EKG interpreted by me demonstrating the following: Sinus bradycardia. Ventricular rate 53 bpm, ID interval 187 ms, QRS duration 100 ms, QTc 492 ms. X-rays interpreted by me (1pt min.)? @ -Not obtained CT interpreted by me (1pt min.)? @ -Not obtained U/S interpreted by me (1pt. min.)? @ -Not obtained What testing was considered but not performed? (CT, X-rays, U/S, labs)? Why? @ -None What meds were considered but not given? Why? @ -None Did you discuss the management of the patient with other professionals? @ -Yes, Dr. Daley, who accepts the patient for admission. Did you reconcile home meds? @ -No Was smoking cessation discussed for >3mins.? @ -No Was critical care preformed (if so, how long)? @ -No Were there social determinants of health that impacted care today? How? (Homelessness, low income, unemployed, alcoholism, drug addiction, transportation, low edu. Level, literacy, decrease access to med. care, penitentiary, rehab)? @ -Alcoholism, leading to her visit today. Was there de-escalation of care discussed even if they declined? (Discuss DNR or withdrawal of care, Hospice)? @ -No What co-morbidities impacted this encounter? (DM, HTN, Smoking, COPD, CAD, C ancer, CVA, Hep., AIDS, mental health diagnosis, sleep apnea, morbid obesity)? @ -Alcoholism, HTN, seizure disorder Was patient admitted / discharged? @ -Admitted. Lab work demonstrates thrombocytopenia, which is stable when compared with prior. Magnesium low at 1.5 and liver enzymes are elevated as well. 400 mg of magnesium oxide administered. Urinalysis demonstrates elevated white blood cells but was not overtly positive for infection. Urine sent for culture. Urine drug screen positive for benzodiazepines, which were administered here. CIWA protocol was initiated and on arrival patient's CIWA was 14. Due to patient's active hallucinations with history of alcohol withdrawal seizures, she was admitted to medicine for further management of alco hol withdrawals. Undiagnosed new problem with uncertain prognosis? @ -None Drug Therapy requiring intensive monitoring for toxicity (Heparin, Nitro, Insulin, Cardizem)? @ -None Were any procedures done? @ -None Diagnosis/symptom? @ -Alcohol withdrawals Acute, or Chronic, or Acute on Chronic? @ -Acute Uncomplicated (without systemic symptoms) or Complicated (systemic symptoms)? @ -Complicated Side effects of treatment? @ -None Exacerbation, Progression, or Severe Exacerbation] @ -Not applicable Poses a threat to life or bodily function? @ -Yes, this can lead to DTs, which can be fatal. This case was discussed in detail with the attending ED physician, Dr. Troy. Presentation, findings, and treatment plan discussed in detail as well. - Lab Data Result diagrams: 09/26/23 09:20 09/26/23 09:20 Lab Results 09/26/23 09/26/23 09/26/23 Range/Units 09:20 09:20 09:20 WBC 4.2 (3.8-10.6) k/uL RBC 4.08 (3.80-5.40) m/uL Hgb 13.6 (11.4-16.0) gm/dL Hct 40.0 (34.0-46.0) % MCV 98.1 (80.0-100.0) fL MCH 33.4 (25.0-35.0) pg MCHC 34.0 (31.0-37.0) g/dL RDW 14.1 (11.5-15.5) % Plt Count 49 L (150-450) k/uL MPV 9.4 Neutrophils % 70 % Lymphocytes % 15 % Monocytes % 12 % Eosinophils % 1 % Basophils % 1 % Neutrophils # 3.0 (1.3-7.7) k/uL Lymphocytes # 0.6 L (1.0-4.8) k/uL Monocytes # 0.5 (0-1.0) k/uL Eosinophils # 0.0 (0-0.7) k/uL Basophils # 0.0 (0-0.2) k/uL PT 12.4 (10.0-12.5) sec INR 1.2 H (<1.2) Sodium 133 L (137-145) mmol/L Potassium 3.5 (3.5-5.1) mmol/L Chloride 97 L (98-107) mmol/L Carbon Dioxide 27 (22-30) mmol/L Anion Gap 9 mmol/L BUN 12 (7-17) mg/dL Creatinine 0.65 (0.52-1.04) mg/dL Est GFR (CKD-EPI)AfAm >90 (>60 ml/min/1.73 sqM) Est GFR (CKD-EPI)NonAf >90 (>60 ml/min/1.73 sqM) Glucose 120 H (74-99) mg/dL Calcium 9.3 (8.4-10.2) mg/dL Phosphorus 3.2 (2.5-4.5) mg/dL Magnesium 1.5 L (1.6-2.3) mg/dL Total Bilirubin 1.6 H (0.2-1.3) mg/dL AST 96 H (14-36) U/L ALT 46 H (4-34) U/L Alkaline Phosphatase 164 H (38-126) U/L Total Protein 8.4 H (6.3-8.2) g/dL Albumin 4.6 (3.5-5.0) g/dL Urine Color Urine Appearance (Clear) Urine pH (5.0-8.0) Ur Specific [place] (1.001-1.035) Urine Protein (Negative) Urine Glucose (UA) (Negative) Urine Ketones (Negative) Urine Blood (Negative) Urine Nitrite (Negative) Urine Bilirubin (Negative) Urine Urobilinogen (<2.0) mg/dL Ur Leukocyte Esterase (Negative) Urine RBC (0-5) /hpf Urine WBC (0-5) /hpf Ur Squamous Epith Cells (0-4) /hpf Urine Mucus (None) /hpf Urine Opiates Screen (NotDetected) Ur Oxycodone Screen (NotDetected) Urine Methadone Screen (NotDetected) Ur Barbiturates Screen (NotDetected) U Tricyclic Antidepress (NotDetected) Ur Phencyclidine Scrn (NotDetected) Ur Amphetamines Screen (NotDetected) U Methamphetamines Scrn (NotDetected) U Benzodiazepines Scrn (NotDetected) Urine Cocaine Screen (NotDetected) U Marijuana (THC) Screen (NotDetected) Serum Alcohol <10 mg/dL 09/26/23 Range/Units 10:40 WBC (3.8-10.6) k/uL RBC (3.80-5.40) m/uL Hgb (11.4-16.0) gm/dL Hct (34.0-46.0) % MCV (80.0-100.0) fL MCH (25.0-35.0) pg MCHC (31.0-37.0) g/dL RDW (11.5-15.5) % Plt Count (150-450) k/uL MPV Neutrophils % % Lymphocytes % % Monocytes % % Eosinophils % % Basophils % % Neutrophils # (1.3-7.7) k/uL Lymphocytes # (1.0-4.8) k/uL Monocytes # (0-1.0) k/uL Eosinophils # (0-0.7) k/uL Basophils # (0-0.2) k/uL PT (10.0-12.5) sec INR (<1.2) Sodium (137-145) mmol/L Potassium (3.5-5.1) mmol/L Chloride (98-107) mmol/L Carbon Dioxide (22-30) mmol/L Anion Gap mmol/L BUN (7-17) mg/dL Creatinine (0.52-1.04) mg/dL Est GFR (CKD-EPI)AfAm (>60 ml/min/1.73 sqM) Est GFR (CKD-EPI)NonAf (>60 ml/min/1.73 sqM) Glucose (74-99) mg/dL Calcium (8.4-10.2) mg/dL Phosphorus (2.5-4.5) mg/dL Magnesium (1.6-2.3) mg/dL Total Bilirubin (0.2-1.3) mg/dL AST (14-36) U/L ALT (4-34) U/L Alkaline Phosphatase (38-126) U/L Total Protein (6.3-8.2) g/dL Albumin (3.5-5.0) g/dL Urine Color Yellow Urine Appearance Cloudy H (Clear) Urine pH 6.0 (5.0-8.0) Ur Specific [place] 1.019 (1.001-1.035) Urine Protein 2+ H (Negative) Urine Glucose (UA) Negative (Negative) Urine Ketones 1+ H (Negative) Urine Blood Moderate H (Negative) Urine Nitrite Negative (Negative) Urine Bilirubin Negative (Negative) Urine Urobilinogen <2.0 (<2.0) mg/dL Ur Leukocyte Esterase Moderate H (Negative) Urine RBC 4 (0-5) /hpf Urine WBC 14 H (0-5) /hpf Ur Squamous Epith Cells 2 (0-4) /hpf Urine Mucus Occasional H (None) /hpf Urine Opiates Screen Not Detected (NotDetected) Ur Oxycodone Screen Not Detected (NotDetected) Urine Methadone Screen Not Detected (NotDetected) Ur Barbiturates Screen Not Detected (NotDetected) U Tricyclic Antidepress Not Detected (NotDetected) Ur Phencyclidine Scrn Not Detected (NotDetected) Ur Amphetamines Screen Not Detected (NotDetected) U Methamphetamines Scrn Not Detected (NotDetected) U Benzodiazepines Scrn Detected H (NotDetected) Urine Cocaine Screen Not Detected (NotDetected) U Marijuana (THC) Screen Not Detected (NotDetected) Serum Alcohol mg/dL Disposition Clinical Impression: Alcohol withdrawal Disposition: ADMITTED IP TO THIS HOSP Time of Disposition: 12:44
[2023-09-26 09:25] LABS: Basophils % (A) 1 %; Eosinophils % (A) 1 %; HGB 13.6 gm/dL (11.4-16.0); Lymphocytes # (A) 0.6 k/uL (1.0-4.8); Lymphocytes % (A) 15 %; MCH 33.4 pg (25.0-35.0); MCV 98.1 fL (80.0-100.0); Mean Platelet Volume 9.4; Monocytes # (A) 0.5 k/uL (0-1.0); Monocytes % (A) 12 %; Neutrophils % (A) 70 %; RBC 4.08 m/uL (3.80-5.40); RDW 14.1 % (11.5-15.5); WBC 4.2 k/uL (3.8-10.6)
[2023-09-26] MEDS: FOLIC ACID 1 MG TAB PO STA (09:27)
[2023-09-26] MEDS: SODIUM CHLORIDE 0.9% 1,000 ML IV STA (09:28)
[2023-09-26 09:35] LABS: Platelet Count 49 k/uL (150-450)
[2023-09-26 09:40] LABS: INR 1.2 (<1.2); Prothrombin Time 12.4 sec (10.0-12.5)
[2023-09-26 10:07] LABS: ALT 46 U/L (4-34); AST 96 U/L (14-36); African American GFR (CKD) >90 (>60 ml/min/1.73 sqM); Albumin 4.6 g/dL (3.5-5.0); Alcohol <10 mg/dL; Alkaline Phosphatase 164 U/L (38-126); Anion Gap 9 mmol/L; Blood Urea Nitrogen 12 mg/dL (7-17); Calcium 9.3 mg/dL (8.4-10.2); Carbon Dioxide 27 mmol/L (22-30); Chloride 97 mmol/L (98-107); Glucose 120 mg/dL (74-99); Magnesium 1.5 mg/dL (1.6-2.3); Non-African American GFR(CKD) >90 (>60 ml/min/1.73 sqM); Phosphorus 3.2 mg/dL (2.5-4.5); Potassium 3.5 mmol/L (3.5-5.1); Sodium 133 mmol/L (137-145); Total Bilirubin 1.6 mg/dL (0.2-1.3); Total Protein 8.4 g/dL (6.3-8.2)
[2023-09-26] MEDS: LORazepam 1 MG TAB PO PRN (10:44)
[2023-09-26 10:53] LABS: Appearance,Urine Cloudy (Clear); Bilirubin,Urine Negative (Negative); Blood,Urine Moderate (Negative); Color,Urine Yellow; Glucose,Urine (UA) Negative (Negative); Ketones,Urine 1+ (Negative); Leukocyte Esterase,Urine Moderate (Negative); Mucus,Urine Occasional /hpf; Nitrite,Urine Negative (Negative); Protein,Urine 2+ (Negative); RBC,Urine 4 /hpf (0-5); Specific Gravity,Urine 1.019 (1.001-1.035); Squamous Epithelial Cell,Urine 2 /hpf (0-4); Urobilinogen,Urine <2.0 mg/dL (<2.0); WBC,Urine 14 /hpf (0-5)
[2023-09-26 11:07] LABS: Amphetamine Screen,Urine Not Detected (NotDetected); Barbiturate Screen,Urine Not Detected (NotDetected); Benzodiazepines Screen,Urine Detected (NotDetected); Cocaine Screen,Urine Not Detected (NotDetected); Methadone Screen, Urine Not Detected (NotDetected); Opiate Screen,Urine Not Detected (NotDetected); Oxycodone Screen, Urine Not Detected (NotDetected); Phencyclidine Screen,Urine Not Detected (NotDetected); Tricyclic Antidepressant,Urine Not Detected (NotDetected); Urn Cannabinoid Scrn Not Detected (NotDetected)
[2023-09-26] MEDS: MAGNESIUM OXIDE 400 MG TAB PO STA (11:22)
[2023-09-26] MEDS ORDERED: NALOXONE 0.4 MG/ML 1 ML VIAL IV PRN (12:45)
[2023-09-26] MEDS ORDERED: ONDANSETRON 4 MG/2 ML VIAL IVP PRN (12:45)
[2023-09-26] MEDS ORDERED: HYDROcodone/APAP 5-325MG 1 EACH TAB PO PRN (12:45)
[2023-09-26] MEDS ORDERED: LORazepam 1 MG TAB PO PRN (14:25)
[2023-09-26] MEDS ORDERED: LORazepam 0.5 MG TAB PO PRN (14:25)
[2023-09-26] MEDS: SODIUM CHLORIDE 0.9% 1,000 ML IV SCH (14:56)
[2023-09-26] MEDS: amLODIPine 10 MG TAB PO SCH (15:12)
[2023-09-26] MEDS: LOSARTAN 50 MG TAB PO SCH (15:12)
[2023-09-26] MEDS: MAGNESIUM SULFATE-D5W PMX 1 GM in DEXTROSE/WATER 1 100ML.BAG IVPB SCH (15:13)
--- NOTE | 2023-09-26 17:34 | P.HPIM ---
History of Present Illness H&P Date: 09/26/23 History of Presenting Illness: Patient is a 57-year-old female with a past medical history of alcohol abuse, hypertension, anxiety, and alcohol withdrawal seizures. She presented to the emergency department with a chief complaint of alcohol withdrawal and need for prescription refills. Was recently seen on 08/31/2023 secondary to similar complaint. Patient reports that she no longer has a PCP and was provided with recommended local PCP at time of last discharge but did not follow-up as instructed. Patient reports she was successful in stopping drinking and following outpatient with [facility] and . However, patient reports she again fell off the wagon when they went to a local bar/diner that they frequently visit. Patient reports his time drinking was on 09/23/2023. She reports she was supposed to follow-up with her meeting at [facility] today but her tremors were so bad and she started having hallucinations and knows she needed medical assistance for detox as she was concerned she would have another withdrawal seizure. Patient tearful and reports feeling tremulous, nauseous and anxious. She reports episodes of vomiting over the past 2 days but states vomiting has subsided today. Patient denies having headache, lightheadedness, dizziness, chest pain, palpitations, shortness of breath, or experiencing any numbness/tingling/weakness in her extremities. Upon arrival to our facility, patient underwent evaluation in the emergency department. Vital signs upon arrival show blood pressure 170/98, heart rate 61, respiratory rate 18, and SpO2 of 98% on room air. EKG completed showing sinus bradycardia at 53 bpm with T wave inversion in leads V2. Labs completed and reviewed. CBC showing thrombocytopenia with platelet count of 49. Coagulation profile showing elevated INR 1.2. BMP showing hyponatremia with sodium of 133 and hypochloremia with chloride of 97. Blood glucose 120. Magnesium was low at 1.5. Liver prof ile showing hyperbilirubinemia with bilirubin of 1.6 and transaminitis with AST of 96, ALT of 46, and alkaline phosphatase of 164. Urine drug screen positive for benzodiazepines. Serum alcohol level was negative at less than 10. Patient being admitted under our services for medical detox at this time. Review of systems: Pertinent positives and negatives as discussed in HPI, a complete review of systems was performed and all other systems are negative. Physical exam: Vital signs reviewed and stable. General: Nontoxic, no distress and appears stated age. Derm: Skin warm and dry, normal coloration for ethnicity. Head: Atraumatic, normocephalic and symmetric. Eyes: EOMs intact, no lid lag, and anicteric sclera Mouth: no lip lesions, mucus membranes moist Cardiovascular: regular rate and rhythm with normal S1S2, no murmur, positive posterior tibial pulses bilaterally, and cap refill < 2 seconds. Lungs: Respirations even, regular, and unlabored on room air. Lungs CTA bilaterally, no rhonchi, no rales, no wheezing, and no accessory muscle usage. Abdominal: soft, nontender to palpation, no guarding, no appreciable organomegaly Ext: ROM intact. No gross muscle atrophy, no edema, no contractures Neuro: Speech clear, face symmetrical and CN II-XII grossly intact with no noted focal neuro deficits Psych: Alert and oriented to person, place, time, and situation. Appropriate and pleasant affect. Assessment and Plan of Care: Alcohol withdraw in active alcoholic Thrombocytopenia, secondary to chronic alcohol abuse Hyperbilirubinemia and transaminitis, secondary to chronic alcohol abuse Elevated INR, secondary to chronic alcohol abuse Hypertension Anxiety Seizure disorder with history of recurrent breakthrough seizures secondary to alcohol withdraw -Order placed for monitoring of CIWA scores and patient to be medicated with Ativan 0.5 mg every 4 hours as needed for CIWA score of 4-5, Ativan 1 mg every 4 hours for CIWA score of 6-7, Ativan 2 mg every 3 hours CIWA score of 8-9, and Ativan 2 mg every 2 hours forr CIWA score of 10 or greater. -Continuous IV hydration 0.9% normal saline at 75 cc/h. -Thiamine 100 mg twice a day -Multivitamin daily -Folate 1 mg daily -Seizure, fall, and aspiration precautions in place. -Urine drug screen for benzodiazepines -Continued close monitoring of electrolytes and replace as needed. -Telemetry monitoring. -Had long conversation with patient regarding concerns of underlying alcoholic cirrhosis with elevated INR, thrombocytopenia, hyperbilirubinemia and transaminitis. Patient was strongly encouraged to attend inpatient drug and alcohol rehabilitation facility. -Patient to continue daily medication regimen with amlodipine 10 mg daily, clonidine point 1 mg 3 times daily, Vimpat 50 mg twice daily, losartan 50 mg daily, metoprolol 50 mg twice daily, and may resume naltrexone tomorrow morning as it is greater than 72 hours after last drink. Patient was informed that home prescription will be refilled one last time on this admission, as patient does have medical insurance and needs to establish care with a PCP. Therefore she was informed that we will not continue to refill her prescriptions monthly as patient has presented to our facility for alcohol withdrawal and prescription refills on 07/31/23, 08/31/2023 and again today 09/2123. Data and imaging reviewed: As stated above in HPI. The patient is admitted with an anticipated less than 2 midnight stay for evaluation of alcohol withdrawal CODE STATUS: Full code DVT prophylaxis: MYA [place] and ARIs Anticipated discharge date: 24 to [address]: Home Patient was seen independently by Nurse Practitioner. This document was prepared using [employer] dictation software. Please allow for errors in lead burner while rare they do occur. I reviewed the documentation as provided by the SERVANDO above, who is the original author of this note. I agree with the documented assessment and plan, with the following changes: none Past Medical History Past Medical History: Hypertension, Seizure Disorder Additional Past Medical History / Comment(s): vertigo, hx pancreatitis History of Any Multi-Drug Resistant Organisms: None Reported Past Surgical History: Section Additional Past Surgical History / Comment(s): cystoscopy, sx on urethra at age 1 Past Anesthesia/Blood Transfusion Reactions: Motion Sickness, Postoperative Nausea & Vomiting (PONV) Past Psychological History: Anxiety Smoking Status: Never smoker Past Alcohol Use History: Daily Past Drug Use History: None Reported - Past Family History Mother Family Medical History: Hypertension Father Family Medical History: Coronary Artery Disease (CAD) Medications and Allergies Home Medications Medication Instructions Recorded Confirmed Type Naltrexone HCl [Revia] 50 mg PO DAILY 07/31/23 09/26/23 History Bumetanide [BUMEX] 0.5 mg PO DAILY PRN 30 Days #30 tab 09/27/23 Rx Folic Acid 1 mg PO DAILY 30 Days #30 tab 09/27/23 Rx Lacosamide [Vimpat] 50 mg PO BID 30 Days #60 tab 09/27/23 Rx Losartan [Cozaar] 50 mg PO DAILY 30 Days #30 tab 09/27/23 Rx Melatonin 5 mg PO HS 30 Days #30 tab 09/27/23 Rx Metoprolol Tartrate [Lopressor] 50 mg PO BID 30 Days #60 tab 09/27/23 Rx Potassium Gluconate 99 mg PO DAILY 30 Days #30 tab 09/27/23 Rx amLODIPine [Norvasc] 10 mg PO DAILY 30 Days #30 tab 09/27/23 Rx cloNIDine HCL [Catapres] 0.1 mg PO TID 30 Days #90 tab 09/27/23 Rx hydrOXYzine HCL [Atarax] 25 mg PO BID 30 Days #60 tab 09/27/23 Rx Allergies Allergy/AdvReac Type Severity Reaction Status Date / Time ibuprofen [From Motrin] Allergy Anaphylaxis Verified 09/26/23 13:22 latex Allergy Rash/Hives Verified 09/26/23 13:22 bumetanide AdvReac Nausea & Verified 09/26/23 13:22 Vomiting pollen extracts AdvReac Unknown Verified 09/26/23 13:22 Physical Exam Osteopathic Statement: *. No significant issues noted on an osteopathic structu ral exam other than those noted in the History and Physical/Consult. Vitals: Vital Signs Pulse Resp BP Pulse Ox 09/26/23 08:34 61 18 170/90 98 Intake and Output 09/25/23 09/26/23 09/26/23 22:59 06:59 14:59 Other: Weight 69.853 kg Results CBC & Chem 7: 09/26/23 09:20 09/26/23 09:20 Labs: Abnormal Lab Results - Last 24 Hours (Table) 09/26/23 09/26/23 09/26/23 Range/Units 09:20 09:20 09:20 Plt Count 49 L (150-450) k/uL Lymphocytes # 0.6 L (1.0-4.8) k/uL INR 1.2 H (<1.2) Sodium 133 L (137-145) mmol/L Chloride 97 L (98-107) mmol/L Glucose 120 H (74-99) mg/dL Magnesium 1.5 L (1.6-2.3) mg/dL Total Bilirubin 1.6 H (0.2-1.3) mg/dL AST 96 H (14-36) U/L ALT 46 H (4-34) U/L Alkaline Phosphatase 164 H (38-126) U/L Total Protein 8.4 H (6.3-8.2) g/dL Urine Appearance (Clear) Urine Protein (Negative) Urine Ketones (Negative) Urine Blood (Negative) Ur Leukocyte Esterase (Negative) Urine WBC (0-5) /hpf Urine Mucus (None) /hpf U Benzodiazepines Scrn (NotDetected) 09/26/23 Range/Units 10:40 Plt Count (150-450) k/uL Lymphocytes # (1.0-4.8) k/uL INR (<1.2) Sodium (137-145) mmol/L Chloride (98-107) mmol/L Glucose (74-99) mg/dL Magnesium (1.6-2.3) mg/dL Total Bilirubin (0.2-1.3) mg/dL AST (14-36) U/L ALT (4-34) U/L Alkaline Phosphatase (38-126) U/L Total Protein (6.3-8.2) g/dL Urine Appearance Cloudy H (Clear) Urine Protein 2+ H (Negative) Urine Ketones 1+ H (Negative) Urine Blood Moderate H (Negative) Ur Leukocyte Esterase Moderate H (Negative) Urine WBC 14 H (0-5) /hpf Urine Mucus Occasional H (None) /hpf U Benzodiazepines Scrn Detected H (NotDetected)
[2023-09-26] MEDS: cloNIDine HCL 0.1 MG TAB PO SCH (18:10)
[2023-09-26] MEDS ORDERED: LORazepam 1 MG/0.5 ML VIAL IV PRN ×3 (21:28→21:30)
[2023-09-26] MEDS: LACOSAMIDE 50 MG TABLET PO SCH (21:34)
[2023-09-26] MEDS: METOPROLOL TARTRATE 50 MG TAB PO SCH (21:34)
[2023-09-26] MEDS: MELATONIN 5 MG TABLET PO SCH (21:34)
[2023-09-26] MEDS: LORazepam 1 MG/0.5 ML VIAL IV PRN (21:34)
[2023-09-26] MEDS: hydrOXYzine HCL 25 MG TAB PO SCH (22:09)
[2023-09-27] MEDS: chlordiazePOXIDE 25 MG CAP PO STA (03:10)
[2023-09-27] MEDS: ACETAMINOPHEN TAB 325 MG TAB PO PRN (03:35)
[2023-09-27 07:53] VITALS: RESP 18
[2023-09-27] MEDS: FOLIC ACID 1 MG TAB PO SCH (09:05)
[2023-09-27] MEDS: PANTOPRAZOLE 40 MG/10 ML VIAL IV SCH (09:06)
[2023-09-27] MEDS: MULTIVITAMINS, THERA 1 EACH TAB PO SCH (09:06)
[2023-09-27] MEDS: THIAMINE 100 MG TAB PO SCH (09:06)
[2023-09-27] MEDS: NALTREXONE HCL 50 MG TAB PO SCH (10:15)
--- NOTE | 2023-09-27 13:35 | P.DS ---
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 Urine culture was obtained upon arrival to facility urgency department, however patient denies any urinary complaints. Urine culture appears to be growing Enterococcus, however patient remains free from urinary complaints and therefore do not recommend antibiotic at this time. Hospital Course: Patient is a 57-year-old female with a past medical history of alcohol abuse, hypertension, anxiety, and alcohol withdrawal seizures. She presented to the emergency department with a chief complaint of alcohol withdrawal and need for prescription refills. Was recently seen on 08/31/2023 secondary to similar complaint. Patient reports that she no longer has a PCP and was provided with recommended local PCP at time of last discharge but did not follow-up as instructed. Patient reports she was successful in stopping drinking and following outpatient with [facility] and . However, patient reports she again fell off the wagon when they went to a local bar/diner that they frequently visit. Patient reports his time drinking was on 09/23/2023. She reports she was supposed to follow-up with her meeting at [facility] today but her tremors were so bad and she started having hallucinations and knows she needed medical assistance for detox as she was concerned she would have another withdrawal seizure. Patient tearful and reports feeling tremulous, nauseous and anxious. She reports episodes of vomiting over the past 2 days but states vomiting has subsided today. Patient denies having headache, lightheadedness, dizziness, chest pain, palpitations, shortness of breath, or experiencing any numbness/tingling/weakness in her extremities. Upon arrival to our facility, patient underwent evaluation in the emergency department. Vital signs upon arrival show blood pressure 170/98, heart rate 61, respiratory rate 18, and SpO2 of 98% on room air. EKG completed showing sinus bradycardia at 53 bpm with T wave inversion in leads V2. Labs completed and reviewed. CBC showing thrombocytopenia with platelet count of 49. Coagulation profile showing elevated INR 1.2. BMP showing hyponatremia with sodium of 133 and hypochloremia with chloride of 97. Blood glucose 120. Magnesium was low at 1.5. Liver profile showing hyperbilirubinemia with bilirubin of 1.6 and transaminitis with AST of 96, ALT of 46, and alkaline phosphatase of 164. Urine drug screen positive for benzodiazepines. Serum alcohol level was negative at less than 10. Patient being admitted under our services for medical detox at this time. Patient treated overnight with aggressive IV fluid hydration and CIWA protocol with symptom triggered medication management with benzodiazepines. Patient reports that her boyfriend gets off work this afternoon and requesting discharge home at this time. Patient reports that she needs prescriptions refilled prior to discharge. Patient was informed that home prescriptions will only be refilled 1 last time on this admission as she does have medical insurance and needs to establish care with a PCP as previously directed. Patient strongly encouraged to consider inpatient drug and rehabilitation facility, patient again adamantly declines stating that she will follow-up outpatient with and [facility] as she has been doing previously. Physical exam: Vital signs reviewed and stable. General: Nontoxic, no distress and appears stated age. Derm: Skin warm and dry, normal coloration for ethnicity. Head: Atraumatic, normocephalic and symmetric. Eyes: EOMs intact, no lid lag, and anicteric sclera Mouth: no lip lesions, mucus membranes moist Cardiovascular: regular rate and rhythm with normal S1S2, no murmur, positive posterior tibial pulses bilaterally, and cap refill < 2 seconds. Lungs: Respirations even, regular, and unlabored on room air. Lungs CTA bilaterally, no rhonchi, no rales, no wheezing, and no accessory muscle usage. Abdominal: soft, nontender to palpation, no guarding, no appreciable organomegaly Ext: ROM intact. No gross muscle atrophy, no edema, no contractures Neuro: Speech clear, face symmetrical and CN II-XII grossly intact with no noted focal neuro deficits Psych: Alert and oriented to person, place, time, and situation. Appropriate and pleasant affect. A total of 31 minutes of time were spent preparing this complex discharge summary. Pt was discharged on 09/27/2023 at 1:23 PM. Patient was seen independently by Nurse Practitioner. This document was prepared using [employer] dictation software. Please allow for errors in cutter hand while rare they do occur. I reviewed the documentation as provided by the SERVANDO above, who is the original author of this note. I agree with the documented assessment and plan, with the following changes: none Patient Condition at Discharge: Stable Plan - Discharge Summary Discharge Rx Participant: Yes New Discharge Prescriptions: Continue Bumetanide [BUMEX] 0.5 mg PO DAILY PRN 30 Days #30 tab PRN Reason: Edema cloNIDine HCL [Catapres] 0.1 mg PO TID 30 Days #90 tab Losartan [Cozaar] 50 mg PO DAILY 30 Days #30 tab Folic Acid 1 mg PO DAILY 30 Days #30 tab Metoprolol Tartrate [Lopressor] 50 mg PO BID 30 Days #60 tab Lacosamide [Vimpat] 50 mg PO BID 30 Days #60 tab Naltrexone HCl [Revia] 50 mg PO DAILY hydrOXYzine HCL [Atarax] 25 mg PO BID 30 Days #60 tab Melatonin 5 mg PO HS 30 Days #30 tab amLODIPine [Norvasc] 10 mg PO DAILY 30 Days #30 tab Potassium Gluconate 99 mg PO DAILY 30 Days #30 tab Discharge Medication List Naltrexone HCl [Revia] 50 mg PO DAILY 07/31/23 [History] Bumetanide [BUMEX] 0.5 mg PO DAILY PRN 30 Days #30 tab 09/27/23 [Rx] Folic Acid 1 mg PO DAILY 30 Days #30 tab 09/27/23 [Rx] Lacosamide [Vimpat] 50 mg PO BID 30 Days #60 tab 09/27/23 [Rx] Losartan [Cozaar] 50 mg PO DAILY 30 Days #30 tab 09/27/23 [Rx] Melatonin 5 mg PO HS 30 Days #30 tab 09/27/23 [Rx] Metoprolol Tartrate [Lopressor] 50 mg PO BID 30 Days #60 tab 09/27/23 [Rx] Potassium Gluconate 99 mg PO DAILY 30 Days #30 tab 09/27/23 [Rx] amLODIPine [Norvasc] 10 mg PO DAILY 30 Days #30 tab 09/27/23 [Rx] cloNIDine HCL [Catapres] 0.1 mg PO TID 30 Days #90 tab 09/27/23 [Rx] hydrOXYzine HCL [Atarax] 25 mg PO BID 30 Days #60 tab 09/27/23 [Rx] Follow up Appointment(s)/Referral(s): Raegan Partida MD [REFERRING] - 1 Week (Office of [facility] or [facility] stated to have patient call insurance company to verify which doctor they will accept before making appointment. ) Patient Instructions/Handouts: Alcohol Intoxication (DC) Activity/Diet/Wound Care/Special Instructions: Activity: As tolerated. Take breaks as needed. Diet: Heart healthy and carb consistent diet. Avoid salts, or foods with hidden salts such as canned or boxed foods and frozen dinners. Extra salt makes your heart work harder and traps the fluid in your body for longer. Special Instructions: It is strongly recommended you attend inpatient drug and alcohol rehabilitation facility, however you expressed you continue to go to your AA meetings and outpatient and group therapy at [facility]. Strongly recommend avoidance of any and all alcohol use. As we discussed your liver enzymes are elevated and you are showing clinical signs concerning for development of alcoholic cirrhosis, it is strongly recommended you STOP any and all use of alcohol. Prescriptions for your home medications have been sent to pharmacy, we have discussed this on the last two admissions, you need to call and schedule an appointment to establish care with a primary care doctor as we will no longer be able to continue refilling your monthly prescriptions for chronic conditions. Thank you for allowing us to participate in your care, it was truly a pleasure having you for our patient!!! . Discharge/Stand Alone Forms: Who Do I Call?, Community Resources, Outpatient Counseling, In Substance Abuse Facilities, Outpatient Therapy List Discharge Disposition: HOME SELF-CARE
[2023-09-27 14:36] VITALS: BP 159/85; PULSE 60; TEMP 97.4
== END 2023-09-27 18:03 | disposition home or self-care (01) ==
LOC: MERGE 08:28 → EC 08:28 → 4SSUR 12:16
PROVIDERS: ADMIT Student in an Organized Health Care Education/Training Program; ATTEND Student in an Organized Health Care Education/Training Program
DX: F10.231 Alcohol dependence with withdrawal delirium (principal); D69.59 Other secondary thrombocytopenia; E87.1 Hypo-osmolality and hyponatremia; E87.8 Other disorders of electrolyte and fluid balance, not elsewhere classified; R79.1 Abnormal coagulation profile; R17 Unspecified jaundice; R74.01 Elevation of levels of liver transaminase levels; R74.8 Abnormal levels of other serum enzymes; Y90.0 Blood alcohol level of less than 20 mg/100 ml; G40.909 Epilepsy, unspecified, not intractable, without status epilepticus; I10 Essential (primary) hypertension; F41.9 Anxiety disorder, unspecified; R82.71 Bacteriuria; B95.2 Enterococcus as the cause of diseases classified elsewhere; R00.1 Bradycardia, unspecified; Z79.899 Other long term (current) drug therapy; Z91.040 Latex allergy status; Z88.8 Allergy status to other drugs, medicaments and biological substances; Z88.6 Allergy status to analgesic agent; Z91.048 Other nonmedicinal substance allergy status
CPT/HCPCS: 96376 ×3; 96361; 96375 ×2; 96365; 96372; 99285; 36415; 93005; 80053; 83735; 84100; 85025; 85610; 81001; 80306; 80320; 87086; 87077; 87186; G0378 ×2; J2060 ×2; J3411; J3475; C9113

== ENCOUNTER → 2024-07-30 | Outpatient (CLI) | payer OTHER ==
--- NOTE | 2024-07-30 14:26 | MM ---
Reason for Exam: Screening (asymptomatic). Last mammogram was performed 1 year(s) and 5 month(s) ago. Patient History: Menarche at age 11. First Full-Term at age 26. Postmenopausal. Patient has history of breast feeding. Patient used Hormonal Contraceptives for 4 years. Maternal grandmother had ovarian cancer, age 63. Maternal grandmother had breast cancer under age 50. Risk Values: Shanelle 5 year model risk: 1.6%. NCI Lifetime model risk: 8.1%. Prior Study Comparison: 05/15/2019 Bilateral Screening Mammogram, [facility]. 10/11/2021 Bilateral MG 3D screening mammo w/cad, [facility]. 02/08/2023 Bilateral MG screening mammo w CAD, [facility]. Tissue Density: The breasts are heterogeneously dense, which may obscure small masses. Findings: Analyzed By CAD. There is a new nodular density in the upper outer quadrant of the right breast measuring approximately 1.5 cm and 3.8 cm from the nipple. A smaller 4 mm nodule is seen anterior on the cc view. Recommend spot compression views. Benign calcifications. Suspicious grouped calcifications. Overall Assessment: Incomplete: need additional imaging evaluation, BI-RAD 0 Management: Special View Mammogram of the right breast. . Patient should continue monthly self-breast exams. A clinical breast exam by your physician is recommended on an annual basis. This exam should not preclude additional follow-up of suspicious palpable abnormalities. Note on Shanelle scores and lifetime risk: 1. A Shanelle score greater than 3% is considered moderate risk. If this is the case, consider specialist referral to assess eligibility for a risk reducing agent. 2. If overall lifetime risk for the development of breast cancer is 20% or higher, the patient may qualify for future screening with alternating mammogram and breast MRI. [facility], , 07/30/2024 2:23 PM. Electronically signed and approved by: Brian Cunningham M.D. Radiologis
== END | disposition home or self-care (01) ==
LOC: RADMAMWWP 13:57
PROVIDERS: ATTEND Family Medicine
DX: Z12.31 Encounter for screening mammogram for malignant neoplasm of breast (principal); R92.333 Mammographic heterogeneous density, bilateral breasts; Z78.0 Asymptomatic menopausal state; Z80.3 Family history of malignant neoplasm of breast; Z92.0 Personal history of contraception
CPT/HCPCS: 77067

== ENCOUNTER → 2024-08-05 | Outpatient (CLI) | payer OTHER ==
--- NOTE | 2024-08-05 14:02 | USB ---
Reason for Exam: Additional evaluation requested from abnormal screening. Patient History: Menarche at age 11. First Full-Term at age 26. Postmenopausal. Patient has history of breast feeding. Patient used Hormonal Contraceptives for 4 years. Maternal grandmother had ovarian cancer, age 63. Maternal grandmother had breast cancer under age 50. Risk Values: Shanelle 5 year model risk: 1.6%. NCI Lifetime model risk: 8.1%. Technique: Method: Targeted. Prior Study Comparison: 10/11/2021 Bilateral MG 3D screening mammo w/cad, [facility]. 02/08/2023 Bilateral MG screening mammo w CAD, [facility]. 07/30/2024 Bilateral MG screening mammo w CAD, [facility]. Findings: The upper outer quadrant of the right breast, the axilla of the right breast and the retroareolar of the right breast were scanned. Hypoechoic mass at the right 9:00 position 3 cm from slightly irregular margins measuring 1.1 x 2.8 x 0.9 cm. Tissue diagnosis is recommended.. Overall Assessment: Suspicious, BI-RAD 4 Management: Ultrasound Core Biopsy of the right breast. A clinical breast exam by your physician is recommended on an annual basis and results should be correlated with mammographic findings. This exam should not preclude additional follow-up of suspicious palpable abnormalities. Results were given to the patient verbally at the time of exam. [facility], , 08/05/2024 1:57 PM. Electronically signed and approved by: Lucio Vila M.D. Radiologis
--- NOTE | 2024-08-06 09:58 | MM ---
Reason for Exam: Additional evaluation requested from abnormal screening. Last screening mammogram was performed less than 1 month ago. Patient History: Menarche at age 11. First Full-Term at age 26. Postmenopausal. Patient has history of breast feeding. Patient used Hormonal Contraceptives for 4 years. Maternal grandmother had ovarian cancer, age 63. Maternal grandmother had breast cancer under age 50. Risk Values: Shanelle 5 year model risk: 1.6%. NCI Lifetime model risk: 8.1%. Prior Study Comparison: 05/19/2016 Screening Mammogram, Unknown. 04/23/2018 Bilateral Screening Mammogram, [facility]. 10/11/2021 Bilateral MG 3D screening mammo w/cad, [facility]. 02/08/2023 Bilateral MG screening mammo w CAD, [facility]. 07/30/2024 Bilateral MG screening mammo w CAD, [facility]. Tissue Density: Right: The breasts are heterogeneously dense, which may obscure small masses. Findings: Analyzed By CAD. Persistent nodular density upper outer quadrant right breast approximately 5 cm from the nipple measuring 1.2 cm. Ultrasound is recommended. Overall Assessment: Incomplete: need additional imaging evaluation, BI-RAD 0 Management: Diagnostic Breast Ultrasound of the right breast. Results were given to the patient verbally at the time of exam. Patient should continue monthly self-breast exams. A clinical breast exam by your physician is recommended on an annual basis. This exam should not preclude additional follow-up of suspicious palpable abnormalities. Note on Shanelle scores and lifetime risk: 1. A Shanelle score greater than 3% is considered moderate risk. If this is the case, consider specialist referral to assess eligibility for a risk reducing agent. 2. If overall lifetime risk for the development of breast cancer is 20% or higher, the patient may qualify for future screening with alternating mammogram and breast MRI. [facility], , 08/05/2024 1:30 PM. Electronically signed and approved by: Lucio Vila M.D. Radiologis
== END | disposition home or self-care (01) ==
LOC: RADMAMWWP 12:59
PROVIDERS: ATTEND Family Medicine
DX: R92.8 Other abnormal and inconclusive findings on diagnostic imaging of breast (principal); R92.331 Mammographic heterogeneous density, right breast; Z78.0 Asymptomatic menopausal state; Z80.3 Family history of malignant neoplasm of breast; Z92.0 Personal history of contraception
CPT/HCPCS: 77061; 77065

== ENCOUNTER → 2024-08-12 | Day surgery (SDC) | payer OTHER ==
--- NOTE | 2024-08-20 10:18 | MM ---
Reason for Exam: Post Procedure Mammogram. Last screening mammogram was performed less than 1 month ago. Patient History: Menarche at age 11. First Full-Term at age 26. Postmenopausal. Patient has history of breast feeding. Patient used Hormonal Contraceptives for 4 years. Maternal grandmother had ovarian cancer, age 63. Maternal grandmother had breast cancer under age 50. Risk Values: Shanelle 5 year model risk: 1.6%. NCI Lifetime model risk: 8.1%. Prior Study Comparison: 02/08/2023 Bilateral MG screening mammo w CAD, [facility]. 07/30/2024 Bilateral MG screening mammo w CAD, [facility]. 08/05/2024 Right MG 3D work up w/cad RT, [facility]. Tissue Density: Right: The breasts are heterogeneously dense, which may obscure small masses. Pathology Description: Location: 9 o'clock. Marker Left Behind. Needle Type: Mammotome Cores: 5 Gauge: 13 The 9:00, 1.2 cm right breast mass, mammographic correlate, is identified and targeted for biopsy. The procedure of ultrasound guided core biopsy was explained to the patient. Benefits, alternatives, and risks were discussed. An informed consent was then obtained. The patient was placed in supine positioning for imaging and for the procedure. The overlying skin was prepped and draped in usual sterile fashion. Lidocaine buffered with bicarbonate was used as anesthetic into the skin followed by lidocaine/epinephrine into the subcutaneous tissue up to area of concern in the 9:00 right breast. Under ultrasound guidance, a 13-gauge vacuum-assisted mammotome Elite biopsy gun was used to obtain 5 core samples. Following this, a HydroMark butterfly clip was left in lesion. The patient tolerated the procedure well without any immediate complication. The patient was kept in the radiology department for short stay after the procedure and then discharged home in stable condition. Postprocedure mammogram: The patient was transferred to mammography for physician ordered post procedure mammogram for clip placement verification. Post procedure mammogram demonstrates butterfly clip at the 9:00 mammographic mass. IMPRESSION: Successful, uncomplicated ultrasound guided core biopsy of the 9:00 right breast mass; full pathology results to follow. [facility], , 08/12/2024 1:46 PM. Pathology Results: Result: Benign, Lipoma of the breast. RIGHT BREAST, 9:00 3 CMFN, NEEDLE CORE BIOPSY: Benign adipose tissue and focal fibrous tissue suggestive of possible lipoma. Breast elements are not present. See note. Notes Recommend clinical and imaging study correlation to determine biopsy adequacy. Overall Assessment: Benign Assessment: MG diagnostic mammo RT wo CAD - Right: Benign, BI-RAD 2. Management: Diagnostic Mammogram of the right breast in 6 months. Diagnostic Breast Ultrasound of the right breast in 6 months. Electronically signed and approved by: Krystina Carlin M.D. Radiologist
== END ==
LOC: RADUSWWP 12:12
PROVIDERS: ATTEND Family Medicine
DX: R92.8 Other abnormal and inconclusive findings on diagnostic imaging of breast (principal); Z78.0 Asymptomatic menopausal state; Z80.3 Family history of malignant neoplasm of breast; Z80.41 Family history of malignant neoplasm of ovary; Z92.0 Personal history of contraception
CPT/HCPCS: 88305; 77065; 19083; A4648

== ENCOUNTER 2024-08-13 08:08 | Day surgery (SDC) | payer OTHER ==
[2024-08-13] MEDS ORDERED: LACTATED RINGERS 1,000 ML IV SCH (08:29)
[2024-08-13 08:43] VITALS: TEMP 97.8
[2024-08-13] MEDS: IV FLUID CONTINUATION 1,000 ML IV ONE (08:50)
[2024-08-13] MEDS: ONDANSETRON 4 MG/2 ML VIAL IVP ONE (08:50)
[2024-08-13] MEDS ORDERED: LIDOCAINE 2% (PF) 20 MG/ML 5 ML VIAL ONE (08:57)
[2024-08-13] MEDS ORDERED: PROPOFOL 10 MG/ML 20 ML VIAL IV ONE (08:57)
[2024-08-13 09:00] LABS: Glucose,Whole Blood 111 mg/dL (70-110)
--- NOTE | 2024-08-13 09:09 | P.PCN ---
Date of Procedure: 08/13/24 Procedure(s) Performed: BRIEF HISTORY: Patient is a 58-year-old, pleasant, white female scheduled for an upper endoscopy as a part of evaluation of chronic cough for the last 6 months duration. She denies any heartburn. PROCEDURE PERFORMED: Esophagogastroduodenoscopy with biopsy.. PREOPERATIVE DIAGNOSIS: Chronic cough of 6 months duration. IV sedation per anesthesia. PROCEDURE: After informed consent was obtained, the patient was brought into the endoscopy unit. IV sedation was administered by Anesthesia under continuous monitoring. Initially the Olympus GIF-140 video endoscope was inserted into the mouth. Esophagus intubated without any difficulty. It was gradually advanced into the stomach and duodenum and carefully examined. The bulb and the second part of the duodenum appeared normal. The scope at this time was withdrawn to the stomach, adequately insufflated with air, and upon careful examination, mucosa of the antrum, patchy areas of erythema consistent with gastritis. Body, cardia and the fundus appeared normal. The scope was then withdrawn into the esophagus. Small hiatal hernia noted. The GE junction was located at 39 cm from the incisors. The esophagus appeared normal. There were no erosions or ulcerations seen, biopsies were done from a distal esophagus and the patient tolerated the procedure well. IMPRESSION: 1. Mild antral gastritis. 2. Small hiatal hernia. RECOMMENDATIONS: The findings of this examination were discussed with the patient as well as her family. She was advised to follow-up with the biopsy results. Trial of Prilosec 20 mg daily for 3 months to see if reflux is contributing to any chronic cough. Follow-up in office in 3 months.
[2024-08-13 09:31] VITALS: BP 155/80; PULSE 62; RESP 16
== END 2024-08-13 09:47 | disposition home or self-care (01) ==
LOC: ORWHC2ENDO 08:08
PROVIDERS: ATTEND Internal Medicine Gastroenterology
DX: K29.50 Unspecified chronic gastritis without bleeding (principal); R05.3 Chronic cough; K44.9 Diaphragmatic hernia without obstruction or gangrene; K21.9 Gastro-esophageal reflux disease without esophagitis
CPT/HCPCS: 43239; J2405; J2704; J2003; 88305

== ENCOUNTER → 2024-10-04 | Outpatient (CLI) | payer OTHER | LOC: WWCWWP 11:07 | PROVIDERS: ATTEND Surgery | DX: Z53.9 Procedure and treatment not carried out, unspecified reason (principal) ==